=== PATIENT | male | born 1955 | race Two or more races ===

== ENCOUNTER 2020-02-29 12:58 | Inpatient (IN) | payer OTHER, SELFPAY ==
[2020-02-29] VITALS (9 sets, daily range): BP systolic 118–166; BP diastolic 68–89; PULSE 85–106; RESP 18–30; TEMP 36.8–37.9; O2SAT 88–100; BMI 20.8
--- NOTE | 2020-02-29 | CT_ITS ---
EXAMINATION: CT CHEST WITHOUT CONTRAST CLINICAL INFORMATION: Chest radiograph earlier today demonstrated bilateral perihilar airspace disease suggesting either infectious or neoplastic process. COMPARISON: Chest radiograph earlier today and chest CT 10/11/2019, CT abdomen pelvis 11/06/2019. TECHNIQUE: Multidetector volumetric CT imaging of the chest was done. Axial MIP volume rendering provided. Sagittal and coronal reformatted images were obtained. This CT examination was performed using dose optimization techniques as appropriate, variously including the following: *Automated exposure control *Adjustment of mA and/or kV according to patient size (this includes techniques or standardized protocols for targeted exams where dose is matched to indication/reason for exam; i.e. extremities or head). *Use of iterative reconstruction technique. DLP: 233 mGy-cm FINDINGS: LUNGS AND PLEURAL: Again seen are background emphysematous changes with bullous formation. There is left perihilar significant disease present with associated consolidation surrounding the airways. This process appears slightly improved when compared to the prior study as previously this nearly reached the lateral chest wall but now is significantly better. Exactly what part of the medial component represents adenopathy is difficult to say because of lack of contrast, large heart size and enlarged pulmonary arteries. A pleural effusion that had been present on the left previously has for the most part resolved. Previously there had been some left lower lobe collapse and now there is left lower lobe consolidation (series 5 image 305). Previously seen right upper lobe and right lower lobe infiltrates have predominantly cleared. Right middle lobe consolidation appears slightly worse series 5 image 318). No suspicious pulmonary nodules are seen. MEDIASTINUM: There is marked cardiac enlargement. It is difficult to assess for mediastinal adenopathy with lack of IV contrast. Coronary calcifications are present. A right chest wall port has its tip in the SVC. No pericardial effusion. AXILLA: No lymphadenopathy. UPPER ABDOMEN: The right-sided liver mass has increased in size since the prior study of 10/11/2019 from 1.9 cm to 2.6 cm (series 3 image 57). At the time of a CT abdomen on 11/06/2019 this measured 2.0 cm. No new liver masses are seen. No adrenal metastatic disease is seen. OSSEOUS STRUCTURES: Some mild degenerative changes in the spine. No evidence of bony metastatic disease. IMPRESSION: This patient has biopsy-proven lung carcinoma (11/16/2019). There are background changes of emphysema. In addition: 1. Left perihilar mass difficult to evaluate because of lack of IV contrast but the associated infiltrate with this appears somewhat improved. 2. Previously seen right upper lobe and right lower lobe infiltrates have cleared. 3 .Right middle lobe infiltrate slightly worse. 4 .Increase in size of liver mass, presumably metastatic disease.
--- NOTE | 2020-02-29 13:30 | PC.NURSE ---
message left for pt's dtr to acquire information, pt is poor historian req this rn call pt's dtr
--- NOTE | 2020-02-29 13:44 | ECG_ITS ---
Test Reason : SOB Blood Pressure : / mmHG Vent. Rate : 108 BPM Atrial Rate : 108 BPM P-R Int : 152 ms QRS Dur : 102 ms QT Int : 356 ms P-R-T Axes : 034 -09 076 degrees QTc Int : 477 ms Sinus tachycardia Left axis deviation Possible Left atrial enlargement Left ventricular hypertrophy Intra-ventricular conduction delay Nonspecific ST abnormality Abnormal ECG When compared with ECG of 10-NOV-2019 19:09, No significant change was found Referred By: Ksenia Reyes Electronically Signed By:PING LAGOS MD
--- NOTE | 2020-02-29 13:44 | XR_ITS ---
EXAMINATION: XR CHEST CLINICAL INFORMATION: Cough, chest pain and shortness of breath COMPARISON: Previous chest x-rays most recent October [address] most recent September 2019 TECHNIQUE: Frontal view of the chest was obtained. FINDINGS: The cardiac silhouette is enlarged but stable. There are surgical clips in the right suprahilar region. There is bilateral perihilar airspace disease, left greater than right. This appears increased from October 2019 chest x-ray. The lungs are otherwise clear. There is no pleural effusion or pneumothorax. There is a right jugular port with tip projecting over the cavoatrial junction. There is deformity of the right anterior sixth rib suggestive of old trauma. This is similar to previous exam. There is a sclerotic lesion in the right anterior lateral ninth rib. This measures 6 x 18 mm and does not appear appreciably changed. IMPRESSION: Stable enlargement of the cardiac silhouette. Bilateral perihilar airspace disease, left greater than right. This appears increased from most recent chest x-ray October 2019. Infectious and neoplastic processes as well as post radiation change should be considered.
[2020-02-29 14:28] LABS: Eosinophils Percent Auto 0.2 % (0-4); Hematocrit 36.7 % (42-52); Hemoglobin 11.7 g/dl (14.0-18.0); Imm Gran Abs Auto 0.01 X10*3/uL (0.00-0.03); Imm Gran Pct Auto 0.2 % (0.0-0.4); Lymphocytes Absolute Auto 0.6 X10*3/uL (1.2-4.9); Lymphocytes Percent Auto 12.6 % (20-40); MANUAL DIFF FLAG SCAN; Mean Corpuscular HGB Conc 31.9 g/dl (31.0-36.0); Mean Corpuscular Hemoglobin 31.1 pg (27.0-33.0); Mean Corpuscular Volume 97.6 fL (80-98); Monocytes Absolute Auto 0.4 X10*3/uL (0.1-1.2); Monocytes Percent Auto 9.2 % (2-11); Neutrophils Absolute Auto 3.4 X10*3/uL (2.0-8.3); Neutrophils Percent Auto 77.8 % (45-73); Red Blood Count 3.76 X10*6/uL (4.60-5.80); Red Cell Distribution Width 16.1 % (11.0-16.0); SCAN SMEAR FLAG 1; White Blood Count 4.4 X10*3/uL (4.8-10.8)
[2020-02-29 14:32] LABS: Platelet Count 78 X10*3/uL (160-400)
--- NOTE | 2020-02-29 14:39 | ED_ITS ---
HPI - SOB/Dyspnea General Chief Complaint: Dyspnea Stated Complaint: FEVER Time Seen by Provider: 02/29/20 13:32 Source: patient Mode of arrival: ambulatory History of Present Illness HPI Narrative: 64 year old male with a past medical history of ESRD on HD (M/W/F), HTN, lung CA, liver neoplasm BIBA c/o worsening SOB times 2-3 days with productive cough, subjective fevers, nausea, and diarrhea. Reports associated SOB and CP. Denies chills, vomiting, LE edema, sick contacts patient is vague /poor historian had HD yesterday MD elicited complaint: shortness of breath, cough and chest pain Related Data Allergies Allergy/AdvReac Type Severity Reaction Status Date / Time aspirin Allergy Unknown dizziness Verified 05/10/18 00:00 azithromycin [AZITHROMYCIN] AdvReac Intermediate DIZZINESS Unverified 02/08/20 19:14 Review of Systems Review of Systems: Constitutional: No Weight loss, + subj Fever, No Chills, No Night Sweats, No Fatigue, +Malaise ENT/Mouth: No Hearing loss, No Ear Pain, No Nasal Congestion, No Sinus Pain, No Hoarseness, No sore throat, No Rhinorrhea Cardiovascular: + Chest Pain, + SOB, + Dyspnea on Exertion, No Orthopnea, No Edema, No Palpitations Respiratory: + Cough, No Sputum, No Wheezing, No Smoke Exposure Gastrointestinal: + Nausea, No Vomiting, + Diarrhea, No Constipation, No abdominal Pain Genitourinary: No Dysuria Skin: No Skin Lesions, No rash Patient is poor historian Yes all other systems are reviewed and are negative [facility] Past Medical History Medical History (Updated 02/29/20 @ 15:10 by KAITLIN Carreno) ESRD (end stage renal disease) HTN (hypertension) Liver cancer Lung cancer Social History Social History Advance Directives: No Advance Directives Information Provided: Yes Physical Exam Vital Signs and I&O and Narrative: Vital Signs and I&O: Vital Signs Temp 98.8 F 02/29/20 15:30 Pulse 106 H 02/29/20 15:30 Resp 20 02/29/20 15:30 BP 153/80 H 02/29/20 15:30 Pulse Ox 97 02/29/20 15:30 Intake & Output 02/28/20 02/29/20 02/29/20 18:59 06:59 18:59 Weight 60.328 kg Body Mass Index 20.8 Const: Other: chronically ill appearing HENMT: Head: Yes normal to inspection Ears: hearing grossly normal bilaterally General nose exam: Normal external nose present Face and sinus: Yes normal facial exam Eyes: General: appearance normal, both eyes and all related structures EOM: EOMs intact bilaterally Neck: Neck: Yes normal visual inspection Resp: Effort & Inspection: no stridor Auscultation: rhonchi, wheezes, diminished lung sounds and bronchial breath sounds Cardio: Rate: tachycardic Heart sounds: S1 normal heart sound present and S2 normal heart sound present GI: Inspection: Yes normal to inspection Palpation (GI): Soft to palpation, nontender, no guarding and not rigid Skin: Wounds: no wounds Extrem: General: Yes normal to inspection and No edema Course Course Course Narrative: -1441-- CXR IMPRESSION: Bilateral perihilar airspace disease, left greater than right increased from most recent chest x-ray October 2019. Infectious and neoplastic processes as well as post radiation change should be considered >> IV Zosyn ordered H&H at baseline, no leukocytosis -1538-- creatinine at baseline 7.6, troponin elevated 260 (high at baseline), BNP elevated 8230 MDM - SOB/Dyspnea MDM Narrative Medical decision making narrative: 64 year old male with a past medical history of ESRD on HD (M/W/F), HTN, lung CA, liver neoplasm BIBA c/o worsening SOB times 2-3 days with productive cough, subjective fevers, nausea, and diarrhea. On exam tachycardic, tachypneic, sating 90-94% on RA with coarse lung sounds throughout. Concern for pneumonia vs viral syndrome/COVID-19. Rule out ACS /CHF plan: EKG, labs, CXR, lactate, blood cultures, anticipated admission Differential Diagnosis Differential diagnosis: Likely congestive heart failure, pneumonia and pleural effusion Medical Records Attestation: I reviewed the patient's medical records. Lab Data Attestation: I reviewed the patient's lab results. Result diagrams: 02/29/20 14:20 02/29/20 14:20 Labs: Lab Results 02/29/20 02/29/20 02/29/20 Range/Units 14:20 14:20 14:20 WBC 4.4 L (4.8-10.8) X10*3/uL RBC 3.76 L (4.60-5.80) X10*6/uL Hgb 11.7 L (14.0-18.0) g/dl Hct 36.7 L (42-52) % MCV 97.6 (80-98) fL MCH 31.1 (27.0-33.0) pg MCHC 31.9 (31.0-36.0) g/dl RDW 16.1 H (11.0-16.0) % Plt Count 78 L (160-400) X10*3/uL MPV 10.0 (9.4-12.4) fL Immature Gran % (Auto) 0.2 (0.0-0.4) % Neut % (Auto) 77.8 H (45-73) % Lymph % (Auto) 12.6 L (20-40) % Barren % (Auto) 9.2 (2-11) % Eos % (Auto) 0.2 (0-4) % Baso % (Auto) 0.0 (0-2) % Lymph # (Auto) 0.6 L (1.2-4.9) X10*3/uL Barren # (Auto) 0.4 (0.1-1.2) X10*3/uL Eos # (Auto) 0.0 (0.0-0.4) X10*3/uL Baso # (Auto) 0.0 (0.0-0.2) X10*3/uL Abs Immat Gran (auto) 0.01 (0.00-0.03) X10*3/uL Absolute Neuts (auto) 3.4 (2.0-8.3) X10*3/uL Absolute Nucleated RBC 0.000 (0.0-0.012) X10*3/uL Nucleated RBC % (auto) 0.0 (0.0-0.2) /100WBC Smear Tech's Comments VERIFIED Hold Blue Top SEE NOTE Sodium 140 (135-145) mmol/L Potassium 4.9 (3.3-5.1) mmol/l Chloride 97 (96-108) mmol/L Carbon Dioxide 31 H (22-29) mmol/L Anion Gap 17 (12-20) BUN 35 H (9-16) mg/dL Creatinine 7.63 H* (0.5-1.4) mg/dL Estim Creat Clear Calc 8.4 Estimated GFR 7 Random Glucose 97 (60-115) mg/dL Lactic Acid (0.5-2.0) mmol/L Calcium 8.4 (8.4-10.2) mg/dL Magnesium 1.8 (1.6-2.6) mg/dL Total Bilirubin 0.9 (0.0-1.0) mg/dL Direct Bilirubin 0.3 (0.0-0.5) mg/dL AST 33 (5-37) U/L ALT 27 (0-40) U/L Alkaline Phosphatase 152 H (39-117) U/L Lactate Dehydrogenase 279 H (118-273) U/L Troponin I High Sens (<3.5-35.0) ng/L B-Natriuretic Peptide (<100) pg/mL Total Protein 7.7 (6.5-8.0) g/dL Albumin 4.1 (3.5-5.0) g/dL 02/29/20 02/29/20 Range/Units 14:20 14:20 WBC (4.8-10.8) X10*3/uL RBC (4.60-5.80) X10*6/uL Hgb (14.0-18.0) g/dl Hct (42-52) % MCV (80-98) fL MCH (27.0-33.0) pg MCHC (31.0-36.0) g/dl RDW (11.0-16.0) % Plt Count (160-400) X10*3/uL MPV (9.4-12.4) fL Immature Gran % (Auto) (0.0-0.4) % Neut % (Auto) (45-73) % Lymph % (Auto) (20-40) % Barren % (Auto) (2-11) % Eos % (Auto) (0-4) % Baso % (Auto) (0-2) % Lymph # (Auto) (1.2-4.9) X10*3/uL Barren # (Auto) (0.1-1.2) X10*3/uL Eos # (Auto) (0.0-0.4) X10*3/uL Baso # (Auto) (0.0-0.2) X10*3/uL Abs Immat Gran (auto) (0.00-0.03) X10*3/uL Absolute Neuts (auto) (2.0-8.3) X10*3/uL Absolute Nucleated RBC (0.0-0.012) X10*3/uL Nucleated RBC % (auto) (0.0-0.2) /100WBC Smear Tech's Comments Hold Blue Top Sodium (135-145) mmol/L Potassium (3.3-5.1) mmol/l Chloride (96-108) mmol/L Carbon Dioxide (22-29) mmol/L Anion Gap (12-20) BUN (9-16) mg/dL Creatinine (0.5-1.4) mg/dL Estim Creat Clear Calc Estimated GFR Random Glucose (60-115) mg/dL Lactic Acid 1.1 (0.5-2.0) mmol/L Calcium (8.4-10.2) mg/dL Magnesium (1.6-2.6) mg/dL Total Bilirubin (0.0-1.0) mg/dL Direct Bilirubin (0.0-0.5) mg/dL AST (5-37) U/L ALT (0-40) U/L Alkaline Phosphatase (39-117) U/L Lactate Dehydrogenase (118-273) U/L Troponin I High Sens 260.7 H (<3.5-35.0) ng/L B-Natriuretic Peptide 8230 H (<100) pg/mL Total Protein (6.5-8.0) g/dL Albumin (3.5-5.0) g/dL
[2020-02-29 14:50] LABS: SLIDE REVIEW VERIFIED
[2020-02-29 14:52] LABS: Lactic Acid 1.1 mmol/L (0.5-2.0)
[2020-02-29 15:25] LABS: Magnesium 1.8 mg/dL (1.6-2.6)
[2020-02-29] MEDS: Piperacillin Sodium/Tazobactam 3.375 GM in 0.9 % Sodium Chloride 50 ML IV (15:28)
[2020-02-29] MEDS: 0.9 % Sodium Chloride 500 ML 999 ML IVCONT (15:28)
[2020-02-29 15:34] LABS: B Type Natriuretic Peptide 8230 pg/mL (<100); Troponin-I High Sensitivity 260.7 ng/L (<3.5-35.0)
[2020-02-29 15:35] LABS: Alanine Aminotransferase 27 U/L (0-40); Albumin Level 4.1 g/dL (3.5-5.0); Alkaline Phosphatase 152 U/L (39-117); Anion Gap 17 (12-20); Aspartate Amino Transferase 33 U/L (5-37); Bilirubin Direct 0.3 mg/dL (0.0-0.5); Bilirubin Total 0.9 mg/dL (0.0-1.0); Blood Urea Nitrogen 35 mg/dL (9-16); Calcium 8.4 mg/dL (8.4-10.2); Carbon Dioxide 31 mmol/L (22-29); Chloride 97 mmol/L (96-108); Creatinine Clr Calc Pharmacy 8.4; Estimated Glomerular Filt Rate 7; Glucose Random 97 mg/dL (60-115); Lactate Dehydrogenase 279 U/L (118-273); Potassium 4.9 mmol/l (3.3-5.1); Sodium 140 mmol/L (135-145); Total Protein 7.7 g/dL (6.5-8.0)
[2020-02-29 16:16] LABS: Ferritin 1348 ng/mL (20-250)
[2020-02-29 16:44] LABS: Procalcitonin 0.85 ng/mL
--- NOTE | 2020-02-29 17:14 | PM.IMHP ---
History of Present Illness Date of Service: 02/29/20 Chief Complaint: Shortness of breath this is a 64-year-old Divehi-speaking male with a history of metastatic lung cancer who presents to the emergency department today with complaints of shortness of breath. He reports 3 days of shortness of breath with associated intermittent cough productive of scant phlegm. He reports fever at home. he denies any recent sick contacts. In the emergency department he had low-grade fever of 99.7. Lab work revealed pancytopenia. Troponin was elevated at 260.7 with no associated EKG changes. Chest x-ray showed possibility of airspace disease versus neoplasm versus radiation damage and CT chest has been ordered. he was started on IV antibiotics. COVID19 was checked and was positive. The decision was made to admit him for further management. Review of Systems Review of Systems: Yes all other systems are reviewed and are negative Constitutional: Constitutional: Reports fever(s) Cardiovascular: Cardiovascular: Denies chest pain and Reports dyspnea Respiratory: Respiratory: Reports cough and Reports dyspnea Gastrointestinal: Gastrointestinal: Denies abdominal pain [facility] Medical History (Updated 02/29/20 @ 17:28 by KAITLIN Duran) ESRD (end stage renal disease) HTN (hypertension) Lung cancer Functional capacity: independent ambulation Family History (Updated 02/29/20 @ 17:29 by KAITLIN Duran) Mother Heart disease Diabetes Surgical History (Updated 02/29/20 @ 17:30 by KAITLIN Duran) History of esophagogastroduodenoscopy (EGD) History of lobectomy of lung Social History (Updated 02/29/20 @ 17:31 by KAITLIN Duran) Household Members: Family Alcohol intake: never Smoking Status: Former smoker Use of substances other than those prescribed or required for medical reasons: No Advance Directives: No Advance Directives Information Provided: Yes Meds Allergies Allergy/AdvReac Type Severity Reaction Status Date / Time aspirin Allergy Unknown dizziness Verified 05/10/18 00:00 azithromycin [AZITHROMYCIN] AdvReac Intermediate DIZZINESS Unverified 02/08/20 19:14 Physical Exam Vital Signs and Narrative: Vital Signs: Last Vital Signs Temp 99.7 F 02/29/20 15:47 Pulse 105 H 02/29/20 15:47 Resp 22 H 02/29/20 15:47 BP 153/80 H 02/29/20 15:47 Pulse Ox 95 02/29/20 15:47 Body Mass Index 20.8 Const: Nutritional Appearance: well nourished Orientation/consciousness: patient oriented x3 HENMT: Head: Yes normocephalic and Yes atraumatic Eyes: Sclerae: sclerae normal Chest: Chest palpation & inspection: normal inspection of the chest Resp: Effort & Inspection: normal respiratory effort and no respiratory distress Auscultation: crackles on the left Cardio: Rate: regular rate Rhythm: regular rhythm GI: Palpation (GI): Soft to palpation and nontender Skin: General skin exam: no rashes or lesions noted Neuro: General: patient oriented x3 Cranial nerves: Yes CN's II-XII intact bilaterally and Yes Bilaterally intact EOM present Extrem: General: Yes normal to inspection Results Labs Labs: Laboratory Tests 02/29/20 02/29/20 02/29/20 14:20 14:20 14:20 WBC 4.4 L RBC 3.76 L Hgb 11.7 L Hct 36.7 L MCV 97.6 MCH 31.1 MCHC 31.9 RDW 16.1 H Plt Count 78 L MPV 10.0 Immature Gran % (Auto) 0.2 Neut % (Auto) 77.8 H Lymph % (Auto) 12.[address] [place] % (Auto) 9.2 Eos % (Auto) 0.2 Baso % (Auto) 0.0 Lymph # (Auto) 0.[address] [place] # (Auto) 0.4 Eos # (Auto) 0.0 Baso # (Auto) 0.0 Abs Immat Gran (auto) 0.01 Absolute Neuts (auto) 3.4 Absolute Nucleated RBC 0.000 Nucleated RBC % (auto) 0.0 Smear Tech's Comments VERIFIED Hold Blue Top SEE NOTE Sodium 140 Potassium 4.9 Chloride 97 Carbon Dioxide 31 H Anion Gap 17 BUN 35 H Creatinine 7.63 H* Estim Creat Clear Calc 8.4 Estimated GFR 7 Random Glucose 97 Lactic Acid Calcium 8.4 Magnesium 1.8 Ferritin 1348 H Total Bilirubin 0.9 Direct Bilirubin 0.3 AST 33 ALT 27 Alkaline Phosphatase 152 H Lactate Dehydrogenase 279 H Troponin I High Sens B-Natriuretic Peptide Total Protein 7.7 Albumin 4.1 Procalcitonin 02/29/20 02/29/20 02/29/20 14:20 14:20 14:20 WBC RBC Hgb Hct MCV MCH MCHC RDW Plt Count MPV Immature Gran % (Auto) Neut % (Auto) Lymph % (Auto) [place] % (Auto) Eos % (Auto) Baso % (Auto) Lymph # (Auto) [place] # (Auto) Eos # (Auto) Baso # (Auto) Abs Immat Gran (auto) Absolute Neuts (auto) Absolute Nucleated RBC Nucleated RBC % (auto) Smear Tech's Comments Hold Blue Top Sodium Potassium Chloride Carbon Dioxide Anion Gap BUN Creatinine Estim Creat Clear Calc Estimated GFR Random Glucose Lactic Acid 1.1 Calcium Magnesium Ferritin Total Bilirubin Direct Bilirubin AST ALT Alkaline Phosphatase Lactate Dehydrogenase Troponin I High Sens 260.7 H B-Natriuretic Peptide 8230 H Total Protein Albumin Procalcitonin 0.85 Assessment and Plan (1) Pneumonia: Status: Acute (2) ESRD (end stage renal disease): Status: Acute this is a 64-year-old male with a history of metastatic lung cancer, ESRD on hemodialysis who presents to the emergency department with shortness of breath found to have COVID 19 pneumonia. Sepsis meets criteria tachypnea, tachycardia lactic acid normal, blood pressure stable related to pneumonia sepsis focused exam completed follow-up blood cultures creatinine is elevated due to ESRD not severe sepsis thrombocytopenia related to chemotherapy not severe sepsis Pneumonia COVID 19 positive IV antibiotics -IV decadron -ID consult -follow-up blood cultures -continue supplemental o2 prn elevated troponin likely related to underlying ESRD no chest pain, no ischemic EKG changes trend troponin ESRD on HD last hemodialysis yesterday 02/27 Nephrology consult pancytopenia related to current chemotherapy we will continue home medications when med reconciliation has been completed DVT prophylaxis- mechanical devices code status- full code this case was discussed with Dr. Aburto
--- NOTE | 2020-02-29 17:34 | P.EN_ITS ---
Event Note Event Note: the patient was seen and evaluated with KAITLIN Duran. I agree with her note, assessment and plan with the following. in summary, a 64 years old Lebanese-speaking male with PMH ESRD on HD, liver cancer, lung cancer post chemo on radiation who is actively on chemotherapy presenting to the hospital with shortness of breath, cough with reported Fever andchills. CXR in the emergency showing possible infiltrate in the Lungs. He is mildly tachycardic and tachypneic. with coarse crackles in the left lower lobe. He has chronic leukopenia. Saturation of 91 on room air Community-acquired pneumonia with MDR risk factors Patient on chemotherapy with history of lung cancer Sent blood cultures To check CT scan of the chest Start broad-spectrum antibiotic of Zosyn and doxycycline, renally adjusted doses O2 supplement as needed Cough medication ESRD on HD To do dialysis MWF Rest of evaluations by PA note.
[2020-02-29 18:37] LABS: SARS COV2 PCR INHOUSE POSITIVE (Negative)
[2020-02-29 19:50] LABS: Troponin-I High Sensitivity 348.3 ng/L (<3.5-35.0)
[2020-02-29] MEDS: Doxycycline Hyclate 100 MG in 0.9 % Sodium Chloride 250 ML 250 MG IV (22:22)
[2020-03-01] VITALS (9 sets, daily range): BP systolic 106–138; BP diastolic 60–75; PULSE 78–96; RESP 18–19; TEMP 36.7–37.4; O2SAT 94–100; BMI 20.8
[2020-03-01] MEDS: 0.9 % Sodium Chloride Flush 3 ML SYRINGE IVFLUSH ×4 (00:03→20:23)
[2020-03-01 06:41] LABS: MANUAL DIFF FLAG NO
[2020-03-01 06:56] LABS: Hematocrit 33.4 % (42-52); Hemoglobin 10.4 g/dl (14.0-18.0); Imm Gran Abs Auto 0.02 X10*3/uL (0.00-0.03); Imm Gran Pct Auto 0.3 % (0.0-0.4); Lymphocytes Absolute Auto 1.2 X10*3/uL (1.2-4.9); Lymphocytes Percent Auto 21.2 % (20-40); Mean Corpuscular HGB Conc 31.1 g/dl (31.0-36.0); Mean Corpuscular Hemoglobin 30.3 pg (27.0-33.0); Mean Corpuscular Volume 97.4 fL (80-98); Mean Platelet Volume 10.3 fL (9.4-12.4); Monocytes Absolute Auto 0.5 X10*3/uL (0.1-1.2); Monocytes Percent Auto 8.3 % (2-11); Neutrophils Percent Auto 70.2 % (45-73); Red Blood Count 3.43 X10*6/uL (4.60-5.80); Red Cell Distribution Width 16.1 % (11.0-16.0); White Blood Count 5.8 X10*3/uL (4.8-10.8)
[2020-03-01 07:21] LABS: Platelet Count 56 X10*3/uL (160-400)
[2020-03-01 07:51] LABS: Anion Gap 16 (12-20); Blood Urea Nitrogen 44 mg/dL (9-16); Calcium 7.9 mg/dL (8.4-10.2); Carbon Dioxide 26 mmol/L (22-29); Chloride 98 mmol/L (96-108); Creatinine Clr Calc Pharmacy 7.4; Estimated Glomerular Filt Rate 6; Glucose Random 83 mg/dL (60-115); Potassium 5.3 mmol/l (3.3-5.1); Sodium 135 mmol/L (135-145)
[2020-03-01] MEDS: Doxycycline Hyclate 100 MG in 0.9 % Sodium Chloride 250 ML 250 MG IV ×2 (09:41→23:30)
[2020-03-01] MEDS: dexAMETHasone 6 MG TABLET PO (09:41)
--- NOTE | 2020-03-01 11:31 | PC.NURSE ---
Karen's temp noted to be 99.1, patient was wearing mask at time,rechecked and noted to be normal 98.3.
--- NOTE | 2020-03-01 13:28 | P.CNID_ITS ---
History of Present Illness Data of Consult Service Date: 03/01/20 Requesting physician: Inna Aburto Primary Care Provider: Cherrie Cooper MD HPI Reason for consult: lung infiltrates He presents with shortness of breath and cough for 7 days worsening He has had fever,but none right now He is on 1 liter and 90-91 percent oxygen on room air CXR basilar infiltrate right and left and mass left He is COVID positive and COVID negative here lastly in Review of Systems Review of Systems: Yes all other systems are reviewed and are negative Respiratory: Respiratory: Reports chest congestion and Reports cough PMFSH Past Medical History Medical History ESRD (end stage renal disease) HTN (hypertension) Lung cancer Functional capacity: independent ambulation Family History Family History Mother Heart disease Diabetes Surgical History Surgical History History of esophagogastroduodenoscopy (EGD) History of lobectomy of lung Social History Social History Household Members: Family Housing: Apartment Do you presently have visiting nurse or other home services: No Alcohol intake: never Smoking Status: Former smoker Smoked in Last 30 Days: No Use of substances other than those prescribed or required for medical reasons: No Currently Displaying Signs/Symptoms of Drug Intoxication Withdrawal: No Have you been hit, kicked, punched, or otherwise hurt by someone within the past year? If so, by whom?: No Do you feel safe in your current relationship?: No Is there a partner from a previous relationship who is making you feel unsafe now?: No Are you made to feel afraid or neglected: No Advance Directives: No Advance Directives Information Provided: Yes Do you have thoughts of harming others: None Do you have a plan to hurt others: No Plan Recently lost weight without trying: Yes service: No Current occupational status: disabled Meds Allergies Allergy/AdvReac Type Severity Reaction Status Date / Time Unable to Assess Allergy Verified 03/01/20 01:02 Home Medications Medication Instructions Recorded Confirmed Type alprazolam 0.25 mg PO BEDTIME 03/01/20 03/01/20 History aspirin 81 mg PO DAILY 03/01/20 03/01/20 History atorvastatin 40 mg PO BEDTIME 03/01/20 03/01/20 History buspirone 15 mg PO BID 03/01/20 03/01/20 History carvedilol 6.25 mg PO BID 03/01/20 03/01/20 History docusate sodium [Colace] 100 mg PO BID 03/01/20 03/01/20 History ergocalciferol (vitamin D2) 1,250 mcg PO Q60D 03/01/20 03/01/20 History [Vitamin D2] folic acid 1 mg PO DAILY 03/01/20 03/01/20 History metoclopramide HCl [Reglan] 5 mg PO DAILY 03/01/20 03/01/20 History mirtazapine 30 mg PO BEDTIME 03/01/20 03/01/20 History multivitamin with minerals 1 tab PO DAILY 03/01/20 03/01/20 History omeprazole 40 mg PO BID 03/01/20 03/01/20 History polyethylene glycol 3350 [Miralax] 17 g PO DAILY 03/01/20 03/01/20 History sevelamer carbonate [Renvela] 800 mg PO TID 03/01/20 03/01/20 History Physical Exam Vital Signs and I&O and Narrative: Vital Signs and I&O: Vital Signs Temp 98.3 F 03/01/20 11:30 Pulse 78 03/01/20 10:58 Resp 18 03/01/20 10:58 BP 127/68 03/01/20 10:58 Pulse Ox 98 03/01/20 10:58 Intake & Output 02/29/20 03/01/20 03/01/20 18:59 06:59 18:59 Intake Total 550 / 860 310 / 860 730.000 / 730.000 Output Total 200 / 200 2 / 2 Balance 550 / 660 110 / 660 728.000 / 728.000 Urine Output (Aver age ml/kg/hr) 0.28 0.00 Weight 133 lb Intake: Intake, Oral Niall unt 60 / 60 480 / 480 Intake, IV Amoun t 550 / 800 250 / 800 250.000 / 250.000 Doxycycline Hy clate 100 mg In 0 250 / 250 250.000 / 250.000 .9 % Sodium Ch loride 250 ml @ 250 mls/hr IV BID [facility] Rx#: [id number] Piperacillin S odium/Tazobactam 50 / 50 3.375 gm In 0. 9 % Sodium Chloride 50 ml @ 100 mls/hr IV ONCE ONE Rx#:[id number] 0.9 % Sodium C hloride 500 ml @ 500 / 500 999 mls/hr IVC ONT .Q31M [facility] Rx# :[id number] Output: Output, Urine Am ount 200 / 200 2 / 2 Other: Meal Refused No NPO No Breakfast % Eate n 75% Urine Bathroom Bathroom Urine Color Yellow Body Mass Index 20.8 Const: Other: ill appearing, on 1 liter oxygen Orientation/consciousness: oriented to person, oriented to place and oriented to time HENMT: Head: Yes normal to inspection Ears: hearing grossly normal bilaterally Face and sinus: Yes normal facial exam and Yes sinuses nontender Mouth: Normal oral and palatal mucosa present Resp: Other: rhonchi both lungs Effort & Inspection: abnormal respiratory pattern Auscultation: rales and bronchial breath sounds Cardio: Rate: regular rate Rhythm: regular rhythm GI: Inspection: Yes normal to inspection Palpation (GI): Soft to palpation and nontender : General: Yes no CVA tenderness Back/Spine/Pelvis: Back: no CVA tenderness Skin: General skin exam: no rashes or lesions noted Neuro: General: oriented to person, oriented to place and oriented to time Extrem: General: Yes normal to inspection Assessment and Plan (1) COVID-19: Status: Acute Would give IV Dexamethasone 6 mg daily while in hospital and change to 8 mg po when improved to complete 10 days total He is not a candidate for Remdesivir due to renal failure Antibodies not likely be that helpful (2) Pneumonia: Status: Acute Continue Doxycycline (3) ESRD (end stage renal disease): Status: Acute
--- NOTE | 2020-03-01 14:03 | MHC.CLN ---
PT IS MILDLY MALNOURISHED SEE ALSO NUTRITION ASSESSMENT WILL ADD ENSURE BID TO INCREASE KCALS
--- NOTE | 2020-03-01 15:14 | MHC.CM.PN ---
Male 62 DX FEVER lives with family. PT is independent all functional mobility. DP home, resume HD M/W/F Family transport. cm will follow
--- NOTE | 2020-03-01 15:32 | HO.PM.IMPN ---
Subjective Subjective Date of Service: 03/01/20 Interval History: the patient was seen and evaluated in the morning Sitting comfortable in his bed, denies fever or chills Reports general weakness, coughing No reported other overnight Review of Systems Review of Systems: Yes all other systems are reviewed and are negative Respiratory Respiratory: Reports no additional respiratory complaints Physical Exam Vital Signs and I&O and Narrative: Vital Signs and I&O: Vital Signs Temp 98.3 F 03/01/20 11:30 Pulse 78 03/01/20 10:58 Resp 18 03/01/20 10:58 BP 127/68 03/01/20 10:58 Pulse Ox 98 03/01/20 10:58 Intake & Output 02/29/20 03/01/20 03/01/20 18:59 06:59 18:59 Intake Total 550 / 860 310 / 860 730.000 / 730.000 Output Total 200 / 200 2 / 2 Balance 550 / 660 110 / 660 728.000 / 728.000 Urine Output (Aver age ml/kg/hr) 0.28 0.00 Weight 60.328 kg 60.328 kg Intake: Intake, Oral Niall unt 60 / 60 480 / 480 Intake, IV Amoun t 550 / 800 250 / 800 250.000 / 250.000 Doxycycline Hy clate 100 mg In 0 250 / 250 250.000 / 250.000 .9 % Sodium Ch loride 250 ml @ 250 mls/hr IV BID [facility] Rx#: [id number] Piperacillin S odium/Tazobactam 50 / 50 3.375 gm In 0. 9 % Sodium Chloride 50 ml @ 100 mls/hr IV ONCE ONE Rx#:[id number] 0.9 % Sodium C hloride 500 ml @ 500 / 500 999 mls/hr IVC ONT .Q31M [facility] Rx# :[id number] Output: Output, Urine Am ount 200 / 200 2 / 2 Other: Meal Refused No NPO No Breakfast % Eate n 75% Urine Bathroom Bathroom Urine Color Yellow Body Mass Index 20.8 Constitutional : Alert, does not look in distress Neck : Normal inspection, Supple Cardiovascular : RRR, S1 S2, no lower extremity edema Respiratory : for bilateral air entry, fine crackles, wheezes or rhonchi Gastrointestinal: soft, lax, Normal bowel sounds, Non tender Skin : Warm/Dry, No rash Neurological : Alert, interactive, No focal deficit Objective Data Current Medications Generic Name Dose Route Start Last Admin Trade Name Petra PRN Reason Stop Dose Admin Acetaminophen 650 mg 03/01/20 11:21 Acetaminophen 325 Mg Tablet PO Q6H PRN Pain and Fever Dexamethasone Sodium Phosphate 6 mg 03/01/20 13:30 Dexamethasone Sod Phosphate 4 Mg/Ml Vial IVPUSH DAILY [facility] Docusate Sodium 100 mg 02/29/20 21:14 Docusate Sodium 100 Mg Capsule PO DAILY PRN Constipation Heparin Sodium (Porcine) 5,000 unit 03/01/20 16:45 03/01/20 14:31 Heparin Sodium,Porcine 5,000 Unit/Ml Vial INTRACATH Not Given [id number] [facility] Doxycycline Hyclate 100 mg/ 250 mls @ 250 mls/hr 02/29/20 22:00 03/01/20 11:33 Sodium Chloride IV Infused BID [facility] Infusion Ondansetron HCl 4 mg 02/29/20 21:14 Ondansetron Hcl 4 Mg/2 Ml Vial IVPUSH Q8H PRN Nausea and Vomiting Sodium Chloride 3 ml 03/01/20 00:00 03/01/20 09:41 0.9 % Sodium Chloride Flush 3 Ml Syringe IVFLUSH 3 ml QSHIFT [facility] Administration Labs CBC & Chem 7: 03/01/20 06:11 03/01/20 06:11 Labs: Laboratory Results - last 24 hr 02/29/20 02/29/20 02/29/20 14:20 14:20 14:20 MCV MCH MCHC RDW Plt Count MPV Immature Gran % (Auto) Neut % (Auto) Lymph % (Auto) [place] % (Auto) Eos % (Auto) Baso % (Auto) Lymph # (Auto) [place] # (Auto) Eos # (Auto) Baso # (Auto) Abs Immat Gran (auto) Absolute Neuts (auto) Absolute Nucleated RBC Nucleated RBC % (auto) Anion Gap 17 Estim Creat Clear Calc 8.4 Estimated GFR 7 Random Glucose 97 Calcium 8.4 Ferritin 1348 H Total Bilirubin 0.9 Direct Bilirubin 0.3 AST 33 ALT 27 Alkaline Phosphatase 152 H Lactate Dehydrogenase 279 H Troponin I High Sens 260.7 H B-Natriuretic Peptide 8230 H Total Protein 7.7 Albumin 4.1 Procalcitonin 0.85 Coronavirus (PCR) 02/29/20 02/29/20 03/01/20 17:34 18:56 06:11 MCV 97.4 MCH 30.3 MCHC 31.1 RDW 16.1 H Plt Count 56 L D MPV 10.3 Immature Gran % (Auto) 0.3 Neut % (Auto) 70.2 Lymph % (Auto) 21.2 [place] % (Auto) 8.3 Eos % (Auto) 0.0 Baso % (Auto) 0.0 Lymph # (Auto) 1.2 [place] # (Auto) 0.5 Eos # (Auto) 0.0 Baso # (Auto) 0.0 Abs Immat Gran (auto) 0.02 Absolute Neuts (auto) 4.0 Absolute Nucleated RBC 0.000 Nucleated RBC % (auto) 0.0 Anion Gap Estim Creat Clear Calc Estimated GFR Random Glucose Calcium Ferritin Total Bilirubin Direct Bilirubin AST ALT Alkaline Phosphatase Lactate Dehydrogenase Troponin I High Sens 348.3 H B-Natriuretic Peptide Total Protein Albumin Procalcitonin Coronavirus (PCR) POSITIVE A 03/01/20 06:11 MCV MCH MCHC RDW Plt Count MPV Immature Gran % (Auto) Neut % (Auto) Lymph % (Auto) [place] % (Auto) Eos % (Auto) Baso % (Auto) Lymph # (Auto) [place] # (Auto) Eos # (Auto) Baso # (Auto) Abs Immat Gran (auto) Absolute Neuts (auto) Absolute Nucleated RBC Nucleated RBC % (auto) Anion Gap 16 Estim Creat Clear Calc 7.4 Estimated GFR 6 Random Glucose 83 Calcium 7.9 L Ferritin Total Bilirubin Direct Bilirubin AST ALT Alkaline Phosphatase Lactate Dehydrogenase Troponin I High Sens B-Natriuretic Peptide Total Protein Albumin Procalcitonin Coronavirus (PCR) Assessment and Plan (1) COVID-19: Status: Acute (2) Pneumonia: Status: Acute (3) ESRD (end stage renal disease): Status: Acute Assessment and Plan: A 64-year-old male with a history of metastatic lung cancer, ESRD on hemodialysis who presents to the emergency department with shortness of breath found to have COVID 19 pneumonia. Sepsis, resolved 2/2 Pneumonia COVID 19 positive continue doxycycline continue Decadron pending blood cultures oxygen supplement as needed Infectious Disease input appreciated elevated troponin likely related to underlying ESRD no chest pain, no ischemic EKG changes trend troponin ESRD on HD plan dialysis today Nephrology input appreciated pancytopenia related to current chemotherapy HX CAD continue ASA, atorvastatin and carvedilol Mood Continue Mirtazapine and Buspirone DVT prophylaxis heparin
[2020-03-01] MEDS: dexAMETHasone sod phosphate 4 MG/ML VIAL 6 MG IVPUSH (17:13)
--- NOTE | 2020-03-01 19:31 | PM.CNNEP ---
History of Present Illness Reason for Consult Consult date: 03/01/20 Reason for consult: ESRD Chief Complaint Chief complaint: FEVER History of Present Illness Narrative: 64 y/o esrd with respsymptoms x past several days now COVID positive. [facility]wf ( [facility] unit [id number]).Being eval by ID for Tx options. C/O cough and SOB. and fever. No Cp. PMFSH Past Medical History Medical History ESRD (end stage renal disease) HTN (hypertension) Lung cancer Functional capacity: independent ambulation Family History Family History Mother Heart disease Diabetes Surgical History Surgical History History of esophagogastroduodenoscopy (EGD) History of lobectomy of lung Social History Social History Household Members: Family Housing: Apartment Do you presently have visiting nurse or other home services: No Alcohol intake: never Smoking Status: Former smoker Smoked in Last 30 Days: No Use of substances other than those prescribed or required for medical reasons: No Currently Displaying Signs/Symptoms of Drug Intoxication Withdrawal: No Have you been hit, kicked, punched, or otherwise hurt by someone within the past year? If so, by whom?: No Do you feel safe in your current relationship?: No Is there a partner from a previous relationship who is making you feel unsafe now?: No Are you made to feel afraid or neglected: No Advance Directives: No Advance Directives Information Provided: Yes Do you have thoughts of harming others: None Do you have a plan to hurt others: No Plan Recently lost weight without trying: Yes service: No Current occupational status: disabled Meds Allergies Allergy/AdvReac Type Severity Reaction Status Date / Time Unable to Assess Allergy Verified 03/01/20 01:02 Home Medications Medication Instructions Recorded Confirmed Type alprazolam 0.25 mg PO BEDTIME 03/01/20 03/01/20 History aspirin 81 mg PO DAILY 03/01/20 03/01/20 History atorvastatin 40 mg PO BEDTIME 03/01/20 03/01/20 History buspirone 15 mg PO BID 03/01/20 03/01/20 History carvedilol 6.25 mg PO BID 03/01/20 03/01/20 History docusate sodium [Colace] 100 mg PO BID 03/01/20 03/01/20 History ergocalciferol (vitamin D2) 1,250 mcg PO Q60D 03/01/20 03/01/20 History [Vitamin D2] folic acid 1 mg PO DAILY 03/01/20 03/01/20 History metoclopramide HCl [Reglan] 5 mg PO DAILY 03/01/20 03/01/20 History mirtazapine 30 mg PO BEDTIME 03/01/20 03/01/20 History multivitamin with minerals 1 tab PO DAILY 03/01/20 03/01/20 History omeprazole 40 mg PO BID 03/01/20 03/01/20 History polyethylene glycol 3350 [Miralax] 17 g PO DAILY 03/01/20 03/01/20 History sevelamer carbonate [Renvela] 800 mg PO TID 03/01/20 03/01/20 History Physical Exam Vital Signs and I&O: Vital Signs Temp 98.0 F 03/01/20 19:08 Pulse 90 03/01/20 19:08 Resp 18 03/01/20 19:08 BP 123/72 03/01/20 19:08 Pulse Ox 100 03/01/20 19:08 Intake & Output 03/01/20 03/01/20 03/02/20 06:59 18:59 06:59 Intake Total 310 / 860 730.000 / 730.000 Output Total 200 / 200 2 / 2 Balance 110 / 660 728.000 / 728.000 Urine Output (Average ml/kg/hr) 0.28 0.00 Weight 60.328 kg Intake: Intake, Oral Amount 60 / 60 480 / 480 Intake, IV Amount 250 / 800 250.000 / 250.000 Doxycycline Hyclate 100 mg In 0 250 / 250 250.000 / 250.000 .9 % Sodium Chloride 250 ml @ 250 mls/hr IV BID [facility] Rx#: [id number] Output: Output, Urine Amount 200 / 200 2 / 2 Other: Meal Refused No NPO No Breakfast % Eaten 75% Urine Bathroom Bathroom Urine Color Yellow Body Mass Index 20.8 Const Other: ill appearing, on 1 liter oxygen Nutritional Appearance: well nourished Orientation/consciousness: oriented to person, oriented to place, oriented to time and patient oriented x3 HENMT Head: Yes normal to inspection, Yes normocephalic and Yes atraumatic Ears: hearing grossly normal bilaterally General nose exam: Normal external nose present Face and sinus: Yes normal facial exam and Yes sinuses nontender Mouth: Normal oral and palatal mucosa present Eyes General: appearance normal, both eyes and all related structures Sclerae: sclerae normal EOM: EOMs intact bilaterally Neck Neck: Yes normal visual inspection Chest Chest palpation & inspection: normal inspection of the chest Resp Other: rhonchi both lungs Effort & Inspection: normal respiratory effort, abnormal respiratory pattern, no respiratory distress and no stridor Auscultation: crackles on the left, rales, rhonchi, wheezes, diminished lung sounds and bronchial breath sounds Cardio Rate: regular rate and tachycardic Rhythm: regular rhythm Heart sounds: S1 normal heart sound present and S2 normal heart sound present GI Inspection: Yes normal to inspection Palpation (GI): Soft to palpation, nontender, no guarding and not rigid General: Yes no CVA tenderness Back/Spine/Pelvis Back: no CVA tenderness Skin General skin exam: no rashes or lesions noted Wounds: no wounds Neuro General: oriented to person, oriented to place, oriented to time and patient oriented x3 Cranial nerves: Yes CN's II-XII intact bilaterally and Yes Bilaterally intact EOM present Extrem General: Yes normal to inspection and No edema Results Lab Results Result Diagrams: 03/01/20 06:11 03/01/20 06:11 Lab results: Chemistry 02/29/20 03/01/20 14:20 06:11 Sodium 140 135 Potassium 4.9 5.3 H Carbon Dioxide 31 H 26 BUN 35 H 44 H Creatinine 7.63 H* 8.68 H* Calcium 8.4 7.9 L Hematology 02/29/20 03/01/20 14:20 06:11 WBC 4.4 L 5.8 Hgb 11.7 L 10.4 L Plt Count 78 L 56 L D Assessment and Plan (1) COVID-19: Status: Acute (2) Pneumonia: Status: Acute (3) ESRD (end stage renal disease): Status: Acute 1. ESRD: HD today and cont mwf 2. COVID positive: being eval by ID re Tx options incuding deamenthasone 3. Hypoxia: c/w COVID 4. Lung CA: getting chemo ( [facility]) 5. HyperK REC: HD today and cont mwf; cont routine meds, anti-COBVID Tx per ID Will follow with team
[2020-03-01] MEDS: Mirtazapine 30 MG TABLET 50 MG PO (20:21)
[2020-03-01] MEDS: ALPRAZolam 0.25 MG TABLET PO (20:21)
[2020-03-01] MEDS: Docusate Sodium 100 MG CAPSULE PO (20:21)
[2020-03-01] MEDS: Atorvastatin Calcium 40 MG TABLET PO (20:22)
[2020-03-01] MEDS: busPIRone HCl 10 MG TABLET 15 MG PO (20:22)
[2020-03-01] MEDS: carvediloL 6.25 MG TABLET PO (20:22)
[2020-03-02] VITALS (9 sets, daily range): BP systolic 95–116; BP diastolic 51–68; PULSE 65–83; RESP 18–19; TEMP 35.8–36.9; O2SAT 94–100
[2020-03-02] MEDS: Omeprazole 40 MG CAPSULE.DR PO (05:44)
[2020-03-02 07:29] LABS: Hematocrit 38.6 % (42-52); Lymphocytes Absolute Auto 0.4 X10*3/uL (1.2-4.9); Lymphocytes Percent Auto 13.4 % (20-40); MANUAL DIFF FLAG SCAN; Mean Corpuscular HGB Conc 31.1 g/dl (31.0-36.0); Mean Corpuscular Hemoglobin 30.2 pg (27.0-33.0); Mean Platelet Volume 10.1 fL (9.4-12.4); Monocytes Absolute Auto 0.3 X10*3/uL (0.1-1.2); Monocytes Percent Auto 9.6 % (2-11); Neutrophils Absolute Auto 2.3 X10*3/uL (2.0-8.3); Red Blood Count 3.98 X10*6/uL (4.60-5.80); Red Cell Distribution Width 15.7 % (11.0-16.0); SCAN SMEAR FLAG 1; White Blood Count 2.9 X10*3/uL (4.8-10.8)
[2020-03-02 07:38] LABS: Platelet Count 68 X10*3/uL (160-400)
[2020-03-02 07:58] LABS: SLIDE REVIEW VERIFIED
[2020-03-02 07:59] LABS: D Dimer 1907 NG/ML
[2020-03-02 08:03] LABS: Alanine Aminotransferase 17 U/L (0-40); Albumin Level 3.4 g/dL (3.5-5.0); Alkaline Phosphatase 114 U/L (39-117); Anion Gap 18 (12-20); Aspartate Amino Transferase 23 U/L (5-37); Bilirubin Direct 0.4 mg/dL (0.0-0.5); Bilirubin Total 0.8 mg/dL (0.0-1.0); Blood Urea Nitrogen 36 mg/dL (9-16); C Reactive Protein 7.22 mg/dL (< or = 0.50); Carbon Dioxide 27 mmol/L (22-29); Chloride 99 mmol/L (96-108); Glucose Random 110 mg/dL (60-115); Lactate Dehydrogenase 224 U/L (118-273); Potassium 4.9 mmol/l (3.3-5.1); Sodium 139 mmol/L (135-145); Total Protein 6.6 g/dL (6.5-8.0)
[2020-03-02 08:17] LABS: Calcium 8.4 mg/dL (8.4-10.2)
[2020-03-02 08:45] LABS: Creatinine Clr Calc Pharmacy 9.8; Estimated Glomerular Filt Rate 9
[2020-03-02] MEDS: Doxycycline Hyclate 100 MG in 0.9 % Sodium Chloride 250 ML 250 MG IV ×2 (08:54→20:42)
[2020-03-02] MEDS: busPIRone HCl 10 MG TABLET 15 MG PO ×2 (08:55→20:40)
[2020-03-02] MEDS: dexAMETHasone sod phosphate 4 MG/ML VIAL 6 MG IVPUSH (08:55)
[2020-03-02] MEDS: Aspirin 81 MG TAB.CHEW PO (08:55)
[2020-03-02] MEDS: Folic Acid 1 MG TABLET PO (08:56)
[2020-03-02] MEDS: Docusate Sodium 100 MG CAPSULE PO ×2 (08:56→20:38)
[2020-03-02] MEDS: carvediloL 6.25 MG TABLET PO ×2 (08:56→20:40)
[2020-03-02] MEDS: 0.9 % Sodium Chloride Flush 3 ML SYRINGE IVFLUSH ×2 (08:57→15:54)
--- NOTE | 2020-03-02 10:58 | PM.PNNEP ---
Subjective Subjective Interval history: the patient was seen and evaluated in the morning Sitting comfortable in his bed, denies fever or chills Reports general weakness, coughing No reported other overnight Physical Exam Vital Signs: Vital Signs: Vital Signs Temp Pulse Resp BP Pulse Ox 03/02/20 08:56 68 115/63 03/02/20 08:00 96.8 F 68 115/63 99 03/02/20 03:17 96.4 F L 80 19 113/68 100 03/01/20 23:23 98.0 F 80 19 106/67 94 03/01/20 20:22 90 123/72 03/01/20 19:08 98.0 F 90 18 123/72 100 03/01/20 17:21 96 138/75 03/01/20 11:30 98.3 F Body Mass Index 20.8 Assessment & Plan Assessment and plan (1) ESRD (end stage renal disease): Status: Acute Assessment and Plan: A 64-year-old male with a history of metastatic lung cancer, ESRD on hemodialysis who presents to the emergency department with shortness of breath found to have COVID 19 pneumonia. Sepsis, resolved 2/2 Pneumonia COVID 19 positive continue doxycycline continue Decadron ESRD on HD
--- NOTE | 2020-03-02 12:56 | PC.NURSE ---
pt has low BP as reported by [employer] LAT[employer] MACHINIST. Notified MD. Pt denies any symptoms of dizziness or light headedness. Will monitor closely.
--- NOTE | 2020-03-02 16:01 | HO.PM.IMPN ---
Subjective Subjective Date of Service: 03/02/20 Interval History: the patient was seen and evaluated this morning Laying in bed, feels comfortable spoke to him over the phone with the help of manager ob. He reports feeling weak and short of breath but denies any fever, chills he is coughing No reported other overnight events. Review of Systems Review of Systems: Yes all other systems are reviewed and are negative Physical Exam Vital Signs: Vital Signs: Vital Signs Temp Pulse Resp BP Pulse Ox 03/02/20 12:00 97 F 65 18 95/51 L 98 03/02/20 08:56 68 115/63 03/02/20 08:00 96.8 F 68 115/63 99 03/02/20 03:17 96.4 F L 80 19 113/68 100 03/01/20 23:23 98.0 F 80 19 106/67 94 03/01/20 20:22 90 123/72 03/01/20 19:08 98.0 F 90 18 123/72 100 03/01/20 17:21 96 138/75 Body Mass Index 20.8 Const: Other: Constitutional : Alert, oriented, not in distress Neck : Normal inspection, Supple Cardiovascular : RRR, S1 S2, no lower extremity edema Respiratory : fair bilateral air entry, bilateral fine basal crackles, no wheezes or rhonchi Gastrointestinal: soft, lax, Normal bowel sounds, Non tender Skin : Warm/Dry, No rash Neurological : Alert & oriented x3, No focal deficit Objective Data Current Medications Generic Name Dose Route Start Last Admin Trade Name Freq PRN Reason Stop Dose Admin Acetaminophen 650 mg 03/01/20 11:21 Acetaminophen 325 Mg Tablet PO Q6H PRN Pain and Fever Alprazolam 0.25 mg 03/01/20 15:43 03/01/20 20:21 Alprazolam 0.25 Mg Tablet PO 0.25 mg BEDTIME PRN Administration anxiety/restlessness Aspirin 81 mg 03/02/20 09:00 03/02/20 08:55 Aspirin 81 Mg Tab.Chew PO 81 mg DAILY AR[facility]UR Administration Atorvastatin Calcium 40 mg 03/01/20 21:00 03/01/20 20:22 Atorvastatin Calcium 40 Mg Tablet PO 40 mg BEDTIME ARTHUR Administration Buspirone HCl 15 mg 03/01/20 21:00 03/02/20 08:55 Buspirone Hcl 10 Mg Tablet PO 15 mg BID [facility] Administration Carvedilol 6.25 mg 03/01/20 21:00 03/02/20 08:56 Carvedilol 6.25 Mg Tablet PO 6.25 mg BID [facility] Administration Protocol Dexamethasone Sodium Phosphate 6 mg 03/01/20 13:30 03/02/20 08:55 Dexamethasone Sod Phosphate 4 Mg/Ml Vial IVPUSH 6 mg DAILY [facility] Administration Docusate Sodium 100 mg 02/29/20 21:14 Docusate Sodium 100 Mg Capsule PO DAILY PRN Constipation Docusate Sodium 100 mg 03/01/20 21:00 03/02/20 08:56 Docusate Sodium 100 Mg Capsule PO 100 mg BID [facility] Administration Folic Acid 1 mg 03/02/20 09:00 03/02/20 08:56 Folic Acid 1 Mg Tablet PO 1 mg DAILY [facility] Administration Heparin Sodium (Porcine) 5,000 unit 03/01/20 16:45 03/01/20 14:31 Heparin Sodium,Porcine 5,000 Unit/Ml Vial INTRACATH Not Given [id number] [facility] Doxycycline Hyclate 100 mg/ 250 mls @ 250 mls/hr 02/29/20 22:00 03/02/20 10:35 Sodium Chloride IV Infused BID [facility] Infusion Mirtazapine 50 mg 03/01/20 21:00 03/01/20 20:21 Mirtazapine 30 Mg Tablet PO 50 mg BEDTIME [facility] Administration Omeprazole 40 mg 03/02/20 06:30 03/02/20 05:44 Omeprazole 40 Mg Capsule.Dr PO 40 mg DAILY@0630 [facility] Administration Ondansetron HCl 4 mg 02/29/20 21:14 Ondansetron Hcl 4 Mg/2 Ml Vial IVPUSH Q8H PRN Nausea and Vomiting Sodium Chloride 3 ml 03/01/20 00:00 03/02/20 15:54 0.9 % Sodium Chloride Flush 3 Ml Syringe IVFLUSH 3 ml QSHIFT [facility] Administration Labs CBC & Chem 7: 03/02/20 06:42 03/02/20 06:42 Microbiology Microbiology Results: Microbiology 02/29/20 14:35 Blood - Venous Blood Culture - Preliminary No growth after 24 hours. 02/29/20 14:20 Blood - Venous Blood Culture - Preliminary No growth after 24 hours. Assessment and Plan (1) COVID-19: Status: Acute (2) Pneumonia: Status: Acute (3) ESRD (end stage renal disease): Status: Acute Assessment and Plan: A 64-year-old male with a history of metastatic lung cancer, ESRD on hemodialysis who presents to the emergency department with shortness of breath found to have COVID 19 pneumonia. Sepsis, resolved 2/2 Pneumonia COVID 19 positive continue doxycycline continue Decadron pending blood cultures oxygen supplement as needed Infectious Disease input appreciated elevated troponin likely related to underlying ESRD no chest pain, no ischemic EKG changes ESRD on HD plan dialysis today Nephrology input appreciated pancytopenia WBCs lower 2.9 related to current chemotherapy HX CAD continue ASA, atorvastatin and carvedilol Mood Continue Mirtazapine and Buspirone DVT prophylaxis heparin (4) Sepsis: Status: Acute (5) Pancytopenia: Status: Acute
[2020-03-02] MEDS: Mirtazapine 30 MG TABLET 50 MG PO (20:38)
[2020-03-02] MEDS: Atorvastatin Calcium 40 MG TABLET PO (20:40)
[2020-03-02] MEDS: Benzonatate 100 MG CAPSULE PO (20:41)
[2020-03-02] MEDS: ALPRAZolam 0.25 MG TABLET PO (22:55)
[2020-03-03] VITALS (7 sets, daily range): BP systolic 122–136; BP diastolic 59–73; PULSE 71–80; RESP 18–19; TEMP 36.3–37.5; O2SAT 93–98
[2020-03-03] MEDS: 0.9 % Sodium Chloride Flush 3 ML SYRINGE IVFLUSH ×4 (03:00→20:41)
[2020-03-03] MEDS: Omeprazole 40 MG CAPSULE.DR PO (06:03)
[2020-03-03] MEDS: guaiFENesin LA 600 MG TAB.ER.12H PO (06:03)
[2020-03-03 06:12] LABS: Hematocrit 31.4 % (42-52); Imm Gran Abs Auto 0.02 X10*3/uL (0.00-0.03); Imm Gran Pct Auto 0.4 % (0.0-0.4); Lymphocytes Absolute Auto 0.5 X10*3/uL (1.2-4.9); Lymphocytes Percent Auto 8.9 % (20-40); MANUAL DIFF FLAG SCAN; Mean Corpuscular HGB Conc 31.8 g/dl (31.0-36.0); Mean Corpuscular Hemoglobin 30.2 pg (27.0-33.0); Mean Corpuscular Volume 94.9 fL (80-98); Mean Platelet Volume 11.1 fL (9.4-12.4); Monocytes Absolute Auto 0.3 X10*3/uL (0.1-1.2); Monocytes Percent Auto 6.2 % (2-11); Neutrophils Absolute Auto 4.7 X10*3/uL (2.0-8.3); Neutrophils Percent Auto 84.5 % (45-73); Red Blood Count 3.31 X10*6/uL (4.60-5.80); Red Cell Distribution Width 15.6 % (11.0-16.0); SCAN SMEAR FLAG 1; White Blood Count 5.5 X10*3/uL (4.8-10.8)
[2020-03-03 06:20] LABS: Platelet Count 72 X10*3/uL (160-400)
[2020-03-03 06:53] LABS: Anion Gap 17 (12-20); Blood Urea Nitrogen 63 mg/dL (9-16); Calcium 7.4 mg/dL (8.4-10.2); Carbon Dioxide 27 mmol/L (22-29); Chloride 99 mmol/L (96-108); Creatinine Clr Calc Pharmacy 7.9; Estimated Glomerular Filt Rate 7; Glucose Random 84 mg/dL (60-115); Potassium 4.2 mmol/l (3.3-5.1); Sodium 139 mmol/L (135-145)
[2020-03-03] MEDS: dexAMETHasone sod phosphate 4 MG/ML VIAL 6 MG IVPUSH (07:43)
[2020-03-03 07:46] LABS: SLIDE REVIEW VERIFIED
[2020-03-03] MEDS: Doxycycline Hyclate 100 MG in 0.9 % Sodium Chloride 250 ML 250 MG IV ×2 (07:46→20:39)
[2020-03-03] MEDS: Aspirin 81 MG TAB.CHEW PO (07:47)
[2020-03-03] MEDS: busPIRone HCl 10 MG TABLET 15 MG PO ×2 (07:47→20:40)
[2020-03-03] MEDS: Benzonatate 100 MG CAPSULE PO ×3 (07:48→20:40)
[2020-03-03] MEDS: Docusate Sodium 100 MG CAPSULE PO ×2 (07:48→20:40)
[2020-03-03] MEDS: Folic Acid 1 MG TABLET PO (07:48)
[2020-03-03] MEDS: carvediloL 6.25 MG TABLET PO ×2 (07:49→20:41)
[2020-03-03] MEDS: ondansetron HCL 4 MG/2 ML VIAL IVPUSH (11:12)
--- NOTE | 2020-03-03 14:49 | PM.PNNEP ---
Subjective Subjective Interval history: Events noted Feels better Physical Exam Vital Signs: Vital Signs: Vital Signs Temp Pulse Resp BP Pulse Ox 03/03/20 11:19 97.3 F 80 18 128/72 97 03/03/20 07:49 80 122/59 L 03/03/20 07:41 98.1 F 75 18 122/59 L 97 03/03/20 03:15 97.3 F 80 19 136/73 98 03/02/20 23:22 97.0 F 80 18 96/60 100 03/02/20 20:40 83 116/58 L 03/02/20 20:12 98.2 F 83 18 116/58 L 94 03/02/20 20:00 98.4 F 68 18 101/54 L 99 03/02/20 16:00 98.2 F 70 18 103/58 L 100 Body Mass Index 20.8 Const: Other: Constitutional : Alert, oriented, not in distress Neck : Normal inspection, Supple Cardiovascular : RRR, S1 S2, no lower extremity edema Respiratory : fair bilateral air entry, bilateral fine basal crackles, no wheezes or rhonchi Gastrointestinal: soft, lax, Normal bowel sounds, Non tender Skin : Warm/Dry, No rash Neurological : Alert & oriented x3, No focal deficit Nutritional Appearance: well nourished Orientation/consciousness: oriented to person, oriented to place, oriented to time and patient oriented x3 HENMT: Head: Yes normal to inspection, Yes normocephalic and Yes atraumatic Ears: hearing grossly normal bilaterally General nose exam: Normal external nose present Face and sinus: Yes normal facial exam and Yes sinuses nontender Mouth: Normal oral and palatal mucosa present Eyes: General: appearance normal, both eyes and all related structures Sclerae: sclerae normal EOM: EOMs intact bilaterally Neck: Neck: Yes normal visual inspection Chest: Chest palpation & inspection: normal inspection of the chest Resp: Other: rhonchi both lungs Effort & Inspection: normal respiratory effort, abnormal respiratory pattern, no respiratory distress and no stridor Auscultation: crackles on the left, rales, rhonchi, wheezes, diminished lung sounds and bronchial breath sounds Cardio: Rate: regular rate and tachycardic Rhythm: regular rhythm Heart sounds: S1 normal heart sound present and S2 normal heart sound present GI: Inspection: Yes normal to inspection Palpation (GI): Soft to palpation, nontender, no guarding and not rigid : General: Yes no CVA tenderness Back/Spine/Pelvis: Back: no CVA tenderness Skin: General skin exam: no rashes or lesions noted Wounds: no wounds Neuro: General: oriented to person, oriented to place, oriented to time and patient oriented x3 Cranial nerves: Yes CN's II-XII intact bilaterally and Yes Bilaterally intact EOM present Extrem: General: Yes normal to inspection and No edema Assessment & Plan Assessment and plan (1) ESRD (end stage renal disease): Status: Acute Assessment and Plan: A 64-year-old male with a history of metastatic lung cancer, ESRD on hemodialysis who presents to the emergency department with shortness of breath found to have COVID 19 pneumonia. Sepsis, resolved 2/2 Pneumonia COVID 19 positive continue doxycycline ESRD on HD NO s/s of uremia Next HD tomorrow
--- NOTE | 2020-03-03 16:11 | HO.PM.IMPN ---
Subjective Subjective Interval History: the patient was seen and evaluated this morning Laying in bed, feels comfortable He reports feeling Better and short of breath improving but denies any fever, chills he is coughing No reported other overnight events. Physical Exam Vital Signs: Vital Signs: Vital Signs Temp Pulse Resp BP Pulse Ox 03/03/20 16:00 98 F 77 18 128/60 94 03/03/20 11:19 97.3 F 80 18 128/72 97 03/03/20 07:49 80 122/59 L 03/03/20 07:41 98.1 F 75 18 122/59 L 97 03/03/20 03:15 97.3 F 80 19 136/73 98 03/02/20 23:22 97.0 F 80 18 96/60 100 03/02/20 20:40 83 116/58 L 03/02/20 20:12 98.2 F 83 18 116/58 L 94 03/02/20 20:00 98.4 F 68 18 101/54 L 99 Body Mass Index 20.8 Const: Other: Constitutional : Alert, oriented, not in distress Neck : Normal inspection, Supple Cardiovascular : RRR, S1 S2, no lower extremity edema Respiratory : fair bilateral air entry, bilateral fine basal crackles, no wheezes or rhonchi Gastrointestinal: soft, lax, Normal bowel sounds, Non tender Skin : Warm/Dry, No rash Neurological : Alert & oriented x3, No focal deficit Objective Data Current Medications Generic Name Dose Route Start Last Admin Trade Name Freq PRN Reason Stop Dose Admin Acetaminophen 650 mg 03/01/20 11:21 Acetaminophen 325 Mg Tablet PO Q6H PRN Pain and Fever Alprazolam 0.25 mg 03/01/20 15:43 03/02/20 22:55 Alprazolam 0.25 Mg Tablet PO 0.25 mg BEDTIME PRN Administration anxiety/restlessness Aspirin 81 mg 03/02/20 09:00 03/03/20 07:47 Aspirin 81 Mg Tab.Chew PO 81 mg DAILY [facility] Administration Atorvastatin Calcium 40 mg 03/01/20 21:00 03/02/20 20:40 Atorvastatin Calcium 40 Mg Tablet PO 40 mg BEDTIME [facility] Administration Benzonatate 100 mg 03/02/20 21:00 03/03/20 15:26 Benzonatate 100 Mg Capsule PO 100 mg TID AR[facility]UR Administration Buspirone HCl 15 mg 03/01/20 21:00 03/03/20 07:47 Buspirone Hcl 10 Mg Tablet PO 15 mg BID [facility]UR Administration Carvedilol 6.25 mg 03/01/20 21:00 03/03/20 07:49 Carvedilol 6.25 Mg Tablet PO 6.25 mg BID [facility]UR Administration Protocol Dexamethasone Sodium Phosphate 6 mg 03/01/20 13:30 03/03/20 07:43 Dexamethasone Sod Phosphate 4 Mg/Ml Vial IVPUSH 6 mg DAILY [facility] Administration Docusate Sodium 100 mg 02/29/20 21:14 Docusate Sodium 100 Mg Capsule PO DAILY PRN Constipation Docusate Sodium 100 mg 03/01/20 21:00 03/03/20 07:48 Docusate Sodium 100 Mg Capsule PO 100 mg BID [facility] Administration Folic Acid 1 mg 03/02/20 09:00 03/03/20 07:48 Folic Acid 1 Mg Tablet PO 1 mg DAILY [facility] Administration Guaifenesin 600 mg 03/03/20 04:09 03/03/20 06:03 Guaifenesin La 600 Mg Tab.Er.12h PO 600 mg BID PRN Administration cugh Heparin Sodium (Porcine) 5,000 unit 03/01/20 16:45 03/01/20 14:31 Heparin Sodium,Porcine 5,000 Unit/Ml Vial INTRACATH Not Given MOWEFR@1645 [facility] Doxycycline Hyclate 100 mg/ 250 mls @ 250 mls/hr 02/29/20 22:00 03/03/20 10:22 Sodium Chloride IV Infused BID [facility] Infusion Mirtazapine 50 mg 03/01/20 21:00 03/02/20 20:38 Mirtazapine 30 Mg Tablet PO 50 mg BEDTIME [facility] Administration Omeprazole 40 mg 03/02/20 06:30 03/03/20 06:03 Omeprazole 40 Mg Capsule.Dr PO 40 mg DAILY@0630 [facility] Administration Ondansetron HCl 4 mg 02/29/20 21:14 03/03/20 11:12 Ondansetron Hcl 4 Mg/2 Ml Vial IVPUSH 4 mg Q8H PRN Administration Nausea and Vomiting Sodium Chloride 3 ml 03/01/20 00:00 03/03/20 15:26 0.9 % Sodium Chloride Flush 3 Ml Syringe IVFLUSH 3 ml QSHIFT [facility] Administration Labs CBC & Chem 7: 03/03/20 05:24 10/11/20 05:24 Microbiology Microbiology Results: Microbiology 02/29/20 14:35 Blood - Venous Blood Culture - Preliminary No growth after 48 hours. 02/29/20 14:20 Blood - Venous Blood Culture - Preliminary No growth after 48 hours. Assessment and Plan (1) COVID-19: Status: Acute (2) Pneumonia: Status: Acute (3) ESRD (end stage renal disease): Status: Acute Assessment and Plan: A 64-year-old male with a history of metastatic lung cancer, ESRD on hemodialysis who presents to the emergency department with shortness of breath found to have COVID 19 pneumonia. Sepsis, resolved 2/2 Pneumonia COVID 19 positive continue doxycycline continue Decadron Negative blood cultures oxygen supplement as needed Infectious Disease input appreciated elevated troponin likely related to underlying ESRD no chest pain, no ischemic EKG changes ESRD on HD plan dialysis tomorrow Nephrology input appreciated pancytopenia WBCs lower 2.9 related to current chemotherapy HX CAD continue ASA, atorvastatin and carvedilol Mood Continue Mirtazapine and Buspirone DVT prophylaxis heparin (4) Sepsis: Status: Acute (5) Pancytopenia: Status: Acute
[2020-03-03] MEDS: Mirtazapine 30 MG TABLET 50 MG PO (20:40)
[2020-03-03] MEDS: Atorvastatin Calcium 40 MG TABLET PO (20:40)
[2020-03-03] MEDS: ALPRAZolam 0.25 MG TABLET PO (22:07)
[2020-03-04] VITALS: BP 119/57; PULSE 75; RESP 16; TEMP 36.8; O2SAT 96
[2020-03-04 03:53] VITALS: BP 115/56; PULSE 75; RESP 16; TEMP 36.8; O2SAT 90
[2020-03-04] MEDS: Omeprazole 40 MG CAPSULE.DR PO (06:08)
[2020-03-04 06:40] LABS: MANUAL DIFF FLAG NO
[2020-03-04 07:04] LABS: Hematocrit 32.9 % (42-52); Hemoglobin 10.5 g/dl (14.0-18.0); Imm Gran Abs Auto 0.03 X10*3/uL (0.00-0.03); Imm Gran Pct Auto 0.7 % (0.0-0.4); Lymphocytes Absolute Auto 0.9 X10*3/uL (1.2-4.9); Lymphocytes Percent Auto 19.7 % (20-40); Mean Corpuscular HGB Conc 31.9 g/dl (31.0-36.0); Mean Corpuscular Hemoglobin 30.3 pg (27.0-33.0); Mean Corpuscular Volume 94.8 fL (80-98); Mean Platelet Volume 10.7 fL (9.4-12.4); Monocytes Absolute Auto 0.5 X10*3/uL (0.1-1.2); Monocytes Percent Auto 9.8 % (2-11); Neutrophils Absolute Auto 3.2 X10*3/uL (2.0-8.3); Neutrophils Percent Auto 69.8 % (45-73); Red Blood Count 3.47 X10*6/uL (4.60-5.80); Red Cell Distribution Width 15.6 % (11.0-16.0); White Blood Count 4.6 X10*3/uL (4.8-10.8)
[2020-03-04 07:31] LABS: Platelet Count 71 X10*3/uL (160-400)
[2020-03-04 07:42] LABS: Anion Gap 20 (12-20); Blood Urea Nitrogen 86 mg/dL (9-16); Calcium 7.8 mg/dL (8.4-10.2); Carbon Dioxide 23 mmol/L (22-29); Chloride 99 mmol/L (96-108); Creatinine Clr Calc Pharmacy 6.7; Estimated Glomerular Filt Rate 6; Glucose Random 80 mg/dL (60-115); Potassium 4.9 mmol/l (3.3-5.1); Sodium 137 mmol/L (135-145)
[2020-03-04 08:00] VITALS: BP 149/79; PULSE 84; RESP 20; TEMP 37.7; O2SAT 96
[2020-03-04] MEDS: Aspirin 81 MG TAB.CHEW PO (09:07)
[2020-03-04] MEDS: 0.9 % Sodium Chloride Flush 3 ML SYRINGE IVFLUSH ×3 (09:07→20:33)
[2020-03-04] MEDS: dexAMETHasone sod phosphate 4 MG/ML VIAL 6 MG IVPUSH (09:07)
[2020-03-04 09:08] VITALS: BP 149/79; PULSE 84
[2020-03-04] MEDS: Benzonatate 100 MG CAPSULE PO ×3 (09:08→20:32)
[2020-03-04] MEDS: carvediloL 6.25 MG TABLET PO ×2 (09:08→20:32)
[2020-03-04] MEDS: busPIRone HCl 10 MG TABLET 15 MG PO ×2 (09:08→20:32)
[2020-03-04] MEDS: Folic Acid 1 MG TABLET PO (09:09)
[2020-03-04] MEDS: Docusate Sodium 100 MG CAPSULE PO ×2 (09:09→20:31)
[2020-03-04] MEDS: Doxycycline Hyclate 100 MG in 0.9 % Sodium Chloride 250 ML 250 MG IV ×2 (10:37→20:31)
--- NOTE | 2020-03-04 14:13 | MHC.CLN ---
PO INTAKE FAIR TO GOOD DIET RX: 2GM NA LOW PHOS, LOW K+-APPROPRIATE PER RENAL ENSURE BID IN PLACE TO INCREASE KCALS FOLLOWING
--- NOTE | 2020-03-04 16:23 | P.PNNP_ITS ---
Subjective Subjective Interval history: Eventsnoted Physical Exam Vital Signs: Vital Signs: Vital Signs Temp Pulse Resp BP Pulse Ox 03/04/20 09:08 84 149/79 H 03/04/20 08:00 99.8 F 84 20 149/79 H 96 03/04/20 03:53 98.2 F 75 16 115/56 L 90 L 03/04/20 00:00 98.3 F 75 16 119/57 L 96 03/03/20 20:41 71 132/65 03/03/20 20:00 99.5 F 80 18 132/65 93 Body Mass Index 20.8 Const: Other: Constitutional : Alert, oriented, not in distress Neck : Normal inspection, Supple Cardiovascular : RRR, S1 S2, no lower extremity edema Respiratory : fair bilateral air entry, bilateral fine basal crackles, no wheezes or rhonchi Gastrointestinal: soft, lax, Normal bowel sounds, Non tender Skin : Warm/Dry, No rash Neurological : Alert & oriented x3, No focal deficit Nutritional Appearance: we ll nourished Orientation/consciousness: oriented to person, oriented to place, oriented to time and patient oriented x3 HENMT: Head: Yes normal to inspection, Yes normocephalic and Yes atraumatic Ears: hearing grossly normal bilaterally General nose exam: Normal external nose present Face and sinus: Yes normal facial exam and Yes sinuses nontender Mouth: Normal oral and palatal mucosa present Eyes: General: appearance normal, both eyes and all related structures Sclerae: sclerae normal EOM: EOMs intact bilaterally Neck: Neck: Yes normal visual inspection Chest: Chest palpation & inspection: normal inspection of the chest Resp: Other: rhonchi both lungs Effort & Inspection: normal respiratory effort, abnormal respiratory pattern, no respiratory distress and no stridor Auscultation: crackles on the left, rales, rhonchi, wheezes, diminished lung sounds and bronchial breath sounds Cardio: Rate: regular rate and tachycardic Rhythm: regular rhythm Heart sounds: S1 normal heart sound present and S2 normal heart sound present GI: Inspection: Yes normal to inspection Palpation (GI): Soft to palpation, nontender, no guarding and not rigid : General: Yes no CVA tenderness Back/Spine/Pelvis: Back: no CVA tenderness Skin: General skin exam: no rashes or lesions noted Wounds: no wounds Neuro: General: oriented to person, oriented to place, oriented to time and patient oriented x3 Cranial nerves: Yes CN's II-XII intact bilaterally and Yes Bilaterally intact EOM present Extrem: General: Yes normal to inspection and No edema Assessment & Plan Assessment and plan (1) ESRD (end stage renal disease): Status: Acute Assessment and Plan: A 64-year-old male with a history of metastatic lung cancer, ESRD on hemodialysis who presents to the emergency department with shortness of breath found to have COVID 19 pneumonia. Sepsis, resolved 2/2 Pneumonia COVID 19 positive continue doxycycline ESRD on HD NO s/s of uremia HD MWF Time Spent With Patient Time: :
--- NOTE | 2020-03-04 16:26 | P.PNIM_ITS ---
Subjective Subjective Interval History: the patient was seen and evaluated this morning Laying in bed, feels short of breath, reporting coughing but denies any fever, chills or chest pain No reported other overnight events. Physical Exam Vital Signs: Vital Signs: Vital Signs Temp Pulse Resp BP Pulse Ox 03/04/20 09:08 84 149/79 H 03/04/20 08:00 99.8 F 84 20 149/79 H 96 03/04/20 03:53 98.2 F 75 16 115/56 L 90 L 03/04/20 00:00 98.3 F 75 16 119/57 L 96 03/03/20 20:41 71 132/65 03/03/20 20:00 99.5 F 80 18 132/65 93 Body Mass Index 20.8 Const: Other: Constitutional : Alert, oriented, not in distress Neck : Normal inspection, Supple Cardiovascular : RRR, S1 S2, no lower extremity edema Respiratory : fair bilateral air entry, bilateral fine basal crackles, no wheezes or rhonchi Gastrointestinal: soft, lax, Normal bowel sounds, Non tender Skin : Warm/Dry, No rash Neurological : Alert & oriented x3, No focal deficit Objective Data Current Medications Generic Name Dose Route Start Last Admin Trade Name Freq PRN Reason Stop Dose Admin Acetaminophen 650 mg 03/01/20 11:21 Acetaminophen 325 Mg Tablet PO Q6H PRN Pain and Fever Alprazolam 0.25 mg 03/01/20 15:43 03/03/20 22:07 Alprazolam 0.25 Mg Tablet PO 0.25 mg BEDTIME PRN Administration anxiety/restlessness Aspirin 81 mg 03/02/20 09:00 03/04/20 09:07 Aspirin 81 Mg Tab.Chew PO 81 mg DAILY AR[facility]UR Administration Atorvastatin Calcium 40 mg 03/01/20 21:00 03/03/20 20:40 Atorvastatin Calcium 40 Mg Tablet PO 40 mg BEDTIME AR[facility]UR Administration Benzonatate 100 mg 03/02/20 21:00 03/04/20 09:08 Benzonatate 100 Mg Capsule PO 100 mg TID AR[facility]UR Administration Buspirone HCl 15 mg 03/01/20 21:00 03/04/20 09:08 Buspirone Hcl 10 Mg Tablet PO 15 mg BID AR[facility]UR Administration Carvedilol 6.25 mg 03/01/20 21:00 03/04/20 09:08 Carvedilol 6.25 Mg Tablet PO 6.25 mg BID ARTHUR Administration Protocol Dexamethasone Sodium Phosphate 6 mg 03/01/20 13:30 03/04/20 09:07 Dexamethasone Sod Phosphate 4 Mg/Ml Vial IVPUSH 6 mg DAILY [facility]UR Administration Docusate Sodium 100 mg 02/29/20 21:14 Docusate Sodium 100 Mg Capsule PO DAILY PRN Constipation Docusate Sodium 100 mg 03/01/20 21:00 03/04/20 09:09 Docusate Sodium 100 Mg Capsule PO 100 mg BID AR[facility]UR Administration Folic Acid 1 mg 03/02/20 09:00 03/04/20 09:09 Folic Acid 1 Mg Tablet PO 1 mg DAILY [facility] Administration Guaifenesin 600 mg 03/03/20 04:09 03/03/20 06:03 Guaifenesin La 600 Mg Tab.Er.12h PO 600 mg BID PRN Administration cugh Heparin Sodium (Porcine) 5,000 unit 03/01/20 16:45 03/01/20 14:31 Heparin Sodium,Porcine 5,000 Unit/Ml Vial INTRACATH Not Given MOWEFR@1645 [facility] Doxycycline Hyclate 100 mg/ 250 mls @ 250 mls/hr 02/29/20 22:00 03/04/20 12:06 Sodium Chloride IV Infused BID [facility] Infusion Mirtazapine 50 mg 03/01/20 21:00 03/03/20 20:40 Mirtazapine 30 Mg Tablet PO 50 mg BEDTIME [facility] Administration Omeprazole 40 mg 03/02/20 06:30 03/04/20 06:08 Omeprazole 40 Mg Capsule.Dr PO 40 mg DAILY@0630 [facility] Administration Ondansetron HCl 4 mg 02/29/20 21:14 03/03/20 11:12 Ondansetron Hcl 4 Mg/2 Ml Vial IVPUSH 4 mg Q8H PRN Administration Nausea and Vomiting Sodium Chloride 3 ml 03/01/20 00:00 03/04/20 09:07 0.9 % Sodium Chloride Flush 3 Ml Syringe IVFLUSH 3 ml QSHIFT [facility] Administration Labs CBC & Chem 7: 03/04/20 06:18 03/04/20 06:18 Microbiology Microbiology Results: Microbiology 02/29/20 14:35 Blood - Venous Blood Culture - Preliminary No growth after 48 hours. 02/29/20 14:20 Blood - Venous Blood Culture - Preliminary No growth after 48 hours. Assessment and Plan (1) COVID-19: Status: Acute (2) Pneumonia: Status: Acute (3) ESRD (end stage renal disease): Status: Acute Assessment and Plan: A 64-year-old male with a history of metastatic lung cancer, ESRD on hemodialysis who presents to the emergency department with shortness of breath found to have COVID 19 pneumonia. Sepsis, resolved 2/2 Pneumonia COVID 19 positive continue doxycycline continue Decadron Negative blood cultures oxygen supplement as needed Infectious Disease input appreciated elevated troponin likely related to underlying ESRD no chest pain, no ischemic EKG changes ESRD on HD plan dialysis tomorrow Nephrology input appreciated pancytopenia WBCs lower 2.9 related to current chemotherapy HX CAD continue ASA, atorvastatin and carvedilol Mood Continue Mirtazapine and Buspirone DVT prophylaxis heparin (4) Sepsis: Status: Acute (5) Pancytopenia: Status: Acute
[2020-03-04] MEDS: Heparin Sodium,Porcine 5,000 UNIT/ML VIAL 5000 UNIT INTRACATH (17:08)
[2020-03-04 18:28] LABS: C Reactive Protein 3.26 mg/dL (< or = 0.50); Lactate Dehydrogenase 240 U/L (118-273)
[2020-03-04 19:30] VITALS: BP 136/65; PULSE 80; RESP 18; TEMP 37; O2SAT 97
[2020-03-04] MEDS: Atorvastatin Calcium 40 MG TABLET PO (20:31)
[2020-03-04 20:32] VITALS: BP 136/65; PULSE 80
[2020-03-04] MEDS: Mirtazapine 30 MG TABLET 50 MG PO (20:32)
[2020-03-04] MEDS: ALPRAZolam 0.25 MG TABLET PO (20:33)
[2020-03-05] VITALS (8 sets, daily range): BP systolic 120–154; BP diastolic 64–77; PULSE 74–83; RESP 14–19; TEMP 35.8–37.1; O2SAT 92–98
[2020-03-05] MEDS: Omeprazole 40 MG CAPSULE.DR PO (06:04)
[2020-03-05 06:25] LABS: MANUAL DIFF FLAG NO
[2020-03-05 07:23] LABS: Basophils Percent Auto 0.2 % (0-2); Hemoglobin 11.6 g/dl (14.0-18.0); Imm Gran Abs Auto 0.05 X10*3/uL (0.00-0.03); Imm Gran Pct Auto 1.1 % (0.0-0.4); Lymphocytes Absolute Auto 1.1 X10*3/uL (1.2-4.9); Lymphocytes Percent Auto 22.6 % (20-40); Mean Corpuscular HGB Conc 33.1 g/dl (31.0-36.0); Mean Corpuscular Hemoglobin 30.9 pg (27.0-33.0); Mean Corpuscular Volume 93.1 fL (80-98); Mean Platelet Volume 10.4 fL (9.4-12.4); Monocytes Absolute Auto 0.6 X10*3/uL (0.1-1.2); Monocytes Percent Auto 12.3 % (2-11); Neutrophils Percent Auto 63.8 % (45-73); Red Blood Count 3.76 X10*6/uL (4.60-5.80); Red Cell Distribution Width 15.7 % (11.0-16.0); White Blood Count 4.7 X10*3/uL (4.8-10.8)
[2020-03-05 07:53] LABS: Platelet Count 77 X10*3/uL (160-400)
[2020-03-05] MEDS: Folic Acid 1 MG TABLET PO (09:51)
[2020-03-05] MEDS: busPIRone HCl 10 MG TABLET 15 MG PO ×2 (09:51→21:12)
[2020-03-05] MEDS: dexAMETHasone sod phosphate 4 MG/ML VIAL 6 MG IVPUSH (09:51)
[2020-03-05] MEDS: Benzonatate 100 MG CAPSULE PO ×3 (09:51→21:12)
[2020-03-05] MEDS: Aspirin 81 MG TAB.CHEW PO (09:52)
[2020-03-05] MEDS: carvediloL 6.25 MG TABLET PO ×2 (09:52→21:22)
[2020-03-05] MEDS: 0.9 % Sodium Chloride Flush 3 ML SYRINGE IVFLUSH ×2 (09:54→17:53)
[2020-03-05] MEDS: Docusate Sodium 100 MG CAPSULE PO ×2 (09:54→21:11)
[2020-03-05] MEDS: Doxycycline Hyclate 100 MG in 0.9 % Sodium Chloride 250 ML 250 MG IV ×2 (09:54→21:08)
--- NOTE | 2020-03-05 10:42 | PM.PNNEP ---
Subjective Subjective Interval history: Events noted Had HD yesterday- uneventful Physical Exam Vital Signs: Vital Signs: Vital Signs Temp Pulse Resp BP Pulse Ox 03/05/20 08:00 98.1 F 80 16 146/66 H 93 03/05/20 03:33 98.8 F 83 16 154/77 H 92 03/05/20 00:00 98.8 F 77 18 135/64 93 03/04/20 20:32 80 136/65 03/04/20 19:30 98.6 F 80 18 136/65 97 Body Mass Index 20.8 Const: Other: Constitutional : Alert, oriented, not in distress Neck : Normal inspection, Supple Cardiovascular : RRR, S1 S2, no lower extremity edema Respiratory : fair bilateral air entry, bilateral fine basal crackles, no wheezes or rhonchi Gastrointestinal: soft, lax, Normal bowel sounds, Non tender Skin : Warm/Dry, No rash Neurological : Alert & oriented x3, No focal deficit Nutritional Appearance: well nourished Orientation/consciousness: oriented to person, oriented to place, oriented to time and patient oriented x3 HENMT: Head: Yes normal to inspection, Yes normocephalic and Yes atraumatic Ears: hearing grossly normal bilaterally General nose exam: Normal external nose present Face and sinus: Yes normal facial exam and Yes sinuses nontender Mouth: Normal oral and palatal mucosa present Eyes: General: appearance normal, both eyes and all related structures Sclerae: sclerae normal EOM: EOMs intact bilaterally Neck: Neck: Yes normal visual inspection Chest: Chest palpation & inspection: normal inspection of the chest Resp: Other: rhonchi both lungs Effort & Inspection: normal respiratory effort, abnormal respiratory pattern, no respiratory distress and no stridor Auscultation: crackles on the left, rales, rhonchi, wheezes, diminished lung sounds and bronchial breath sounds Cardio: Rate: regular rate and tachycardic Rhythm: regular rhythm Heart sounds: S1 normal heart sound present and S2 normal heart sound present GI: Inspection: Yes normal to inspection Palpation (GI): Soft to palpation, nontender, no guarding and not rigid : General: Yes no CVA tenderness Back/Spine/Pelvis: Back: no CVA tenderness Skin: General skin exam: no rashes or lesions noted Wounds: no wounds Neuro: General: oriented to person, oriented to place, oriented to time and patient oriented x3 Cranial nerves: Yes CN's II-XII intact bilaterally and Yes Bilaterally intact EOM present Extrem: General: Yes normal to inspection and No edema Assessment & Plan Assessment and plan (1) ESRD (end stage renal disease): Status: Acute Assessment and Plan: A 64-year-old male with a history of metastatic lung cancer, ESRD on hemodialysis who presents to the emergency department with shortness of breath found to have COVID 19 pneumonia. Sepsis, resolved 2/2 Pneumonia COVID 19 positive continue doxycycline ESRD on HD Usually goes to [facility] s/s of uremia HD MWF DC planning
--- NOTE | 2020-03-05 16:54 | P.PNIM_ITS ---
Subjective Subjective Date of Service: 03/05/20 Interval History: the patient was seen and evaluated this morning Laying in bed, feels short of breath and lethargic Complaining of chills but no fever Reports coughing with tinged blood sputum No reported other overnight events. Review of Systems Review of Systems: Yes all other systems are reviewed and are negative Physical Exam Vital Signs: Vital Signs: Vital Signs Temp Pulse Resp BP Pulse Ox 03/05/20 16:00 96.5 F L 75 14 120/66 94 03/05/20 11:14 98.0 F 80 16 143/68 H 94 03/05/20 08:00 98.1 F 80 16 146/66 H 93 03/05/20 03:33 98.8 F 83 16 154/77 H 92 03/05/20 00:00 98.8 F 77 18 135/64 93 03/04/20 20:32 80 136/65 03/04/20 19:30 98.6 F 80 18 136/65 97 Body Mass Index 20.8 Const: Other: Constitutional : Alert, oriented, not in distress Neck : Normal inspection, Supple Cardiovascular : RRR, S1 S2, no lower extremity edema Respiratory : Decrease bilateral air entry, bilateral fine basal crackles, bilateral CHI, no wheezes Gastrointestinal: soft, lax, Normal bowel sounds, Non tender Skin : Warm/Dry, No rash Neurological : Alert & oriented x3, No focal deficit Objective Data Current Medications Generic Name Dose Route Start Last Admin Trade Name Freq PRN Reason Stop Dose Admin Acetaminophen 650 mg 03/01/20 11:21 Acetaminophen 325 Mg Tablet PO Q6H PRN Pain and Fever Alprazolam 0.25 mg 03/01/20 15:43 03/04/20 20:33 Alprazolam 0.25 Mg Tablet PO 0.25 mg BEDTIME PRN Administration anxiety/restlessness Alprazolam 0.25 mg 03/05/20 15:36 Alprazolam 0.25 Mg Tablet PO TID PRN Anxiety Aspirin 81 mg 03/02/20 09:00 03/05/20 09:52 Aspirin 81 Mg Tab.Chew PO 81 mg DAILY [facility] Administration Atorvastatin Calcium 40 mg 03/01/20 21:00 03/04/20 20:31 Atorvastatin Calcium 40 Mg Tablet PO 40 mg BEDTIME [facility] Administration Benzonatate 100 mg 03/02/20 21:00 03/05/20 09:51 Benzonatate 100 Mg Capsule PO 100 mg TID AR[facility]UR Administration Buspirone HCl 15 mg 03/01/20 21:00 03/05/20 09:51 Buspirone Hcl 10 Mg Tablet PO 15 mg BID [facility] Administration Carvedilol 6.25 mg 03/01/20 21:00 03/05/20 09:52 Carvedilol 6.25 Mg Tablet PO 6.25 mg BID AR[facility]UR Administration Protocol Dexamethasone Sodium Phosphate 6 mg 03/01/20 13:30 03/05/20 09:51 Dexamethasone Sod Phosphate 4 Mg/Ml Vial IVPUSH 6 mg DAILY [facility] Administration Docusate Sodium 100 mg 02/29/20 21:14 Docusate Sodium 100 Mg Capsule PO DAILY PRN Constipation Docusate Sodium 100 mg 03/01/20 21:00 03/05/20 09:54 Docusate Sodium 100 Mg Capsule PO 100 mg BID [facility] Administration Folic Acid 1 mg 03/02/20 09:00 03/05/20 09:51 Folic Acid 1 Mg Tablet PO 1 mg DAILY [facility] Administration Guaifenesin 600 mg 03/03/20 04:09 03/03/20 06:03 Guaifenesin La 600 Mg Tab.Er.12h PO 600 mg BID PRN Administration cugh Guaifenesin/Dextromethorphan 1 tab 03/05/20 15:40 Guaifenesin Dm 600/30 1 Tab Tab.Er.12h PO BID ARTHUR Heparin Sodium (Porcine) 5,000 unit 03/01/20 16:45 03/04/20 17:08 Heparin Sodium,Porcine 5,000 Unit/Ml Vial INTRACATH 5,000 unit MOWEFR@1645 [facility] Administration Doxycycline Hyclate 100 mg/ 250 mls @ 250 mls/hr 02/29/20 22:00 03/05/20 11:34 Sodium Chloride IV Infused BID [facility] Infusion Mirtazapine 50 mg 03/01/20 21:00 03/04/20 20:32 Mirtazapine 30 Mg Tablet PO 50 mg BEDTIME [facility] Administration Omeprazole 40 mg 03/02/20 06:30 03/05/20 06:04 Omeprazole 40 Mg Capsule.Dr PO 40 mg DAILY@0630 [facility] Administration Ondansetron HCl 4 mg 02/29/20 21:14 03/03/20 11:12 Ondansetron Hcl 4 Mg/2 Ml Vial IVPUSH 4 mg Q8H PRN Administration Nausea and Vomiting Sodium Chloride 3 ml 03/01/20 00:00 03/05/20 09:54 0.9 % Sodium Chloride Flush 3 Ml Syringe IVFLUSH 3 ml QSHIFT [facility] Administration Trazodone HCl 25 mg 03/05/20 15:36 Trazodone Hcl 25 Mg Halftab PO BEDTIME PRN Insomnia Labs CBC & Chem 7: 03/05/20 06:02 03/04/20 06:18 Microbiology Microbiology Results: Microbiology 02/29/20 14:35 Blood - Venous Blood Culture - Final No growth after 5 days. 02/29/20 14:20 Blood - Venous Blood Culture - Final No growth after 5 days. Assessment and Plan (1) COVID-19: Status: Acute (2) Pneumonia: Status: Acute (3) ESRD (end stage renal disease): Status: Acute Assessment and Plan: A 64-year-old male with a history of metastatic lung cancer, ESRD on hemodia lysis who presents to the emergency department with shortness of breath found to have COVID 19 pneumonia. Sepsis, resolved 2/2 Pneumonia COVID 19 positive continue doxycycline day 5 continue Decadron On GI prophylaxis Negative blood cultures oxygen supplement as needed Infectious Disease input appreciated elevated troponin likely related to underlying ESRD no chest pain, no ischemic EKG changes ESRD on HD plan dialysis tomorrow Nephrology input appreciated pancytopenia WBCs around 5 related to current chemotherapy for metastatic lung cancer HX CAD continue ASA, atorvastatin and carvedilol Mood Continue Mirtazapine and Buspirone DVT prophylaxis heparin (4) Sepsis: Status: Acute (5) Pancytopenia: Status: Acute
[2020-03-05] MEDS: guaiFENesin DM 600/30 1 TAB TAB.ER.12H PO ×2 (17:53→21:09)
[2020-03-05] MEDS: Atorvastatin Calcium 40 MG TABLET PO (21:09)
[2020-03-05] MEDS: Mirtazapine 30 MG TABLET 50 MG PO (21:09)
[2020-03-06] MEDS: 0.9 % Sodium Chloride Flush 3 ML SYRINGE IVFLUSH ×4 (01:20→23:49)
[2020-03-06 03:22] VITALS: BP 143/76; PULSE 69; RESP 19; TEMP 36.2; O2SAT 92
[2020-03-06] MEDS: Omeprazole 40 MG CAPSULE.DR PO (06:21)
[2020-03-06 06:23] LABS: MANUAL DIFF FLAG NO
[2020-03-06 06:46] LABS: Hematocrit 35.1 % (42-52); Hemoglobin 11.3 g/dl (14.0-18.0); Imm Gran Abs Auto 0.02 X10*3/uL (0.00-0.03); Imm Gran Pct Auto 0.5 % (0.0-0.4); Lymphocytes Absolute Auto 0.8 X10*3/uL (1.2-4.9); Lymphocytes Percent Auto 21.3 % (20-40); Mean Corpuscular HGB Conc 32.2 g/dl (31.0-36.0); Mean Corpuscular Hemoglobin 29.8 pg (27.0-33.0); Mean Corpuscular Volume 92.6 fL (80-98); Mean Platelet Volume 10.2 fL (9.4-12.4); Monocytes Absolute Auto 0.5 X10*3/uL (0.1-1.2); Monocytes Percent Auto 12.5 % (2-11); Neutrophils Absolute Auto 2.4 X10*3/uL (2.0-8.3); Neutrophils Percent Auto 65.7 % (45-73); Red Blood Count 3.79 X10*6/uL (4.60-5.80); Red Cell Distribution Width 15.4 % (11.0-16.0); White Blood Count 3.7 X10*3/uL (4.8-10.8)
[2020-03-06 06:48] LABS: Platelet Count 88 X10*3/uL (160-400)
[2020-03-06 07:11] LABS: Alanine Aminotransferase 34 U/L (0-40); Albumin Level 2.8 g/dL (3.5-5.0); Alkaline Phosphatase 113 U/L (39-117); Aspartate Amino Transferase 44 U/L (5-37); Bilirubin Direct 0.2 mg/dL (0.0-0.5); Bilirubin Total 0.7 mg/dL (0.0-1.0); Total Protein 5.9 g/dL (6.5-8.0)
[2020-03-06 07:19] VITALS: BP 152/63; PULSE 77; RESP 16; TEMP 36.2; O2SAT 93
[2020-03-06 07:38] LABS: Anion Gap 21 (12-20); Blood Urea Nitrogen 92 mg/dL (9-16); Calcium 8.1 mg/dL (8.4-10.2); Carbon Dioxide 23 mmol/L (22-29); Chloride 98 mmol/L (96-108); Creatinine Clr Calc Pharmacy 6.9; Estimated Glomerular Filt Rate 6; Glucose Random 83 mg/dL (60-115); Potassium 5.4 mmol/l (3.3-5.1); Sodium 137 mmol/L (135-145)
[2020-03-06] MEDS: dexAMETHasone sod phosphate 4 MG/ML VIAL 6 MG IVPUSH (07:52)
[2020-03-06] MEDS: Folic Acid 1 MG TABLET PO (07:53)
[2020-03-06] MEDS: guaiFENesin DM 600/30 1 TAB TAB.ER.12H PO ×2 (07:53→20:46)
[2020-03-06] MEDS: Docusate Sodium 100 MG CAPSULE PO ×2 (07:53→21:24)
[2020-03-06] MEDS: Aspirin 81 MG TAB.CHEW PO (07:54)
[2020-03-06] MEDS: busPIRone HCl 10 MG TABLET 15 MG PO ×2 (07:54→20:48)
[2020-03-06] MEDS: Benzonatate 100 MG CAPSULE PO ×2 (07:54→20:46)
[2020-03-06] MEDS: Doxycycline Hyclate 100 MG in 0.9 % Sodium Chloride 250 ML 250 MG IV ×2 (07:55→20:49)
--- NOTE | 2020-03-06 10:36 | PM.PNNEP ---
Subjective Subjective Interval history: Events noted Seen during HD Physical Exam Vital Signs: Vital Signs: Vital Signs Temp Pulse Resp BP Pulse Ox 03/06/20 07:19 97.1 F 77 16 152/63 H 93 03/06/20 03:22 97.1 F 69 19 143/76 H 92 03/05/20 23:32 98.6 F 74 19 129/73 98 03/05/20 21:22 74 128/68 03/05/20 20:00 97.6 F 79 18 126/71 95 03/05/20 16:00 96.5 F L 75 14 120/66 94 03/05/20 11:14 98.0 F 80 16 143/68 H 94 Body Mass Index 20.8 Const: Other: Re HENMT: Head: Yes normal to inspection General nose exam: Normal external nose present Mouth: Normal oral and palatal mucosa present Eyes: General: appearance normal, both eyes and all related structures Sclerae: sclerae normal EOM: EOMs intact bilaterally Resp: Other: rhonchi both lungs Effort & Inspection: normal respiratory effort, abnormal respiratory pattern, no respiratory distress and no stridor Auscultation: crackles on the left, rales, rhonchi, wheezes, diminished lung sounds and bronchial breath sounds Cardio: Rate: regular rate and tachycardic Rhythm: regular rhythm Heart sounds: S1 normal heart sound present and S2 normal heart sound present GI: Palpation (GI): no guarding and not rigid : General: Yes no CVA tenderness Back/Spine/Pelvis: Back: no CVA tenderness Skin: General skin exam: no rashes or lesions noted Wounds: no wounds Extrem: General: Yes normal to inspection and No edema Assessment & Plan Assessment and plan (1) ESRD (end stage renal disease): Status: Acute Assessment and Plan: A 64-year-old male with a history of metastatic lung cancer, ESRD on hemodialysis who presents to the emergency department with shortness of breath found to have COVID 19 pneumonia. Sepsis, resolved 2/2 Pneumonia COVID-19 ESRD on HD Usually goes to [facility] s/s of uremia HD MWF DE planning
[2020-03-06 11:04] VITALS: BP 126/66; PULSE 73; RESP 16; TEMP 36.4; O2SAT 96
--- NOTE | 2020-03-06 13:49 | MHC.CLN ---
F/U PO INTAKE DOWNTRENDING DIET RX: 2GM NA LOW PHOS, LOW K+-APPROPRIATE ENSURE BID IN PLACE TO INCREASE KCALS FOLLOWING
--- NOTE | 2020-03-06 13:50 | MHC.CM.PN ---
DP DC to home via BLS today. Pt will go to [facility] M-W-F at 5pm. He can not go to [facility] due to + COVID. Spoke with Managers at both facilities. They will arrange for transportation. Spoke with Rubina AT [facility] [phone] and Darya Middleton @ [facility] [phone].
--- NOTE | 2020-03-06 14:52 | P.PNIM_ITS ---
Subjective Subjective Date of Service: 03/06/20 Interval History: anxious Respiratory Respiratory: Reports no additional respiratory complaints Gastrointestinal Gastrointestinal: Reports no additional gastrointestinal complaints Physical Exam Vital Signs: Vital Signs: Vital Signs Temp Pulse Resp BP Pulse Ox 03/06/20 11:04 97.5 F 73 16 126/66 96 03/06/20 07:19 97.1 F 77 16 152/63 H 93 03/06/20 03:22 97.1 F 69 19 143/76 H 92 03/05/20 23:32 98.6 F 74 19 129/73 98 03/05/20 21:22 74 128/68 03/05/20 20:00 97.6 F 79 18 126/71 95 03/05/20 16:00 96.5 F L 75 14 120/66 94 Body Mass Index 20.8 General: AO X 3, no acute distress Resp: CTA bilateral CVS: S1,S2,RRR GI: soft, non tender, non distended Neuro: motor grossly intact Psych: appropriate affect Objective Data Current Medications Generic Name Dose Route Start Last Admin Trade Name Freq PRN Reason Stop Dose Admin Acetaminophen 650 mg 03/01/20 11:21 Acetaminophen 325 Mg Tablet PO Q6H PRN Pain and Fever Alprazolam 0.25 mg 03/01/20 15:43 03/04/20 20:33 Alprazolam 0.25 Mg Tablet PO 0.25 mg BEDTIME PRN Administration anxiety/restlessness Alprazolam 0.25 mg 03/05/20 15:36 Alprazolam 0.25 Mg Tablet PO TID PRN Anxiety Aspirin 81 mg 03/02/20 09:00 03/06/20 07:54 Aspirin 81 Mg Tab.Chew PO 81 mg DAILY ARTHUR Administration Atorvastatin Calcium 40 mg 03/01/20 21:00 03/05/20 21:09 Atorvastatin Calcium 40 Mg Tablet PO 40 mg BEDTIME ARTHUR Administration Benzonatate 100 mg 03/02/20 21:00 03/06/20 07:54 Benzonatate 100 Mg Capsule PO 100 mg TID ARTHUR Administration Buspirone HCl 15 mg 03/01/20 21:00 03/06/20 07:54 Buspirone Hcl 10 Mg Tablet PO 15 mg BID ARTHUR Administration Carvedilol 6.25 mg 03/01/20 21:00 03/06/20 07:56 Carvedilol 6.25 Mg Tablet PO Not Given BID [facility] Protocol Dexamethasone Sodium Phosphate 6 mg 03/01/20 13:30 03/06/20 07:52 Dexamethasone Sod Phosphate 4 Mg/Ml Vial IVPUSH 6 mg DAILY ARTHUR Administration Docusate Sodium 100 mg 02/29/20 21:14 Docusate Sodium 100 Mg Capsule PO DAILY PRN Constipation Docusate Sodium 100 mg 03/01/20 21:00 03/06/20 07:53 Docusate Sodium 100 Mg Capsule PO 100 mg BID ARTHUR Administration Folic Acid 1 mg 03/02/20 09:00 03/06/20 07:53 Folic Acid 1 Mg Tablet PO 1 mg DAILY ARTHUR Administration Guaifenesin 600 mg 03/03/20 04:09 03/03/20 06:03 Guaifenesin La 600 Mg Tab.Er.12h PO 600 mg BID PRN Administration cugh Guaifenesin/Dextromethorphan 1 tab 03/05/20 15:40 03/06/20 07:53 Guaifenesin Dm 600/30 1 Tab Tab.Er.12h PO 1 tab BID ARTHUR Administration Heparin Sodium (Porcine) 5,000 unit 03/01/20 16:45 03/04/20 17:08 Heparin Sodium,Porcine 5,000 Unit/Ml Vial INTRACATH 5,000 unit MOWEFR@1645 ARTHUR Administration Doxycycline Hyclate 100 mg/ 250 mls @ 250 mls/hr 02/29/20 22:00 03/06/20 10:16 Sodium Chloride IV Infused BID ARTHUR Infusion Mirtazapine 50 mg 03/01/20 21:00 03/05/20 21:09 Mirtazapine 30 Mg Tablet PO 50 mg BEDTIME ARTHUR Administration Omeprazole 40 mg 03/02/20 06:30 03/06/20 06:21 Omeprazole 40 Mg Capsule.Dr PO 40 mg DAILY@0630 ARTHUR Administration Ondansetron HCl 4 mg 02/29/20 21:14 03/03/20 11:12 Ondansetron Hcl 4 Mg/2 Ml Vial IVPUSH 4 mg Q8H PRN Administration Nausea and Vomiting Sodium Chloride 3 ml 03/01/20 00:00 03/06/20 07:52 0.9 % Sodium Chloride Flush 3 Ml Syringe IVFLUSH 3 ml QSHIFT ARTHUR Administration Trazodone HCl 25 mg 03/05/20 15:36 Trazodone Hcl 25 Mg Halftab PO BEDTIME PRN Insomnia Labs CBC & Chem 7: 03/06/20 06:08 03/06/20 06:08 Microbiology Microbiology Results: Microbiology 02/29/20 14:35 Blood - Venous Blood Culture - Final No growth after 5 days. 02/29/20 14:20 Blood - Venous Blood Culture - Final No growth after 5 days. Assessment and Plan (1) Pancytopenia: Status: Acute (2) Sepsis: Status: Acute (3) COVID-19: Status: Acute (4) Pneumonia: Status: Acute (5) ESRD (end stage renal disease): Status: Acute Assessment and Plan: 64-year-old male with a history of metastatic lung cancer, ESRD on hemodialysis who presented to the emergency department with shortness of breath found to have COVID 19 pneumonia. Sepsis poa, resolved 2/2 Pneumonia and COVID 19 pneumonia continue doxycycline day 6 continue Decadron day 6 On GI prophylaxis Negative blood cultures off o2 Infectious Disease input appreciated elevated troponin likely related to underlying ESRD no chest pain, no ischemic EKG changes ESRD on HD plan dialysis tomorrow Nephrology input appreciated HX CAD continue ASA, atorvastatin and carvedilol Mood Continue Mirtazapine and Buspirone DVT prophylaxis heparin
[2020-03-06 15:28] VITALS: BP 162/78; PULSE 85; RESP 18; TEMP 36.9; O2SAT 94
[2020-03-06] MEDS: ondansetron HCL 4 MG/2 ML VIAL IVPUSH (16:55)
[2020-03-06 19:43] VITALS: BP 161/80; PULSE 124; PULSE 86; RESP 16; TEMP 36.9; O2SAT 94
[2020-03-06] MEDS: traZODone HCL 25 MG HALFTAB PO (20:45)
[2020-03-06] MEDS: ALPRAZolam 0.25 MG TABLET PO (20:45)
[2020-03-06] MEDS: Mirtazapine 30 MG TABLET 50 MG PO (20:47)
[2020-03-06] MEDS: Atorvastatin Calcium 40 MG TABLET PO (20:48)
[2020-03-06 20:53] VITALS: BP 160/80; PULSE 85
[2020-03-06] MEDS: carvediloL 6.25 MG TABLET PO (20:53)
[2020-03-07] VITALS (10 sets, daily range): BP systolic 101–167; BP diastolic 54–80; PULSE 64–87; RESP 14–18; TEMP 36.2–37.4; O2SAT 88–99
[2020-03-07 06:33] LABS: MANUAL DIFF FLAG NO
[2020-03-07 06:51] LABS: Eosinophils Percent Auto 0.5 % (0-4); Hemoglobin 11.8 g/dl (14.0-18.0); Imm Gran Abs Auto 0.04 X10*3/uL (0.00-0.03); Lymphocytes Absolute Auto 0.8 X10*3/uL (1.2-4.9); Lymphocytes Percent Auto 19.7 % (20-40); Mean Corpuscular HGB Conc 32.8 g/dl (31.0-36.0); Mean Corpuscular Hemoglobin 30.8 pg (27.0-33.0); Mean Platelet Volume 10.7 fL (9.4-12.4); Monocytes Absolute Auto 0.6 X10*3/uL (0.1-1.2); Monocytes Percent Auto 13.9 % (2-11); Neutrophils Absolute Auto 2.7 X10*3/uL (2.0-8.3); Neutrophils Percent Auto 64.9 % (45-73); Red Blood Count 3.83 X10*6/uL (4.60-5.80); Red Cell Distribution Width 15.7 % (11.0-16.0); White Blood Count 4.1 X10*3/uL (4.8-10.8)
[2020-03-07 07:06] LABS: Platelet Count 97 X10*3/uL (160-400)
[2020-03-07 07:23] LABS: Anion Gap 19 (12-20); Blood Urea Nitrogen 59 mg/dL (9-16); Calcium 8.3 mg/dL (8.4-10.2); Carbon Dioxide 27 mmol/L (22-29); Chloride 97 mmol/L (96-108); Creatinine Clr Calc Pharmacy 9.4; Estimated Glomerular Filt Rate 8; Glucose Fasting 69 mg/dL (60-99); Potassium 4.5 mmol/l (3.3-5.1); Sodium 138 mmol/L (135-145)
[2020-03-07] MEDS: 0.9 % Sodium Chloride Flush 3 ML SYRINGE IVFLUSH ×2 (08:31→14:00)
[2020-03-07] MEDS: busPIRone HCl 10 MG TABLET 15 MG PO ×2 (08:32→23:02)
[2020-03-07] MEDS: Docusate Sodium 100 MG CAPSULE PO ×3 (08:32→23:05)
[2020-03-07] MEDS: Folic Acid 1 MG TABLET PO (08:32)
[2020-03-07] MEDS: guaiFENesin DM 600/30 1 TAB TAB.ER.12H PO ×2 (08:32→23:03)
[2020-03-07] MEDS: Benzonatate 100 MG CAPSULE PO ×3 (08:32→23:02)
[2020-03-07] MEDS: Aspirin 81 MG TAB.CHEW PO (08:32)
[2020-03-07] MEDS: Doxycycline Hyclate 100 MG in 0.9 % Sodium Chloride 250 ML 250 MG IV ×2 (08:33→23:41)
[2020-03-07] MEDS: dexAMETHasone sod phosphate 4 MG/ML VIAL 6 MG IVPUSH (08:33)
[2020-03-07] MEDS: carvediloL 6.25 MG TABLET PO ×2 (08:34→22:42)
--- NOTE | 2020-03-07 10:50 | PM.PNNEP ---
Subjective Subjective Interval history: anxious Physical Exam Vital Signs: Vital Signs: Vital Signs Temp Pulse Resp BP Pulse Ox 03/07/20 08:47 96 03/07/20 08:34 70 167/80 H 03/07/20 08:00 97.7 F 64 16 167/80 H 94 03/07/20 07:48 97.4 F 87 16 167/80 H 96 03/07/20 03:50 99.0 F 81 18 151/75 H 94 03/07/20 00:00 99.4 F 82 18 142/73 H 98 03/06/20 20:53 85 160/80 H 03/06/20 19:43 98.5 F 86 16 161/80 H 94 03/06/20 15:28 98.5 F 85 18 162/78 H 94 03/06/20 11:04 97.5 F 73 16 126/66 96 Body Mass Index 20.8 Const: General: awake Neck: Neck: Yes supple Resp: Auscultation: rhonchi Cardio: Jugular venous distension: no JVD Heart sounds: no rubs GI: Inspection: Yes normal to inspection Palpation (GI): Soft to palpation Auscultation: normal bowel sounds Neuro: Motor exam (neuro): No Asterixis during motor activity present Assessment & Plan Assessment and plan (1) ESRD (end stage renal disease): Problem details: No s/s of uremia Status: Acute Assessment and Plan: HD MWF No change in HD prescription Will remove fluid as tolerated
--- NOTE | 2020-03-07 11:44 | HO.PM.IMPN ---
Subjective Subjective Date of Service: 03/07/20 Interval History: sob Cardiovascular Cardiovascular: Reports no additional cardiovascular complaints Respiratory Respiratory: Reports no additional respiratory complaints Physical Exam Vital Signs: Vital Signs: Vital Signs Temp Pulse Resp BP Pulse Ox 03/07/20 11:04 97.5 F 71 18 101/54 L 99 03/07/20 08:47 96 03/07/20 08:34 70 167/80 H 03/07/20 08:00 97.7 F 64 16 167/80 H 94 03/07/20 07:48 97.4 F 87 16 167/80 H 96 03/07/20 03:50 99.0 F 81 18 151/75 H 94 03/07/20 00:00 99.4 F 82 18 142/73 H 98 03/06/20 20:53 85 160/80 H 03/06/20 19:43 98.5 F 86 16 161/80 H 94 03/06/20 15:28 98.5 F 85 18 162/78 H 94 Body Mass Index 20.8 General: AO X 3, weak appearing Resp: diminished CVS: S1,S2,RRR GI: soft, non tender, non distended Neuro: motor grossly intact Psych: appropriate affect Objective Data Current Medications Generic Name Dose Route Start Last Admin Trade Name Freq PRN Reason Stop Dose Admin Acetaminophen 650 mg 03/01/20 11:21 Acetaminophen 325 Mg Tablet PO Q6H PRN Pain and Fever Alprazolam 0.25 mg 03/05/20 15:36 Alprazolam 0.25 Mg Tablet PO TID PRN Anxiety Alprazolam 0.25 mg 03/06/20 16:30 03/06/20 20:45 Alprazolam 0.25 Mg Tablet PO 0.25 mg BEDTIME PRN Administration anxiety/restlessness Aspirin 81 mg 03/02/20 09:00 03/07/20 08:32 Aspirin 81 Mg Tab.Chew PO 81 mg DAILY ARTHUR Administration Atorvastatin Calcium 40 mg 03/01/20 21:00 03/06/20 20:48 Atorvastatin Calcium 40 Mg Tablet PO 40 mg BEDTIME ARTHUR Administration Benzonatate 100 mg 03/02/20 21:00 03/07/20 08:32 Benzonatate 100 Mg Capsule PO 100 mg TID ARTHUR Administration Buspirone HCl 15 mg 03/01/20 21:00 03/07/20 08:32 Buspirone Hcl 10 Mg Tablet PO 15 mg BID ARTHUR Administration Carvedilol 6.25 mg 03/01/20 21:00 03/07/20 08:34 Carvedilol 6.25 Mg Tablet PO 6.25 mg BID ARTHUR Administration Protocol Dexamethasone Sodium Phosphate 6 mg 03/01/20 13:30 03/07/20 08:33 Dexamethasone Sod Phosphate 4 Mg/Ml Vial IVPUSH 6 mg DAILY ARTHUR Administration Docusate Sodium 100 mg 02/29/20 21:14 Docusate Sodium 100 Mg Capsule PO DAILY PRN Constipation Docusate Sodium 100 mg 03/01/20 21:00 03/07/20 08:32 Docusate Sodium 100 Mg Capsule PO 100 mg BID ARTHUR Administration Folic Acid 1 mg 03/02/20 09:00 03/07/20 08:32 Folic Acid 1 Mg Tablet PO 1 mg DAILY ARTHUR Administration Guaifenesin 600 mg 03/03/20 04:09 03/03/20 06:03 Guaifenesin La 600 Mg Tab.Er.12h PO 600 mg BID PRN Administration cugh Guaifenesin/Dextromethorphan 1 tab 03/05/20 15:40 03/07/20 08:32 Guaifenesin Dm 600/30 1 Tab Tab.Er.12h PO 1 tab BID ARTHUR Administration Heparin Sodium (Porcine) 5,000 unit 03/01/20 16:45 03/06/20 17:22 Heparin Sodium,Porcine 5,000 Unit/Ml Vial INTRACATH Not Given MOWEFR@1645 [facility] Doxycycline Hyclate 100 mg/ 250 mls @ 250 mls/hr 02/29/20 22:00 03/07/20 09:33 Sodium Chloride IV Infused BID ARTHUR Infusion Mirtazapine 50 mg 03/01/20 21:00 03/06/20 20:47 Mirtazapine 30 Mg Tablet PO 50 mg BEDTIME ARTHUR Administration Omeprazole 40 mg 03/02/20 06:30 03/07/20 06:09 Omeprazole 40 Mg Capsule.Dr PO Not Given DAILY@0630 [facility] Ondansetron HCl 4 mg 02/29/20 21:14 03/06/20 16:55 Ondansetron Hcl 4 Mg/2 Ml Vial IVPUSH 4 mg Q8H PRN Administration Nausea and Vomiting Sodium Chloride 3 ml 03/01/20 00:00 03/07/20 08:31 0.9 % Sodium Chloride Flush 3 Ml Syringe IVFLUSH 3 ml QSHIFT ARTHUR Administration Trazodone HCl 25 mg 03/05/20 15:36 03/06/20 20:45 Trazodone Hcl 25 Mg Halftab PO 25 mg BEDTIME PRN Administration Insomnia Labs CBC & Chem 7: 03/07/20 05:49 03/07/20 05:49 Microbiology Microbiology Results: Microbiology 02/29/20 14:35 Blood - Venous Blood Culture - Final No growth after 5 days. 02/29/20 14:20 Blood - Venous Blood Culture - Final No growth after 5 days. Assessment and Plan (1) ESRD (end stage renal disease): Problem details: No s/s of uremia Status: Acute (2) Pancytopenia: Status: Acute (3) Sepsis: Status: Acute (4) COVID-19: Status: Acute (5) Pneumonia: Status: Acute Assessment and Plan: HD MWF No change in HD prescription Will remove fluid as tolerated 64-year-old male with a history of metastatic lung cancer, ESRD on hemodialysis who presented to the emergency department with shortness of breath found to have COVID 19 pneumonia. Sepsis poa, resolved and acute hypoxic respiratory failure 2/2 Pneumonia and COVID 19 pneumonia continue doxycycline day 7 continue Decadron day 7 On GI prophylaxis Negative blood cultures Infectious Disease input appreciated elevated troponin likely related to underlying ESRD no chest pain, no ischemic EKG changes ESRD on HD plan dialysis tomorrow Nephrology input appreciated HX CAD continue ASA, atorvastatin and carvedilol Mood Continue Mirtazapine and Buspirone DVT prophylaxis heparin
[2020-03-07] MEDS: traZODone HCL 25 MG HALFTAB PO (22:41)
[2020-03-07] MEDS: Mirtazapine 30 MG TABLET 50 MG PO (22:41)
[2020-03-07] MEDS: Atorvastatin Calcium 40 MG TABLET PO (22:41)
[2020-03-07] MEDS: ALPRAZolam 0.25 MG TABLET PO (23:01)
[2020-03-07 23:52] LABS: Glucose, Whole Blood 107 mg/dL (60-115)
[2020-03-08] VITALS (7 sets, daily range): BP systolic 111–165; BP diastolic 52–82; PULSE 72–82; RESP 16–19; TEMP 36–37; O2SAT 94–97
[2020-03-08] MEDS: 0.9 % Sodium Chloride Flush 3 ML SYRINGE IVFLUSH ×4 (01:50→20:41)
[2020-03-08] MEDS: Omeprazole 40 MG CAPSULE.DR PO (06:14)
[2020-03-08 06:56] LABS: Eosinophils Percent Auto 0.4 % (0-4); Hematocrit 32.4 % (42-52); Hemoglobin 10.8 g/dl (14.0-18.0); Imm Gran Abs Auto 0.02 X10*3/uL (0.00-0.03); Imm Gran Pct Auto 0.7 % (0.0-0.4); Lymphocytes Absolute Auto 0.7 X10*3/uL (1.2-4.9); Lymphocytes Percent Auto 25.1 % (20-40); MANUAL DIFF FLAG SCAN; Mean Corpuscular HGB Conc 33.3 g/dl (31.0-36.0); Mean Corpuscular Hemoglobin 30.6 pg (27.0-33.0); Mean Corpuscular Volume 91.8 fL (80-98); Mean Platelet Volume 10.4 fL (9.4-12.4); Monocytes Absolute Auto 0.3 X10*3/uL (0.1-1.2); Monocytes Percent Auto 11.3 % (2-11); Neutrophils Absolute Auto 1.7 X10*3/uL (2.0-8.3); Neutrophils Percent Auto 62.5 % (45-73); Red Blood Count 3.53 X10*6/uL (4.60-5.80); Red Cell Distribution Width 15.3 % (11.0-16.0); SCAN SMEAR FLAG 1; White Blood Count 2.8 X10*3/uL (4.8-10.8)
[2020-03-08 07:19] LABS: Platelet Count 99 X10*3/uL (160-400)
[2020-03-08 07:32] LABS: Lactate Dehydrogenase 241 U/L (118-273)
[2020-03-08 07:41] LABS: SLIDE REVIEW VERIFIED
[2020-03-08 07:47] LABS: Anion Gap 21 (12-20); Blood Urea Nitrogen 88 mg/dL (9-16); Carbon Dioxide 22 mmol/L (22-29); Chloride 98 mmol/L (96-108); Creatinine Clr Calc Pharmacy 7.3; Estimated Glomerular Filt Rate 6; Glucose Fasting 85 mg/dL (60-99); Potassium 5.1 mmol/l (3.3-5.1); Sodium 136 mmol/L (135-145)
--- NOTE | 2020-03-08 10:09 | PM.PNNEP ---
Subjective Subjective Interval history: sob Still requiring O2 Seen during HD Physical Exam Vital Signs: Vital Signs: Vital Signs Temp Pulse Resp BP Pulse Ox 03/08/20 08:00 97.5 F 80 18 165/82 H 97 03/08/20 04:00 98.6 F 74 18 141/79 H 97 03/08/20 00:00 97.6 F 72 19 139/66 96 03/07/20 22:42 80 151/68 H 03/07/20 20:00 97.2 F 72 14 151/68 H 96 03/07/20 15:59 97.4 F 72 16 115/60 98 03/07/20 11:04 97.5 F 71 18 101/54 L 99 Body Mass Index 20.8 Const: Other: Re General: awake Eyes: General: appearance normal, both eyes and all related structures Neck: Neck: Yes supple Resp: Other: rhonchi both lungs Auscultation: crackles Cardio: Jugular venous distension: no JVD Rate: regular rate and tachycardic Rhythm: regular rhythm Heart sounds: S1 normal heart sound present, S2 normal heart sound present and no rubs GI: Palpation (GI): Soft to palpation, no guarding and not rigid Auscultation: normal bowel sounds Skin: General skin exam: no rashes or lesions noted Neuro: Motor exam (neuro): No Asterixis during motor activity present Assessment & Plan Assessment and plan (1) ESRD (end stage renal disease): Problem details: No s/s of uremia Status: Acute Assessment and Plan: HD MWF No change in HD prescription Will remove fluid as tolerated
[2020-03-08] MEDS: ALPRAZolam 0.25 MG TABLET PO ×2 (11:15→20:41)
--- NOTE | 2020-03-08 11:30 | P.PNIM_ITS ---
Subjective Subjective Date of Service: 03/08/20 Interval History: sob Still requiring O2 weak Cardiovascular Cardiovascular: Reports no additional cardiovascular complaints Respiratory Respiratory: Reports no additional respiratory complaints Physical Exam Vital Signs: Vital Signs: Vital Signs Temp Pulse Resp BP Pulse Ox 03/08/20 08:00 97.5 F 80 18 165/82 H 97 03/08/20 04:00 98.6 F 74 18 141/79 H 97 03/08/20 00:00 97.6 F 72 19 139/66 96 03/07/20 22:42 80 151/68 H 03/07/20 20:00 97.2 F 72 14 151/68 H 96 03/07/20 15:59 97.4 F 72 16 115/60 98 Body Mass Index 20.8 General: AO X 3, weak appearing Resp: diminished CVS: S1,S2,RRR GI: soft, non tender, non distended Neuro: motor grossly intact Psych: appropriate affect Objective Data Current Medications Generic Name Dose Route Start Last Admin Trade Name Freq PRN Reason Stop Dose Admin Acetaminophen 650 mg 03/01/20 11:21 Acetaminophen 325 Mg Tablet PO Q6H PRN Pain and Fever Alprazolam 0.25 mg 03/05/20 15:36 03/08/20 11:15 Alprazolam 0.25 Mg Tablet PO 0.25 mg TID PRN Administration Anxiety Alprazolam 0.25 mg 03/06/20 16:30 03/06/20 20:45 Alprazolam 0.25 Mg Tablet PO 0.25 mg BEDTIME PRN Administration anxiety/restlessness Aspirin 81 mg 03/02/20 09:00 03/07/20 08:32 Aspirin 81 Mg Tab.Chew PO 81 mg DAILY ARTHUR Administration Atorvastatin Calcium 40 mg 03/01/20 21:00 03/07/20 22:41 Atorvastatin Calcium 40 Mg Tablet PO 40 mg BEDTIME ARTHUR Administration Benzonatate 100 mg 03/02/20 21:00 03/08/20 10:06 Benzonatate 100 Mg Capsule PO Not Given TID ARTHUR Buspirone HCl 15 mg 03/01/20 21:00 03/08/20 10:15 Buspirone Hcl 10 Mg Tablet PO Not Given BID ARTHUR Carvedilol 6.25 mg 03/01/20 21:00 03/08/20 10:10 Carvedilol 6.25 Mg Tablet PO Not Given BID ARTHUR Protocol Dexamethasone Sodium Phosphate 6 mg 03/01/20 13:30 03/07/20 08:33 Dexamethasone Sod Phosphate 4 Mg/Ml Vial IVPUSH 6 mg DAILY ARTHUR Administration Docusate Sodium 100 mg 02/29/20 21:14 Docusate Sodium 100 Mg Capsule PO DAILY PRN Constipation Docusate Sodium 100 mg 03/01/20 21:00 03/07/20 23:05 Docusate Sodium 100 Mg Capsule PO 100 mg BID ARTHUR Administration Folic Acid 1 mg 03/02/20 09:00 03/07/20 08:32 Folic Acid 1 Mg Tablet PO 1 mg DAILY ARTHUR Administration Guaifenesin 600 mg 03/03/20 04:09 03/03/20 06:03 Guaifenesin La 600 Mg Tab.Er.12h PO 600 mg BID PRN Administration cugh Guaifenesin/Dextromethorphan 1 tab 03/05/20 15:40 03/08/20 10:09 Guaifenesin Dm 600/30 1 Tab Tab.Er.12h PO Not Given BID [facility] Heparin Sodium (Porcine) 5,000 unit 03/01/20 16:45 03/06/20 17:22 Heparin Sodium,Porcine 5,000 Unit/Ml Vial INTRACATH Not Given MOWEFR@1645 [facility] Doxycycline Hyclate 100 mg/ 250 mls @ 250 mls/hr 03/07/20 23:30 03/08/20 01:48 Sodium Chloride IV Not Given Q12H [facility] Mirtazapine 50 mg 03/01/20 21:00 03/07/20 22:41 Mirtazapine 30 Mg Tablet PO 50 mg BEDTIME [facility] Administration Omeprazole 40 mg 03/02/20 06:30 03/08/20 06:14 Omeprazole 40 Mg Capsule.Dr PO 40 mg DAILY@0630 [facility] Administration Ondansetron HCl 4 mg 02/29/20 21:14 03/06/20 16:55 Ondansetron Hcl 4 Mg/2 Ml Vial IVPUSH 4 mg Q8H PRN Administration Nausea and Vomiting Sodium Chloride 3 ml 03/01/20 00:00 03/08/20 08:19 0.9 % Sodium Chloride Flush 3 Ml Syringe IVFLUSH 3 ml QSHIFT ARTHUR Administration Trazodone HCl 25 mg 03/05/20 15:36 03/07/20 22:41 Trazodone Hcl 25 Mg Halftab PO 25 mg BEDTIME PRN Administration Insomnia Labs CBC & Chem 7: 03/08/20 05:57 03/08/20 05:57 Microbiology Microbiology Results: Microbiology 02/29/20 14:35 Blood - Venous Blood Culture - Final No growth after 5 days. 02/29/20 14:20 Blood - Venous Blood Culture - Final No growth after 5 days. Assessment and Plan (1) ESRD (end stage renal disease): Problem details: No s/s of uremia Status: Acute (2) Pancytopenia: Status: Acute (3) Sepsis: Status: Acute (4) COVID-19: Status: Acute (5) Pneumonia: Status: Acute Assessment and Plan: 64-year-old male with a history of metastatic lung cancer, ESRD on hemodialysis who presented to the emergency department with shortness of breath found to have COVID 19 pneumonia. Sepsis poa, resolved and acute hypoxic respiratory failure 2/2 Pneumonia and COVID 19 pneumonia continue doxycycline day 8 continue Decadron day 8 On GI prophylaxis Negative blood cultures Infectious Disease input appreciated elevated troponin likely related to underlying ESRD no chest pain, no ischemic EKG changes ESRD on HD plan dialysis tomorrow Nephrology input appreciated HX CAD continue ASA, atorvastatin and carvedilol Mood Continue Mirtazapine and Buspirone DVT prophylaxis heparin
[2020-03-08] MEDS: dexAMETHasone sod phosphate 4 MG/ML VIAL 6 MG IVPUSH (12:38)
[2020-03-08] MEDS: Aspirin 81 MG TAB.CHEW PO (12:38)
[2020-03-08] MEDS: Folic Acid 1 MG TABLET PO (12:39)
--- NOTE | 2020-03-08 13:32 | MHC.CLN ---
F/U 50-75% PO INTAKE DIET RX: 2GM NA LOW PHOS LOW K+-APPROPRIATE PT RECEIVING ENSURE BID TO INCREASE KCALS FOLLOWING
--- NOTE | 2020-03-08 13:59 | MHC.CM.PN ---
DP Home with [facility] Palliative program. via ambulance.
[2020-03-08] MEDS: Benzonatate 100 MG CAPSULE PO ×2 (15:18→20:36)
[2020-03-08] MEDS: guaiFENesin DM 600/30 1 TAB TAB.ER.12H PO (20:36)
[2020-03-08] MEDS: busPIRone HCl 10 MG TABLET 15 MG PO (20:36)
[2020-03-08] MEDS: Atorvastatin Calcium 40 MG TABLET PO (20:36)
[2020-03-08] MEDS: Docusate Sodium 100 MG CAPSULE PO (20:37)
[2020-03-08] MEDS: Mirtazapine 30 MG TABLET PO (21:22)
[2020-03-09 04:00] VITALS: BP 127/60; PULSE 70; RESP 17; TEMP 36.3; O2SAT 95
[2020-03-09] MEDS: Omeprazole 40 MG CAPSULE.DR PO (05:45)
[2020-03-09 06:48] LABS: Eosinophils Percent Auto 0.5 % (0-4); Hemoglobin 10.2 g/dl (14.0-18.0); Imm Gran Abs Auto 0.01 X10*3/uL (0.00-0.03); Imm Gran Pct Auto 0.5 % (0.0-0.4); Lymphocytes Absolute Auto 0.6 X10*3/uL (1.2-4.9); MANUAL DIFF FLAG SCAN; Mean Corpuscular HGB Conc 32.9 g/dl (31.0-36.0); Mean Corpuscular Hemoglobin 30.4 pg (27.0-33.0); Mean Corpuscular Volume 92.5 fL (80-98); Mean Platelet Volume 9.6 fL (9.4-12.4); Monocytes Absolute Auto 0.2 X10*3/uL (0.1-1.2); Monocytes Percent Auto 10.3 % (2-11); Neutrophils Absolute Auto 1.3 X10*3/uL (2.0-8.3); Neutrophils Percent Auto 60.7 % (45-73); Red Blood Count 3.35 X10*6/uL (4.60-5.80); Red Cell Distribution Width 15.4 % (11.0-16.0); SCAN SMEAR FLAG 1
[2020-03-09 07:16] LABS: Platelet Count 90 X10*3/uL (160-400); White Blood Count 2.1 X10*3/uL (4.8-10.8)
[2020-03-09 07:34] LABS: Anion Gap 16 (12-20); Blood Urea Nitrogen 63 mg/dL (9-16); Calcium 8.2 mg/dL (8.4-10.2); Carbon Dioxide 30 mmol/L (22-29); Chloride 98 mmol/L (96-108); Creatinine Clr Calc Pharmacy 9.3; Estimated Glomerular Filt Rate 8; Glucose Fasting 87 mg/dL (60-99); Potassium 4.6 mmol/l (3.3-5.1); Sodium 139 mmol/L (135-145)
[2020-03-09 08:00] VITALS: BP 141/72; PULSE 79; RESP 18; TEMP 36.6; O2SAT 91
[2020-03-09 08:08] LABS: SLIDE REVIEW VERIFIED
[2020-03-09] MEDS: 0.9 % Sodium Chloride Flush 3 ML SYRINGE IVFLUSH (09:06)
[2020-03-09 09:07] VITALS: BP 141/72; PULSE 79
[2020-03-09] MEDS: carvediloL 6.25 MG TABLET PO (09:07)
[2020-03-09] MEDS: Aspirin 81 MG TAB.CHEW PO (09:07)
[2020-03-09] MEDS: Folic Acid 1 MG TABLET PO (09:07)
[2020-03-09] MEDS: Benzonatate 100 MG CAPSULE PO (09:07)
[2020-03-09] MEDS: guaiFENesin DM 600/30 1 TAB TAB.ER.12H PO (09:07)
[2020-03-09] MEDS: dexAMETHasone sod phosphate 4 MG/ML VIAL 6 MG IVPUSH (09:07)
[2020-03-09] MEDS: Docusate Sodium 100 MG CAPSULE PO (09:08)
[2020-03-09] MEDS: busPIRone HCl 10 MG TABLET 15 MG PO (09:08)
--- NOTE | 2020-03-09 09:32 | P.DS_ITS ---
DS: Providers Provider Date of admission: 02/29/20 19:07 Primary care physician: Cherrie Cooper MD Consults: 02/29/20 21:14 Consult to Infectious Diseases Routine Consulting Provider: Stephanie Tobar Reason for consultation: covid19 pna Consult to Nephrology Routine Consulting Provider: Santosh Ballesteros Reason for consultation: esrd on hd DS: Diagnosis Discharge Diagnosis (1) ESRD (end stage renal disease): Status: Acute Problem details: No s/s of uremia (2) Pancytopenia: Status: Acute (3) Sepsis: Status: Acute (4) COVID-19: Status: Acute (5) Pneumonia: Status: Acute DS: Summary Hospital Course Hospital Course: from initial H&P: 64-year-old [place]uneian-speaking male with a history of metastatic lung cancer who presents to the emergency department today with complaints of shortn ess of breath. He reports 3 days of shortness of breath with associated intermittent cough productive of scant phlegm. He reports fever at home. he denies any recent sick contacts. In the emergency department he had low-grade fever of 99.7. Lab work revealed pancytopenia. Troponin was elevated at 260.7 with no associated EKG changes. Chest x-ray showed possibility of airspace disease versus neoplasm versus radiation damage and CT chest has been ordered. he was started on IV antibiotics. COVID19 was checked and was positive. The decision was made to admit him for further management. Hospital course: Patient was admitted for acute hypoxic respiratory failure secondary to COVID- 19 pneumonia, with possible bacterial coinfection. Patient was treated with doxycycline and Decadron. His symptoms slowly improved. He was able to be weaned off oxygen. He still feeling very weak and lethargic but respiratory symptoms are much better. He will be discharged home, he should continue isolation until symptom-free and at least 10 days from illness beginning. Time Spent with Patient Time attestation: Total time spent providing and/or coordinating discharge services: Physical Exam Vital Signs: Vital Signs: Vital Signs Temp Pulse Resp BP Pulse Ox 03/09/20 09:07 79 141/72 H 03/09/20 08:00 97.9 F 79 18 141/72 H 91 L 03/09/20 04:00 97.4 F 70 17 127/60 95 03/08/20 23:55 97.5 F 77 16 144/75 H 94 03/08/20 19:26 96.9 F 76 17 111/52 L 97 03/08/20 15:29 96.8 F 82 18 137/72 97 03/08/20 12:00 97.3 F 81 16 156/71 H 94 Body Mass Index 20.8 General: AO X 3, more alert today, still overall weak looking Resp: diminished CVS: S1,S2,RRR GI: soft, non tender, non distended Neuro: motor grossly intact Psych: appropriate affect DS: Data Data Completed and Pending Labs on day of discharge: Labs from last 24 hours 03/09/20 03/09/20 06:27 06:27 WBC 2.1 L RBC 3.35 L Hgb 10.2 L Hct 31.0 L MCV 92.5 MCH 30.4 MCHC 32.9 RDW 15.4 Plt Count 90 L MPV 9.6 Immature Gran % (Auto) 0.5 H Neut % (Auto) 60.7 Lymph % (Auto) 28.0 [place] % (Auto) 10.3 Eos % (Auto) 0.5 Baso % (Auto) 0.0 Lymph # (Auto) 0.6 L [place] # (Auto) 0.2 Eos # (Auto) 0.0 Baso # (Auto) 0.0 Abs Immat Gran (auto) 0.01 Absolute Neuts (auto) 1.3 L Absolute Nucleated RBC 0.000 Nucleated RBC % (auto) 0.0 Smear Tech's Comments VERIFIED Smear Path Review Pending Sodium 139 Potassium 4.6 Chloride 98 Carbon Dioxide 30 H Anion Gap 16 BUN 63 H Creatinine 6.88 H* Estim Creat Clear Calc 9.3 Estimated GFR 8 Fasting Glucose 87 Calcium 8.2 L Discharge Plan Discharge Patient Disposition: Home Health Service Referrals: [facility] [Other] (You can not return to [facility] because of COVID + at this time. You will receive Dialysis at this ISOLATION unit for now. - 5pm Transportation is being arranged for you) Cherrie Bunn MD [Primary Care Provider] - Discharge Medications: Continued alprazolam 0.25 mg Tablet 0.25 mg PO BEDTIME RF: 0 atorvastatin 40 mg Tablet 40 mg PO BEDTIME RF: 0 carvedilol 6.25 mg Tablet 6.25 mg PO BID RF: 0 mirtazapine 30 mg Tablet 30 mg PO BEDTIME RF: 0 docusate sodium [Colace] 100 mg Capsule 100 mg PO BID RF: 0 folic acid 1 mg Tablet 1 mg PO DAILY RF: 0 aspirin 81 mg Tablet 81 mg PO DAILY RF: 0 multivitamin with minerals Tablet 1 tab PO DAILY RF: 0 polyethylene glycol 3350 [Miralax] 17 gram/dose Powder 17 g PO DAILY RF: 0 buspirone 15 mg Tablet 15 mg PO BID RF: 0 omeprazole 40 mg Capsule,Delayed Release(Dr/Ec) 40 mg PO BID RF: 0 metoclopramide HCl [Reglan] 5 mg Tablet 5 mg PO DAILY RF: 0 ergocalciferol (vitamin D2) [Vitamin D2] 1,250 mcg (50,000 unit) Capsule 1,250 mcg PO Q60D RF: 0 sevelamer carbonate [Renvela] 800 mg Tablet 800 mg PO TID RF: 0 Discharge Orders: Discharge Order (Routine); Ordered 03/09/20 Ordered By: Marco Antonio Del Cid Diet: advance to your usual diet Activity on Discharge: As tolerated Visit Report Forms: Patient Portal Discharge page Care Plan Goals: recovery Health Concerns: covid, cancer Plan of Treatment: continue isolation until symptom free and atleast 10 days from start of symptoms
[2020-03-09 12:00] VITALS: BP 116/55; PULSE 74; RESP 18; TEMP 36.3; O2SAT 95
--- NOTE | 2020-03-09 12:08 | MHC.CM.PN ---
PT CELARED FOR C TODAY. CM ATTEMPTING TO CONTACT [facility] TO CONFIRM THEY WILL PROVIDE PALLIATIVE CARE SERVICES. CM CALLED OFF HOURS CONTACT LINE ([phone]) AND WAS CONNECTED TO THE PROVIDER LINE. CM WAS ON HOLD FOR 27 MINUTES WAITING FOR [employer]PER[employer] ALEJANDRA NURSE TO ANSWER. CM WILL TRY AGAIN PRIOR TO PT DISCHARGE. PT WILL BE TRANSPORTED HOME VIA [facility].
== END 2020-03-09 14:41 | disposition home health service (06) | DRG 871 ==
LOC: HO.ED 17:14 → HO.IMC 20:36
PROVIDERS: Physician Assistant; Student in an Organized Health Care Education/Training Program; Admitting Provider Physician Assistant Medical; Emergency Provider Internal Medicine; PCP Internal Medicine; Visit Provider Internal Medicine
DX: A41.89 Other specified sepsis (principal); U07.1 COVID-19; N18.6 End stage renal disease; J12.89 Other viral pneumonia; D61.810 Antineoplastic chemotherapy induced pancytopenia; J96.01 Acute respiratory failure with hypoxia; I12.0 Hypertensive chronic kidney disease with stage 5 chronic kidney disease or end stage renal disease; C34.90 Malignant neoplasm of unspecified part of unspecified bronchus or lung; I25.10 Atherosclerotic heart disease of native coronary artery without angina pectoris; Z87.891 Personal history of nicotine dependence; Z99.2 Dependence on renal dialysis; Z79.82 Long term (current) use of aspirin; Z79.899 Other long term (current) drug therapy
CPT/HCPCS: 36415; 71045; 71250; 80048; 80076; 82550; 82728; 82947; 83605; 83615; 83735; 83880; 84145; 84484; 85025; 85060; 85379; 86140; 87040; 87635; 90999; 93005; 96365; 99225; 99232; 99285; J1100; J2405; J8540

== ENCOUNTER 2020-03-14 13:53 | Outpatient (REF) | payer OTHER, SELFPAY | END 2020-03-14 13:54 | disposition home or self-care (01) | LOC: HO.LAB 13:53 | PROVIDERS: PCP Internal Medicine; Visit Provider Internal Medicine | DX: Z20.828 Contact with and (suspected) exposure to other viral communicable diseases (principal) | CPT/HCPCS: 87635 ==

== ENCOUNTER 2020-04-02 10:58 | Emergency (ER) | payer OTHER, SELFPAY ==
[2020-04-02 11:04] VITALS: BP 131/72; BP 140/80; PULSE 82; PULSE 85; RESP 18; TEMP 37.1; O2SAT 96; O2SAT 97
--- NOTE | 2020-04-02 11:15 | XR_ITS ---
EXAMINATION: XR CHEST CLINICAL INFORMATION: Shortness of breath. History metastatic lung cancer. COMPARISON: Chest radiographs 02/29/2020, 11/18/2019, 11/10/2019, CT chest noncontrast 02/29/2020, image guided liver FNA 11/16/2019. TECHNIQUE: Portable upright AP view of the chest was obtained. FINDINGS: Patient is slightly rotated to the left. There is right tunneled port with tip at SVC/right atrial confluence. There is mild cardiomegaly. There is even distribution pulmonary vascularity similar to prior studies. There is no interval overt vascular congestion. Patchy left perihilar and right infrahilar airspace opacities are similar to prior exam 02/29/2020. There is some increased patchy opacity left base. There may be a trace effusion on the left. No visible right effusion. The hilar contours are normal. There are surgical clips right mediastinum. No acute bony abnormality. XR/XR chest 1V IMPRESSION: 1. Chronic patchy airspace opacity left perihilar and right infrahilar, similar to 02/29/2020. 2. New airspace opacity left base, possibly with trace effusion.
--- NOTE | 2020-04-02 11:15 | ECG_ITS ---
Test Reason : SOB Blood Pressure : / mmHG Vent. Rate : 087 BPM Atrial Rate : 087 BPM P-R Int : 156 ms QRS Dur : 104 ms QT Int : 422 ms P-R-T Axes : 041 005 086 degrees QTc Int : 507 ms Normal sinus rhythm Possible Left atrial enlargement Nonspecific ST abnormality Inferior leads Abnormal ECG When compared with ECG of 29-FEB-2020 14:17, No significant change was found Heart rate has decreased Referred By: Rayna Carney Electronically Signed By:PING LAGOS MD
--- NOTE | 2020-04-02 11:24 | ED_ITS ---
HPI - Chest Pain General Chief Complaint: Chest Pain <KAITLIN Powers - Last Filed: 04/02/20 17:33> Stated Complaint: SOB,HX COVID IN FEBRUARY & LUNG CA <KAITLIN Powers - Last Filed: 04/02/20 17:33> Time Seen by Provider: 04/02/20 11:14 <KAITLIN Powers - Last Filed: 04/02/20 17:33> Source: patient and EMS <KAITLIN Powers Last Filed: 04/02/20 17:33> Mode of arrival: EMS <KAITLIN Powers Last Filed: 04/02/20 17:33> Limitations: language barrier <KAITLIN Powers Last Filed: 04/02/20 17:33> History of Present Illness HPI narrative: 64 y/o male with history of metastatic adenocarcinoma of the lung s/p resection 3 years ago and mets to the liver, former heavy smoker, asthma, anxiety, ESRD on HD, admitted 02/28-03/09 with COVID-19 who presents to the ED from home with BARRERA and SOB x3 days. He also reports intermittent chest tightness and ongoing anxiety for months. He denies fever, chills, cough, abd pain, diarrhea, vomiting. He called EMS today when his breathing was worse with less exertion today. He reports chest tightness to EMS and was given SL nitro. He was not hypoxic on their arrival. On arrival to the ED he was saturing 96% on room air but continuing to report SOB. He was placed on 1L NC for comfort. <KAITLIN Powers - Last Filed: 04/02/20 17:33> Related Data Home Medications: Home Medications Medication Instructions Recorded Confirmed aspirin 81 mg PO DAILY 03/01/20 03/14/20 atorvastatin 40 mg PO BEDTIME 03/01/20 03/14/20 buspirone 15 mg PO BID 03/01/20 03/14/20 carvedilol 6.25 mg PO BID 03/01/20 03/14/20 docusate sodium [Colace] 100 mg PO BID 03/01/20 03/14/20 ergocalciferol (vitamin D2) 1,250 mcg PO Q60D 03/01/20 03/14/20 [Vitamin D2] folic acid 1 mg PO DAILY 03/01/20 03/14/20 metoclopramide HCl [Reglan] 5 mg PO DAILY 03/01/20 03/14/20 mirtazapine 30 mg PO BEDTIME 03/01/20 03/14/20 multivitamin with minerals 1 tab PO DAILY 03/01/20 03/14/20 omeprazole 40 mg PO BID 03/01/20 03/14/20 polyethylene glycol 3350 [Miralax] 17 g PO DAILY 03/01/20 03/14/20 sevelamer carbonate [Renvela] 800 mg PO TID 03/01/20 03/14/20 Previous Rx's Medication Instructions Recorded alprazolam 0.25 mg tablet 0.25 mg PO BEDTIME 30 Days #30 tab 03/20/20 fluticasone 250 mcg-salmeterol 50 1 ea PO BID #180 cap 03/26/20 mcg/dose blistr powdr for inhalation amoxicillin-pot clavulanate 0.5 tab PO DAILY #4 tab 04/02/20 [Augmentin] doxycycline hyclate 100 mg PO BID #14 tab 04/02/20 pantoprazole [Protonix] 20 mg PO DAILY #10 tab 04/02/20 <KAITLIN Powers - Last Filed: 04/02/20 17:33> Allergies/Adverse Reactions: Allergies Allergy/AdvReac Type Severity Reaction Status Date / Time No Known Allergies Allergy Verified 03/14/20 15:18 <KAITLIN Powers - Last Filed: 04/02/20 17:33> Review of Systems Review of Systems: Constitutional: No Fever, + Chills ENT/Mouth: No sore throat, No Rhinorrhea, No Swallowing Difficulty Eyes: No Eye Pain, No Swelling, No Redness Cardiovascular: + Chest Pain, + SOB, No Orthopnea, No Edema Respiratory: No Cough, No Sputum, No Wheezing, + dyspnea Gastrointestinal: + Nausea, No Vomiting, No Diarrhea, No abdominal Pain Genitourinary: No Dysuria, No Urinary Frequency, No Hematuria Musculoskeletal: No joint pain, No Myalgias Skin: No Skin Lesions, No rash Neuro: No Weakness, No Numbness, No Dizziness, No Headache Psych: No Anxiety/Panic, No Depression Heme/Lymph: No Bruising, No Lymphadenopathy Endocrine: No Polyuria, No Polydipsia <KAITLIN Powers - Last Filed: 04/02/20 17:33> [facility] Past Medical History Attestation statement: The following information was validated with the patient. <KAITLIN Powers - Last Filed: 04/02/20 17:33> Medical History: Medical History CHF (congestive heart failure) ESRD (end stage renal disease) HTN (hypertension) Lung cancer <KAITLIN Powers - Last Filed: 04/02/20 17:33> Surgical History: Surgical History History of biopsy History of bronchoscopy History of esophagogastroduodenoscopy (EGD) History of lobectomy of lung <KAITLIN Powers - Last Filed: 04/02/20 17:33> Family History Family History: Family History (Updated 03/14/20 @ 07:29 by Ariana Brothers [facility]) Mother Heart disease Diabetes Alzheimers disease Father Alcoholism Son Asthma <KAITLIN Powers - Last Filed: 04/02/20 17:33> Social History Social History: Social History Household Members: Family Housing: Apartment Alcohol intake: never Smoking Status: Former smoker Advance Directives: No Advance Directives Information Provided: Yes service: No Current occupational status: disabled <KAITLIN Powers - Last Filed: 04/02/20 17:33> Physical Exam Vital Signs: Vital Signs: Last Vital Signs Temp 97.7 F 04/02/20 15:10 Pulse 84 04/02/20 15:10 Resp 16 04/02/20 15:10 BP 146/81 H 04/02/20 15:10 Pulse Ox 100 04/02/20 15:10 Body Mass Index 20.0 Appearance: Alert. Oriented X3. No acute distress. Eyes: Pupils equal, round and reactive to light. ENT: Pharynx normal. Neck: Normal inspection. Neck supple. CVS: Normal heart rate and rhythm. Pulses normal. Respiratory: No respiratory distress. Breath sounds diminished at right base. Abdomen: Soft and with mild RUQ tenderness. +BS x4 Skin: Skin warm and dry. Normal skin color. Normal skin turgor. No rashes. Extremities: No lower extremity edema. Thin, warm, well perfused. Neuro: Oriented X 3. No motor deficit. No sensory deficit. <KAITLIN Powers - Last Filed: 04/02/20 17:33> Vital Signs: Last Vital Signs Temp 97.7 F 04/02/20 15:10 Pulse 84 04/02/20 15:10 Resp 16 04/02/20 15:10 BP 146/81 H 04/02/20 15:10 Pulse Ox 100 04/02/20 15:10 Body Mass Index 20.0 <Antonio Obrien MD - Last Filed: 04/05/20 02:54> Course Course Course Narrative: 64 y/o male presenting with BARRERA, SOB and chest tightness. Need to r/o ACS and PE. He had recent COVID which increases his risk for PE. He is no sitress and VSS. EKG did not show STEMI. Labs and CXR pending. Dispo pending results and improvement. <KAITLIN Powers - Last Filed: 04/02/20 17:33> I have discussed the case and management with the WALTER <Antonio Obrien MD - Last Filed: 04/05/20 02:54> Reevaluation(s) Reevaluation #1: DDIMER elevated 1966 - on review it has been chronically elevated since June. However still concerned for acute PE with history of recent COVID infection. His CXR also showin gnew left lung base infiltrate with chronic perihilar opacities, concern for HCAP. Will get CTA to r/o PE and to further assess pulmonary infiltrate. [facility] Heme/onc notes reviewed - his BARRERA has been chronic and his functional status declined after COVID. Further immunotherapy for his cancer has been deferred for now. <KAITLIN Powers - Last Filed: 04/02/20 17:33> Time: 12:57 <KAITLIN Powers - Last Filed: 04/02/20 17:33> Reevaluation #2: Troponin 141 which is down from his previous ER visits in October and February. He denies chest pain at this time and reports SOB. Breathing comfortably with SpO2 100% on 2L NC. EKG without changes from prior. CTA chest negative for PE - showing improving infiltrates with persistent luiz-hilar infiltrates possibly related to pna, aspiration vs tumor. Repeat troponin unchanged. Continues to report some SOB and anxiety. No chest pain at this time. He reports abdominal discomfort and anxiety and would like medication for his stomach. We had a long discussion about the results of his CT scan and his progressing cancer. He is aware and understands. I suspect his SOB is due to his tumor burden. Infiltrates are improving but perihilar persists, ?pna. Will empirically treat. We discussed need to f/u Oncology and PCP for options moving forward. He is agreeable. He continues to have normal O2 levels, not on O2. <KAITLIN Powers - Last Filed: 04/02/20 17:33> MDM - Chest Pain Lab Data Result diagrams: : 04/02/20 11:59 04/02/20 11:59 <KAITLIN Powers - Last Filed: 04/02/20 17:33> Labs: Lab Results 04/02/20 04/02/20 04/02/20 Range/Units 11:59 11:59 11:59 WBC 4.0 L (4.8-10.8) X10*3/uL RBC 3.00 L (4.60-5.80) X10*6/uL Hgb 9.1 L (14.0-18.0) g/dl Hct 29.2 L (42-52) % MCV 97.3 (80-98) fL MCH 30.3 (27.0-33.0) pg MCHC 31.2 (31.0-36.0) g/dl RDW 15.3 (11.0-16.0) % Plt Count 96 L (160-400) X10*3/uL MPV 10.7 (9.4-12.4) fL Immature Gran % (Auto) 0.8 H (0.0-0.4) % Neut % (Auto) 63.8 (45-73) % Lymph % (Auto) 19.7 L (20-40) % [place] % (Auto) 12.9 H (2-11) % Eos % (Auto) 2.3 (0-4) % Baso % (Auto) 0.5 (0-2) % Lymph # (Auto) 0.8 L (1.2-4.9) X10*3/uL [place] # (Auto) 0.5 (0.1-1.2) X10*3/uL Eos # (Auto) 0.1 (0.0-0.4) X10*3/uL Baso # (Auto) 0.0 (0.0-0.2) X10*3/uL Abs Immat Gran (auto) 0.03 (0.00-0.03) X10*3/uL Absolute Neuts (auto) 2.5 (2.0-8.3) X10*3/uL Absolute Nucleated RBC 0.000 (0.0-0.012) X10*3/uL Nucleated RBC % (auto) 0.0 (0.0-0.2) /100WBC D-Dimer 1966 NG/ML Sodium 139 (135-145) mmol/L Potassium 5.3 H (3.3-5.1) mmol/l Chloride 101 (96-108) mmol/L Carbon Dioxide 30 H (22-29) mmol/L Anion Gap 13 (12-20) BUN 35 H (9-16) mg/dL Creatinine 6.83 H* (0.5-1.4) mg/dL Estim Creat Clear Calc 9.0 Estimated GFR 8 Random Glucose 106 (60-115) mg/dL Calcium 8.3 L (8.4-10.2) mg/dL Troponin I High Sens (<3.5-35.0) ng/L 04/02/20 04/02/20 Range/Units 11:59 15:38 WBC (4.8-10.8) X10*3/uL RBC (4.60-5.80) X10*6/uL Hgb (14.0-18.0) g/dl Hct (42-52) % MCV (80-98) fL MCH (27.0-33.0) pg MCHC (31.0-36.0) g/dl RDW (11.0-16.0) % Plt Count (160-400) X10*3/uL MPV (9.4-12.4) fL Immature Gran % (Auto) (0.0-0.4) % Neut % (Auto) (45-73) % Lymph % (Auto) (20-40) % [place] % (Auto) (2-11) % Eos % (Auto) (0-4) % Baso % (Auto) (0-2) % Lymph # (Auto) (1.2-4.9) X10*3/uL [place] # (Auto) (0.1-1.2) X10*3/uL Eos # (Auto) (0.0-0.4) X10*3/uL Baso # (Auto) (0.0-0.2) X10*3/uL Abs Immat Gran (auto) (0.00-0.03) X10*3/uL Absolute Neuts (auto) (2.0-8.3) X10*3/uL Absolute Nucleated RBC (0.0-0.012) X10*3/uL Nucleated RBC % (auto) (0.0-0.2) /100WBC D-Dimer NG/ML Sodium (135-145) mmol/L Potassium (3.3-5.1) mmol/l Chloride (96-108) mmol/L Carbon Dioxide (22-29) mmol/L Anion Gap (12-20) BUN (9-16) mg/dL Creatinine (0.5-1.4) mg/dL Estim Creat Clear Calc Estimated GFR Random Glucose (60-115) mg/dL Calcium (8.4-10.2) mg/dL Troponin I High Sens 141.6 H D 142.3 H (<3.5-35.0) ng/L <KAITLIN Powers - Last Filed: 04/02/20 17:33> Lab Results 04/02/20 04/02/20 04/02/20 Range/Units 11:59 11:59 11:59 WBC 4.0 L (4.8-10.8) X10*3/uL RBC 3.00 L (4.60-5.80) X10*6/uL Hgb 9.1 L (14.0-18.0) g/dl Hct 29.2 L (42-52) % MCV 97.3 (80-98) fL MCH 30.3 (27.0-33.0) pg MCHC 31.2 (31.0-36.0) g/dl RDW 15.3 (11.0-16.0) % Plt Count 96 L (160-400) X10*3/uL MPV 10.7 (9.4-12.4) fL Immature Gran % (Auto) 0.8 H (0.0-0.4) % Neut % (Auto) 63.8 (45-73) % Lymph % (Auto) 19.7 L (20-40) % [place] % (Auto) 12.9 H (2-11) % Eos % (Auto) 2.3 (0-4) % Baso % (Auto) 0.5 (0-2) % Lymph # (Auto) 0.8 L (1.2-4.9) X10*3/uL [place] # (Auto) 0.5 (0.1-1.2) X10*3/uL Eos # (Auto) 0.1 (0.0-0.4) X10*3/uL Baso # (Auto) 0.0 (0.0-0.2) X10*3/uL Abs Immat Gran (auto) 0.03 (0.00-0.03) X10*3/uL Absolute Neuts (auto) 2.5 (2.0-8.3) X10*3/uL Absolute Nucleated RBC 0.000 (0.0-0.012) X10*3/uL Nucleated RBC % (auto) 0.0 (0.0-0.2) /100WBC D-Dimer 1966 NG/ML Sodium 139 (135-145) mmol/L Potassium 5.3 H (3.3-5.1) mmol/l Chloride 101 (96-108) mmol/L Carbon Dioxide 30 H (22-29) mmol/L Anion Gap 13 (12-20) BUN 35 H (9-16) mg/dL Creatinine 6.83 H* (0.5-1.4) mg/dL Estim Creat Clear Calc 9.0 Estimated GFR 8 Random Glucose 106 (60-115) mg/dL Calcium 8.3 L (8.4-10.2) mg/dL Troponin I High Sens (<3.5-35.0) ng/L 04/02/20 04/02/20 Range/Units 11:59 15:38 WBC (4.8-10.8) X10*3/uL RBC (4.60-5.80) X10*6/uL Hgb (14.0-18.0) g/dl Hct (42-52) % MCV (80-98) fL MCH (27.0-33.0) pg MCHC (31.0-36.0) g/dl RDW (11.0-16.0) % Plt Count (160-400) X10*3/uL MPV (9.4-12.4) fL Immature Gran % (Auto) (0.0-0.4) % Neut % (Auto) (45-73) % Lymph % (Auto) (20-40) % [place] % (Auto) (2-11) % Eos % (Auto) (0-4) % Baso % (Auto) (0-2) % Lymph # (Auto) (1.2-4.9) X10*3/uL [place] # (Auto) (0.1-1.2) X10*3/uL Eos # (Auto) (0.0-0.4) X10*3/uL Baso # (Auto) (0.0-0.2) X10*3/uL Abs Immat Gran (auto) (0.00-0.03) X10*3/uL Absolute Neuts (auto) (2.0-8.3) X10*3/uL Absolute Nucleated RBC (0.0-0.012) X10*3/uL Nucleated RBC % (auto) (0.0-0.2) /100WBC D-Dimer NG/ML Sodium (135-145) mmol/L Potassium (3.3-5.1) mmol/l Chloride (96-108) mmol/L Carbon Dioxide (22-29) mmol/L Anion Gap (12-20) BUN (9-16) mg/dL Creatinine (0.5-1.4) mg/dL Estim Creat Clear Calc Estimated GFR Random Glucose (60-115) mg/dL Calcium (8.4-10.2) mg/dL Troponin I High Sens 141.6 H D 142.3 H (<3.5-35.0) ng/L <Antonio Obrien MD - Last Filed: 04/05/20 02:54> ECG Data ECG #1: ECG interpretation date: 04/02/20 <KAITLIN Powers - Last Filed: 04/02/20 17:33> Interpretation: normal sinus rhythm, HR 87, prolonged QTc of 507 ms. no significant changes from Feb 29, 2020 <KAITLIN Powers - Last Filed: 04/02/20 17:33> Discharge Plan Discharge Clinical Impression: Lung cancer Pneumonia Qualifiers: Pneumonia type: due to unspecified organism Laterality: left Lung location: upper lobe of lung Qualified Code(s): J18.9 - Pneumonia, unspecified organism <KAITLIN Powers - Last Filed: 04/02/20 17:33> Patient Disposition: Home, Self-Care <KAITLIN Powers - Last Filed: 04/02/20 17:33> Instructions: Lung Cancer (DC), Bacterial Pneumonia (ED) <KAITLIN Powers - Last Filed: 04/02/20 17:33> Additional Instructions: Your CT scan today showed possible pneumonia. We are starting 2 different antibiotics to help treat this. Take the Augmentin antibiotic ONLY on dialysis days and after dialysis. Take Doxycycline antibiotic two times per day until it is gone. You need to follow up with your cancer doctor and your primary care doctor CÉSAR. I suspect your shortness of breath is due to your underlying cancer. If you develop worsening breathing issues or chest pain call 911 or come back to the ER for further evaluation. <KAITLIN Powers - Last Filed: 04/02/20 17:33> Prescriptions: New doxycycline hyclate 100 mg tablet 100 mg PO BID Qty: 14 RF: 0 amoxicillin-pot clavulanate [Augmentin] 500-125 mg tablet 0.5 tab PO DAILY Qty: 4 RF: 0 pantoprazole [Protonix] 20 mg tablet,delayed release (DR/EC) 20 mg PO DAILY Qty: 10 RF: 0 Continued alprazolam 0.25 mg tablet 0.25 mg PO BEDTIME 30 Days Qty: 30 RF: 0 fluticasone propion-salmeterol [Wixela Inhub] 250-50 mcg/dose blister with device 1 ea PO BID Qty: 180 RF: 1 atorvastatin 40 mg Tablet 40 mg PO BEDTIME RF: 0 carvedilol 6.25 mg Tablet 6.25 mg PO BID RF: 0 mirtazapine 30 mg Tablet 30 mg PO BEDTIME RF: 0 docusate sodium [Colace] 100 mg Capsule 100 mg PO BID RF: 0 folic acid 1 mg Tablet 1 mg PO DAILY RF: 0 aspirin 81 mg Tablet 81 mg PO DAILY RF: 0 multivitamin with minerals Tablet 1 tab PO DAILY RF: 0 polyethylene glycol 3350 [Miralax] 17 gram/dose Powder 17 g PO DAILY RF: 0 buspirone 15 mg Tablet 15 mg PO BID RF: 0 omeprazole 40 mg Capsule,Delayed Release(Dr/Ec) 40 mg PO BID RF: 0 metoclopramide HCl [Reglan] 5 mg Tablet 5 mg PO DAILY RF: 0 ergocalciferol (vitamin D2) [Vitamin D2] 1,250 mcg (50,000 unit) Capsule 1,250 mcg PO Q60D RF: 0 sevelamer carbonate [Renvela] 800 mg Tablet 800 mg PO TID RF: 0 <KAITLIN Powers - Last Filed: 04/02/20 17:33> Interventions: ED Discharge Assessment Last Done: 04/02/20 18:41 <KAITLIN Powers - Last Filed: 04/02/20 17:33> Discharge Date/Time: 04/02/20 18:42 <KAITLIN Powers - Last Filed: 04/02/20 17:33> Print Language: Namibian <KAITLIN Powers - Last Filed: 04/02/20 17:33>
[2020-04-02 12:05] LABS: Basophils Percent Auto 0.5 % (0-2); Eosinophils Absolute Auto 0.1 X10*3/uL (0.0-0.4); Eosinophils Percent Auto 2.3 % (0-4); Hematocrit 29.2 % (42-52); Hemoglobin 9.1 g/dl (14.0-18.0); Imm Gran Abs Auto 0.03 X10*3/uL (0.00-0.03); Imm Gran Pct Auto 0.8 % (0.0-0.4); Lymphocytes Absolute Auto 0.8 X10*3/uL (1.2-4.9); Lymphocytes Percent Auto 19.7 % (20-40); MANUAL DIFF FLAG NO; Mean Corpuscular HGB Conc 31.2 g/dl (31.0-36.0); Mean Corpuscular Hemoglobin 30.3 pg (27.0-33.0); Mean Corpuscular Volume 97.3 fL (80-98); Mean Platelet Volume 10.7 fL (9.4-12.4); Monocytes Absolute Auto 0.5 X10*3/uL (0.1-1.2); Monocytes Percent Auto 12.9 % (2-11); Neutrophils Absolute Auto 2.5 X10*3/uL (2.0-8.3); Neutrophils Percent Auto 63.8 % (45-73); Platelet Count 96 X10*3/uL (160-400); Red Cell Distribution Width 15.3 % (11.0-16.0)
[2020-04-02 12:21] LABS: D Dimer 1967 NG/ML
--- NOTE | 2020-04-02 12:29 | CT_ITS ---
EXAMINATION: CT ANGIOGRAM OF THE CHEST WITH AND WITHOUT CONTRAST (CT PULMONARY ANGIOGRAM FOR PE) CLINICAL INFORMATION: SOB, BARRERA, +DDIMER, hx COVID COMPARISON: 02/29/2020 TECHNIQUE: Prior to contrast administration, noncontrast localization images were obtained. Subsequently, multidetector volumetric imaging was performed from the thoracic inlet to below the diaphragms following the administration of 65 mLOmnipaque 350 intravenous contrast. No contrast reaction reported Sagittal, coronal, and MIP oblique sagittal reformatted images were obtained on the CT workstation, uploaded to PACS, and reviewed. This CT examination was performed using dose optimization techniques as appropriate, variously including the following: *Automated exposure control *Adjustment of mA and/or kV according to patient size (this includes techniques or standardized protocols for targeted exams where dose is matched to indication/reason for exam; i.e. extremities or head) *Use of iterative reconstruction technique Total exam dose-length product 276 mGy-cm FINDINGS: QUALITY OF STUDY/CONTRAST BOLUS: Satisfactory. PULMONARY ARTERIES: No central pulmonary vessels are seen. Evaluation of segmental and subsegmental pulmonary emboli is limited by motion artifact and consolidation left lung base but no filling defects are seen. THORACIC AORTA: No aneurysm or dissection. LUNG: Again seen is a background of mild to moderate centrilobular emphysema. Status post right upper lobectomy with surgical clips in the right superior hilum again noted. There is corresponding distortion of the fissures. On the prior study, there was right middle lobe consolidation with air bronchograms which is almost entirely improved. A few scattered patchy areas of groundglass opacity and nodular consolidation are seen in the right lower lobe at the right lung base but this is also improved from the prior study. Again seen are multifocal left lung abnormalities. There continues to be left upper lobe perihilar consolidation with air bronchograms and adjacent groundglass opacity. This appears slightly improved from the prior study 02/29/2020. Nonetheless, this abnormality has persisted over multiple prior studies. No definite central obstructing mass seen. There is posterior left lower lobe consolidation. In some areas this appears improved, other areas worsened compared to the prior study 02/29/2020. Varying degrees of atelectasis, aspiration, or pneumonia may be present. PLEURA: Small likely loculated left pleural effusion again seen, slightly increased.. There is a greater degree of pleural fluid tracking anterior laterally than was present previously. MEDIASTINUM: Right-sided chest port in place. There is ill-defined subcarinal lymphadenopathy measuring 2.8 x 1.6 cm. This was prominent on the prior study but less well seen without IV contrast. There is cardiomegaly. Trace circumferential pericardial fluid is present. An area artery calcifications. No definite discrete left hilar lymphadenopathy or mass.. There is a similar appearance of soft tissue in the right hilum measuring 1.6 x 1.2 cm with adjacent surgical clips status post right upper lobectomy. Is is prominent but similar to prior exams. No evidence of septal bowing or right heart strain. CHEST WALL/AXILLA: Markedly dilated left axillary venous varicosities are seen. No lymphadenopathy. Contrast opacifies collateral vessels in the right axilla as well, suggesting venous obstruction. OSSEOUS STRUCTURES: No acute or suspicious osseous abnormality. UPPER ABDOMEN: Previously seen low-density mass in the right lobe of liver may be subtly present on the most inferior axial image, not fully included. Reflux of contrast into the hepatic veins consistent with elevated right heart pressures. CT/CT angio chest PE protocol IMPRESSION: Abnormal study but no pulmonary embolus is seen. Status post right upper lobectomy. Previously seen right middle lobe consolidation is almost entirely improved. There is mild residual groundglass opacity and nodular consolidation in the right lower lobe, improved from prior study as well. There continues to be left upper lobe perihilar consolidation with air bronchograms, slightly improved from the prior study 02/29/2020. The patient had a history of prior left upper lobe lung cancer. No discrete left hilar lymphadenopathy or central obstructing mass seen. Its unclear what component of the perihilar consolidation represents pneumonia, aspiration, posttreatment changes, or some component of tumor. There is reflux of contrast into the hepatic veins consistent with elevated right heart pressures. Known right lobe liver mass not not included in the imaging [id number]. VTE: Negative
[2020-04-02 12:35] LABS: Anion Gap 13 (12-20); Blood Urea Nitrogen 35 mg/dL (9-16); Calcium 8.3 mg/dL (8.4-10.2); Carbon Dioxide 30 mmol/L (22-29); Chloride 101 mmol/L (96-108); Estimated Glomerular Filt Rate 8; Glucose Random 106 mg/dL (60-115); Potassium 5.3 mmol/l (3.3-5.1); Sodium 139 mmol/L (135-145)
[2020-04-02 12:50] LABS: Troponin-I High Sensitivity 141.6 ng/L (<3.5-35.0)
--- NOTE | 2020-04-02 13:09 | PC.NURSE ---
iv replaced d/t need for pe study ct.
[2020-04-02] MEDS: Aspirin 81 MG TAB.CHEW 324 MG PO (13:14)
[2020-04-02] MEDS: cefEPime HCl 1 GM in 0.9 % Sodium Chloride 50 ML IV (13:15)
[2020-04-02] MEDS: vancomycin HCL 750 MG in 0.9 % Sodium Chloride 250 ML 265 MG IV (13:52)
[2020-04-02] MEDS: iohexoL 350 MG/ML 100 ML INFUS..BTL IV (14:10)
[2020-04-02 15:10] VITALS: BP 146/81; PULSE 84; RESP 16; TEMP 36.5; O2SAT 100
--- NOTE | 2020-04-02 15:58 | PC.NURSE ---
repeat troponin drawn. pt requesting food, given per provider.
[2020-04-02 16:34] LABS: Troponin-I High Sensitivity 142.3 ng/L (<3.5-35.0)
[2020-04-02] MEDS: Lidocaine HCl Viscous 2 % 15 ML SOLUTION MUCOUS MEM (17:34)
[2020-04-02] MEDS: LORazepam 1 MG TABLET PO (17:34)
[2020-04-02] MEDS: Magnesium Hydrox/Alum Hydrox 30 ML ORAL.SUSP PO (17:34)
--- NOTE | 2020-04-02 17:40 | PC.NURSE ---
pt given ordered meds, tolerating po w.o issue. pt satting 98% on ra. continuing to state feeling short of breath, telling provider at bedside he needs to stay until morning. pt educated about test results and indications for inpt admission.
== END 2020-04-02 18:42 | disposition home or self-care (01) ==
PROVIDERS: Physician Assistant; Emergency Provider Emergency Medicine; PCP Internal Medicine
DX: J18.9 Pneumonia, unspecified organism (principal); C34.90 Malignant neoplasm of unspecified part of unspecified bronchus or lung; R07.9 Chest pain, unspecified; Z86.19 Personal history of other infectious and parasitic diseases; Z79.899 Other long term (current) drug therapy; Z87.891 Personal history of nicotine dependence
CPT/HCPCS: 36415; 71045; 71275; 80048; 84484; 85025; 85379; 93005; 96365; 96367; 99283; 99284; J0692; J3370; Q9967

== ENCOUNTER 2020-05-07 01:24 | Inpatient (IN) | payer OTHER, SELFPAY ==
[2020-05-07] VITALS (10 sets, daily range): BP systolic 98–165; BP diastolic 62–88; PULSE 60–98; RESP 16–34; TEMP 36.4–37; O2SAT 94–99; BMI 19.2
--- NOTE | 2020-05-07 01:29 | ED.SOB ---
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 Denies any associated fever, chills, nausea, vomiting, but does have some complaints regarding feeling ?very warm at the epigastric area? for the past 2 months. In attempts to clarify what measures have been taken to resolve this as it has been going on for 2 months the patient states that he was placed on medication for constipation but otherwise has not been told of additional interventions although he does state his memory is not very great. This gentleman is known to have metastatic adenocarcinoma of the lung status post resection 3 years ago and recently found have Mets to the liver. On review of documentation (04/15/2020) from [facility] oncology the decision has been to defer any further immunotherapy due to his fatigue and diminished performance status after developing COVID-19 pneumonia, and they will re-evaluate the patient in 6 weeks to determine whether immunotherapy can be resumed. Related Data Home Medications Medication Instructions Recorded Confirmed aspirin 81 mg PO DAILY 03/01/20 05/07/20 atorvastatin 40 mg PO BEDTIME 03/01/20 05/07/20 buspirone 15 mg PO BID 03/01/20 05/07/20 carvedilol 6.25 mg PO BID 03/01/20 05/07/20 docusate sodium [Colace] 100 mg PO BID 03/01/20 05/07/20 ergocalciferol (vitamin D2) 1,250 mcg PO Q60D 03/01/20 05/07/20 [Vitamin D2] folic acid 1 mg PO DAILY 03/01/20 05/07/20 metoclopramide HCl [Reglan] 5 mg PO DAILY 03/01/20 05/07/20 mirtazapine 30 mg PO BEDTIME 03/01/20 05/07/20 multivitamin with minerals 1 tab PO DAILY 03/01/20 05/07/20 omeprazole 40 mg PO BID 03/01/20 05/07/20 polyethylene glycol 3350 [Miralax] 17 g PO DAILY 03/01/20 05/07/20 sevelamer carbonate [Renvela] 800 mg PO TID 03/01/20 05/07/20 Previous Rx's Medication Instructions Recorded fluticasone 250 mcg-salmeterol 50 1 ea PO BID #180 cap 03/26/20 mcg/dose blistr powdr for inhalation amoxicillin-pot clavulanate 0.5 tab PO DAILY #4 tab 04/02/20 [Augmentin] doxycycline hyclate 100 mg PO BID #14 tab 04/02/20 pantoprazole [Protonix] 20 mg PO DAILY #10 tab 04/02/20 Allergies Allergy/AdvReac Type Severity Reaction Status Date / Time No Known Allergies Allergy Verified 05/07/20 01:50 Review of Systems Review of Systems: Pertinent positives and negatives as stated in HPI and 10 point review of systems is otherwise negative. [facility] Past Medical History Source: nursing notes reviewed Medical History CHF (congestive heart failure) ESRD (end stage renal disease) HTN (hypertension) Lung cancer Surgical History History of biopsy History of bronchoscopy History of esophagogastroduodenoscopy (EGD) History of lobectomy of lung Family History Family History Mother Heart disease Diabetes Alzheimers disease Father Alcoholism Son Asthma Social History Social History Household Members: Family Housing: Apartment Alcohol intake: never Smoking Status: Former smoker Advance Directives: No Advance Directives Information Provided: No service: No Current occupational status: disabled Physical Exam Vital Signs: Vital Signs: Last Vital Signs Temp 98 F 05/07/20 07:17 Pulse 92 05/07/20 07:17 Resp 26 H 05/07/20 07:17 BP 144/80 H 05/07/20 07:17 Pulse Ox 94 05/07/20 07:17 Body Mass Index 20.0 VITAL SIGNS: Reviewed. GENERAL: Chronically ill, cachectic in no acute distress. HEAD: Normocephalic/atraumatic, EYES: PERRLA, EOMI intact without pain, no nystagmus/pallor/icterus noted EARS: Ext canals without abnormality, TMs non-bulging and non-erythematous NOSE: Nares patent bilateral OROPHARYNX: no oral lesions noted, posterior pharynx clear and non-erythematous without noted tonsillar enlargement/erythema/exudates NECK: Supple, no adenopathy LUNGS: Normal breath sounds. No adventitious sounds or accessory muscle use. SpO2<95> room air CARDIOVASCULAR: Regular rate and rhythm without noted murmurs, no JVD or lower extremity edema. ABDOMEN: Soft, non-tender, non-distended with bowel sounds. No rigidity. No guarding. No palpable masses or hernias noted MUSCULOSKELETAL: No tenderness, deformities, or effusions noted on gross inspection. EXTREMITIES: No cyanosis, clubbing or edema. SKIN: Inspection of the skin reveals no rashes, ulcerations, jaundice, pallor, or petechiae. NEUROLOGIC: Alert and oriented x 4. Strength and sensation to light touch were grossly intact x 4. Course Course Course Narrative: This is a 64-year-old male with history and clinical presentation chronic dyspnea on exertion as well as at rest and given the history of the chest tightness that he is experiencing this is not consistent with a PE/cardiac ischemia etiology, however these will be evaluated as was mentioned previously he is at increased risk of developing a PE. EKG is without acute findings On review of all investigations results are chronically stable to include high sensitivity troponin (no evidence of acute ischemic changes on EKG) and D-dimer has actually improved from prior and therefore will not proceed with CTA of the chest. Of note, chest x-ray identifies bilateral pleural effusions left greater than right, but there was noted left pleural effusion on prior imaging 1 month ago however the right pleural effusion is new. In addition, there is continued CXR reporting of infiltration which was further confirmed on CT of the chest which demonstrates left perihilar and lingular infiltrate with a left lower lobe consolidation as well as moderate left pleural effusion and trace right pleural effusion. The case was discussed with the inpatient hospitalist team who is agreeable for admission. MDM - SOB/Dyspnea Lab Data Result diagrams: 05/07/20 02:39 05/07/20 02:39 Labs: Lab Results 05/07/20 05/07/20 05/07/20 Range/Units 02:39 02:39 02:39 WBC 4.2 L (4.8-10.8) X10*3/uL RBC 3.49 L (4.60-5.80) X10*6/uL Hgb 10.9 L (14.0-18.0) g/dl Hct 34.7 L (42-52) % MCV 99.4 H (80-98) fL MCH 31.2 (27.0-33.0) pg MCHC 31.4 (31.0-36.0) g/dl RDW 16.6 H (11.0-16.0) % Plt Count 95 L (160-400) X10*3/uL MPV 10.6 (9.4-12.4) fL Immature Gran % (Auto) 0.2 (0.0-0.4) % Neut % (Auto) 70.1 (45-73) % Lymph % (Auto) 14.3 L (20-40) % Runnels % (Auto) 13.3 H (2-11) % Eos % (Auto) 1.9 (0-4) % Baso % (Auto) 0.2 (0-2) % Lymph # (Auto) 0.6 L (1.2-4.9) X10*3/uL Runnels # (Auto) 0.6 (0.1-1.2) X10*3/uL Eos # (Auto) 0.1 (0.0-0.4) X10*3/uL Baso # (Auto) 0.0 (0.0-0.2) X10*3/uL Abs Immat Gran (auto) 0.01 (0.00-0.03) X10*3/uL Absolute Neuts (auto) 3.0 (2.0-8.3) X10*3/uL Absolute Nucleated RBC 0.000 (0.0-0.012) X10*3/uL Nucleated RBC % (auto) 0.0 (0.0-0.2) /100WBC D-Dimer NG/ML Sodium 141 (135-145) mmol/L Potassium 4.7 (3.3-5.1) mmol/l Chloride 99 (96-108) mmol/L Carbon Dioxide 31 H (22-29) mmol/L Anion Gap 16 (12-20) BUN 43 H (9-16) mg/dL Creatinine 6.63 H* (0.5-1.4) mg/dL Estim Creat Clear Calc 9.3 Estimated GFR 9 Random Glucose 96 (60-115) mg/dL Calcium 7.9 L (8.4-10.2) mg/dL Total Bilirubin 0.5 (0.0-1.0) mg/dL AST 32 (5-37) U/L ALT 27 (0-40) U/L Alkaline Phosphatase 140 H D (39-117) U/L Troponin I High Sens 135.7 H (<3.5-35.0) ng/L Total Protein 6.4 L (6.5-8.0) g/dL Albumin 3.4 L D (3.5-5.0) g/dL Lipase 73 (8-78) U/L Coronavirus (PCR) (Negative) Influenza Type A (PCR) (Negative) Influenza Type B (PCR) (Negative) RSV RNA Qual (PCR) (Negative) 05/07/20 05/07/20 Range/Units 02:39 05:46 WBC (4.8-10.8) X10*3/uL RBC (4.60-5.80) X10*6/uL Hgb (14.0-18.0) g/dl Hct (42-52) % MCV (80-98) fL MCH (27.0-33.0) pg MCHC (31.0-36.0) g/dl RDW (11.0-16.0) % Plt Count (160-400) X10*3/uL MPV (9.4-12.4) fL Immature Gran % (Auto) (0.0-0.4) % Neut % (Auto) (45-73) % Lymph % (Auto) (20-40) % Runnels % (Auto) (2-11) % Eos % (Auto) (0-4) % Baso % (Auto) (0-2) % Lymph # (Auto) (1.2-4.9) X10*3/uL Runnels # (Auto) (0.1-1.2) X10*3/uL Eos # (Auto) (0.0-0.4) X10*3/uL Baso # (Auto) (0.0-0.2) X10*3/uL Abs Immat Gran (auto) (0.00-0.03) X10*3/uL Absolute Neuts (auto) (2.0-8.3) X10*3/uL Absolute Nucleated RBC (0.0-0.012) X10*3/uL Nucleated RBC % (auto) (0.0-0.2) /100WBC D-Dimer 750 NG/ML Sodium (135-145) mmol/L Potassium (3.3-5.1) mmol/l Chloride (96-108) mmol/L Carbon Dioxide (22-29) mmol/L Anion Gap (12-20) BUN (9-16) mg/dL Creatinine (0.5-1.4) mg/dL Estim Creat Clear Calc Estimated GFR Random Glucose (60-115) mg/dL Calcium (8.4-10.2) mg/dL Total Bilirubin (0.0-1.0) mg/dL AST (5-37) U/L ALT (0-40) U/L Alkaline Phosphatase (39-117) U/L Troponin I High Sens (<3.5-35.0) ng/L Total Protein (6.5-8.0) g/dL Albumin (3.5-5.0) g/dL Lipase (8-78) U/L Coronavirus (PCR) POSITIVE A (Negative) Influenza Type A (PCR) NEGATIVE (Negative) Influenza Type B (PCR) NEGATIVE (Negative) RSV RNA Qual (PCR) NEGATIVE (Negative) ECG Data Attestation: I personally reviewed and interpreted this ECG as follows: Prior ECG tracings: available for review (04/02/2020 no acute changes on comparison) Interpretation: Normal sinus rhythm, HR-98, no evidence of acute ischemia, P are within normal limits, prolonged QTC which is unchanged when compared to prior. Discharge Plan Discharge Clinical Impression: Pneumonia, Pleural effusion on left, Pleural effusion on right, COVID-19 Patient Disposition: Admitted As Inpatient
--- NOTE | 2020-05-07 01:54 | XR_ITS ---
EXAMINATION: CHEST 2 VIEWS CLINICAL INFORMATION: Cough. COMPARISON: 04/02/2020. TECHNIQUE: PA and lateral views of the chest were obtained. FINDINGS: The cardiac silhouette is mildly prominent, though stable. A right-sided port is in unchanged position. There are small bilateral pleural effusions, left greater than right. There is airspace disease within the left mid and lower lung zones as well as right perihilar infiltration. There are no pneumothoraces. The osseous structures are stable. XR/XR chest 2V IMPRESSION: Small left greater than right bilateral pleural effusions. Bilateral perihilar infiltration and nonspecific left lower lobe hazy opacification. Recommendation is for a followup chest series to be obtained following treatment and/or resolution of symptoms to assure resolution of this appearance.
--- NOTE | 2020-05-07 02:11 | ECG_ITS ---
Test Reason : SOB Blood Pressure : / mmHG Vent. Rate : 098 BPM Atrial Rate : 098 BPM P-R Int : 166 ms QRS Dur : 104 ms QT Int : 398 ms P-R-T Axes : 040 002 093 degrees QTc Int : 508 ms Normal sinus rhythm Left atrial enlargement Nonspecific ST and T wave abnormality Prolonged QT Abnormal ECG When compared with ECG of 02-APR-2020 11:04, No significant change was found Referred By: Gloria Haywood Electronically Signed By:Chace Mock
--- NOTE | 2020-05-07 02:20 | PC.NURSE ---
Ambulatory to XRay. Plan for EKG and labs upon return.
--- NOTE | 2020-05-07 02:40 | PC.NURSE ---
EKG and labs obtained by this RN. Pt resting in bed, speaking full sentences in NAD. VSS. Continue to monitor.
[2020-05-07 03:10] LABS: Basophils Percent Auto 0.2 % (0-2); Eosinophils Absolute Auto 0.1 X10*3/uL (0.0-0.4); Eosinophils Percent Auto 1.9 % (0-4); Hematocrit 34.7 % (42-52); Hemoglobin 10.9 g/dl (14.0-18.0); Imm Gran Abs Auto 0.01 X10*3/uL (0.00-0.03); Imm Gran Pct Auto 0.2 % (0.0-0.4); Lymphocytes Absolute Auto 0.6 X10*3/uL (1.2-4.9); Lymphocytes Percent Auto 14.3 % (20-40); Mean Corpuscular HGB Conc 31.4 g/dl (31.0-36.0); Mean Corpuscular Hemoglobin 31.2 pg (27.0-33.0); Mean Corpuscular Volume 99.4 fL (80-98); Mean Platelet Volume 10.6 fL (9.4-12.4); Monocytes Absolute Auto 0.6 X10*3/uL (0.1-1.2); Monocytes Percent Auto 13.3 % (2-11); Neutrophils Percent Auto 70.1 % (45-73); Red Blood Count 3.49 X10*6/uL (4.60-5.80); Red Cell Distribution Width 16.6 % (11.0-16.0); SCAN SMEAR FLAG 1; White Blood Count 4.2 X10*3/uL (4.8-10.8)
[2020-05-07 03:12] LABS: MANUAL DIFF FLAG NO
[2020-05-07 03:18] LABS: Platelet Count 95 X10*3/uL (160-400)
[2020-05-07 03:23] LABS: D Dimer 750 NG/ML
--- NOTE | 2020-05-07 03:31 | PC.NURSE ---
Pt ringing his call kong, this RN and hospice community liaison at bedside, pt reporting a burning sensation in his stomach, states he can't take it anymore! aware.
[2020-05-07 03:42] LABS: Alanine Aminotransferase 27 U/L (0-40); Albumin Level 3.4 g/dL (3.5-5.0); Alkaline Phosphatase 140 U/L (39-117); Anion Gap 16 (12-20); Aspartate Amino Transferase 32 U/L (5-37); Bilirubin Total 0.5 mg/dL (0.0-1.0); Blood Urea Nitrogen 43 mg/dL (9-16); Calcium 7.9 mg/dL (8.4-10.2); Carbon Dioxide 31 mmol/L (22-29); Chloride 99 mmol/L (96-108); Creatinine Clr Calc Pharmacy 9.3; Estimated Glomerular Filt Rate 9; Glucose Random 96 mg/dL (60-115); Lipase 73 U/L (8-78); Potassium 4.7 mmol/l (3.3-5.1); Sodium 141 mmol/L (135-145); Total Protein 6.4 g/dL (6.5-8.0)
[2020-05-07 03:43] LABS: Troponin-I High Sensitivity 135.7 ng/L (<3.5-35.0)
[2020-05-07] MEDS: Lidocaine HCl Viscous 2 % 15 ML SOLUTION 10 ML MUCOUS MEM (03:45)
[2020-05-07] MEDS: Magnesium Hydrox/Alum Hydrox 30 ML ORAL.SUSP PO (03:46)
--- NOTE | 2020-05-07 03:46 | PC.NURSE ---
Pt medicate with GI cocktail per MAR.
--- NOTE | 2020-05-07 04:34 | PC.NURSE ---
Pt reports relief of GI discomfort after GI cocktail. Pt resting in bed in NAD at this time, continue to monitor.
--- NOTE | 2020-05-07 04:37 | CT_ITS ---
EXAMINATION: CT CHEST WITHOUT CONTRAST CLINICAL INFORMATION: Cough. Follow-up pleural effusions. COMPARISON: Same day chest radiographs. TECHNIQUE: Contiguous axial thin section helical images of the chest were performed without contrast. The data set was reformatted in the coronal and sagittal planes and reviewed on an independent workstation. Please note that evaluation for infectious etiologies is quite limited due to the lack of IV contrast. DLP: 204 mGy-cm. FINDINGS: The heart is enlarged, though stable. A right-sided port is in unchanged position. There is no pericardial effusion. There is neither mediastinal, hilar nor axillary lymphadenopathy. There are no chest wall masses. Review of lung windows demonstrates mild right perihilar atelectasis. There is a left perihilar infiltrate and lingular ground glass opacification. There is a left lower lobe consolidation. There is a moderate left pleural effusion and a trace right pleural effusion. Images of the upper abdomen demonstrate that the liver is of normal size and attenuation without focal lesions. Normal adrenal glands are identified. Bone windows: Neither sclerotic nor lytic bone lesions are identified. CT/CT chest wo con IMPRESSION: Left perihilar and lingular infiltrate. Left lower lobe consolidation. Moderate left and trace right bilateral pleural effusions. Stable cardiomegaly. Automated exposure control (Care Dose) Adjustment of the mA and/or kv according to patient size (this includes techniques or standardized protocols for targeted exams where dose is matched to indication / reason for exam; i.e. extremities or head).
--- NOTE | 2020-05-07 05:48 | PC.NURSE ---
med rec completed. pt reports no medication changes since last visit. confirmation is needed from pt's pharmacy.
--- NOTE | 2020-05-07 05:48 | PC.NURSE ---
Covid swab obtained. Med rec completed. Pt aware of plan to admit.
[2020-05-07 06:33] LABS: Influenza B PCR NEGATIVE (Negative); Resp Syncy Virus RNA Qual PCR NEGATIVE (Negative); SARS COV2 PCR INHOUSE POSITIVE (Negative)
[2020-05-07 06:54] LABS: Influenza A PCR NEGATIVE (Negative)
--- NOTE | 2020-05-07 07:18 | PC.NURSE ---
hospitalist at bedside, awaiting jai alai player
[2020-05-07] MEDS: cefTRIAXone sodium 1 GM in 0.9 % Sodium Chloride 50 ML IV (09:10)
[2020-05-07] MEDS: Doxycycline Hyclate 100 MG in 0.9 % Sodium Chloride 250 ML 166.67 MG IV (09:10)
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
--- NOTE | 2020-05-07 10:40 | PC.NURSE ---
PT TRANSFERED TO ICU/ISO. REPORT GIVEN TO LENORA CARMONA.
--- NOTE | 2020-05-07 10:48 | PC.NURSE ---
PHARMACY CALLED TO DO MED REC,
[2020-05-07 12:25] LABS: Procalcitonin 0.47 ng/mL
[2020-05-07 12:27] LABS: SARS COV2 IgG Positive (Negative)
[2020-05-07 12:31] LABS: B Type Natriuretic Peptide 13444 pg/mL (<100)
[2020-05-07] MEDS: Azithromycin 500 MG in 0.9 % Sodium Chloride 250 ML 125 MG IV (12:46)
[2020-05-07] MEDS: Heparin Sodium,Porcine 5,000 UNIT/ML VIAL 5000 UNIT SUBCUT ×2 (12:49→23:29)
[2020-05-07] MEDS: busPIRone HCl 5 MG TABLET 15 MG PO ×2 (12:49→20:33)
[2020-05-07] MEDS: Folic Acid 1 MG TABLET PO (12:49)
[2020-05-07] MEDS: Metoclopramide HCl 5 MG TABLET PO (12:49)
[2020-05-07] MEDS: carvediloL 6.25 MG TABLET PO ×2 (12:50→20:34)
[2020-05-07] MEDS: 0.9 % Sodium Chloride Flush 3 ML SYRINGE IVFLUSH ×2 (12:50→20:34)
[2020-05-07] MEDS: Omeprazole 40 MG CAPSULE.DR PO ×2 (12:50→20:33)
--- NOTE | 2020-05-07 15:26 | MHC.CM.PN ---
Pt admitted to ISO unit with COVID PNA. CM assessment completed with assistance from ISO care team and phone conversation with pt's dtr, Socorro. Per Socorro, pt resides with her as she is his compensated [employer]. She assists with all care needs pt has. Pt goes to [facility] [place], with transportation provided by center. He has some adaptive equipment at home including a walker and what sounded like testing supplies. (Socorro was in a loud environment during CM assessment). He does not have outside services but has used [facility] in the past. Socorro states the goals of d/c planning are for pt to return to home under her [employer] care and continuned HD with [facility]. She is unsure if she can transport pt home - a chair van may be needed. HCP on file and verified CM to follow for assessment of d/c needs: at this time, no services seem warranted albeit possible transportation home.
--- NOTE | 2020-05-07 20:19 | PC.NURSE ---
PATIENT ADMITTED AT 1030. IMMIGRATION CASE MANAGER USED FOR ADMISSION ASSESSMENT. VSS AND ON ROOM AIR. RESTING COMFORTABLY. WILL CONTINUE TO MONITOR.
[2020-05-07] MEDS: Atorvastatin Calcium 40 MG TABLET PO (20:33)
[2020-05-07] MEDS: Mirtazapine 30 MG TABLET PO (20:33)
[2020-05-07] MEDS: diphenhydrAMINE HCL 50 MG/ML VIAL 25 MG IVPUSH (22:18)
[2020-05-07] MEDS: ondansetron HCL 4 MG/2 ML VIAL IVPUSH (22:18)
[2020-05-08] VITALS (8 sets, daily range): BP systolic 113–144; BP diastolic 63–78; PULSE 81–94; RESP 10–29; TEMP 36–36.7; O2SAT 94–99
[2020-05-08 09:00] LABS: MANUAL DIFF FLAG NO
--- NOTE | 2020-05-08 09:28 | HO.PM.IMPN ---
Subjective Subjective Date of Service: 05/08/20 Interval History: Patient seen and examined at bedside. He is getting dialysis, reports shortness of breath is improving. He has no chest pain, no abdominal pain, nausea or vomiting. Physical Exam Vital Signs: Vital Signs: Last Vital Signs Temp 97.9 F 05/08/20 07:49 Pulse 81 05/08/20 07:49 Resp 24 H 05/08/20 07:49 BP 136/74 05/08/20 07:49 Pulse Ox 98 05/08/20 07:49 Body Mass Index 19.2 Const: General: cooperative and no acute distress Resp: Effort & Inspection: normal respiratory effort and able to speak in complete sentences Auscultation: clear to auscultation bilaterally Cardio: Rate: regular rate Rhythm: regular rhythm GI: Palpation (GI): Soft to palpation Auscultation: normal bowel sounds : Other: undergoing dialysis at this time Skin: General skin exam: no rashes or lesions noted Neuro: Cognition (Neuro): normal cognition Extrem: General: Yes normal to inspection and Yes no pedal edema Objective Data Current Medications Generic Name Dose Route Start Last Admin Trade Name Gabrielq PRN Reason Stop Dose Admin Acetaminophen 650 mg 05/07/20 11:10 Acetaminophen 325 Mg Tablet PO Q6H PRN Pain, Mild (Pain Scale 1-3) Aspirin 81 mg 05/08/20 09:00 Aspirin Enteric Coated 81 Mg Tablet.Dr PO DAILY ARTHUR Atorvastatin Calcium 40 mg 05/07/20 21:00 05/07/20 20:33 Atorvastatin Calcium 40 Mg Tablet PO 40 mg BEDTIME ARTHUR Administration Buspirone HCl 15 mg 05/07/20 11:10 05/07/20 20:33 Buspirone Hcl 5 Mg Tablet PO 15 mg BID ARTHUR Administration Carvedilol 6.25 mg 05/07/20 11:10 05/07/20 20:34 Carvedilol 6.25 Mg Tablet PO 6.25 mg BID ARTHUR Administration Protocol Docusate Sodium 100 mg 05/07/20 11:10 Docusate Sodium 100 Mg Capsule PO DAILY PRN Constipation Ergocalciferol 1,250 mcg 05/07/20 11:10 Ergocalciferol (Vitamin D2) 1,250 Mcg Capsule PO Q60D ARTHUR Folic Acid 1 mg 05/07/20 11:10 05/07/20 12:49 Folic Acid 1 Mg Tablet PO 1 mg DAILY ARTHUR Administration Furosemide 40 mg 05/08/20 07:30 Furosemide 40 Mg/4 Ml Vial IVPUSH Q12H [facility] Protocol Heparin Sodium (Porcine) 5,000 unit 05/07/20 12:00 05/07/20 23:29 Heparin Sodium,Porcine 5,000 Unit/Ml Vial SUBCUT 5,000 unit Q12H ARTHUR Administration Heparin Sodium (Porcine) 1,000 unit 05/08/20 16:45 Heparin Sodium,Porcine 1,000 Unit/Ml Vial IV DIALYSIS X3 MOWEFR ARTHUR Metoclopramide HCl 5 mg 05/07/20 11:10 05/07/20 12:49 Metoclopramide Hcl 5 Mg Tablet PO 5 mg DAILY ARTHUR Administration Mirtazapine 30 mg 05/07/20 21:00 05/07/20 20:33 Mirtazapine 30 Mg Tablet PO 30 mg BEDTIME ARTHUR Administration Omeprazole 40 mg 05/07/20 11:10 05/07/20 20:33 Omeprazole 40 Mg Capsule.Dr PO 40 mg BID ARTHUR Administration Ondansetron HCl 4 mg 05/07/20 11:10 05/07/20 22:18 Ondansetron Hcl 4 Mg/2 Ml Vial IVPUSH 4 mg Q8H PRN Administration Nausea and Vomiting Pharmacy Consult 1 each 05/07/20 05:47 Consult Rx Perform Med Rec MISCELLANE ONCE PRN Consult order Sevelamer HCl 800 mg 05/08/20 08:00 Sevelamer Hcl 800 Mg Tablet PO TIDWM [facility] Sodium Chloride 3 ml 05/07/20 11:10 05/07/20 20:34 0.9 % Sodium Chloride Flush 3 Ml Syringe IVFLUSH 3 ml QSHIFT ARTHUR Administration Labs CBC & Chem 7: 05/08/20 08:27 05/08/20 08:27 Assessment and Plan (1) Pneumonia: Status: Acute (2) COVID-19: Status: Acute (3) ESRD (end stage renal disease): Problem details: No s/s of uremia Status: Acute (4) CHF (congestive heart failure): Status: Acute Assessment and Plan: Hospital day#2 This is a 64-year-old male with past medical history as above who presents to the hospital with complaints of shortness of breath, Cough and sputum production. # dyspnea - Most likely secondary to pneumonia vs CHF exacerbation vs a combination of both - chest CT shows left perihilar and lingular infiltrate, left lower lobe consolidation as well as moderate left and trace right bilateral pleural effusion. - clinically patient appears euvolemic - has chronic leukopenia, was tachypnea when he came in but not hypoxic and not requiring any oxygen. - COVID-19 positive, but mst likely chronic as his COVID IgG is positive Plan: - Will continue broad spectrum abx - BNP is significantly elevated 07607 therefore most likely in fluid overload, undergoing dialysis today - as patient is not hypoxic will hold off on Decadron - Pt is oligouric, therefore will hold off on starting him on lasix and manage fluids using dialysis # pneumonia - most likely community-acquired pneumonia viral versus bacterial - COVID-19 positive but he was positive in February - Negative procalcitonin, COVID igg +ve Plan: - it appears the patient was on p.o. medications outpatient but failed treatment therefore require admission for IV antibiotics - continue IV ceftriaxone and azithromycin - follow blood cultures # CHF - Although clinically appears euvolemic, his BNP is significantly elevated from his baseline - patient undergoing dialysis, will manage fluids in that manner - will continue to monitor # ESRD on dialysis - no hyperkalemia - continue dialysis # hypertension - stable - continue carvedilol DVT prophylaxis: Heparin subcu Disposition: Pending cultures, may be able to discharge home in next 1-2 days
[2020-05-08 09:43] LABS: Anion Gap 18 (12-20); Blood Urea Nitrogen 58 mg/dL (9-16); Calcium 7.6 mg/dL (8.4-10.2); Carbon Dioxide 28 mmol/L (22-29); Chloride 98 mmol/L (96-108); Estimated Glomerular Filt Rate 6; Glucose Random 70 mg/dL (60-115); Potassium 5.4 mmol/l (3.3-5.1); Sodium 139 mmol/L (135-145)
[2020-05-08 10:17] LABS: Troponin-I High Sensitivity 126.9 ng/L (<3.5-35.0)
[2020-05-08] MEDS: 0.9 % Sodium Chloride Flush 3 ML SYRINGE IVFLUSH ×2 (10:36→16:55)
[2020-05-08] MEDS: Omeprazole 40 MG CAPSULE.DR PO ×2 (10:37→20:37)
[2020-05-08] MEDS: Aspirin Enteric Coated 81 MG TABLET.DR PO (10:37)
[2020-05-08] MEDS: Folic Acid 1 MG TABLET PO (10:37)
[2020-05-08] MEDS: Metoclopramide HCl 5 MG TABLET PO (10:37)
[2020-05-08] MEDS: busPIRone HCl 5 MG TABLET 15 MG PO ×2 (10:37→20:36)
[2020-05-08 10:40] LABS: Basophils Percent Auto 0.7 % (0-2); Eosinophils Absolute Auto 0.1 X10*3/uL (0.0-0.4); Eosinophils Percent Auto 1.4 % (0-4); Hemoglobin 11.5 g/dl (14.0-18.0); Imm Gran Abs Auto 0.01 X10*3/uL (0.00-0.03); Imm Gran Pct Auto 0.2 % (0.0-0.4); Lymphocytes Absolute Auto 0.8 X10*3/uL (1.2-4.9); Lymphocytes Percent Auto 18.3 % (20-40); Mean Corpuscular HGB Conc 31.9 g/dl (31.0-36.0); Mean Corpuscular Hemoglobin 31.4 pg (27.0-33.0); Mean Corpuscular Volume 98.4 fL (80-98); Mean Platelet Volume 10.9 fL (9.4-12.4); Monocytes Absolute Auto 0.7 X10*3/uL (0.1-1.2); Monocytes Percent Auto 15.5 % (2-11); Neutrophils Absolute Auto 2.8 X10*3/uL (2.0-8.3); Neutrophils Percent Auto 63.9 % (45-73); Red Blood Count 3.66 X10*6/uL (4.60-5.80); Red Cell Distribution Width 16.8 % (11.0-16.0); White Blood Count 4.4 X10*3/uL (4.8-10.8)
[2020-05-08 10:55] LABS: Platelet Count 82 X10*3/uL (160-400)
[2020-05-08] MEDS: Heparin Sodium,Porcine 5,000 UNIT/ML VIAL 5000 UNIT SUBCUT (12:04)
[2020-05-08] MEDS: cefTRIAXone sodium 1 GM in 0.9 % Sodium Chloride 50 ML IV (13:37)
[2020-05-08] MEDS: Azithromycin 500 MG TABLET PO (13:37)
--- NOTE | 2020-05-08 14:32 | MHC.CLN ---
WILL CHANGE DIET PER RENAL R/T HD WILL START ENSURE BID D/T INCREASED NUTRITION RISK WITH POOR PO R/T COVID FOLLOWING
--- NOTE | 2020-05-08 15:22 | CONS_ITS ---
DATE OF SERVICE: 05/08/2020 REASON FOR CONSULTATION: I was called to see this patient to assist in the management of patient dialysis requirements. HISTORY OF PRESENT ILLNESS: To summarize, Joni is a 64-year-old man with history of ESRD, on maintenance hemodialysis. He undergoes dialysis on Wednesday, Wednesday, and Wednesday. He has history of metastatic lung cancer, hypertension, ESRD . He has also tested for COVID-19 pneumonia in February. Against this background, he comes with shortness of breath and he has been admitted to the COVID floor and the CT scan did show left lower lobe consolidation. He is due for dialysis today and hence this consultation. PAST MEDICAL HISTORY: Ongoing medical problems include history of ESRD, lung cancer, hypertension, congestive heart failure. FAMILY HISTORY: Significant for heart disease, diabetes mellitus, and alcoholism. PAST SURGICAL HISTORY: Includes bronchoscopy, EGD, and lobectomy of lung. SOCIAL HISTORY: History of smoking in the past. He does not smoke at this time. REVIEW OF SYSTEMS: He had shortness of breath. No chest pain. No nausea or vomiting. No abdominal pain. No urinary symptoms. All other systems were reviewed and obtained from the chart. PHYSICAL EXAMINATION: GENERAL: Joni is a middle-aged man. He appears cachectic and ill, not in any distress. NECK: Supple. No JVD. LUNGS: Bilateral rhonchi with scattered crackles. HEART: S1 and S2 heard. No gallop. ABDOMEN: Soft, nontender. EXTREMITIES: No edema. VITAL SIGNS: Blood pressure 130/70, pulse 81, temperature 97.9. LABORATORY DATA: WBC 4.4, hemoglobin 11.5, platelets 82,000, which is chronically low. Sodium 139, potassium 5.4, BUN 58, creatinine 8.39, CO2 of 28, calcium 7.6, phosphorus 5.0. Troponin I 126. BNP of 13,444. IMPRESSION: 64-year-old man with ESRD and COVID-19, comes with shortness of breath, who is due for dialysis today. He is clinically fluid overloaded. I will arrange for dialysis today. We will remove fluid as tolerated. In the meantime, we will also use a low-potassium bath to correct the hyperkalemia. He should be on a low-potassium, low-sodium diet. We will follow him as needed. Matt Colin MD BPA/MODL / [phone]
[2020-05-08] MEDS: carvediloL 6.25 MG TABLET PO (20:36)
[2020-05-08] MEDS: Atorvastatin Calcium 40 MG TABLET PO (20:36)
[2020-05-08] MEDS: Mirtazapine 30 MG TABLET PO (20:37)
[2020-05-09] MEDS: Heparin Sodium,Porcine 5,000 UNIT/ML VIAL 5000 UNIT SUBCUT ×3 (00:02→22:52)
[2020-05-09] MEDS: 0.9 % Sodium Chloride Flush 3 ML SYRINGE IVFLUSH ×4 (00:03→22:52)
[2020-05-09 03:45] VITALS: BP 122/67; PULSE 88; RESP 18; TEMP 36.4; O2SAT 93
[2020-05-09] MEDS: Heparin Sodium,Porcine 1,000 UNIT/ML VIAL 1000 UNIT IV (07:30)
[2020-05-09 08:00] VITALS: BP 138/77; PULSE 84; RESP 18; TEMP 36.3; O2SAT 97
[2020-05-09] MEDS: busPIRone HCl 5 MG TABLET 15 MG PO ×2 (08:53→20:24)
[2020-05-09] MEDS: Omeprazole 40 MG CAPSULE.DR PO ×2 (08:53→20:25)
[2020-05-09] MEDS: Aspirin Enteric Coated 81 MG TABLET.DR PO (08:53)
[2020-05-09] MEDS: carvediloL 6.25 MG TABLET PO ×2 (08:53→20:24)
[2020-05-09] MEDS: Folic Acid 1 MG TABLET PO (08:53)
[2020-05-09] MEDS: Metoclopramide HCl 5 MG TABLET PO (08:53)
[2020-05-09 11:25] VITALS: BP 141/73; PULSE 86; RESP 18; TEMP 36.3; O2SAT 96
[2020-05-09] MEDS: Azithromycin 500 MG TABLET PO (11:41)
--- NOTE | 2020-05-09 12:39 | MHC.CM.PN ---
Per POLO/Brittney's request, REESE spoke with MD regarding a question of Patient being appropriate for Hospice (Patient was already on Palliative services with [facility]). MD has indicated that she will discuss with Patient. REESE will continue to follow for dc planning.
--- NOTE | 2020-05-09 14:26 | HO.PM.IMPN ---
Subjective Subjective Date of Service: 05/09/20 Interval History: Patient seen and examined at bedside. reported shortness of breath and congestion Physical Exam Vital Signs: Vital Signs: Last Vital Signs Temp 97.4 F 05/09/20 11:25 Pulse 86 05/09/20 11:25 Resp 18 05/09/20 11:25 BP 141/73 H 05/09/20 11:25 Pulse Ox 96 05/09/20 11:25 Body Mass Index 20.0 Const: General: cooperative and no acute distress Orientation/consciousness: patient oriented x3 Eyes: General: appearance normal, both eyes and all related structures Pupils: Equal, round and reactive pupils present Resp: Effort & Inspection: normal respiratory effort and able to speak in complete sentences Auscultation: clear to auscultation bilaterally Cardio: Rate: regular rate Rhythm: regular rhythm GI: Palpation (GI): Soft to palpation Auscultation: normal bowel sounds : Other: undergoing dialysis at this time Skin: General skin exam: no rashes or lesions noted Neuro: General: patient oriented x3 Cranial nerves: Yes Equal, round and reactive pupils present Cognition (Neuro): normal cognition Extrem: General: Yes normal to inspection and Yes no pedal edema Objective Data Current Medications Generic Name Dose Route Start Last Admin Trade Name Freq PRN Reason Stop Dose Admin Acetaminophen 650 mg 05/07/20 11:10 Acetaminophen 325 Mg Tablet PO Q6H PRN Pain, Mild (Pain Scale 1-3) Aspirin 81 mg 05/08/20 09:00 05/09/20 08:53 Aspirin Enteric Coated 81 Mg Tablet. PO 81 mg DAILY ARTHUR Administration Atorvastatin Calcium 40 mg 05/07/20 21:00 05/08/20 20:36 Atorvastatin Calcium 40 Mg Tablet PO 40 mg BEDTIME ARTHUR Administration Azithromycin 500 mg 05/08/20 12:00 05/09/20 11:41 Azithromycin 500 Mg Tablet PO 05/10/20 11:59 500 mg Q24H ARTHUR Administration Buspirone HCl 15 mg 05/07/20 11:10 05/09/20 08:53 Buspirone Hcl 5 Mg Tablet PO 15 mg BID ARTHUR Administration Carvedilol 6.25 mg 05/07/20 11:10 05/09/20 08:53 Carvedilol 6.25 Mg Tablet PO 6.25 mg BID ARTHUR Administration Protocol Docusate Sodium 100 mg 05/07/20 11:10 Docusate Sodium 100 Mg Capsule PO DAILY PRN Constipation Ergocalciferol 1,250 mcg 07/08/19 11:00 Ergocalciferol (Vitamin D2) 1,250 Mcg Capsule PO Q60D ARTHUR Folic Acid 1 mg 05/07/20 11:10 05/09/20 08:53 Folic Acid 1 Mg Tablet PO 1 mg DAILY ARTHUR Administration Heparin Sodium (Porcine) 5,000 unit 05/07/20 12:00 05/09/20 11:40 Heparin Sodium,Porcine 5,000 Unit/Ml Vial SUBCUT 5,000 unit Q12H ARTHUR Administration Heparin Sodium (Porcine) 1,000 unit 05/08/20 16:45 05/09/20 07:30 Heparin Sodium,Porcine 1,000 Unit/Ml Vial IV 1,000 unit DIALYSIS X3 MOWEFR ARTHUR Administration Ceftriaxone Sodium 1 gm/ 50 mls @ 100 mls/hr 05/08/20 14:00 05/08/20 14:10 Sodium Chloride IV Infused Q24H ARTHUR Infusion Metoclopramide HCl 5 mg 05/07/20 11:10 05/09/20 08:53 Metoclopramide Hcl 5 Mg Tablet PO 5 mg DAILY ARTHUR Administration Mirtazapine 30 mg 05/07/20 21:00 05/08/20 20:37 Mirtazapine 30 Mg Tablet PO 30 mg BEDTIME ARTHUR Administration Omeprazole 40 mg 05/07/20 11:10 05/09/20 08:53 Omeprazole 40 Mg Capsule.Dr PO 40 mg BID ARTHUR Administration Ondansetron HCl 4 mg 05/07/20 11:10 05/07/20 22:18 Ondansetron Hcl 4 Mg/2 Ml Vial IVPUSH 4 mg Q8H PRN Administration Nausea and Vomiting Pharmacy Consult 1 each 05/07/20 05:47 Consult Rx Perform Med Rec MISCELLANE ONCE PRN Consult order Sevelamer HCl 800 mg 05/08/20 08:00 05/09/20 11:41 Sevelamer Hcl 800 Mg Tablet PO 800 mg TIDWM ARTHUR Administration Sodium Chloride 3 ml 05/07/20 11:10 05/09/20 08:56 0.9 % Sodium Chloride Flush 3 Ml Syringe IVFLUSH 3 ml QSHIFT ARTHUR Administration Labs CBC & Chem 7: 05/08/20 08:27 05/08/20 08:27 Assessment and Plan (1) Pneumonia: Status: Acute (2) COVID-19: Status: Acute (3) ESRD (end stage renal disease): Problem details: No s/s of uremia Status: Acute (4) CHF (congestive heart failure): Status: Acute Assessment and Plan: Hospital day#2 This is a 64-year-old male with past medical history as above who presents to the hospital with complaints of shortness of breath, Cough and sputum production. Pneumonia - most likely community-acquired pneumonia viral versus bacterial - COVID-19 positive but he was positive in February - Negative procalcitonin, COVID igg +ve - continue IV ceftriaxone and azithromycin - follow blood cultures CHF - Although clinically appears euvolemic, his BNP is significantly elevated from his baseline - patient undergoing dialysis, will manage fluids in that manner - will continue to monitor ESRD on dialysis - no hyperkalemia - continue dialysis hypertension - stable - continue carvedilol DVT prophylaxis: Heparin subcu
[2020-05-09] MEDS: cefTRIAXone sodium 1 GM in 0.9 % Sodium Chloride 50 ML IV (15:28)
[2020-05-09 16:00] VITALS: BP 125/68; PULSE 85; RESP 18; TEMP 36.3; O2SAT 97
--- NOTE | 2020-05-09 16:12 | PM.PNNEP ---
Subjective Subjective Date of Service: 05/09/20 Interval history: Events noted Physical Exam Vital Signs: Vital Signs: Last Vital Signs Temp 97.4 F 05/09/20 11:25 Pulse 86 05/09/20 11:25 Resp 18 05/09/20 11:25 BP 141/73 H 05/09/20 11:25 Pulse Ox 96 05/09/20 11:25 Body Mass Index 20.0 Const: Other: Ill appearing Objective Data Labs CBC & Chem 7: 05/08/20 08:27 05/08/20 08:27 Assessment & Plan Assessment and plan (1) ESRD (end stage renal disease): Problem details: No s/s of uremia Had HD yesterday Due to HD again tomorrow COIVD-19 Status: Acute Time Spent With Patient Time: Total time spent is greater than 50% in coordination of care (as documented) at patient's floor/unit and/or counseling patient:
[2020-05-09 20:00] VITALS: BP 137/78; PULSE 84; RESP 18; TEMP 36.3; O2SAT 97
[2020-05-09] MEDS: Atorvastatin Calcium 40 MG TABLET PO (20:25)
[2020-05-09] MEDS: Mirtazapine 30 MG TABLET PO (20:25)
[2020-05-09] MEDS: Magnesium Hydrox/Alum Hydrox 30 ML ORAL.SUSP 15 ML PO (22:51)
[2020-05-09] MEDS: diphenhydrAMINE HCL 50 MG/ML VIAL 25 MG IVPUSH (22:52)
[2020-05-09 23:01] VITALS: BP 131/73; PULSE 84; RESP 18; TEMP 36.4; O2SAT 95
[2020-05-10 03:01] VITALS: BP 129/73; PULSE 80; RESP 18; TEMP 36.1; O2SAT 93
[2020-05-10 05:55] VITALS: BMI 22.8
[2020-05-10 10:21] LABS: Anion Gap 14 (12-20); Blood Urea Nitrogen 36 mg/dL (9-16); Calcium 7.8 mg/dL (8.4-10.2); Carbon Dioxide 28 mmol/L (22-29); Chloride 99 mmol/L (96-108); Creatinine Clr Calc Pharmacy 13.8; Estimated Glomerular Filt Rate 12; Glucose Random 127 mg/dL (60-115); Potassium 3.4 mmol/l (3.3-5.1); Sodium 138 mmol/L (135-145)
--- NOTE | 2020-05-10 10:33 | W.PM.DNNEP ---
Subjective Subjective This patient was seen during dialysis. Interval history: Events noted Physical Exam Vital Signs: Vital Signs: Last Vital Signs Temp 97 F 05/10/20 03:01 Pulse 80 05/10/20 03:01 Resp 18 05/10/20 03:01 BP 129/73 05/10/20 03:01 Pulse Ox 93 05/10/20 03:01 Body Mass Index 22.8 Const: Other: ill appearing Assessment & Plan Assessment and plan (1) ESRD (end stage renal disease): Problem details: No s/s of uremia HD -TTS COIVD-19 Status: Acute Time Spent With Patient Time: Total time spent is greater than 50% in coordination of care (as documented) at patient's floor/unit and/or counseling patient:
--- NOTE | 2020-05-10 11:12 | P.DS_ITS ---
DS: Providers Provider Date of admission: 05/07/20 08:04 Primary care physician: Unknown Physician Consults: 05/07/20 11:10 Consult to Nephrology Routine Consulting Provider: [facility] krystin Turner Reason for consultation: dialysis pt Has provider been notified: No DS: Diagnosis Discharge Diagnosis (1) ESRD (end stage renal disease): Status: Acute Problem details: No s/s of uremia HD -TTS COIVD-19 DS: Medications Discharge Medications Home Medications: Home Medications Medication Instructions Recorded Confirmed aspirin 81 mg PO DAILY 03/01/20 05/07/20 atorvastatin 40 mg PO BEDTIME 03/01/20 05/07/20 buspirone 15 mg PO BID 03/01/20 05/07/20 carvedilol 6.25 mg PO BID 03/01/20 05/07/20 docusate sodium [Colace] 100 mg PO BID 03/01/20 05/07/20 ergocalciferol (vitamin D2) 1,250 mcg PO Q60D 03/01/20 05/07/20 [Vitamin D2] folic acid 1 mg PO DAILY 03/01/20 05/07/20 metoclopramide HCl [Reglan] 5 mg PO DAILY 03/01/20 05/07/20 mirtazapine 30 mg PO BEDTIME 03/01/20 05/07/20 multivitamin with minerals 1 tab PO DAILY 03/01/20 05/07/20 omeprazole 40 mg PO BID 03/01/20 05/07/20 polyethylene glycol 3350 [Miralax] 17 g PO DAILY 03/01/20 05/07/20 sevelamer carbonate [Renvela] 800 mg PO TID 03/01/20 05/07/20 Previous Rx's Medication Instructions Recorded fluticasone 250 mcg-salmeterol 50 1 ea PO BID #180 cap 03/26/20 mcg/dose blistr powdr for inhalation amoxicillin-pot clavulanate 0.5 tab PO DAILY #4 tab 04/02/20 [Augmentin] doxycycline hyclate 100 mg PO BID #14 tab 04/02/20 pantoprazole [Protonix] 20 mg PO DAILY #10 tab 04/02/20 DS: Summary Hospital Course Hospital Course: HPI 64-year-old Slovenian-speaking male with a history of metastatic lung cancer who presents to the emergency department today with complaints of shortness of breath. He reports 3 days of shortness of breath with associated intermittent cough productive of scant phlegm. He reports fever at home. he denies any recent sick contacts. In the emergency department he had low-grade fever of 99.7. Lab work revealed pancytopenia. Troponin was elevated at 260.7 with no associated EKG changes. Chest x-ray showed possibility of airspace disease versus neoplasm versus radiation damage and CT chest has been ordered. he was started on IV antibiotics. COVID19 was checked and was positive. The decision was made to admit him for further management. hospital course 64-year-old male admitted with pneumonia patient was started on antibiotic supportive management, patient was diagnosed with COVID pneumonia recently, covid Igg levels were checked and were positive, patient's shortness of breath improved, patient received hemodialysis, patient was stable saturating well on room air discharged home on p.o. antibiotic, and will resume his outpatient hemodialysis Time Spent with Patient Time attestation: Total time spent providing and/or coordinating discharge services: Physical Exam Vital Signs: Vital Signs: Last Vital Signs Temp 97 F 05/10/20 03:01 Pulse 80 05/10/20 03:01 Resp 18 05/10/20 03:01 BP 129/73 05/10/20 03:01 Pulse Ox 93 05/10/20 03:01 Body Mass Index 22.8 DS: Data Data Completed and Pending Completed studies during hospitalization [Text1]: Procedures Performance of Urinary Filtration, Intermittent, Less than 6 Hours Per Day (02/29/20) Labs on day of discharge: 05/07/20 01:54 XR chest 2V Stat 05/07/20 02:11 ECG 12 lead EKG Stat EKG Documentation DIRECTED 05/07/20 02:39 Complete Blood Count Auto Diff Stat Comprehensive Met. Panel Stat D Dimer Stat Lipase Stat Troponin-I High Sensitivity Stat 05/07/20 03:39 Lidocaine HCl Viscous 2 % [Xylocaine Viscous 2 % Oral Heather] 10 ml MUCOUS MEM ONCE ONE Magnesium Hydrox/Alum Hydrox [Maalox] 30 ml PO ONCE ONE 05/07/20 04:37 CT chest wo con Stat 05/07/20 05:46 SARS-CoV2/FLU/RSV Stat 05/07/20 06:33 Doxycycline Hyclate [Vibramycin] 100 mg 0.9 % Sodium Chloride [Ns] 250 ml IV ONCE cefTRIAXone sodium [Rocephin] 1 gm 0.9 % Sodium Chloride [Ns] 50 ml IV ONCE 05/07/20 07:48 Transfer Order Routine 05/07/20 09:01 Doxycycline Hyclate [Vibramycin] 100 mg IV .STK-MED ONE cefTRIAXone sodium [Rocephin] 1 gm .ROUTE .STK-MED ONE 05/07/20 Breakfast Regular Diet 05/07/20 11:16 B Type Natriuretic Peptide Stat Procalcitonin Stat SARS COV2 IgG Stat 05/07/20 11:17 Magnesium Routine 05/07/20 11:45 Fluticasone/Vilanterol 100/25 [Breo Ellipta 100/25] 1 puff INHALE DAILY ONE 05/07/20 12:00 Azithromycin [Zithromax] 500 mg 0.9 % Sodium Chloride [Ns] 250 ml IV Q24H 05/07/20 12:38 Azithromycin [Zithromax] 500 mg IV .STK-MED ONE 05/07/20 17:27 Flu Vacc PO7741-09(6mos up)/PF [Fluarix Quad 0221-1314] 0.5 ml IM .ONCE ONE 05/07/20 22:00 diphenhydrAMINE HCL [Benadryl] 25 mg IVPUSH ONCE ONE 05/08/20 07:00 cefTRIAXone sodium [Rocephin] 1 gm 0.9 % Sodium Chloride [Ns] 50 ml IV Q24H 05/08/20 07:27 Intake and Output Q8HR 05/08/20 07:30 Furosemide [Lasix] 40 mg IVPUSH Q12H 05/08/20 08:27 Basic Metabolic Panel DAILY Complete Blood Count Auto Diff DAILY Phosphorus Routine Troponin-I High Sensitivity Stat 05/08/20 Breakfast Low Sodium Diet 05/08/20 11:00 cefTRIAXone sodium [Rocephin] 1 gm 0.9 % Sodium Chloride [Ns] 50 ml IV Q24H 05/08/20 13:36 cefTRIAXone sodium [Rocephin] 1 gm .ROUTE .STK-MED ONE 05/09/20 15:15 cefTRIAXone sodium [Rocephin] 1 gm .ROUTE .STK-MED ONE 05/09/20 22:23 Magnesium Hydrox/Alum Hydrox [Maalox] 15 ml PO ONCE ONE 05/09/20 22:24 diphenhydrAMINE HCL [Benadryl] 25 mg IVPUSH ONCE ONE 05/10/20 08:59 Basic Metabolic Panel Routine Laboratory Last Values WBC 4.4 X10*3/uL (4.8-10.8) L 05/08/20 08:27 RBC 3.66 X10*6/uL (4.60-5.80) L 05/08/20 08:27 Hgb 11.5 g/dl (14.0-18.0) L 05/08/20 08:27 Hct 36.0 % (42-52) L 05/08/20 08:27 MCV 98.4 fL (80-98) H 05/08/20 08:27 MCH 31.4 pg (27.0-33.0) 05/08/20 08:27 MCHC 31.9 g/dl (31.0-36.0) 05/08/20 08:27 RDW 16.8 % (11.0-16.0) H 05/08/20 08:27 Plt Count 82 X10*3/uL (160-400) L 05/08/20 08:27 MPV 10.9 fL (9.4-12.4) 05/08/20 08:27 Immature Gran % (Auto) 0.2 % (0.0-0.4) 05/08/20 08:27 Neut % (Auto) 63.9 % (45-73) 05/08/20 08:27 Lymph % (Auto) 18.3 % (20-40) L 05/08/20 08:27 [place] % (Auto) 15.5 % (2-11) H 05/08/20 08:27 Eos % (Auto) 1.4 % (0-4) 05/08/20 08:27 Baso % (Auto) 0.7 % (0-2) 05/08/20 08:27 Lymph # (Auto) 0.8 X10*3/uL (1.2-4.9) L 05/08/20 08:27 [place] # (Auto) 0.7 X10*3/uL (0.1-1.2) 05/08/20 08:27 Eos # (Auto) 0.1 X10*3/uL (0.0-0.4) 05/08/20 08:27 Baso # (Auto) 0.0 X10*3/uL (0.0-0.2) 05/08/20 08:27 Abs Immat Gran (auto) 0.01 X10*3/uL (0.00-0.03) 05/08/20 08:27 Absolute Neuts (auto) 2.8 X10*3/uL (2.0-8.3) 05/08/20 08:27 Absolute Nucleated RBC 0.000 X10*3/uL (0.0-0.012) 05/08/20 08:27 Nucleated RBC % (auto) 0.0 /100WBC (0.0-0.2) 05/08/20 08:27 D-Dimer 750 NG/ML 05/07/20 02:39 Sodium 138 mmol/L (135-145) 05/10/20 08:59 Potassium 3.4 mmol/l (3.3-5.1) D 05/10/20 08:59 Chloride 99 mmol/L (96-108) 05/10/20 08:59 Carbon Dioxide 28 mmol/L (22-29) 05/10/20 08:59 Anion Gap 14 (-20) 05/10/20 08:59 BUN 36 mg/dL (9-16) H 05/10/20 08:59 Creatinine 5.09 mg/dL (0.5-1.4) H* 05/10/20 08:59 Estim Creat Clear Calc 13.8 05/10/20 08:59 Estimated GFR 12 05/10/20 08:59 Random Glucose 127 mg/dL (60-115) H D 05/10/20 08:59 Calcium 7.8 mg/dL (8.4-10.2) L 05/10/20 08:59 Phosphorus 5.0 mg/dL (2.7-4.5) H 05/08/20 08:27 Magnesium 2.0 mg/dL (1.6-2.6) 05/07/20 11:17 Total Bilirubin 0.5 mg/dL (0.0-1.0) 05/07/20 02:39 AST 32 U/L (5-37) 05/07/20 02:39 ALT 27 U/L (0-40) 05/07/20 02:39 Alkaline Phosphatase 140 U/L (39-117) H D 05/07/20 02:39 Troponin I High Sens 126.9 ng/L (<3.5-35.0) H 05/08/20 08:27 B-Natriuretic Peptide 07355 pg/mL (<100) H 05/07/20 11:16 Total Protein 6.4 g/dL (6.5-8.0) L 05/07/20 02:39 Albumin 3.4 g/dL (3.5-5.0) L D 05/07/20 02:39 Lipase 73 U/L (8-78) 05/07/20 02:39 Procalcitonin 0.47 ng/mL 05/07/20 11:16 Coronavirus (PCR) POSITIVE (Negative) A 05/07/20 05:46 Influenza Type A (PCR) NEGATIVE (Negative) 05/07/20 05:46 Influenza Type B (PCR) NEGATIVE (Negative) 05/07/20 05:46 RSV RNA Qual (PCR) NEGATIVE (Negative) 05/07/20 05:46 SARS-CoV-2 IgG Ab Positive (Negative) 05/07/20 11:16 Discharge Plan Discharge Anticipated Discharge Date/Time: 05/10/20 10:42 Patient Disposition: Home Health Service Referrals: [facility] [place] [Other] (Palliative services will resume) [facility] [Other] (RESUME HD WEDNESDAY/WEDNESDAY/WEDNESDAY) Physician,Unknown [Primary Care Provider] - Discharge Medications: New cefuroxime axetil 250 mg tablet 250 mg PO BID 7 Days Qty: 14 RF: 0 Continued fluticasone propion-salmeterol [Wixela Inhub] 250-50 mcg/dose blister with device 1 ea PO BID Qty: 180 RF: 1 doxycycline hyclate 100 mg tablet 100 mg PO BID Qty: 14 RF: 0 pantoprazole [Protonix] 20 mg tablet,delayed release (DR/EC) 20 mg PO DAILY Qty: 10 RF: 0 carvedilol 6.25 mg Tablet 6.25 mg PO BID RF: 0 mirtazapine 30 mg Tablet 30 mg PO BEDTIME RF: 0 docusate sodium [Colace] 100 mg Capsule 100 mg PO BID RF: 0 folic acid 1 mg Tablet 1 mg PO DAILY RF: 0 aspirin 81 mg Tablet 81 mg PO DAILY RF: 0 multivitamin with minerals Tablet 1 tab PO DAILY RF: 0 polyethylene glycol 3350 [Miralax] 17 gram/dose Powder 17 g PO DAILY RF: 0 buspirone 15 mg Tablet 15 mg PO BID RF: 0 omeprazole 40 mg Capsule,Delayed Release(Dr/Ec) 40 mg PO BID RF: 0 metoclopramide HCl [Reglan] 5 mg Tablet 5 mg PO DAILY RF: 0 ergocalciferol (vitamin D2) [Vitamin D2] 1,250 mcg (50,000 unit) Capsule 1,250 mcg PO Q60D RF: 0 sevelamer carbonate [Renvela] 800 mg Tablet 800 mg PO TID RF: 0 Discontinued amoxicillin-pot clavulanate [Augmentin] 500-125 mg tablet 0.5 tab PO DAILY Qty: 4 RF: 0 No Action atorvastatin 40 mg tablet 40 mg PO DAILY Qty: 90 RF: 3 Discharge Orders: Discharge Order (Routine); Ordered 05/10/20 Ordered By: Ashok Bolanos Diet: advance to usual diet Activity on Discharge: As tolerated Discharge Date/Time: 05/10/20 16:28 Visit Report Forms: Patient Portal Discharge page Care Plan Goals: prevent rehospitalization Health Concerns: ESRD Plan of Treatment: p.o. antibiotic and outpatient dialysis
[2020-05-10 12:00] VITALS: BP 192/94; PULSE 90; RESP 18; TEMP 36.4; O2SAT 99
[2020-05-10] MEDS: Heparin Sodium,Porcine 5,000 UNIT/ML VIAL 5000 UNIT SUBCUT (13:31)
[2020-05-10] MEDS: cefTRIAXone sodium 1 GM in 0.9 % Sodium Chloride 50 ML IV (13:31)
== END 2020-05-10 16:28 | disposition home health service (06) | DRG 177 ==
LOC: HO.ED 05:42 → HO.ISO 08:45 → HO.IMC 05-08 14:57
PROVIDERS: Admitting Provider Internal Medicine; Emergency Provider Student in an Organized Health Care Education/Training Program; Visit Provider Internal Medicine
DX: U07.1 COVID-19 (principal); N18.6 End stage renal disease; J12.89 Other viral pneumonia; I13.2 Hypertensive heart and chronic kidney disease with heart failure and with stage 5 chronic kidney disease, or end stage renal disease; I50.22 Chronic systolic (congestive) heart failure; D61.818 Other pancytopenia; C78.7 Secondary malignant neoplasm of liver and intrahepatic bile duct; R64 Cachexia; Z68.1 Body mass index [BMI] 19.9 or less, adult; Z85.118 Personal history of other malignant neoplasm of bronchus and lung; E87.5 Hyperkalemia; Z99.2 Dependence on renal dialysis; Z87.891 Personal history of nicotine dependence; Z79.82 Long term (current) use of aspirin; Z79.899 Other long term (current) drug therapy
CPT/HCPCS: 0241U; 36415; 71046; 71250; 80048; 80053; 83690; 83735; 83880; 84100; 84145; 84484; 85025; 85379; 86769; 90686; 90999; 93005; 96365; 96367; 96375; 99284; 99285; J0456; J0696; J1200; J2405

== ENCOUNTER 2020-06-14 19:17 | Inpatient (IN) | payer OTHER, SELFPAY ==
[2020-06-14 19:33] VITALS: BP 165/86; PULSE 107; RESP 20; TEMP 37.7; O2SAT 89
--- NOTE | 2020-06-14 19:37 | ED_ITS ---
HPI - SOB/Dyspnea General Chief Complaint: Dyspnea Stated Complaint: sob fever Time Seen by Provider: 06/14/20 20:24 Source: patient Mode of arrival: ambulatory Limitations: language barrier History of Present Illness HPI Narrative: 64-year-old male with past medical history of asthma, lung cancer with lobectomy metastatic to the liver, CHF with preserved ejection fraction, cognitive impairment, end-stage renal disease on dialysis Wednesday and Wednesday, GERD, hypertension presents with 2 days of fevers, chills, cough and shortness of breath. Patient is a poor historian, speaks Panamanian. MD elicited complaint: shortness of breath, cough and anxiety Pertinent past history: COPD, asthma, congestive heart failure and sepsis Onset (ago): day(s) (2) Timing: constant Severity: moderate Exacerbating factors: exertion, movement, coughing, talking, cold air and deep breaths Relieving factors: nothing Known history of: COPD, asthma and congestive heart failure Associated symptoms: fever, cough and wheezing Related Data Home oxygen amount: none Home Medications Medication Instructions Recorded Confirmed buspirone 15 mg PO TID 03/01/20 06/14/20 carvedilol 6.25 mg PO BID 03/01/20 06/14/20 docusate sodium [Colace] 100 mg PO BID PRN 03/01/20 06/14/20 ergocalciferol (vitamin D2) 1,250 mcg PO Q15D 03/01/20 06/14/20 [Vitamin D2] folic acid 1 mg PO DAILY 03/01/20 06/14/20 metoclopramide HCl [Reglan] 5 mg PO TID 03/01/20 06/14/20 clonazepam 1 mg PO BID 06/14/20 06/14/20 multivitamin 1 tab PO DAILY 06/14/20 06/14/20 Previous Rx's Medication Instructions Recorded fluticasone 250 mcg-salmeterol 50 1 ea PO BID #180 cap 03/26/20 mcg/dose blistr powdr for inhalation pantoprazole [Protonix] 20 mg PO DAILY #10 tab 04/02/20 atorvastatin 40 mg tablet 40 mg PO DAILY #90 tab 05/10/20 aspirin 81 mg tablet,delayed 81 mg PO DAILY #90 tab 05/15/20 release Allergies Allergy/AdvReac Type Severity Reaction Status Date / Time No Known Allergies Allergy Verified 06/14/20 19:43 Review of Systems Review of Systems: Constitutional: positive Fever, positive Chills, positive fatigue, positive Malaise ENT/Mouth: No sore throat, no runny nose Eyes: No Discharge Cardiovascular: No Chest Pain, positive SOB Respiratory: Positive Cough, No Sputum, positive Wheezing, No Smoke Exposure, No Dyspnea Gastrointestinal: No Nausea, No Vomiting, No Diarrhea Genitourinary: no irregular bleeding, No Dysuria, No Urinary Frequency, No Hematuria, No Urinary Incontinence, No Urgency, No Flank Pain, Musculoskeletal: positive Myalgia Skin: No rash Neuro: No Headache Yes all other systems are reviewed and are negative [facility] Past Medical History Attestation statement: The following information was validated with the patient. Source: old records reviewed Medical History Anxiety and depression Asthma Bicytopenia Cataract CHF (congestive heart failure) Cognitive impairment ESRD (end stage renal disease) GERD (gastroesophageal reflux disease) HTN (hypertension) Lung cancer Surgical History History of biopsy History of bronchoscopy History of esophagogastroduodenoscopy (EGD) History of lobectomy of lung Family History Family History Mother Heart disease Diabetes Alzheimers disease Father Alcoholism Son Asthma Social History Social History Household Members: Family Housing: House Alcohol intake: never Smoking Status: Unknown if ever smoked Second Hand Smoke Exposure: No Use of substances other than those prescribed or required for medical reasons: Unknown Advance Directives: No service: No Current occupational status: disabled Physical Exam Vital Signs: Vital Signs: Last Vital Signs Temp 100.2 F 06/14/20 23:40 Pulse 97 06/14/20 23:40 Resp 19 06/14/20 23:40 BP 120/72 06/14/20 23:40 Pulse Ox 99 06/14/20 23:40 Body Mass Index 20.0 Appearance: Alert. Oriented X3. Moderate distress. Tachycardic, tachypneic, hypoxic 88% on room air Eyes: Pupils equal, round and reactive to light. ENT: Pharynx normal. Neck: Normal inspection. Neck supple. CVS: Tachycardic heart rate and rhythm. Pulses normal. Respiratory: Mild respiratory distress. Breath sounds bilateral crackles and expiratory wheezes Abdomen: Soft and nontender. Skin: Skin warm and dry. Normal skin color. Normal skin turgor. Extremities: No lower extremity edema. Neuro: No motor deficit. No sensory deficit. Course Course Course Narrative: 64-year-old Panamanian-speaking male with past medical history of asthma, lung cancer with lobectomy metastatic to the liver, CHF with preserved ejection fraction, cognitive impairment, end-stage renal disease on dialysis Wednesday and Wednesday, GERD, hypertension presents with 2 days of fevers, chills, cough and shortness of breath. Patient's symptoms consistent with COVID-19, we will order CT scan of the abdomen, CBC, Chem 7, and COVID testing. Fluid resuscitation will be done very gently as he is a dialysis patient. BUN 28, creatinine 5.18 which are consistent with his prior lab values, lactic acid is 2.3, troponin 269.5, BNP 20630 which is higher than prior values of 14,000. CT scan shows multiple infiltrates, COVID-19 test is negative. Discussion with hospitalist regarding plan of care, plan is to admit for pneumonia, hypoxia, CHF exacerbation and GEETHA. Consultations Consultation #1: Cristian Time: 21:19 MDM - SOB/Dyspnea Differential Diagnosis Differential diagnosis: Likely acute exacerbation of chronic obstructive airways disease, congestive heart failure and pneumonia Medical Records Attestation: I reviewed the patient's medical records. Lab Data Attestation: I reviewed the patient's lab results. Result diagrams: 06/14/20 19:59 06/14/20 20:40 Labs: Lab Results 06/14/20 06/14/20 06/14/20 Range/Units 19:59 19:59 19:59 WBC 6.6 (4.8-10.8) X10*3/uL RBC 4.16 L (4.60-5.80) X10*6/uL Hgb 12.9 L (14.0-18.0) g/dl Hct 40.7 L (42-52) % MCV 97.8 (80-98) fL MCH 31.0 (27.0-33.0) pg MCHC 31.7 (31.0-36.0) g/dl RDW 15.1 (11.0-16.0) % Plt Count 70 L (160-400) X10*3/uL MPV 10.2 (9.4-12.4) fL Immature Gran % (Auto) 0.3 (0.0-0.4) % Neut % (Auto) 83.0 H (45-73) % Lymph % (Auto) 6.1 L (20-40) % [place] % (Auto) 9.7 (2-11) % Eos % (Auto) 0.6 (0-4) % Baso % (Auto) 0.3 (0-2) % Lymph # (Auto) 0.4 L (1.2-4.9) X10*3/uL [place] # (Auto) 0.6 (0.1-1.2) X10*3/uL Eos # (Auto) 0.0 (0.0-0.4) X10*3/uL Baso # (Auto) 0.0 (0.0-0.2) X10*3/uL Abs Immat Gran (auto) 0.02 (0.00-0.03) X10*3/uL Absolute Neuts (auto) 5.5 (2.0-8.3) X10*3/uL Absolute Nucleated RBC 0.000 (0.0-0.012) X10*3/uL Nucleated RBC % (auto) 0.0 (0.0-0.2) /100WBC Smear Tech's Comments VERIFIED Sodium (135-145) mmol/L Potassium (3.3-5.1) mmol/l Chloride (96-108) mmol/L Carbon Dioxide (22-29) mmol/L Anion Gap (12-20) BUN (9-16) mg/dL Creatinine (0.5-1.4) mg/dL Estim Creat Clear Calc Estimated GFR Random Glucose (60-115) mg/dL Lactic Acid 2.3 H* (0.5-2.0) mmol/L Lactic Acid Fup @ 2Hr (0.5-2.0) mmol/L Calcium (8.4-10.2) mg/dL Magnesium (1.6-2.6) mg/dL Troponin I High Sens 209.1 H D (<3.5-35.0) ng/L B-Natriuretic Peptide 37386 H (<100) pg/mL Coronavirus (PCR) (Negative) Influenza Type A (PCR) (Negative) Influenza Type B (PCR) (Negative) RSV RNA Qual (PCR) (Negative) 06/14/20 06/14/20 06/14/20 Range/Units 19:59 20:40 22:57 WBC (4.8-10.8) X10*3/uL RBC (4.60-5.80) X10*6/uL Hgb (14.0-18.0) g/dl Hct (42-52) % MCV (80-98) fL MCH (27.0-33.0) pg MCHC (31.0-36.0) g/dl RDW (11.0-16.0) % Plt Count (160-400) X10*3/uL MPV (9.4-12.4) fL Immature Gran % (Auto) (0.0-0.4) % Neut % (Auto) (45-73) % Lymph % (Auto) (20-40) % [place] % (Auto) (2-11) % Eos % (Auto) (0-4) % Baso % (Auto) (0-2) % Lymph # (Auto) (1.2-4.9) X10*3/uL [place] # (Auto) (0.1-1.2) X10*3/uL Eos # (Auto) (0.0-0.4) X10*3/uL Baso # (Auto) (0.0-0.2) X10*3/uL Abs Immat Gran (auto) (0.00-0.03) X10*3/uL Absolute Neuts (auto) (2.0-8.3) X10*3/uL Absolute Nucleated RBC (0.0-0.012) X10*3/uL Nucleated RBC % (auto) (0.0-0.2) /100WBC Smear Tech's Comments Sodium 141 (135-145) mmol/L Potassium 4.2 D (3.3-5.1) mmol/l Chloride 98 (96-108) mmol/L Carbon Dioxide 30 H (22-29) mmol/L Anion Gap 17 (12-20) BUN 28 H (9-16) mg/dL Creatinine 5.18 H* (0.5-1.4) mg/dL Estim Creat Clear Calc 11.9 Estimated GFR 11 Random Glucose 153 H (60-115) mg/dL Lactic Acid (0.5-2.0) mmol/L Lactic Acid Fup @ 2Hr (0.5-2.0) mmol/L Calcium 7.3 L D (8.4-10.2) mg/dL Magnesium 1.7 (1.6-2.6) mg/dL Troponin I High Sens 269.5 H (<3.5-35.0) ng/L B-Natriuretic Peptide (<100) pg/mL Coronavirus (PCR) NEGATIVE (Negative) Influenza Type A (PCR) NEGATIVE (Negative) Influenza Type B (PCR) NEGATIVE (Negative) RSV RNA Qual (PCR) NEGATIVE (Negative) 06/14/20 Range/Units 22:57 WBC (4.8-10.8) X10*3/uL RBC (4.60-5.80) X10*6/uL Hgb (14.0-18.0) g/dl Hct (42-52) % MCV (80-98) fL MCH (27.0-33.0) pg MCHC (31.0-36.0) g/dl RDW (11.0-16.0) % Plt Count (160-400) X10*3/uL MPV (9.4-12.4) fL Immature Gran % (Auto) (0.0-0.4) % Neut % (Auto) (45-73) % Lymph % (Auto) (20-40) % [place] % (Auto) (2-11) % Eos % (Auto) (0-4) % Baso % (Auto) (0-2) % Lymph # (Auto) (1.2-4.9) X10*3/uL [place] # (Auto) (0.1-1.2) X10*3/uL Eos # (Auto) (0.0-0.4) X10*3/uL Baso # (Auto) (0.0-0.2) X10*3/uL Abs Immat Gran (auto) (0.00-0.03) X10*3/uL Absolute Neuts (auto) (2.0-8.3) X10*3/uL Absolute Nucleated RBC (0.0-0.012) X10*3/uL Nucleated RBC % (auto) (0.0-0.2) /100WBC Smear Tech's Comments Sodium (135-145) mmol/L Potassium (3.3-5.1) mmol/l Chloride (96-108) mmol/L Carbon Dioxide (22-29) mmol/L Anion Gap (12-20) BUN (9-16) mg/dL Creatinine (0.5-1.4) mg/dL Estim Creat Clear Calc Estimated GFR Random Glucose (60-115) mg/dL Lactic Acid (0.5-2.0) mmol/L Lactic Acid Fup @ 2Hr 1.6 (0.5-2.0) mmol/L Calcium (8.4-10.2) mg/dL Magnesium (1.6-2.6) mg/dL Troponin I High Sens (<3.5-35.0) ng/L B-Natriuretic Peptide (<100) pg/mL Coronavirus (PCR) (Negative) Influenza Type A (PCR) (Negative) Influenza Type B (PCR) (Negative) RSV RNA Qual (PCR) (Negative) Imaging Data CT scan - chest: Attestation: I personally reviewed and interpreted this imaging study as follows: Radiologist's impression: EXAMINATION: CT CHEST WITHOUT CONTRAST CLINICAL INFORMATION: Shortness of breath and fever COMPARISON: 05/07/2020 TECHNIQUE: Multidetector volumetric CT imaging of the chest was done. Axial MIP volume rendering provided. Sagittal and coronal reformatted images were obtained. This CT examination was performed using dose optimization techniques as appropriate, variously including the following: *Automated exposure control *Adjustment of mA and/or kV according to patient size (this includes techniques or standardized protocols for targeted exams where dose is matched to indication/reason for exam; i.e. 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 Exam is limited from motion. There is evidence for COPD. Left lung; Once again significant parahilar opacity with air bronchograms present. This is not significantly changed from previous. Left lower lobe infiltrate. This appears new from previous. Resolved small effusion from previous. MEDIASTINUM: Cardiomegaly once again present. Coronary calcifications. Mild adenopathy not changed from previous. May be reactive. PLEURA: There is no pleural effusion. No pleural mass or thickening. AXILLA: Once again prominent vessels in left axilla UPPER ABDOMEN: There is small volume ascites around the liver. OSSEOUS STRUCTURES: No acute finding CT/CT chest wo con IMPRESSION: Compared to previous there is new infiltrate in the right middle lobe and left base. The change associated with the left hilum extending into the left upper lung with air bronchograms is stable. Resolved small left-sided effusion Once again cardiomegaly is present. Small volume ascites around the liver is now seen. Pericardial thickening/mild pericardial fluid similar to previous. ECG Data Attestation: I personally reviewed and interpreted this ECG as follows: ECG interpretation date: 06/14/20 ECG interpretation time: 20:29 Prior ECG tracings: available for review Interpretation: Vent. Rate : 103 BPM Atrial Rate : 103 BPM P-R Int : 150 ms QRS Dur : 098 ms QT Int : 376 ms P-R-T Axes : 040 -17 111 degrees QTc Int : 492 ms Sinus tachycardia Left atrial enlargement ST & T wave abnormality, consider lateral ischemia Abnormal ECG When compared with ECG of 07-MAY-2020 02:27, T wave inversion more evident in Lateral leads Critical Care Time Critical Care Time Critical Care Time: Yes Total Critical Care Time: 60 Attestation: I have personally provided critical care time exclusive of time spent on separately billable procedures. Time includes review of laboratory data, radiology results, discussion with consultants, and monitoring for potential decompensation. Interventions were performed as documented. Discharge Plan Discharge Clinical Impression: ESRD (end stage renal disease) CHF (congestive heart failure) Qualifiers: Heart failure type: systolic Heart failure chronicity: chronic Qualified Code(s): I50.22 - Chronic systolic (congestive) heart failure Pneumonia Qualifiers: Pneumonia type: due to unspecified organism Laterality: bilateral Lung location: unspecified part of lung Qualified Code(s): J18.9 - Pneumonia, unspecified organism Patient Disposition: Admitted As Inpatient
[2020-06-14 19:44] VITALS: PULSE 109; O2SAT 96
--- NOTE | 2020-06-14 19:44 | ECG_ITS ---
Test Reason : [id number] Blood Pressure : / mmHG Vent. Rate : 103 BPM Atrial Rate : 103 BPM P-R Int : 150 ms QRS Dur : 098 ms QT Int : 376 ms P-R-T Axes : 040 -17 111 degrees QTc Int : 492 ms Sinus tachycardia Left atrial enlargement ST & T wave abnormality, consider lateral ischemia Abnormal ECG When compared with ECG of 07-MAY-2020 02:27, T wave inversion more evident in Lateral leads Referred By: Heather Lopez Electronically Signed By:JANELLE HOFFMAN
--- NOTE | 2020-06-14 19:44 | CT_ITS ---
EXAMINATION: CT CHEST WITHOUT CONTRAST CLINICAL INFORMATION: Shortness of breath and fever COMPARISON: 05/07/2020 TECHNIQUE: Multidetector volumetric CT imaging of the chest was done. Axial MIP volume rendering provided. Sagittal and coronal reformatted images were obtained. This CT examination was performed using dose optimization techniques as appropriate, variously including the following: *Automated exposure control *Adjustment of mA and/or kV according to patient size (this includes techniques or standardized protocols for targeted exams where dose is matched to indication/reason for exam; i.e. 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 Exam is limited from motion. There is evidence for COPD. Left lung; Once again significant parahilar opacity with air bronchograms present. This is not significantly changed from previous. Left lower lobe infiltrate. This appears new from previous. Resolved small effusion from previous. MEDIASTINUM: Cardiomegaly once again present. Coronary calcifications. Mild adenopathy not changed from previous. May be reactive. PLEURA: There is no pleural effusion. No pleural mass or thickening. AXILLA: Once again prominent vessels in left axilla UPPER ABDOMEN: There is small volume ascites around the liver. OSSEOUS STRUCTURES: No acute finding CT/CT chest wo con IMPRESSION: Compared to previous there is new infiltrate in the right middle lobe and left base. The change associated with the left hilum extending into the left upper lung with air bronchograms is stable. Resolved small left-sided effusion Once again cardiomegaly is present. Small volume ascites around the liver is now seen. Pericardial thickening/mild pericardial fluid similar to previous.
[2020-06-14 20:00] VITALS: BP 165/86; PULSE 109; RESP 18; TEMP 37.7; O2SAT 96
[2020-06-14 20:13] LABS: Basophils Percent Auto 0.3 % (0-2); Eosinophils Percent Auto 0.6 % (0-4); Hematocrit 40.7 % (42-52); Imm Gran Abs Auto 0.02 X10*3/uL (0.00-0.03); Imm Gran Pct Auto 0.3 % (0.0-0.4); MANUAL DIFF FLAG SCAN; Mean Corpuscular Volume 97.8 fL (80-98); PLT CLUMP 1; Red Blood Count 4.16 X10*6/uL (4.60-5.80); SCAN SMEAR FLAG 1
[2020-06-14 20:15] LABS: Hemoglobin 12.9 g/dl (14.0-18.0); Lymphocytes Absolute Auto 0.4 X10*3/uL (1.2-4.9); Lymphocytes Percent Auto 6.1 % (20-40); Mean Corpuscular HGB Conc 31.7 g/dl (31.0-36.0); Mean Platelet Volume 10.2 fL (9.4-12.4); Monocytes Absolute Auto 0.6 X10*3/uL (0.1-1.2); Monocytes Percent Auto 9.7 % (2-11); Neutrophils Absolute Auto 5.5 X10*3/uL (2.0-8.3); Platelet Count 70 X10*3/uL (160-400); Red Cell Distribution Width 15.1 % (11.0-16.0); White Blood Count 6.6 X10*3/uL (4.8-10.8)
[2020-06-14 20:34] LABS: Lactic Acid 2.3 mmol/L (0.5-2.0); SLIDE REVIEW VERIFIED
[2020-06-14 20:44] LABS: Troponin-I High Sensitivity 209.1 ng/L (<3.5-35.0)
[2020-06-14 20:51] LABS: Influenza A PCR NEGATIVE (Negative); Influenza B PCR NEGATIVE (Negative); Resp Syncy Virus RNA Qual PCR NEGATIVE (Negative); SARS COV2 PCR INHOUSE NEGATIVE (Negative)
[2020-06-14] MEDS: 0.9 % Sodium Chloride 1,000 ML 500 ML IVCONT (20:56)
[2020-06-14] MEDS: dexAMETHasone sod phosphate 4 MG/ML VIAL 6 MG IVPUSH (20:56)
[2020-06-14 21:02] LABS: B Type Natriuretic Peptide 15911 pg/mL (<100)
[2020-06-14] MEDS: Azithromycin 500 MG TABLET PO (21:06)
[2020-06-14] MEDS: cefTRIAXone sodium 1 GM in 0.9 % Sodium Chloride 50 ML IV (21:06)
[2020-06-14] MEDS: Acetaminophen 325 MG TABLET 650 MG PO (21:08)
--- NOTE | 2020-06-14 21:15 | PC.NURSE ---
Patient medicated per emar as noted.
[2020-06-14 21:36] LABS: Creatinine Clr Calc Pharmacy 11.9; Estimated Glomerular Filt Rate 11
[2020-06-14 21:46] LABS: Anion Gap 17 (12-20); Blood Urea Nitrogen 28 mg/dL (9-16); Calcium 7.3 mg/dL (8.4-10.2); Carbon Dioxide 30 mmol/L (22-29); Chloride 98 mmol/L (96-108); Glucose Random 153 mg/dL (60-115); Magnesium 1.7 mg/dL (1.6-2.6); Potassium 4.2 mmol/l (3.3-5.1); Sodium 141 mmol/L (135-145)
[2020-06-14 22:00] VITALS: BP 127/75; PULSE 98; RESP 19; TEMP 37.4
[2020-06-14 22:04] LABS: Reflex Lactate? Lactic Acid Added
[2020-06-14 23:05] VITALS: RESP 18
--- NOTE | 2020-06-14 23:15 | P.HPHOSP_ITS ---
History of Present Illness Date of Service: 06/14/20 Chief Complaint: Shortness of breath 64-year-old male with past medical history of ESRD on dialysis Wednesday, CHF, anxiety depression, GERD who presents to the hospital with complaints of difficulty breathing. Patient reports that for the past 2 days he has been having trouble breathing, coughing, sputum production, he has no fever or chills, he has also some diarrhea, denies any lower extremity swelling. He is completely on a uric, denies any sick contacts or recent travel. He did not miss any dialysis and his last dialysis session was today Wednesday. He otherwise denies any chest pain, no headache, no change in vision, no weakness numbness or tingling, no abdominal pain nausea or vomiting, To the ED patient has a temp of 99.9?, heart rate of 107, respiratory rate of 20, blood pressure 165/86, satting 89% on room air No significant for a WBC count of 6.6, hemoglobin of 12.9, hematocrit 40.7, platelet count of 70 (chronically low) 141, potassium 4.2, BUN of 28, creatinine of 5.18, lactic acid level of 2.3 improved to 1.6 after fluids, of 209 increased to 269, chronically elevated, BNP of 59 11, chronically elevated, Chest CT shows new infiltrate in the right middle lobe and left base, ascites around the liver, Review of Systems Review of Systems: Yes all other systems are reviewed and are negative [facility] Medical History Anxiety and depression Asthma Bicytopenia Cataract CHF (congestive heart failure) Cognitive impairment ESRD (end stage renal disease) GERD (gastroesophageal reflux disease) HTN (hypertension) Lung cancer Family History Mother Heart disease Diabetes Alzheimers disease Father Alcoholism Son Asthma Surgical History History of biopsy History of bronchoscopy History of esophagogastroduodenoscopy (EGD) History of lobectomy of lung Social History Household Members: Family Housing: House Alcohol intake: never Smoking Status: Unknown if ever smoked Second Hand Smoke Exposure: No Use of substances other than those prescribed or required for medical reasons: Unknown Advance Directives: No service: No Current occupational status: disabled Meds Allergies Allergy/AdvReac Type Severity Reaction Status Date / Time No Known Allergies Allergy Verified 06/14/20 19:43 Home Medications Medication Instructions Recorded Confirmed Type buspirone 15 mg PO TID 03/01/20 06/14/20 History carvedilol 6.25 mg PO BID 03/01/20 06/14/20 History docusate sodium [Colace] 100 mg PO BID PRN 03/01/20 06/14/20 History ergocalciferol (vitamin D2) 1,250 mcg PO Q15D 03/01/20 06/14/20 History [Vitamin D2] folic acid 1 mg PO DAILY 03/01/20 06/14/20 History metoclopramide HCl [Reglan] 5 mg PO TID 03/01/20 06/14/20 History clonazepam 1 mg PO BID 06/14/20 06/14/20 History multivitamin 1 tab PO DAILY 06/14/20 06/14/20 History Physical Exam Vital Signs and Narrative: Vital Signs: Last Vital Signs Temp 99.9 F 06/14/20 20:00 Pulse 109 H 06/14/20 20:00 Resp 18 06/14/20 23:05 BP 165/86 H 06/14/20 20:00 Pulse Ox 96 06/14/20 20:00 Body Mass Index 20.0 Const: General: cooperative and no acute distress Orientation/consciousness: patient oriented x3 Eyes: General: appearance normal, both eyes and all related structures Resp: Effort & Inspection: normal respiratory effort and able to speak in complete sentences Cardio: Rate: regular rate Rhythm: regular rhythm GI: Palpation (GI): Soft to palpation Auscultation: normal bowel sounds Skin: General skin exam: no rashes or lesions noted Neuro: General: patient oriented x3 Cognition (Neuro): normal cognition Extrem: General: Yes normal to inspection and Yes no pedal edema Results Labs CBC and Chem 7: 06/14/20 19:59 06/14/20 20:40 Labs: Laboratory Results - last 24 hr 06/14/20 06/14/20 06/14/20 19:59 19:59 19:59 MCV 97.8 MCH 31.0 MCHC 31.7 RDW 15.1 Plt Count 70 L MPV 10.2 Immature Gran % (Auto) 0.3 Neut % (Auto) 83.0 H Lymph % (Auto) 6.1 L [place] % (Auto) 9.7 Eos % (Auto) 0.6 Baso % (Auto) 0.3 Lymph # (Auto) 0.4 L [place] # (Auto) 0.6 Eos # (Auto) 0.0 Baso # (Auto) 0.0 Abs Immat Gran (auto) 0.02 Absolute Neuts (auto) 5.5 Absolute Nucleated RBC 0.000 Nucleated RBC % (auto) 0.0 Smear Tech's Comments VERIFIED Anion Gap Estim Creat Clear Calc Estimated GFR Random Glucose Lactic Acid 2.3 H* Calcium Magnesium Troponin I High Sens 209.1 H D B-Natriuretic Peptide 45962 H Coronavirus (PCR) Influenza Type A (PCR) Influenza Type B (PCR) RSV RNA Qual (PCR) 06/14/20 06/14/20 19:59 20:40 MCV MCH MCHC RDW Plt Count MPV Immature Gran % (Auto) Neut % (Auto) Lymph % (Auto) [place] % (Auto) Eos % (Auto) Baso % (Auto) Lymph # (Auto) [place] # (Auto) Eos # (Auto) Baso # (Auto) Abs Immat Gran (auto) Absolute Neuts (auto) Absolute Nucleated RBC Nucleated RBC % (auto) Smear Tech's Comments Anion Gap 17 Estim Creat Clear Calc 11.9 Estimated GFR 11 Random Glucose 153 H Lactic Acid Calcium 7.3 L D Magnesium 1.7 Troponin I High Sens B-Natriuretic Peptide Coronavirus (PCR) NEGATIVE Influenza Type A (PCR) NEGATIVE Influenza Type B (PCR) NEGATIVE RSV RNA Qual (PCR) NEGATIVE ECG Interpretation: Sinus tachycardia with a rate of 103, sinus, [place] interval 150, no evidence of ST T wave abnormalities Imaging Radiologist's Impressions: Impressions Chest CT 06/14/20 19:44 IMPRESSION: Compared to previous there is new infiltrate in the right middle lobe and left base. The change associated with the left hilum extending into the left upper lung with air bronchograms is stable. Resolved small left-sided effusion Once again cardiomegaly is present. Small volume ascites around the liver is now seen. Pericardial thickening/mild pericardial fluid similar to previous. Assessment and Plan (1) Sepsis with acute hypoxic respiratory failure: Status: Acute (2) Pneumonia: Qualifiers: Laterality: bilateral Lung location: unspecified part of lung Pneumonia type: due to unspecified organism Qualified Code(s): J18.9 - Pneumonia, unspecified organism Status: Acute (3) Anxiety and depression: Status: Acute (4) ESRD on dialysis: Status: Acute (5) Lactic acidosis: Status: Acute (6) Elevated troponin: Status: Acute (7) Elevated brain natriuretic peptide (BNP) level: Status: Acute This is a 64-year-old male with past medical history of ESRD on dialysis who presents to hospital with shortness of breath found to have pneumonia # acute hypoxic respiratory failure - has hypoxia with O2 level of 89% on room air - chest CT showing right middle lobe as well as left lower lobe infiltrate suggestive of pneumonia - has leukocytosis, tachycardia, and elevated lactic acid meeting sepsis - COVID-19 negative Plan: - O2 as required - IV antibiotics - follow cultures - monitor respiratory status # sepsis - secondary to pneumonia - has tachycardia, leukocytosis, lactic acidosis Plan: - broad-spectrum IV antibiotics - received about 1500 cc of fluids, will hold off any further fluids as patient has elevated BNP - improvement of his lactic acid with IV fluids - follow cultures # community-acquired pneumonia - rapid COVID-19 PCR negative - has infiltrates on the right and left lower lobe - , strep antigens - will start on IV antibiotics - follow cultures # lactic acidosis - most likely secondary to hypoxia and acute infection - improved with IV fluids # elevated BNP - chronically elevated in the [id number] comes in today with a level of 15,000 - no clinical evidence of volume overload - chest CT does not demonstrate any pleural effusion - does not missed dialysis and reports dialysis done at the day of presentation Plan: - will continue dialysis for fluid management - nephrology consulted # ESRD on dialysis - will consult Nephrology for dialysis # elevated troponin - has no chest pain - no acute EKG changes suggestive of ACS Plan: - monitor for any chest pain DVT prophylaxis: Heparin subQ
[2020-06-14 23:21] LABS: ~Lactic Acid-LAB USE ONLY 1.6 mmol/L (0.5-2.0)
[2020-06-14 23:37] LABS: Troponin-I High Sensitivity 269.5 ng/L (<3.5-35.0)
[2020-06-14 23:40] VITALS: BP 120/72; PULSE 97; RESP 19; TEMP 37.9; O2SAT 99
--- NOTE | 2020-06-15 00:09 | PC.NURSE ---
pATIENT WAS MEDICATED WITH CEFTRIAXONE AND AZITHROMYCIN EARLIER THIS EVENING.
[2020-06-15] MEDS: Heparin Sodium,Porcine 5,000 UNIT/ML VIAL 5000 UNIT SUBCUT (00:48)
[2020-06-15 02:00] VITALS: BP 127/80; PULSE 94; RESP 10; O2SAT 96
[2020-06-15 05:50] LABS: Basophils Percent Auto 0.1 % (0-2); MANUAL DIFF FLAG SCAN; Mean Platelet Volume 11.2 fL (9.4-12.4); PLT CLUMP 1; SCAN SMEAR FLAG 1
[2020-06-15 05:52] LABS: Hematocrit 41.5 % (42-52); Hemoglobin 12.9 g/dl (14.0-18.0); Imm Gran Abs Auto 0.01 X10*3/uL (0.00-0.03); Imm Gran Pct Auto 0.1 % (0.0-0.4); Lymphocytes Absolute Auto 0.6 X10*3/uL (1.2-4.9); Lymphocytes Percent Auto 7.7 % (20-40); Mean Corpuscular HGB Conc 31.1 g/dl (31.0-36.0); Mean Corpuscular Hemoglobin 30.9 pg (27.0-33.0); Mean Corpuscular Volume 99.3 fL (80-98); Monocytes Absolute Auto 0.5 X10*3/uL (0.1-1.2); Monocytes Percent Auto 6.9 % (2-11); Neutrophils Absolute Auto 6.6 X10*3/uL (2.0-8.3); Neutrophils Percent Auto 85.2 % (45-73); Platelet Count 62 X10*3/uL (160-400); Red Blood Count 4.18 X10*6/uL (4.60-5.80); Red Cell Distribution Width 15.2 % (11.0-16.0); White Blood Count 7.8 X10*3/uL (4.8-10.8)
[2020-06-15 06:00] VITALS: BP 135/83; PULSE 86; RESP 22; O2SAT 94
[2020-06-15 06:12] LABS: SLIDE REVIEW VERIFIED
[2020-06-15 06:26] LABS: Anion Gap 22 (12-20); Blood Urea Nitrogen 30 mg/dL (9-16); Calcium 7.2 mg/dL (8.4-10.2); Carbon Dioxide 24 mmol/L (22-29); Chloride 100 mmol/L (96-108); Creatinine Clr Calc Pharmacy 11.6; Estimated Glomerular Filt Rate 11; Glucose Random 112 mg/dL (60-115); Potassium 5.1 mmol/l (3.3-5.1); Sodium 141 mmol/L (135-145)
[2020-06-15] MEDS: Omeprazole 20 MG CAPSULE.DR PO (06:40)
[2020-06-15] MEDS: 0.9 % Sodium Chloride Flush 3 ML SYRINGE IVFLUSH (08:45)
--- NOTE | 2020-06-15 08:57 | PC.NURSE ---
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 sitting up. no distress noted. denies pain. aware of plan of care and denied having any questions.
[2020-06-15 09:03] VITALS: BP 145/81; PULSE 91
[2020-06-15] MEDS: clonazePAM 1 MG TABLET PO (09:03)
[2020-06-15] MEDS: Folic Acid 1 MG TABLET PO (09:03)
[2020-06-15] MEDS: Aspirin Enteric Coated 81 MG TABLET.DR PO (09:03)
[2020-06-15] MEDS: Metoclopramide HCl 5 MG TABLET PO (09:03)
[2020-06-15] MEDS: busPIRone HCl 5 MG TABLET 15 MG PO (09:03)
[2020-06-15] MEDS: Multivitamin TABLET 1 TAB PO (09:03)
[2020-06-15] MEDS: carvediloL 6.25 MG TABLET PO (09:03)
[2020-06-15] MEDS: Atorvastatin Calcium 40 MG TABLET PO (09:03)
[2020-06-15 09:06] VITALS: BP 145/81; PULSE 91; RESP 18; O2SAT 96
[2020-06-15 11:31] VITALS: BP 102/58; PULSE 75; RESP 15; TEMP 36.5; O2SAT 100
--- NOTE | 2020-06-15 13:04 | HO.PM.IMPN ---
Subjective Subjective Date of Service: 06/15/20 Interval History: hemoptysis Cardiovascular Cardiovascular: Reports no additional cardiovascular complaints Respiratory Respiratory: Reports no additional respiratory complaints Physical Exam Vital Signs: Vital Signs: Last Vital Signs Temp 97.7 F 06/15/20 11:31 Pulse 75 06/15/20 11:31 Resp 15 06/15/20 11:31 BP 102/58 L 06/15/20 11:31 Pulse Ox 100 06/15/20 11:31 Body Mass Index 20.0 General: AO X 3, no acute distress Resp: rales CVS: S1,S2,RRR GI: soft, non tender, non distended Neuro: motor grossly intact Psych: appropriate affect Objective Data Current Medications Generic Name Dose Route Start Last Admin Trade Name Freq PRN Reason Stop Dose Admin Acetaminophen 650 mg 06/14/20 23:14 Acetaminophen 325 Mg Tablet PO Q6H PRN Pain, Mild (Pain Scale 1-3) Aspirin 81 mg 06/15/20 09:00 06/15/20 09:03 Aspirin Enteric Coated 81 Mg Tablet.Dr PO 81 mg DAILY ARTHUR Administration Atorvastatin Calcium 40 mg 06/15/20 09:00 06/15/20 09:03 Atorvastatin Calcium 40 Mg Tablet PO 40 mg DAILY AR[facility]UR Administration Buspirone HCl 15 mg 06/15/20 09:00 06/15/20 09:03 Buspirone Hcl 5 Mg Tablet PO 15 mg TID ARTHUR Administration Carvedilol 6.25 mg 06/15/20 09:00 06/15/20 09:03 Carvedilol 6.25 Mg Tablet PO 6.25 mg BID ARTHUR Administration Protocol Clonazepam 1 mg 06/15/20 09:00 06/15/20 09:03 Clonazepam 1 Mg Tablet PO 1 mg BID [facility]UR Administration Docusate Sodium 100 mg 06/14/20 23:14 Docusate Sodium 100 Mg Capsule PO DAILY PRN Constipation Ergocalciferol 1,250 mcg 06/14/20 23:15 06/15/20 00:48 Ergocalciferol (Vitamin D2) 1,250 Mcg Capsule PO Not Given Q15D [facility] Fluticasone/Vilanterol 1 puff 06/15/20 08:00 06/15/20 08:49 Fluticasone/Vilanterol 100/25 Blst.W.Dev INHALE Not Given RDAILY [facility] Folic Acid 1 mg 06/15/20 09:00 06/15/20 09:03 Folic Acid 1 Mg Tablet PO 1 mg DAILY [facility]UR Administration Heparin Sodium (Porcine) 5,000 unit 06/14/20 23:15 06/15/20 00:48 Heparin Sodium,Porcine 5,000 Unit/Ml Vial SUBCUT 5,000 unit Q12H [facility]UR Administration Azithromycin 500 mg/ Sodium 250 mls @ 125 mls/hr 06/14/20 23:15 06/14/20 23:29 Chloride IV Not Given Q24H [facility] Ceftriaxone Sodium 1 gm/ 50 mls @ 100 mls/hr 06/14/20 23:15 06/14/20 23:29 Sodium Chloride IV Not Given Q24H [facility] Metoclopramide HCl 5 mg 06/15/20 09:00 06/15/20 09:03 Metoclopramide Hcl 5 Mg Tablet PO 5 mg TID AR[facility]UR Administration Multivitamins/Vitamin C 1 tab 06/15/20 09:00 06/15/20 09:03 Multivitamin Tablet PO 1 tab DAILY [facility] Administration Omeprazole 20 mg 06/15/20 06:30 06/15/20 06:40 Omeprazole 20 Mg Capsule.Dr PO 20 mg DAILY@0630 [facility] Administration Ondansetron HCl 4 mg 06/14/20 23:14 Ondansetron Hcl 4 Mg/2 Ml Vial IVPUSH Q8H PRN Nausea and Vomiting Pharmacy Consult 1 each 06/14/20 21:22 Consult Rx Perform Med Rec MISCELLANE ONCE PRN Consult order Sodium Chloride 3 ml 06/15/20 00:00 06/15/20 08:45 0.9 % Sodium Chloride Flush 3 Ml Syringe IVFLUSH 3 ml QSHIFT [facility]TH[facility] Administration Labs CBC & Chem 7: 06/15/20 05:00 06/15/20 05:00 Assessment and Plan (1) Sepsis with acute hypoxic respiratory failure: Status: Acute (2) Pneumonia: Status: Acute (3) Anxiety and depression: Status: Acute (4) ESRD on dialysis: Status: Acute (5) Lactic acidosis: Status: Acute (6) Elevated troponin: Status: Acute (7) Elevated brain natriuretic peptide (BNP) level: Status: Acute Assessment and Plan: 64-year-old male presented with shortness of breath and cough Severe Sepsis present on admission and acute hypoxic respiratory failure secondary to pneumonia IV antibiotics Wean O2 as tolerated Follow-up cultures ESRD HD
--- NOTE | 2020-06-15 13:52 | PC.NURSE ---
pt to dialysis at this time
--- NOTE | 2020-06-15 14:18 | PC.NURSE ---
pt on tele [place] bala [place] [facility].
[2020-06-15 17:50] VITALS: BP 132/70; PULSE 82; RESP 20; TEMP 36.5; O2SAT 97
--- NOTE | 2020-06-15 18:05 | PC.NURSE ---
around 0530 pt returned from dialysis. vss.
--- NOTE | 2020-06-15 18:42 | PM.CNNEP ---
History of Present Illness Reason for Consult Consult date: 06/15/20 Chief Complaint Chief complaint: Community acquired pneumonia History of Present Illness Narrative: 64 y/o esrd TTS [place] [facility] adm with incr SOB and w/u c/w Pneumonia COVID neg and ques CHF. C/O cough/fever chills. Noted to be on/off lethargic during ER stay and poor historian. Overall feeling better when I examined him. says he had his usu HD Tx on Review of Systems Review of Systems Yes all other systems are reviewed and are negative Cardiovascular: Reports no additional cardiovascular complaints Respiratory: Reports no additional respiratory complaints [facility] Past Medical History Medical History Anxiety and depression Asthma Bicytopenia Cataract CHF (congestive heart failure) Cognitive impairment ESRD (end stage renal disease) GERD (gastroesophageal reflux disease) HTN (hypertension) Lung cancer Family History Family History Mother Heart disease Diabetes Alzheimers disease Father Alcoholism Son Asthma Surgical History Surgical History History of biopsy History of bronchoscopy History of esophagogastroduodenoscopy (EGD) History of lobectomy of lung Social History Social History Household Members: Family Housing: House Alcohol intake: never Smoking Status: Unknown if ever smoked Second Hand Smoke Exposure: No Use of substances other than those prescribed or required for medical reasons: Unknown Advance Directives: No service: No Current occupational status: disabled Meds Allergies Allergy/AdvReac Type Severity Reaction Status Date / Time No Known Allergies Allergy Verified 06/14/20 19:43 Home Medications Medication Instructions Recorded Confirmed Type buspirone 15 mg PO TID 03/01/20 06/14/20 History carvedilol 6.25 mg PO BID 03/01/20 06/14/20 History docusate sodium [Colace] 100 mg PO BID PRN 03/01/20 06/14/20 History ergocalciferol (vitamin D2) 1,250 mcg PO Q15D 03/01/20 06/14/20 History [Vitamin D2] folic acid 1 mg PO DAILY 03/01/20 06/14/20 History metoclopramide HCl [Reglan] 5 mg PO TID 03/01/20 06/14/20 History clonazepam 1 mg PO BID 06/14/20 06/14/20 History multivitamin 1 tab PO DAILY 06/14/20 06/14/20 History Physical Exam Vital Signs: Last Vital Signs Temp 97.7 F 06/15/20 17:50 Pulse 82 06/15/20 17:50 Resp 20 06/15/20 17:50 BP 132/70 06/15/20 17:50 Pulse Ox 97 06/15/20 17:50 Body Mass Index 20.0 Const General: cooperative and no acute distress Orientation/consciousness: patient oriented x3 Eyes General: appearance normal, both eyes and all related structures Resp Effort & Inspection: normal respiratory effort and able to speak in complete sentences Cardio Rate: regular rate Rhythm: regular rhythm GI Palpation (GI): Soft to palpation Auscultation: normal bowel sounds Skin General skin exam: no rashes or lesions noted Neuro General: patient oriented x3 Cognition (Neuro): normal cognition Extrem General: Yes normal to inspection and Yes no pedal edema Results Lab Results Result Diagrams: 06/15/20 05:00 06/15/20 05:00 Lab results: Chemistry 06/14/20 06/15/20 20:40 05:00 Sodium 141 141 Potassium 4.2 D 5.1 D Carbon Dioxide 30 H 24 BUN 28 H 30 H Creatinine 5.18 H* 5.32 H* Calcium 7.3 L D 7.2 L Hematology 06/14/20 06/15/20 19:59 05:00 WBC 6.6 7.8 Hgb 12.9 L 12.9 L Plt Count 70 L 62 L Assessment and Plan (1) Sepsis with acute hypoxic respiratory failure: Status: Acute (2) Pneumonia: Qualifiers: Laterality: bilateral Lung location: unspecified part of lung Pneumonia type: due to unspecified organism Qualified Code(s): J18.9 - Pneumonia, unspecified organism Status: Acute (3) Anxiety and depression: Status: Acute (4) ESRD on dialysis: Status: Acute (5) Lactic acidosis: Status: Acute (6) Elevated troponin: Status: Acute (7) Elevated brain natriuretic peptide (BNP) level: Status: Acute 64-year-old esrd male presented with shortness of breath and cough 1. ESRD; nl tts and will do HD today 2. SOB c/w Pneunomia and ques CHF: getting Tx for both rec; HD today, Abx as noted, cont routine meds
[2020-06-16] VITALS (13 sets, daily range): BP systolic 71–131; BP diastolic 43–71; PULSE 73–90; RESP 16–20; TEMP 36.4–36.9; O2SAT 96–100
[2020-06-16] MEDS: cefTRIAXone sodium 1 GM in 0.9 % Sodium Chloride 50 ML IV ×2 (03:38→22:01)
[2020-06-16] MEDS: Azithromycin 500 MG in 0.9 % Sodium Chloride 250 ML 125 MG IV ×2 (03:57→23:17)
--- NOTE | 2020-06-16 04:12 | PC.NURSE ---
Gave 23:15 medications with PT's primary nurse.
[2020-06-16 05:33] LABS: MANUAL DIFF FLAG NO
[2020-06-16 05:42] LABS: Basophils Percent Auto 0.5 % (0-2); Eosinophils Absolute Auto 0.2 X10*3/uL (0.0-0.4); Hematocrit 43.2 % (42-52); Hemoglobin 13.6 g/dl (14.0-18.0); Imm Gran Abs Auto 0.01 X10*3/uL (0.00-0.03); Imm Gran Pct Auto 0.2 % (0.0-0.4); Lymphocytes Absolute Auto 0.8 X10*3/uL (1.2-4.9); Lymphocytes Percent Auto 18.4 % (20-40); Mean Corpuscular HGB Conc 31.5 g/dl (31.0-36.0); Mean Corpuscular Hemoglobin 31.1 pg (27.0-33.0); Mean Corpuscular Volume 98.9 fL (80-98); Mean Platelet Volume 9.7 fL (9.4-12.4); Monocytes Absolute Auto 0.5 X10*3/uL (0.1-1.2); Monocytes Percent Auto 12.1 % (2-11); Neutrophils Absolute Auto 2.8 X10*3/uL (2.0-8.3); Neutrophils Percent Auto 64.8 % (45-73); Red Blood Count 4.37 X10*6/uL (4.60-5.80); Red Cell Distribution Width 14.8 % (11.0-16.0); White Blood Count 4.3 X10*3/uL (4.8-10.8)
[2020-06-16 05:43] LABS: Platelet Count 94 X10*3/uL (160-400)
[2020-06-16] MEDS: Omeprazole 20 MG CAPSULE.DR PO (05:45)
[2020-06-16 06:14] LABS: Anion Gap 19 (12-20); Blood Urea Nitrogen 27 mg/dL (9-16); Calcium 7.5 mg/dL (8.4-10.2); Carbon Dioxide 28 mmol/L (22-29); Chloride 100 mmol/L (96-108); Creatinine Clr Calc Pharmacy 12.5; Estimated Glomerular Filt Rate 12; Glucose Fasting 83 mg/dL (60-99); Potassium 5.4 mmol/l (3.3-5.1); Sodium 142 mmol/L (135-145)
--- NOTE | 2020-06-16 06:16 | PC.NURSE ---
call placed to hospitalist for drop in bp. 70/43 no answer at this time.
--- NOTE | 2020-06-16 06:18 | PC.NURSE ---
pt had a bm and back to bed, pt bp dropped after this activity. pt states he is feeling dizzy and hob lowered, still contacting hospitalist. pt is a diaylsis pt.
[2020-06-16] MEDS: Lactated Ringers 500 ML 999 ML IVCONT (06:30)
[2020-06-16] MEDS: clonazePAM 1 MG TABLET PO ×2 (08:08→21:13)
[2020-06-16] MEDS: Atorvastatin Calcium 40 MG TABLET PO (08:08)
[2020-06-16] MEDS: busPIRone HCl 5 MG TABLET 15 MG PO ×3 (08:08→22:01)
[2020-06-16] MEDS: Multivitamin TABLET 1 TAB PO (08:09)
[2020-06-16] MEDS: carvediloL 6.25 MG TABLET PO ×2 (08:09→21:12)
[2020-06-16] MEDS: Aspirin Enteric Coated 81 MG TABLET.DR PO (08:09)
[2020-06-16] MEDS: Folic Acid 1 MG TABLET PO (08:09)
--- NOTE | 2020-06-16 08:30 | PC.NURSE ---
report taken from venancio de luna admitted pt down in the er awaiting room assignment. pt here for covid related dyspnea, had dialysis yesterday. pt sitting up, ate all of breakfast this morning. medicated with morning meds per emar. tolerating po w/o issue. vss. wctm.
[2020-06-16] MEDS: Heparin Sodium,Porcine 5,000 UNIT/ML VIAL 5000 UNIT SUBCUT ×2 (10:52→22:02)
--- NOTE | 2020-06-16 12:13 | P.PNIM_ITS ---
Subjective Subjective Date of Service: 06/16/20 Interval History: cough Cardiovascular Cardiovascular: Reports no additional cardiovascular complaints Gastrointestinal Gastrointestinal: Reports no additional gastrointestinal complaints Physical Exam Vital Signs: Vital Signs: Last Vital Signs Temp 97.6 F 06/16/20 03:06 Pulse 78 06/16/20 10:53 Resp 20 06/16/20 10:53 BP 118/68 06/16/20 10:53 Pulse Ox 100 06/16/20 06:04 Body Mass Index 20.0 General: AO X 3, no acute distress Resp: CTA bilateral CVS: S1,S2,RRR GI: soft, non tender, non distended Neuro: motor grossly intact Psych: appropriate affect Objective Data Current Medications Generic Name Dose Route Start Last Admin Trade Name Freq PRN Reason Stop Dose Admin Acetaminophen 650 mg 06/14/20 23:14 Acetaminophen 325 Mg Tablet PO Q6H PRN Pain, Mild (Pain Scale 1-3) Aspirin 81 mg 06/15/20 09:00 06/16/20 08:09 Aspirin Enteric Coated 81 Mg Tablet.Dr PO 81 mg DAILY ARTHUR Administration Atorvastatin Calcium 40 mg 06/15/20 09:00 06/16/20 08:08 Atorvastatin Calcium 40 Mg Tablet PO 40 mg DAILY ARTHUR Administration Buspirone HCl 15 mg 06/15/20 09:00 06/16/20 08:08 Buspirone Hcl 5 Mg Tablet PO 15 mg TID ARTHUR Administration Carvedilol 6.25 mg 06/15/20 09:00 06/16/20 08:09 Carvedilol 6.25 Mg Tablet PO 6.25 mg BID ARTHUR Administration Protocol Clonazepam 1 mg 06/15/20 09:00 06/16/20 08:08 Clonazepam 1 Mg Tablet PO 1 mg BID [facility] Administration Docusate Sodium 100 mg 06/14/20 23:14 Docusate Sodium 100 Mg Capsule PO DAILY PRN Constipation Ergocalciferol 1,250 mcg 06/14/20 23:15 06/15/20 00:48 Ergocalciferol (Vitamin D2) 1,250 Mcg Capsule PO Not Given Q15D [facility] Fluticasone/Vilanterol 1 puff 06/15/20 08:00 06/16/20 07:57 Fluticasone/Vilanterol 100/25 Blst.W.Dev INHALE Not Given RDAILY [facility] Folic Acid 1 mg 06/15/20 09:00 06/16/20 08:09 Folic Acid 1 Mg Tablet PO 1 mg DAILY ARTHUR Administration Heparin Sodium (Porcine) 5,000 unit 06/14/20 23:15 06/16/20 10:52 Heparin Sodium,Porcine 5,000 Unit/Ml Vial SUBCUT 5,000 unit Q12H [facility]THUR Administration Azithromycin 500 mg/ Sodium 250 mls @ 125 mls/hr 06/14/20 23:15 06/16/20 07:12 Chloride IV Infused Q24H [facility]UR Infusion Ceftriaxone Sodium 1 gm/ 50 mls @ 100 mls/hr 06/14/20 23:15 06/16/20 07:12 Sodium Chloride IV Infused Q24H ARTHUR Infusion Metoclopramide HCl 5 mg 06/15/20 09:00 06/16/20 08:09 Metoclopramide Hcl 5 Mg Tablet PO Not Given TID [facility] Multivitamins/Vitamin C 1 tab 06/15/20 09:00 06/16/20 08:09 Multivitamin Tablet PO 1 tab DAILY [facility] Administration Omeprazole 20 mg 06/15/20 06:30 06/16/20 05:45 Omeprazole 20 Mg Capsule. PO 20 mg DAILY@0630 [facility] Administration Ondansetron HCl 4 mg 06/14/20 23:14 Ondansetron Hcl 4 Mg/2 Ml Vial IVPUSH Q8H PRN Nausea and Vomiting Pharmacy Consult 1 each 06/14/20 21:22 Consult Rx Perform Med Rec MISCELLANE ONCE PRN Consult order Sodium Chloride 3 ml 06/15/20 00:00 06/16/20 07:56 0.9 % Sodium Chloride Flush 3 Ml Syringe IVFLUSH Not Given QSHIFT [facility] Labs CBC & Chem 7: 06/16/20 04:56 06/16/20 04:56 Microbiology Microbiology Results: Microbiology 06/14/20 20:40 Blood - Venous Blood Culture - Preliminary No growth after 24 hours. 06/14/20 19:59 Blood - Venous Blood Culture - Preliminary No growth after 24 hours. Assessment and Plan (1) Sepsis with acute hypoxic respiratory failure: Status: Acute (2) Pneumonia: Status: Acute (3) Anxiety and depression: Status: Acute (4) ESRD on dialysis: Status: Acute (5) Lactic acidosis: Status: Acute (6) Elevated troponin: Status: Acute (7) Elevated brain natriuretic peptide (BNP) level: Status: Acute Assessment and Plan: 64-year-old male presented with shortness of breath and cough Severe Sepsis present on admission and acute hypoxic respiratory failure secondary to pneumonia IV antibiotics Wean O2 as tolerated Follow-up cultures hypotension s/p bolus, resolved, not due to sepsis ESRD HD
--- NOTE | 2020-06-16 14:50 | MHC.CM.PN ---
Attempted to meet with patient in regards to discharge planning. Patient currently sleeping. Attempted to reach daughter/HCP Socorro via telephone at [phone]. Telephone number is out of service. Unable to leave voicemail. No additional contact telephone number can be found at this time. IMM sent to Socorro's address via certified. mail. From last admission, patient had [facility] hours through [facility] and was going to be evaluated for palliative care. Discharge plan is unable to be determined at this time. Continue to monitor for d/c needs.
--- NOTE | 2020-06-16 17:08 | PC.NURSE ---
pt ambulated w stand by assist over to commode for bm w steady gait. backto bed w/o incident. vss. wctm.
--- NOTE | 2020-06-16 19:37 | P.PNNP_ITS ---
Subjective Subjective Date of Service: 06/16/20 Interval history: Seen and examined. Events noted Physical Exam Vital Signs: Vital Signs: Last Vital Signs Temp 97.6 F 06/16/20 03:06 Pulse 78 06/16/20 15:49 Resp 20 06/16/20 15:49 BP 107/61 06/16/20 15:49 Pulse Ox 96 06/16/20 15:49 Body Mass Index 20.0 Const: General: cooperative and no acute distress Orien tation/consciousness: patient oriented x3 Eyes: General: appearance normal, both eyes and all related structures Resp: Effort & Inspection: normal respiratory effort and able to speak in complete sentences Cardio: Rate: regular rate Rhythm: regular rhythm GI: Palpation (GI): Soft to palpation Auscultation: normal bowel sounds Skin: General skin exam: no rashes or lesions noted Neuro: General: patient oriented x3 Cognition (Neuro): normal cognition Extrem: General: Yes normal to inspection and Yes no pedal edema Objective Data Labs CBC & Chem 7: 06/16/20 04:56 06/16/20 04:56 Labs: Laboratory Results - last 24 hr 06/16/20 06/16/20 04:56 04:56 WBC 4.3 L RBC 4.37 L Hgb 13.6 L Hct 43.2 MCV 98.9 H MCH 31.1 MCHC 31.5 RDW 14.8 Plt Count 94 L D MPV 9.7 Immature Gran % (Auto) 0.2 Neut % (Auto) 64.8 Lymph % (Auto) 18.4 L [place] % (Auto) 12.1 H Eos % (Auto) 4.0 Baso % (Auto) 0.5 Lymph # (Auto) 0.8 L [place] # (Auto) 0.5 Eos # (Auto) 0.2 Baso # (Auto) 0.0 Abs Immat Gran (auto) 0.01 Absolute Neuts (auto) 2.8 Absolute Nucleated RBC 0.000 Nucleated RBC % (auto) 0.0 Sodium 142 Potassium 5.4 H Chloride 100 Carbon Dioxide 28 Anion Gap 19 BUN 27 H Creatinine 4.95 H* Estim Creat Clear Calc 12.5 Estimated GFR 12 Fasting Glucose 83 Calcium 7.5 L Microbiology Microbiology Results: Microbiology 06/14/20 20:40 Blood - Venous Blood Culture - Preliminary No growth after 24 hours. 06/14/20 19:59 Blood - Venous Blood Culture - Preliminary No growth after 24 hours. Assessment & Plan Assessment and plan (1) Sepsis with acute hypoxic respiratory failure: Status: Acute (2) Pneumonia: Status: Acute (3) Anxiety and depression: Status: Acute (4) ESRD on dialysis: Status: Acute (5) Lactic acidosis: Status: Acute (6) Elevated troponin: Status: Acute (7) Elevated brain natriuretic peptide (BNP) level: Status: Acute Assessment and Plan: 64-year-old esrd male presented with shortness of breath and cough 1. ESRD; nl tts and will do HD today 2. SOB c/w Pneunomia and ques CHF: getting Tx for both 3. hyperk;surprising given HD yesterday rec; kayex x 1 today and low k diet; HD tomoorow, Abx as noted, cont routine meds Time Spent With Patient Time: Total time spent is greater than 50% in coordination of care (as do cumented) at patient's floor/unit and/or counseling patient:
--- NOTE | 2020-06-16 21:15 | PC.NURSE ---
MEDICATED CHARTED. SINUS RHYTHM ON QUOTE CLERK. DENIES PAIN. GIVEN BIBIANA BENITEZ PER PATIENT REQUEST.
--- NOTE | 2020-06-16 21:43 | PC.NURSE ---
CALLED AND SPOKE WITH WILLIE FROM PHARMACY. PATIENT'S 2315 ABX FOR LAST NIGHT WERE NOT GIVEN UNTIL 0712 THIS AM. OK TO GIVE TONIGHT. DO NOT NEED TO RESCHEDULE TIMES THEY ARE NOT RENALLY CLEARED.
[2020-06-16] MEDS: 0.9 % Sodium Chloride Flush 3 ML SYRINGE IVFLUSH (23:17)
[2020-06-17] VITALS (7 sets, daily range): BP systolic 96–120; BP diastolic 56–70; PULSE 70–81; RESP 18–20; TEMP 35.7–36.5; O2SAT 94–95
--- NOTE | 2020-06-17 00:17 | PC.NURSE ---
PATIENT COMPLAINING OF PAIN AT IV SITE. NO INFILTRATION OR PHLEBITIS NOTED. IV INFUSING WELL.
[2020-06-17] MEDS: Acetaminophen 325 MG TABLET 650 MG PO ×2 (00:24→11:43)
[2020-06-17] MEDS: Omeprazole 20 MG CAPSULE.DR PO (06:05)
[2020-06-17 06:55] LABS: Anion Gap 22 (12-20); Blood Urea Nitrogen 48 mg/dL (9-16); Calcium 7.2 mg/dL (8.4-10.2); Carbon Dioxide 22 mmol/L (22-29); Chloride 101 mmol/L (96-108); Glucose Fasting 93 mg/dL (60-99); Potassium 5.2 mmol/l (3.3-5.1); Sodium 140 mmol/L (135-145)
[2020-06-17 06:57] LABS: Creatinine Clr Calc Pharmacy 9.7; Estimated Glomerular Filt Rate 9
--- NOTE | 2020-06-17 09:51 | P.PNIM_ITS ---
Subjective Subjective Date of Service: 06/17/20 Interval History: weak Cardiovascular Cardiovascular: Reports no additional cardiovascular complaints Gastrointestinal Gastrointestinal: Reports no additional gastrointestinal complaints Physical Exam Vital Signs: Vital Signs: Last Vital Signs Temp 97.7 F 06/17/20 06:03 Pulse 77 06/17/20 06:03 Resp 18 06/17/20 06:03 BP 120/70 06/17/20 06:03 Pulse Ox 94 06/17/20 06:03 Body Mass Index 20.0 General: AO X 3, no acute distress Resp: CTA bilateral CVS: S1,S2,RRR GI: soft, non tender, non distended Neuro: motor grossly intact Psych: appropriate affect Objective Data Current Medications Generic Name Dose Route Start Last Admin Trade Name Freq PRN Reason Stop Dose Admin Acetaminophen 650 mg 06/14/20 23:14 06/17/20 00:24 Acetaminophen 325 Mg Tablet PO 650 mg Q6H PRN Administration Pain, Mild (Pain Scale 1-3) Aspirin 81 mg 06/15/20 09:00 06/16/20 08:09 Aspirin Enteric Coated 81 Mg Tablet.Dr PO 81 mg DAILY [facility]UR Administration Atorvastatin Calcium 40 mg 06/15/20 09:00 06/16/20 08:08 Atorvastatin Calcium 40 Mg Tablet PO 40 mg DAILY [facility] Administration Buspirone HCl 15 mg 06/15/20 09:00 06/16/20 22:01 Buspirone Hcl 5 Mg Tablet PO 15 mg TID AR[facility]UR Administration Carvedilol 6.25 mg 06/15/20 09:00 06/16/20 21:12 Carvedilol 6.25 Mg Tablet PO 6.25 mg BID ARTHUR Administration Protocol Clonazepam 1 mg 06/15/20 09:00 06/16/20 21:13 Clonazepam 1 Mg Tablet PO 1 mg BID [facility]UR Administration Docusate Sodium 100 mg 06/14/20 23:14 Docusate Sodium 100 Mg Capsule PO DAILY PRN Constipation Ergocalciferol 1,250 mcg 06/14/20 23:15 06/15/20 00:48 Ergocalciferol (Vitamin D2) 1,250 Mcg Capsule PO Not Given Q15D [facility] Fluticasone/Vilanterol 1 puff 06/15/20 08:00 06/17/20 08:54 Fluticasone/Vilanterol 100/25 Blst.W.Dev INHALE Not Given RDAILY [facility] Folic Acid 1 mg 06/15/20 09:00 06/16/20 08:09 Folic Acid 1 Mg Tablet PO 1 mg DAILY REPLACED BY [facility] Administration Heparin Sodium (Porcine) 5,000 unit 06/14/20 23:15 06/16/20 23:00 Heparin Sodium,Porcine 5,000 Unit/Ml Vial SUBCUT Not Given Q12H REPLACED BY [facility] Azithromycin 500 mg/ Sodium 250 mls @ 125 mls/hr 06/14/20 23:15 06/17/20 01:17 Chloride IV Infused Q24H REPLACED BY [facility] Infusion Ceftriaxone Sodium 1 gm/ 50 mls @ 100 mls/hr 06/14/20 23:15 06/16/20 22:59 Sodium Chloride IV Not Given Q24H REPLACED BY [facility] Metoclopramide HCl 5 mg 06/15/20 09:00 06/16/20 21:13 Metoclopramide Hcl 5 Mg Tablet PO Not Given TID REPLACED BY [facility] Multivitamins/Vitamin C 1 tab 06/15/20 09:00 06/16/20 08:09 Multivitamin Tablet PO 1 tab DAILY REPLACED BY [facility] Administration Omeprazole 20 mg 06/15/20 06:30 06/17/20 06:05 Omeprazole 20 Mg Capsule. PO 20 mg DAILY@0630 REPLACED BY [facility] Administration Ondansetron HCl 4 mg 06/14/20 23:14 Ondansetron Hcl 4 Mg/2 Ml Vial IVPUSH Q8H PRN Nausea and Vomiting Pharmacy Consult 1 each 06/14/20 21:22 Consult Rx Perform Med Rec MISCELLANE ONCE PRN Consult order Sodium Chloride 3 ml 06/15/20 00:00 06/16/20 23:17 0.9 % Sodium Chloride Flush 3 Ml Syringe IVFLUSH 3 ml QSHIFT REPLACED BY [facility] Administration Labs CBC & Chem 7: 06/16/20 04:56 06/17/20 06:07 Microbiology Microbiology Results: Microbiology 06/14/20 20:40 Blood - Venous Blood Culture - Preliminary No growth after 48 hours. 06/14/20 19:59 Blood - Venous Blood Culture - Preliminary No growth after 48 hours. Assessment and Plan (1) Sepsis with acute hypoxic respiratory failure: Status: Acute (2) Pneumonia: Status: Acute (3) Anxiety and depression: Status: Acute (4) ESRD on dialysis: Status: Acute (5) Lactic acidosis: Status: Acute (6) Elevated troponin: Status: Acute (7) Elevated brain natriuretic peptide (BNP) level: Status: Acute Assessment and Plan: 64-year-old male presented with shortness of breath and cough Severe Sepsis present on admission and acute hypoxic respiratory failure secon soto to pneumonia continue IV antibiotics Wean O2 as tolerated Follow-up cultures - no growth to date hypotension transient early AM 06/16/20 s/p bolus, resolved, not due to sepsis ESRD, hyperkalemia HD monitor
--- NOTE | 2020-06-17 10:22 | PM.PNNEP ---
Subjective Subjective Date of Service: 06/17/20 Interval history: seen and examined. events noted currently on HD Physical Exam Vital Signs: Vital Signs: Last Vital Signs Temp 97.7 F 06/17/20 06:03 Pulse 77 06/17/20 06:03 Resp 18 06/17/20 06:03 BP 120/70 06/17/20 06:03 Pulse Ox 94 06/17/20 06:03 Body Mass Index 20.0 Const: General: cooperative and no acute distress Orientation/consciousness: patient oriented x3 Eyes: General: appearance normal, both eyes and all related structures Resp: Effort & Inspection: normal respiratory effort and able to speak in complete sentences Cardio: Rate: regular rate Rhythm: regular rhythm GI: Palpation (GI): Soft to palpation Auscultation: normal bowel sounds Skin: General skin exam: no rashes or lesions noted Neuro: General: patient oriented x3 Cognition (Neuro): normal cognition Extrem: General: Yes normal to inspection and Yes no pedal edema Objective Data Labs CBC & Chem 7: 06/16/20 04:56 06/17/20 06:07 Labs: Laboratory Results - last 24 hr 06/17/20 06/17/20 06:07 06:07 WBC Cancelled RBC Cancelled Hgb Cancelled Hct Cancelled MCV Cancelled MCH Cancelled MCHC Cancelled RDW Cancelled Plt Count Cancelled MPV Cancelled Immature Gran % (Auto) Cancelled Neut % (Auto) Cancelled Lymph % (Auto) Cancelled [place] % (Auto) Cancelled Eos % (Auto) Cancelled Baso % (Auto) Cancelled Lymph # (Auto) Cancelled [place] # (Auto) Cancelled Eos # (Auto) Cancelled Baso # (Auto) Cancelled Abs Immat Gran (auto) Cancelled Absolute Neuts (auto) Cancelled Absolute Nucleated RBC Cancelled Nucleated RBC % (auto) Cancelled Sodium 140 Potassium 5.2 H Chloride 101 Carbon Dioxide 22 Anion Gap 22 H BUN 48 H D Creatinine 6.39 H* Estim Creat Clear Calc 9.7 Estimated GFR 9 Fasting Glucose 93 Calcium 7.2 L Microbiology Microbiology Results: Microbiology 06/14/20 20:40 Blood - Venous Blood Culture - Preliminary No growth after 48 hours. 06/14/20 19:59 Blood - Venous Blood Culture - Preliminary No growth after 48 hours. Assessment & Plan Assessment and plan (1) Sepsis with acute hypoxic respiratory failure: Status: Acute (2) Pneumonia: Status: Acute (3) Anxiety and depression: Status: Acute (4) ESRD on dialysis: Status: Acute (5) Lactic acidosis: Status: Acute (6) Elevated troponin: Status: Acute (7) Elevated brain natriuretic peptide (BNP) level: Status: Acute Assessment and Plan: 64-year-old esrd male presented with shortness of breath and cough 1. ESRD; nl mwf 2. SOB c/w Pneunomia and ques CHF: getting Tx for both 3. hyperk;surprising given HD yesterday rec; hd mwf; low k diet, abx as noted, d/c planning Time Spent With Patient Time: Total time spent is greater than 50% in coordination of care (as documented) at patient's floor/unit and/or counseling patient:
[2020-06-17 10:42] LABS: Basophils Percent Auto 0.6 % (0-2); Eosinophils Absolute Auto 0.2 X10*3/uL (0.0-0.4); Eosinophils Percent Auto 4.4 % (0-4); Hemoglobin 13.1 g/dl (14.0-18.0); Imm Gran Abs Auto 0.01 X10*3/uL (0.00-0.03); Imm Gran Pct Auto 0.3 % (0.0-0.4); Lymphocytes Absolute Auto 0.6 X10*3/uL (1.2-4.9); Lymphocytes Percent Auto 16.1 % (20-40); MANUAL DIFF FLAG SCAN; Mean Corpuscular Hemoglobin 30.9 pg (27.0-33.0); Mean Corpuscular Volume 96.7 fL (80-98); Mean Platelet Volume 9.7 fL (9.4-12.4); Monocytes Absolute Auto 0.3 X10*3/uL (0.1-1.2); Monocytes Percent Auto 8.2 % (2-11); Neutrophils Absolute Auto 2.4 X10*3/uL (2.0-8.3); Neutrophils Percent Auto 70.4 % (45-73); Platelet Count 104 X10*3/uL (160-400); Red Blood Count 4.24 X10*6/uL (4.60-5.80); SCAN SMEAR FLAG 1; White Blood Count 3.4 X10*3/uL (4.8-10.8)
[2020-06-17 11:21] LABS: SLIDE REVIEW VERIFIED
[2020-06-17] MEDS: Aspirin Enteric Coated 81 MG TABLET.DR PO (11:43)
[2020-06-17] MEDS: Atorvastatin Calcium 40 MG TABLET PO (11:43)
[2020-06-17] MEDS: clonazePAM 1 MG TABLET PO ×2 (11:43→21:47)
[2020-06-17] MEDS: Multivitamin TABLET 1 TAB PO (11:43)
[2020-06-17] MEDS: carvediloL 6.25 MG TABLET PO ×2 (11:43→21:39)
[2020-06-17] MEDS: Folic Acid 1 MG TABLET PO (11:43)
[2020-06-17] MEDS: Metoclopramide HCl 5 MG TABLET PO ×2 (16:15→21:54)
[2020-06-17] MEDS: busPIRone HCl 5 MG TABLET 15 MG PO ×2 (16:15→21:47)
[2020-06-17] MEDS: 0.9 % Sodium Chloride Flush 3 ML SYRINGE IVFLUSH ×2 (16:16→23:26)
[2020-06-17] MEDS: Heparin Sodium,Porcine 5,000 UNIT/ML VIAL 5000 UNIT SUBCUT (21:41)
[2020-06-17] MEDS: Azithromycin 500 MG in 0.9 % Sodium Chloride 250 ML 125 MG IV (21:42)
[2020-06-17] MEDS: cefTRIAXone sodium 1 GM in 0.9 % Sodium Chloride 50 ML IV (21:46)
[2020-06-18] VITALS (7 sets, daily range): BP systolic 80–115; BP diastolic 40–67; PULSE 64–77; RESP 16–19; TEMP 36–36.3; O2SAT 93–96
--- NOTE | 2020-06-18 01:17 | PM.EVENT ---
Event Note Date of Service: 06/18/20 Event Note: Called by nursing staff due to low blood pressure. Chart reviewed. Patient with ESRD being treated for CAP with Ceftriaxone and Azithromycin and blood pressure trended down after evening dose of Coreg. He had dialysis on 06/17. He is tired and stated felt a little dizzy but no fever or chills currently. On exam, coarse breath sounds bilaterally, distant heart sounds. Feet cool to the touch but palpable DP pulses in both feet. Will give gentle IV fluid: 250mL NS and dose of PO Midodrine. Blood cultures x2 and lactic acid ordered.
[2020-06-18] MEDS: Midodrine HCl 5 MG TABLET PO (01:27)
[2020-06-18] MEDS: 0.9 % Sodium Chloride 250 ML 100 ML IVCONT (01:27)
[2020-06-18 06:18] LABS: MANUAL DIFF FLAG NO
[2020-06-18] MEDS: Omeprazole 20 MG CAPSULE.DR PO (06:34)
[2020-06-18 06:44] LABS: Lactic Acid 0.7 mmol/L (0.5-2.0)
[2020-06-18 06:53] LABS: Basophils Percent Auto 0.3 % (0-2); Eosinophils Absolute Auto 0.2 X10*3/uL (0.0-0.4); Eosinophils Percent Auto 4.4 % (0-4); Hematocrit 38.5 % (42-52); Hemoglobin 12.3 g/dl (14.0-18.0); Imm Gran Abs Auto 0.01 X10*3/uL (0.00-0.03); Imm Gran Pct Auto 0.3 % (0.0-0.4); Lymphocytes Absolute Auto 0.9 X10*3/uL (1.2-4.9); Lymphocytes Percent Auto 27.3 % (20-40); Mean Corpuscular HGB Conc 31.9 g/dl (31.0-36.0); Mean Corpuscular Hemoglobin 30.4 pg (27.0-33.0); Mean Corpuscular Volume 95.3 fL (80-98); Mean Platelet Volume 10.1 fL (9.4-12.4); Monocytes Absolute Auto 0.4 X10*3/uL (0.1-1.2); Monocytes Percent Auto 10.5 % (2-11); Neutrophils Percent Auto 57.2 % (45-73); Platelet Count 112 X10*3/uL (160-400); Red Blood Count 4.04 X10*6/uL (4.60-5.80); Red Cell Distribution Width 14.8 % (11.0-16.0); White Blood Count 3.4 X10*3/uL (4.8-10.8)
[2020-06-18] MEDS: Fluticasone/Vilanterol 100/25 BLST.W.DEV 1 PUFF INHALE (07:13)
[2020-06-18 08:18] LABS: Anion Gap 20 (12-20); Blood Urea Nitrogen 38 mg/dL (9-16); Calcium 7.6 mg/dL (8.4-10.2); Carbon Dioxide 21 mmol/L (22-29); Chloride 101 mmol/L (96-108); Glucose Fasting 87 mg/dL (60-99); Potassium 4.5 mmol/l (3.3-5.1); Sodium 137 mmol/L (135-145)
[2020-06-18 08:22] LABS: Creatinine Clr Calc Pharmacy 11.6; Estimated Glomerular Filt Rate 11
[2020-06-18] MEDS: 0.9 % Sodium Chloride Flush 3 ML SYRINGE IVFLUSH ×3 (08:27→08:28)
[2020-06-18] MEDS: Aspirin Enteric Coated 81 MG TABLET.DR PO (08:28)
[2020-06-18] MEDS: Multivitamin TABLET 1 TAB PO (08:28)
[2020-06-18] MEDS: carvediloL 6.25 MG TABLET PO (08:28)
[2020-06-18] MEDS: clonazePAM 1 MG TABLET PO (08:28)
[2020-06-18] MEDS: Metoclopramide HCl 5 MG TABLET PO ×2 (08:28→14:34)
[2020-06-18] MEDS: Atorvastatin Calcium 40 MG TABLET PO (08:29)
[2020-06-18] MEDS: Folic Acid 1 MG TABLET PO (08:29)
[2020-06-18] MEDS: busPIRone HCl 5 MG TABLET 15 MG PO ×2 (10:01→14:34)
--- NOTE | 2020-06-18 10:38 | P.PNNP_ITS ---
Subjective Subjective Date of Service: 06/18/20 Interval history: seen and examined. events noted currently on HD Physical Exam Vital Signs: Vital Signs: Last Vital Signs Temp 97.0 F 06/18/20 07:41 Pulse 74 06/18/20 08:28 Resp 19 06/18/20 07:41 BP 115/67 06/18/20 08:28 Pulse Ox 96 06/18/20 07:41 Body Mass Index 20.0 Const: General: cooperative and no acute distress Orientation/consciousness: patient oriented x3 Eyes: General: appearance normal, both eyes and all related structures Resp: Effort & Inspection: normal respiratory effort and able to speak in complete sentences Cardio: Rate: regular rate Rhythm: regular rhythm GI: Palpation (GI): Soft to palpation Auscultation: normal bowel sounds Skin: General skin exam: no rashes or lesions noted Neuro: General: patient oriented x3 Cognition (Neuro): normal cognition Extrem: General: Yes normal to inspection and Yes no pedal edema Objective Data Labs CBC & Chem 7: 06/18/20 06:04 06/18/20 06:04 Labs: Laboratory Results - last 24 hr 06/17/20 06/18/20 06/18/20 10:21 06:04 06:04 WBC 3.4 L 3.4 L RBC 4.24 L 4.04 L Hgb 13.1 L 12.3 L Hct 41.0 L 38.5 L MCV 96.7 95.3 MCH 30.9 30.4 MCHC 32.0 31.9 RDW 15.0 14.8 Plt Count 104 L 112 L MPV 9.7 10.1 Immature Gran % (Auto) 0.3 0.3 Neut % (Auto) 70.4 57.2 Lymph % (Auto) 16.1 L 27.3 [place] % (Auto) 8.2 10.5 Eos % (Auto) 4.4 H 4.4 H Baso % (Auto) 0.6 0.3 Lymph # (Auto) 0.6 L 0.9 L [place] # (Auto) 0.3 0.4 Eos # (Auto) 0.2 0.2 Baso # (Auto) 0.0 0.0 Abs Immat Gran (auto) 0.01 0.01 Absolute Neuts (auto) 2.4 2.0 Absolute Nucleated RBC 0.000 0.000 Nucleated RBC % (auto) 0.0 0.0 Smear Tech's Comments VERIFIED Sodium 137 Potassium 4.5 Chloride 101 Carbon Dioxide 21 L Anion Gap 20 BUN 38 H Creatinine 5.35 H* Estim Creat Clear Calc 11.6 Estimated GFR 11 Fasting Glucose 87 Lactic Acid Calcium 7.6 L 06/18/20 06:04 WBC RBC Hgb Hct MCV MCH MCHC RDW Plt Count MPV Immature Gran % (Auto) Neut % (Auto) Lymph % (Auto) [place] % (Auto) Eos % (Auto) Baso % (Auto) Lymph # (Auto) [place] # (Auto) Eos # (Auto) Baso # (Auto) Abs Immat Gran (auto) Absolute Neuts (auto) Absolute Nucleated RBC Nucleated RBC % (auto) Smear Tech's Comments Sodium Potassium Chloride Carbon Dioxide Anion Gap BUN Creatinine Estim Creat Clear Calc Estimated GFR Fasting Glucose Lactic Acid 0.7 Calcium Microbiology Microbiology Results: Microbiology 06/14/20 20:40 Blood - Venous Blood Culture - Preliminary No growth after 48 hours. 06/14/20 19:59 Blood - Venous Blood Culture - Preliminary No growth after 48 hours. Assessment & Plan Assessment and plan (1) Sepsis with acute hypoxic respiratory failure: Status: Acute (2) Pneumonia: Status: Acute (3) Anxiety and depression: Status: Acute (4) ESRD on dialysis: Status: Acute (5) Lactic acidosis: Status: Acute (6) Elevated troponin: Status: Acute (7) Elevated brain natriuretic peptide (BNP) level: Status: Acute Assessment and Plan: 64-year-old esrd male presented with shortness of breath and cough 1. ESRD; nl mwf 2. SOB c/w Pneunomia and ques CHF: getting Tx for both rec; hd mwf; low k diet, abx as noted, d/c planning Time Spent With Patient Time: Total time spent is greater than 50% in coordination of care (as documented) at patient's floor/unit and/or counseling patient:
--- NOTE | 2020-06-18 14:02 | P.DS_ITS ---
DS: Providers Provider Date of Service: 06/30/20 Date of admission: 06/14/20 23:14 Primary care physician: Unknown Physician Consults: 06/15/20 05:27 Consult to Nephrology Routine Consulting Provider: [facility] Reason for consultation: dialysis Has provider been notified: No DS: Diagnosis Discharge Diagnosis (1) Sepsis with acute hypoxic respiratory failure: Status: Resolved (2) Pneumonia: Status: Resolved (3) Anxiety and depression: Status: Acute (4) ESRD on dialysis: Status: Acute (5) Lactic acidosis: Status: Resolved (6) Elevated troponin: Status: Resolved (7) Elevated brain natriuretic peptide (BNP) level: Status: Resolved DS: Medications Discharge Medications Home Medications: Home Medications Medication Instructions Recorded Confirmed buspirone 15 mg PO TID 03/01/20 06/14/20 carvedilol 6.25 mg PO BID 03/01/20 06/14/20 docusate sodium [Colace] 100 mg PO BID PRN 03/01/20 06/14/20 ergocalciferol (vitamin D2) 1,250 mcg PO Q15D 03/01/20 06/14/20 [Vitamin D2] folic acid 1 mg PO DAILY 03/01/20 06/14/20 metoclopramide HCl [Reglan] 5 mg PO TID 03/01/20 06/14/20 clonazepam 1 mg PO BID 06/14/20 06/14/20 multivitamin 1 tab PO DAILY 06/14/20 06/14/20 Previous Rx's Medication Instructions Recorded fluticasone 250 mcg-salmeterol 50 1 ea PO BID #180 cap 03/26/20 mcg/dose blistr powdr for inhalation pantoprazole [Protonix] 20 mg PO DAILY #10 tab 04/02/20 atorvastatin 40 mg tablet 40 mg PO DAILY #90 tab 05/10/20 aspirin 81 mg tablet,delayed 81 mg PO DAILY #90 tab 05/15/20 release DS: Summary Hospital Course Hospital Course: HPI 64-year-old male with past medical history of ESRD on dialysis Wednesday, CHF, anxiety depression, GERD who presents to the hospital with complaints of difficulty breathing. Patient reports that for the past 2 days he has been having trouble breathing, coughing, sputum production, he has no fever or chills, he has also some diarrhea, denies any lower extremity swelling. He is completely on a uric, denies any sick contacts or recent travel. He did not miss any dialysis and his last dialysis session was today Wednesday. He otherwise denies any chest pain, no headache, no change in vision, no weakness numbness or tingling, no abdominal pain nausea or vomiting, To the ED patient has a temp of 99.9?, heart rate of 107, respiratory rate of 20, blood pressure 165/86, satting 89% on room air No significant for a WBC count of 6.6, hemoglobin of 12.9, hematocrit 40.7, platelet count of 70 (chronically low) 141, potassium 4.2, BUN of 28, creatinine of 5.18, lactic acid level of 2.3 improved to 1.6 after fluids, of 209 increased to 269, chronically elevated, BNP of 59 11, chronically elevated, Chest CT shows new infiltrate in the right middle lobe and left base, ascites around the liver, Hospital course 64-year-old male admitted with sepsis secondary to pneumonia patient was started on IV antibiotic and supportive management, cultures remain negative, sepsis re solved, patient was saturating well on room air, patient also found to have mildly abuts elevated troponin likely demand mediated with flat trend ACS was ruled out, patient has ESRD on hemodialysis, blood pressure remains on softer side patient was started on midodrine, blood pressure improved and remained stable , midodrine was continued on discharge, patient was stable discharged home on p.o. antibiotic and midodrine Time Spent with Patient Time attestation: Total time spent providing and/or coordinating discharge serv ices: Discharge coordination time: Greater than 30 minutes Physical Exam Vital Signs: Vital Signs: Last Vital Signs Temp 97.4 F 06/18/20 11:55 Pulse 64 06/18/20 11:55 Resp 16 06/18/20 11:55 BP 101/57 L 06/18/20 11:55 Pulse Ox 96 06/18/20 11:55 Body Mass Index 20.0 DS: Data Data Completed and Pending Completed studies during hospitalization [Text1]: Procedures Performance of Urinary Filtration, Intermittent, Less than 6 Hours Per Day (05/07/20) Labs on day of discharge: Laboratory Tests 06/14/20 06/14/20 06/14/20 19:59 19:59 19:59 WBC 6.6 RBC 4.16 L Hgb 12.9 L Hct 40.7 L MCV 97.8 MCH 31.0 MCHC 31.7 RDW 15.1 Plt Count 70 L MPV 10.2 Immature Gran % (Auto) 0.3 Neut % (Auto) 83.0 H Lymph % (Auto) 6.1 L [place] % (Auto) 9.7 Eos % (Auto) 0.6 Baso % (Auto) 0.3 Lymph # (Auto) 0.4 L [place] # (Auto) 0.6 Eos # (Auto) 0.0 Baso # (Auto) 0.0 Abs Immat Gran (auto) 0.02 Absolute Neuts (auto) 5.5 Absolute Nucleated RBC 0.000 Nucleated RBC % (auto) 0.0 Smear Tech's Comments VERIFIED Sodium Potassium Chloride Carbon Dioxide Anion Gap BUN Creatinine Estim Creat Clear Calc Estimated GFR Random Glucose Fasting Glucose Lactic Acid 2.3 H* Lactic Acid Fup @ 2Hr Calcium Magnesium Troponin I High Sens 209.1 H D B-Natriuretic Peptide 45686 H Coronavirus (PCR) Influenza Type A (PCR) Influenza Type B (PCR) RSV RNA Qual (PCR) 06/14/20 06/14/20 06/14/20 19:59 20:40 22:57 WBC RBC Hgb Hct MCV MCH MCHC RDW Plt Count MPV Immature Gran % (Auto) Neut % (Auto) Lymph % (Auto) [place] % (Auto) Eos % (Auto) Baso % (Auto) Lymph # (Auto) [place] # (Auto) Eos # (Auto) Baso # (Auto) Abs Immat Gran (auto) Absolute Neuts (auto) Absolute Nucleated RBC Nucleated RBC % (auto) Smear Tech's Comments Sodium 141 Potassium 4.2 D Chloride 98 Carbon Dioxide 30 H Anion Gap 17 BUN 28 H Creatinine 5.18 H* Estim Creat Clear Calc 11.9 Estimated GFR 11 Random Glucose 153 H Fasting Glucose Lactic Acid Lactic Acid Fup @ 2Hr Calcium 7.3 L D Magnesium 1.7 Troponin I High Sens 269.5 H B-Natriuretic Peptide Coronavirus (PCR) NEGATIVE Influenza Type A (PCR) NEGATIVE Influenza Type B (PCR) NEGATIVE RSV RNA Qual (PCR) NEGATIVE 06/14/20 06/15/20 06/15/20 22:57 05:00 05:00 WBC 7.8 RBC 4.18 L Hgb 12.9 L Hct 41.5 L MCV 99.3 H MCH 30.9 MCHC 31.1 RDW 15.2 Plt Count 62 L MPV 11.2 Immature Gran % (Auto) 0.1 Neut % (Auto) 85.2 H Lymph % (Auto) 7.7 L [place] % (Auto) 6.9 Eos % (Auto) 0.0 Baso % (Auto) 0.1 Lymph # (Auto) 0.6 L [place] # (Auto) 0.5 Eos # (Auto) 0.0 Baso # (Auto) 0.0 Abs Immat Gran (auto) 0.01 Absolute Neuts (auto) 6.6 Absolute Nucleated RBC 0.000 Nucleated RBC % (auto) 0.0 Smear Tech's Comments VERIFIED Sodium 141 Potassium 5.1 D Chloride 100 Carbon Dioxide 24 Anion Gap 22 H BUN 30 H Creatinine 5.32 H* Estim Creat Clear Calc 11.6 Estimated GFR 11 Random Glucose 112 Fasting Glucose Lactic Acid Lactic Acid Fup @ 2Hr 1.6 Calcium 7.2 L Magnesium Troponin I High Sens B-Natriuretic Peptide Coronavirus (PCR) Influenza Type A (PCR) Influenza Type B (PCR) RSV RNA Qual (PCR) 06/16/20 06/16/20 06/17/20 04:56 04:56 06:07 WBC 4.3 L Cancelled RBC 4.37 L Cancelled Hgb 13.6 L Cancelled Hct 43.2 Cancelled MCV 98.9 H Cancelled MCH 31.1 Cancelled MCHC 31.5 Cancelled RDW 14.8 Cancelled Plt Count 94 L D Cancelled MPV 9.7 Cancelled Immature Gran % (Auto) 0.2 Cancelled Neut % (Auto) 64.8 Cancelled Lymph % (Auto) 18.4 L Cancelled [place] % (Auto) 12.1 H Cancelled Eos % (Auto) 4.0 Cancelled Baso % (Auto) 0.5 Cancelled Lymph # (Auto) 0.8 L Cancelled [place] # (Auto) 0.5 Cancelled Eos # (Auto) 0.2 Cancelled Baso # (Auto) 0.0 Cancelled Abs Immat Gran (auto) 0.01 Cancelled Absolute Neuts (auto) 2.8 Cancelled Absolute Nucleated RBC 0.000 Cancelled Nucleated RBC % (auto) 0.0 Cancelled Smear Tech's Comments Sodium 142 Potassium 5.4 H Chloride 100 Carbon Dioxide 28 Anion Gap 19 BUN 27 H Creatinine 4.95 H* Estim Creat Clear Calc 12.5 Estimated GFR 12 Random Glucose Fasting Glucose 83 Lactic Acid Lactic Acid Fup @ 2Hr Calcium 7.5 L Magnesium Troponin I High Sens B-Natriuretic Peptide Coronavirus (PCR) Influenza Type A (PCR) Influenza Type B (PCR) RSV RNA Qual (PCR) 06/17/20 06/17/20 06/18/20 06:07 10:21 06:04 WBC 3.4 L 3.4 L RBC 4.24 L 4.04 L Hgb 13.1 L 12.3 L Hct 41.0 L 38.5 L MCV 96.7 95.3 MCH 30.9 30.4 MCHC 32.0 31.9 RDW 15.0 14.8 Plt Count 104 L 112 L MPV 9.7 10.1 Immature Gran % (Auto) 0.3 0.3 Neut % (Auto) 70.4 57.2 Lymph % (Auto) 16.1 L 27.3 [place] % (Auto) 8.2 10.5 Eos % (Auto) 4.4 H 4.4 H Baso % (Auto) 0.6 0.3 Lymph # (Auto) 0.6 L 0.9 L [place] # (Auto) 0.3 0.4 Eos # (Auto) 0.2 0.2 Baso # (Auto) 0.0 0.0 Abs Immat Gran (auto) 0.01 0.01 Absolute Neuts (auto) 2.4 2.0 Absolute Nucleated RBC 0.000 0.000 Nucleated RBC % (auto) 0.0 0.0 Smear Tech's Comments VERIFIED Sodium 140 Potassium 5.2 H Chloride 101 Carbon Dioxide 22 Anion Gap 22 H BUN 48 H D Creatinine 6.39 H* Estim Creat Clear Calc 9.7 Estimated GFR 9 Random Glucose Fasting Glucose 93 Lactic Acid Lactic Acid Fup @ 2Hr Calcium 7.2 L Magnesium Troponin I High Sens B-Natriuretic Peptide Coronavirus (PCR) Influenza Type A (PCR) Influenza Type B (PCR) RSV RNA Qual (PCR) 06/18/20 06/18/20 06:04 06:04 WBC RBC Hgb Hct MCV MCH MCHC RDW Plt Count MPV Immature Gran % (Auto) Neut % (Auto) Lymph % (Auto) [place] % (Auto) Eos % (Auto) Baso % (Auto) Lymph # (Auto) [place] # (Auto) Eos # (Auto) Baso # (Auto) Abs Immat Gran (auto) Absolute Neuts (auto) Absolute Nucleated RBC Nucleated RBC % (auto) Smear Tech's Comments Sodium 137 Potassium 4.5 Chloride 101 Carbon Dioxide 21 L Anion Gap 20 BUN 38 H Creatinine 5.35 H* Estim Creat Clear Calc 11.6 Estimated GFR 11 Random Glucose Fasting Glucose 87 Lactic Acid 0.7 Lactic Acid Fup @ 2Hr Calcium 7.6 L Magnesium Troponin I High Sens B-Natriuretic Peptide Coronavirus (PCR) Influenza Type A (PCR) Influenza Type B (PCR) RSV RNA Qual (PCR) Preliminary micro results at discharge 06/14/20 20:40 Blood Culture - Preliminary Blood - Venous No growth after 48 hours. 06/14/20 19:59 Blood Culture - Preliminary Blood - Venous No growth after 48 hours. Discharge Plan Discharge Anticipated Discharge Date/Time: 06/18/20 12:10 Patient Disposition: Home Health Service Referrals: Physician,Unknown [Primary Care Provider] - Discharge Medications: New midodrine 5 mg tablet 5 mg PO BID Qty: 60 RF: 0 cefuroxime axetil 250 mg tablet 250 mg PO .q24 5 Days RF: 0 doxycycline hyclate 100 mg tablet 100 mg PO BID 5 Days Qty: 10 RF: 0 cefuroxime axetil 500 mg tablet 500 mg PO BID 5 Days Qty: 10 RF: 0 Continued fluticasone propion-salmeterol [Wixela Inhub] 250-50 mcg/dose blister with device 1 ea PO BID Qty: 180 RF: 1 atorvastatin 40 mg tablet 40 mg PO DAILY Qty: 90 RF: 3 aspirin 81 mg tablet,delayed release (DR/EC) 81 mg PO DAILY Qty: 90 RF: 3 pantoprazole [Protonix] 20 mg tablet,delayed release (DR/EC) 20 mg PO DAILY Qty: 10 RF: 0 carvedilol 6.25 mg Tablet 6.25 mg PO BID RF: 0 docusate sodium [Colace] 100 mg Capsule 100 mg PO BID PRN (Reason: Constipation) RF: 0 folic acid 1 mg Tablet 1 mg PO DAILY RF: 0 buspirone 15 mg Tablet 15 mg PO TID RF: 0 metoclopramide HCl [Reglan] 5 mg Tablet 5 mg PO TID RF: 0 ergocalciferol (vitamin D2) [Vitamin D2] 1,250 mcg (50,000 unit) Capsule 1,250 mcg PO Q15D RF: 0 multivitamin Tablet 1 tab PO DAILY RF: 0 clonazepam 1 mg Tablet 1 mg PO BID RF: 0 Discharge Orders: Discharge Order (Routine); Ordered 06/18/20 Ordered By: Ashok Bolanos Diet: advance to usual diet Activity on Discharge: As tolerated Stand Alone Forms: Patient Portal Discharge page Care Plan Goals: treat pneumonia Health Concerns: pneumonia Plan of Treatment: po antibiotics Discharge Date/Time: 06/18/20 16:08
--- NOTE | 2020-06-18 14:33 | MHC.CM.PN ---
CM MET WITH PT AND [facility] AFTER NURSING TOLD CM PT WAS ASKING FOR AN AMBULANCE RIDE HOME, PT REPORTED HIS DAUGHTER CAN PICK HIM UP IF HE CAN CALL HER HOWEVER PT COULD NOT GET THROUGH DUE TO NUMBER NOT WORKING, PT'S NUMBER LISTED AND DAUGHTERS NUMBER WERE NOT IN SERVICE, CM MADE SEVERAL PHONE CALLS TO LOCATE NUMBER AND DID SO THROUGH [facility]. CM FINALLY SPOKE WITH DAUGHTER/HCP AND ARRANGED FOR PT TO BE PICKED UP AT 3:30PM PER HOSPITALIST. PT UNCERTAIN OF PT IS STILL ON PALLIATIVE CARE DUE TO PT'S GENERAL HEALTH IMPROVING AND NO LONGER RECIEVES VISITS. PT WILL DISCHARGE HOME WITH RESUMPTION OF ORTHOPEDIC SHOE [facility]KER HOURS, DAUGHTER TO TRANSPORT PT AT 3:30PM. PER [facility]- PT RECIEVES 19HRS FOR DAY ORTHOPEDIC SHOE MAKER, 14HRS NIGHT ORTHOPEDIC SHOE MAKER DAUGHTER IS HCP- [facility] [phone] PCP- DR TERI CAMPOVERDE
== END 2020-06-18 16:08 | disposition home health service (06) | DRG 871 ==
LOC: HO.ED 22:50 → HO.EDOVER 23:19 → HO.IMC 06-17 06:59 → HO.S3 06-17 15:27
PROVIDERS: Internal Medicine; Nurse Practitioner Family; Admitting Provider Internal Medicine; Emergency Provider Emergency Medicine; PCP Internal Medicine; Visit Provider Internal Medicine
DX: A41.9 Sepsis, unspecified organism (principal); J18.9 Pneumonia, unspecified organism; J96.01 Acute respiratory failure with hypoxia; N18.6 End stage renal disease; R04.2 Hemoptysis; I13.2 Hypertensive heart and chronic kidney disease with heart failure and with stage 5 chronic kidney disease, or end stage renal disease; E87.2 Acidosis; I50.22 Chronic systolic (congestive) heart failure; F41.9 Anxiety disorder, unspecified; R65.20 Severe sepsis without septic shock; E87.5 Hyperkalemia; I95.9 Hypotension, unspecified; K21.9 Gastro-esophageal reflux disease without esophagitis; Z20.822 Contact with and (suspected) exposure to COVID-19; Z79.51 Long term (current) use of inhaled steroids; Z99.2 Dependence on renal dialysis; Z79.82 Long term (current) use of aspirin; Z79.899 Other long term (current) drug therapy
CPT/HCPCS: 0241U; 36415; 71250; 80048; 83605; 83735; 83880; 84484; 85025; 87040; 90999; 93005; 96361; 96365; 96375; 99285; J0456; J0696; J1100

== ENCOUNTER 2020-07-30 20:04 | Inpatient (IN) | payer OTHER, SELFPAY ==
--- NOTE | ~2020-07-30 | CT_ITS ---
EXAMINATION: CT CHEST WITHOUT CONTRAST CLINICAL INFORMATION: Hemoptysis. COMPARISON: Prior examinations most recent chest x-ray 07/30/[address] scan of the chest May 2020. TECHNIQUE: Multidetector volumetric CT imaging of the chest was done. Axial MIP volume rendering provided. Sagittal and coronal reformatted images were obtained. This CT examination was performed using dose optimization techniques as appropriate, variously including the following: *Automated exposure control *Adjustment of mA and/or kV according to patient size (this includes techniques or standardized protocols for targeted exams where dose is matched to indication/reason for exam; i.e. extremities or head) *Use of iterative reconstruction technique DLP: 210 mGy-cm FINDINGS: LUNGS AND PLEURAL SPACES: There is persistent consolidation in the lingula with air bronchograms. There is slight improvement in the patchy airspace disease in the left lower lobe. There is linear opacity in the right middle lobe compatible with scarring. The central airways are clear. CARDIOVASCULAR: The heart appears enlarged but unchanged. Calcific atherosclerotic disease noted throughout unchanged. Central venous catheter at SVC right atrial junction. LYMPH NODES: Normal. THORACIC INLET: Normal. CHEST WALL: Prominent vessels in the left axillary region unchanged. No definite lymphadenopathy. UPPER ABDOMEN: Unremarkable. OSSEOUS STRUCTURES: Unremarkable. CT/CT chest wo con IMPRESSION: Slight improvement in the patchy airspace disease in the left lower lobe. No change in the lingular consolidation with air bronchograms. Both abnormalities likely reflect infectious
--- NOTE | ~2020-07-30 | XR_ITS ---
EXAMINATION: XR CHEST CLINICAL INFORMATION: Chest pain COMPARISON: 05/07/2020 TECHNIQUE: Frontal view of the chest was obtained. FINDINGS: Right chest wall CT compatible port terminates near the cavoatrial junction. Surgical clips overlie the mediastinum. Cardiac leads overlie the chest. Lung volumes are low. There is increased left basilar airspace opacity. No significant pleural effusion. No pneumothorax. The cardiomediastinal silhouette remains prominent, with a calcified aorta. XR/XR chest 1V IMPRESSION: Increased airspace opacity at the left base is concerning for pneumonia. Follow-up to resolution.
[2020-07-30 20:17] VITALS: BP 157/81; PULSE 111; RESP 26; TEMP 37; O2SAT 100
--- NOTE | 2020-07-30 20:30 | ECG_ITS ---
Test Reason : CHESTPAIN Blood Pressure : / mmHG Vent. Rate : 083 BPM Atrial Rate : 084 BPM P-R Int : 152 ms QRS Dur : 104 ms QT Int : 424 ms P-R-T Axes : 038 -20 061 degrees QTc Int : 498 ms Normal sinus rhythm Left atrial enlargement Nonspecific ST and T wave abnormality Prolonged QT Abnormal ECG When compared with ECG of 31-JUL-2020 00:48, No significant change was found Referred By: Generic ED Physician Electronically Signed By: Chace WOMACK
--- NOTE | 2020-07-30 20:58 | ED_ITS ---
HPI - Chest Pain General Chief Complaint: Chest Pain Stated Complaint: CP,SOB Time Seen by Provider: 07/30/20 20:58 Source: patient, EMS and old records reviewed Mode of arrival: EMS Limitations: no limitations History of Present Illness HPI narrative: 64 yo male with asthma PRN O2, pneumonia most recent admission J anuary for IV antibiotics and sepsis, ESRD on HD MWF, CHF comes in with 2 days of cough, sputum production, chills, shortness of breath feels like he has pneumonia again - last course of treatment for pneumonia was in May MD complaint: other (dyspnea, cough) Pertinent past history: asthma Onset (ago): day(s) (2) Timing of current episode: constant Onset: during rest and during exertion Pain radiation: none Severity: moderate Quality: tightness Relieving factors: rest Exacerbating factors: exertion Context: recent illness Associated symptoms: dyspnea, fever and cough Treatment prior to arrival: aspirin Related Data Home Medications Medication Instructions Recorded Confirmed buspirone 15 mg PO TID 03/01/20 07/30/20 docusate sodium [Colace] 100 mg PO BID PRN 03/01/20 07/30/20 ergocalciferol (vitamin D2) 1,250 mcg PO Q15D 03/01/20 07/30/20 [Vitamin D2] folic acid 1 mg PO DAILY 03/01/20 07/30/20 metoclopramide HCl [Reglan] 5 mg PO TID 03/01/20 07/30/20 multivitamin 1 tab PO DAILY 06/14/20 07/30/20 fluticasone propion-salmeterol 1 inh PO BID 07/30/20 07/30/20 [Wixela Inhub] lidocaine-prilocaine 1 appl TOPICAL DAILY PRN 07/30/20 07/30/20 mirtazapine 30 mg PO BEDTIME 07/30/20 07/30/20 sevelamer carbonate 1,600 mg PO TID 07/30/20 07/30/20 Previous Rx's Medication Instructions Recorded atorvastatin 40 mg tablet 40 mg PO DAILY #90 tab 05/10/20 aspirin 81 mg tablet,delayed 81 mg PO DAILY #90 tab 05/15/20 release midodrine 5 mg PO BID #60 tab 06/18/20 carvedilol 6.25 mg tablet 6.25 mg PO BID #180 tab 07/27/20 Allergies Allergy/AdvReac Type Severity Reaction Status Date / Time No Known Allergies Allergy Verified 07/30/20 20:22 Review of Systems Review of Systems: Constitutional : No Fever, pos Chills ENT/Mouth : No sore throat, No Rhinorrhea, No Swallowing Difficulty Eyes: No Eye Pain, No Swelling, No Redness Cardiovascular : No Chest Pain, positive SOB, No Orthopnea, noEdema Respiratory : pos Cough, pos Sputum, No Wheezing, positive dyspnea Gastrointestinal : No Nausea, No Vomiting, No Diarrhea, No abdominal Pain, No Hematochezia, No Melena Genitourinary : No Dysuria, No Urinary Frequency, No Hematuria Musculoskeletal : No joint pain, No Myalgias Skin : No Skin Lesions, No rash Neuro : pos Weakness, No Numbness, No Dizziness, No Headache Psych : No Anxiety/Panic, No Depression Heme/Lymph: No Bruising, No Lymphadenopathy Endocrine : No Polyuria, No Polydipsia All other systems reviewed and are negative PMFSH Past Medical History Attestation statement: The following information was validated with the patient. Source: old records reviewed Medical History Anxiety and depression Asthma Bicytopenia Cancer of kidney Cataract CHF (congestive heart failure) Cognitive impairment ESRD (end stage renal disease) GERD (gastroesophageal reflux disease) HTN (hypertension) Lung cancer Surgical History History of biopsy History of bronchoscopy History of esophagogastroduodenoscopy (EGD) History of lobectomy of lung Family History Family History Mother Heart disease Diabetes Alzheimers disease Father Alcoholism Son Asthma Social History Social History Household Members: Children Housing: Apartment Alcohol intake: never Smoking Status: Never smoker Second Hand Smoke Exposure: No Advance Directives: No Advance Directives Information Provided: Yes service: No Current occupational status: disabled Physical Exam Vital Signs: Vital Signs: Last Vital Signs Temp 98.6 F 07/30/20 20:17 Pulse 111 H 07/30/20 20:17 Resp 26 H 07/30/20 20:17 BP 157/81 H 07/30/20 20:17 Pulse Ox 100 07/30/20 20:17 Body Mass Index 20.0 Appearance: Alert. Oriented X3. Mild acute distress. Eyes: Pupils equal, round and reactive to light. ENT: Pharynx normal. Neck: Normal inspection. Neck supple. CVS: tachycardic heart rate and rhythm. Pulses normal. Respiratory: Mild respiratory distress tachypnea and retractions mild. Breath sounds rales L base Abdomen: Soft and non-tender. Skin: Skin warm and dry. Normal skin color. Normal skin turgor. Extremities: No lower extremity edema. No calf ttp Neuro: Oriented X 3. No motor deficit. No sensory deficit. Course Course Course Narrative: hospitalist aware. MDM - Chest Pain MDM Narrative Medical decision making narrative: 64 yo male with ESRD on HD MWF, sepsis pneumonia, asthma on PRN O2, CHF - hx of pneumonia last admission in May - at this time c/o cough, weakness, chills feels like he has pneumonia again - labs, cultures, COVID swab, CXR, empiric HCAP coverated - start on cefepime and vancomycin planned admit Lab Data Result diagrams: 07/30/20 21:09 07/30/20 21:09 Labs: Lab Results 07/30/20 07/30/20 Range/Units 21:09 21:09 WBC 8.6 (4.8-10.8) X10*3/uL RBC 4.14 L (4.60-5.80) X10*6/uL Hgb 12.6 L (14.0-18.0) g/dl Hct 38.9 L (42-52) % MCV 94.0 (80-98) fL MCH 30.4 (27.0-33.0) pg MCHC 32.4 (31.0-36.0) g/dl RDW 14.8 (11.0-16.0) % Plt Count 112 L (160-400) X10*3/uL MPV 10.9 (9.4-12.4) fL Immature Gran % (Auto) 0.2 (0.0-0.4) % Neut % (Auto) 88.0 H (45-73) % Lymph % (Auto) 4.7 L (20-40) % [place] % (Auto) 6.4 (2-11) % Eos % (Auto) 0.5 (0-4) % Baso % (Auto) 0.2 (0-2) % Lymph # (Auto) 0.4 L (1.2-4.9) X10*3/uL [place] # (Auto) 0.6 (0.1-1.2) X10*3/uL Eos # (Auto) 0.0 (0.0-0.4) X10*3/uL Baso # (Auto) 0.0 (0.0-0.2) X10*3/uL Abs Immat Gran (auto) 0.02 (0.00-0.03) X10*3/uL Absolute Neuts (auto) 7.5 (2.0-8.3) X10*3/uL Absolute Nucleated RBC 0.000 (0.0-0.012) X10*3/uL Nucleated RBC % (auto) 0.0 (0.0-0.2) /100WBC Smear Tech's Comments VERIFIED Hold Blue Top SEE NOTE Discharge Plan Discharge Clinical Impression: Pneumonia, Chronic renal failure Patient Disposition: Admitted As Inpatient
[2020-07-30 21:20] LABS: Eosinophils Percent Auto 0.5 % (0-4); Hemoglobin 12.6 g/dl (14.0-18.0); Imm Gran Abs Auto 0.02 X10*3/uL (0.00-0.03); Imm Gran Pct Auto 0.2 % (0.0-0.4); MANUAL DIFF FLAG SCAN; PLT CLUMP 1; Red Cell Distribution Width 14.8 % (11.0-16.0); SCAN SMEAR FLAG 1
[2020-07-30 21:22] LABS: Basophils Percent Auto 0.2 % (0-2); Hematocrit 38.9 % (42-52); Lymphocytes Absolute Auto 0.4 X10*3/uL (1.2-4.9); Lymphocytes Percent Auto 4.7 % (20-40); Mean Corpuscular HGB Conc 32.4 g/dl (31.0-36.0); Mean Corpuscular Hemoglobin 30.4 pg (27.0-33.0); Mean Platelet Volume 10.9 fL (9.4-12.4); Monocytes Absolute Auto 0.6 X10*3/uL (0.1-1.2); Monocytes Percent Auto 6.4 % (2-11); Neutrophils Absolute Auto 7.5 X10*3/uL (2.0-8.3); Platelet Count 112 X10*3/uL (160-400); Red Blood Count 4.14 X10*6/uL (4.60-5.80); White Blood Count 8.6 X10*3/uL (4.8-10.8)
[2020-07-30 21:24] LABS: SLIDE REVIEW VERIFIED
[2020-07-30] MEDS: Acetaminophen 325 MG TABLET 650 MG PO (21:36)
[2020-07-30] MEDS: Albuterol Sulfate (0.083%) 2.5 MG/3 ML VIAL.NEB INHALE (21:36)
[2020-07-30] MEDS: cefEPime HCl 2 GM in 0.9 % Sodium Chloride 50 ML IV (21:36)
[2020-07-30 21:43] VITALS: PULSE 97; O2SAT 100
[2020-07-30 21:45] LABS: Lactic Acid 1.9 mmol/L (0.5-2.0)
[2020-07-30 22:02] LABS: COVID-19 Test Negative (Negative)
[2020-07-30] MEDS: vancomycin HCL 750 MG in 0.9 % Sodium Chloride 250 ML 265 MG IV (23:01)
[2020-07-30 23:16] LABS: Anion Gap 18 (12-20); Blood Urea Nitrogen 51 mg/dL (9-16); Calcium 7.7 mg/dL (8.4-10.2); Carbon Dioxide 28 mmol/L (22-29); Chloride 100 mmol/L (96-108); Creatinine Clr Calc Pharmacy 8.3; Estimated Glomerular Filt Rate 7; Glucose Random 86 mg/dL (60-115); Potassium 5.7 mmol/L (3.3-5.1); Sodium 140 mmol/L (135-145)
--- NOTE | 2020-07-30 23:39 | PM.IMHP ---
History of Present Illness Date of Service: 07/30/20 Chief Complaint: Shortness of breath, cough This is a 64-year-old male with past medical history of ESRD on dialysis Wednesday once of , CHF, anxiety depression, GERD, who presents to the hospital with complaints of cough, sputum production, shortness of breath. Patient reports that his the same exact findings as his last presentation with pneumonia and feels that he has pneumonia again. He denies any fever or chills, no abdominal pain nausea or vomiting, diarrhea, he has chronic constipation cough, he is anti uric and goes to dialysis last in dialysis on Wednesday. He has no lower extremity edema. On arrival to the ED vitals are significant for a temp of 98.6?, heart rate of 111, respiratory rate of 26, blood pressure of 157/81. Patient satting 96% on room air Labs are significant for WBC count of 8.6, hemoglobin of 12.6, hematocrit 38.9, potassium 5.7, BUN of 51, creatinine of 7.42, trop of 140 which is chronically elevated for him, Chest x-ray shows increased airspace opacity at the left base concerning for pneumonia. Of note patient was discharged in May after he was treated for community-acquired pneumonia. Patient will be admitted for further management of ammonia Past medical history is reviewed and confirmed with patient as below Review of Systems Review of Systems: Yes all other systems are reviewed and are negative [facility] Medical History Anxiety and depression Asthma Bicytopenia Cancer of kidney Cataract CHF (congestive heart failure) Cognitive impairment ESRD (end stage renal disease) GERD (gastroesophageal reflux disease) HTN (hypertension) Lung cancer Family History Mother Heart disease Diabetes Alzheimers disease Father Alcoholism Son Asthma Surgical History History of biopsy History of bronchoscopy History of esophagogastroduodenoscopy (EGD) History of lobectomy of lung Social History Household Members: Children Housing: Apartment Alcohol intake: never Smoking Status: Never smoker Second Hand Smoke Exposure: No Advance Directives: No Advance Directives Information Provided: Yes service: No Current occupational status: disabled Meds Allergies Allergy/AdvReac Type Severity Reaction Status Date / Time No Known Allergies Allergy Verified 07/30/20 20:22 Active Medications: Current Medications Generic Name Dose Route Start Last Admin Trade Name Petra PRN Reason Stop Dose Admin Pharmacy Consult 1 each 07/30/20 21:04 Consult Rx Perform Med Rec MISCELLANE ONCE PRN Consult order Home Medications Medication Instructions Recorded Confirmed Last Taken Type buspirone 15 mg PO TID 03/01/20 07/30/20 Unknown History docusate sodium [Colace] 100 mg PO BID PRN 03/01/20 07/30/20 Unknown History ergocalciferol (vitamin D2) 1,250 mcg PO Q15D 03/01/20 07/30/20 Unknown History [Vitamin D2] folic acid 1 mg PO DAILY 03/01/20 07/30/20 Unknown History metoclopramide HCl [Reglan] 5 mg PO TID 03/01/20 07/30/20 Unknown History multivitamin 1 tab PO DAILY 06/14/20 07/30/20 Unknown History fluticasone propion-salmeterol 1 inh PO BID 07/30/20 07/30/20 Unknown History [Wixela Inhub] lidocaine-prilocaine 1 appl TOPICAL DAILY PRN 07/30/20 07/30/20 Unknown History mirtazapine 30 mg PO BEDTIME 07/30/20 07/30/20 Unknown History sevelamer carbonate 1,600 mg PO TID 07/30/20 07/30/20 Unknown History Physical Exam Vital Signs and Narrative: Vital Signs: Last Vital Signs Temp 98.6 F 07/30/20 20:17 Pulse 97 07/30/20 21:43 Resp 26 H 07/30/20 20:17 BP 157/81 H 07/30/20 20:17 Pulse Ox 100 07/30/20 20:17 Body Mass Index 20.0 Const: General: cooperative and no acute distress Orientation/consciousness: patient oriented x3 Eyes: General: appearance normal, both eyes and all related structures Resp: Effort & Inspection: normal respiratory effort Cardio: Rate: regular rate Rhythm: regular rhythm GI: Palpation (GI): Soft to palpation Auscultation: normal bowel sounds Skin: General skin exam: no rashes or lesions noted Neuro: General: patient oriented x3 Cognition (Neuro): normal cognition Extrem: General: Yes normal to inspection and Yes no pedal edema Results Labs CBC and Chem 7: 07/30/20 21:09 07/30/20 22:35 Labs: Laboratory Results - last 24 hr 07/30/20 07/30/20 07/30/20 21:09 21:09 21:09 MCV 94.0 MCH 30.4 MCHC 32.4 RDW 14.8 Plt Count 112 L MPV 10.9 Immature Gran % (Auto) 0.2 Neut % (Auto) 88.0 H Lymph % (Auto) 4.7 L Mckinley % (Auto) 6.4 Eos % (Auto) 0.5 Baso % (Auto) 0.2 Lymph # (Auto) 0.4 L Mckinley # (Auto) 0.6 Eos # (Auto) 0.0 Baso # (Auto) 0.0 Abs Immat Gran (auto) 0.02 Absolute Neuts (auto) 7.5 Absolute Nucleated RBC 0.000 Nucleated RBC % (auto) 0.0 Smear Tech's Comments VERIFIED Hold Blue Top SEE NOTE Anion Gap Estim Creat Clear Calc Estimated GFR Random Glucose Lactic Acid Calcium Troponin I High Sens 140.0 H COVID-19 ([facility]) [facility] 07/30/20 07/30/20 07/30/20 21:10 21:38 22:35 MCV MCH MCHC RDW Plt Count MPV Immature Gran % (Auto) Neut % (Auto) Lymph % (Auto) Mckinley % (Auto) Eos % (Auto) Baso % (Auto) Lymph # (Auto) Mckinley # (Auto) Eos # (Auto) Baso # (Auto) Abs Immat Gran (auto) Absolute Neuts (auto) Absolute Nucleated RBC Nucleated RBC % (auto) Smear Tech's Comments Hold Blue Top Anion Gap 18 Estim Creat Clear Calc 8.3 Estimated GFR 7 Random Glucose 86 Lactic Acid 1.9 Calcium 7.7 L Troponin I High Sens COVID-19 ([facility]) Negative COVID-19 Clin Com See Note Imaging Radiologist's Impressions: Impressions Chest X-Ray 07/30/20 20:30 IMPRESSION: Increased airspace opacity at the left base is concerning for pneumonia. Follow-up to resolution. Assessment and Plan (1) Sepsis: Status: Acute (2) Pancytopenia: Status: Acute (3) ESRD on dialysis: Status: Acute (4) Pneumonia: Qualifiers: Laterality: left Lung location: lower lobe of lung Pneumonia type: due to unspecified organism Qualified Code(s): J18.9 - Pneumonia, unspecified organism Status: Acute # sepsis - secondary to pneumonia - given his most recent admission and treatment for pneumonia in the past 3 months. Brought in our antibiotics to cover healthcare pneumonia - has tachycardia, tachypnea, afebrile, no leukocytosis Plan: - broad-spectrum IV antibiotics with vanc and Zosyn - follow cultures # pneumonia - rapid COVID-19 PCR negative - has worsening infiltrate mostly on the left lower lobe - admitted within the past 3 months to the hospital for treatment of pneumonia other move forward treat for healthcare associated pneumonia - will start on IV antibiotics as above - follow cultures # ESRD on dialysis - will consult Nephrology for dialysis # elevated troponin - has no chest pain - no acute EKG changes suggestive of ACS - chronically elevated troponin Plan: - monitor for any chest pain DVT prophylaxis: Heparin subQ
[2020-07-31] VITALS (10 sets, daily range): BP systolic 94–131; BP diastolic 53–76; PULSE 75–93; RESP 18–24; TEMP 36–36.7; O2SAT 96–100
[2020-07-31] MEDS: Sodium Polystyrene Sulfon/Sorb 15 GM/60 ML ORAL.SUSP 30 GM PO (01:30)
[2020-07-31 06:13] LABS: MANUAL DIFF FLAG NO
[2020-07-31 06:27] LABS: Basophils Percent Auto 0.3 % (0-2); Eosinophils Absolute Auto 0.1 X10*3/uL (0.0-0.4); Eosinophils Percent Auto 0.9 % (0-4); Hematocrit 36.8 % (42-52); Hemoglobin 11.7 g/dl (14.0-18.0); Imm Gran Abs Auto 0.03 X10*3/uL (0.00-0.03); Imm Gran Pct Auto 0.3 % (0.0-0.4); Lymphocytes Absolute Auto 0.8 X10*3/uL (1.2-4.9); Lymphocytes Percent Auto 8.4 % (20-40); Mean Corpuscular HGB Conc 31.8 g/dl (31.0-36.0); Mean Corpuscular Hemoglobin 29.8 pg (27.0-33.0); Mean Corpuscular Volume 93.6 fL (80-98); Mean Platelet Volume 10.4 fL (9.4-12.4); Monocytes Absolute Auto 0.7 X10*3/uL (0.1-1.2); Monocytes Percent Auto 7.8 % (2-11); Neutrophils Absolute Auto 7.5 X10*3/uL (2.0-8.3); Neutrophils Percent Auto 82.3 % (45-73); Red Blood Count 3.93 X10*6/uL (4.60-5.80); Red Cell Distribution Width 14.9 % (11.0-16.0); White Blood Count 9.1 X10*3/uL (4.8-10.8)
[2020-07-31 06:45] LABS: Platelet Count 96 X10*3/uL (160-400)
[2020-07-31] MEDS: Heparin Sodium,Porcine 5,000 UNIT/ML VIAL 5000 UNIT SUBCUT ×2 (06:46→21:21)
[2020-07-31] MEDS: Azithromycin 500 MG TABLET PO (06:47)
[2020-07-31] MEDS: Ergocalciferol (Vitamin D2) 1,250 MCG CAPSULE 1250 MCG PO (06:47)
[2020-07-31 07:37] LABS: Anion Gap 17 (12-20); Blood Urea Nitrogen 54 mg/dL (9-16); Calcium 7.4 mg/dL (8.4-10.2); Carbon Dioxide 28 mmol/L (22-29); Chloride 99 mmol/L (96-108); Creatinine Clr Calc Pharmacy 7.9; Estimated Glomerular Filt Rate 7; Glucose Random 88 mg/dL (60-115); Potassium 5.5 mmol/L (3.3-5.1); Sodium 138 mmol/L (135-145)
[2020-07-31] MEDS: Metoclopramide HCl 5 MG TABLET PO ×3 (09:36→21:22)
[2020-07-31] MEDS: Midodrine HCl 5 MG TABLET PO ×2 (09:36→21:23)
[2020-07-31] MEDS: busPIRone HCl 5 MG TABLET 15 MG PO ×3 (09:36→21:22)
[2020-07-31] MEDS: carvediloL 6.25 MG TABLET PO ×2 (09:36→21:24)
[2020-07-31] MEDS: Atorvastatin Calcium 40 MG TABLET PO (09:36)
[2020-07-31] MEDS: 0.9 % Sodium Chloride Flush 3 ML SYRINGE IVFLUSH ×2 (09:36→16:56)
[2020-07-31] MEDS: Aspirin Enteric Coated 81 MG TABLET.DR PO (09:37)
[2020-07-31] MEDS: Folic Acid 1 MG TABLET PO (09:37)
[2020-07-31] MEDS: Multivitamin TABLET 1 TAB PO (09:37)
[2020-07-31] MEDS: cefTRIAXone sodium 1 GM in 0.9 % Sodium Chloride 50 ML IV (09:39)
--- NOTE | 2020-07-31 10:33 | P.CDIC_ITS ---
CDI Concurrent Query Service Date: 07/31/20 Documentation Clarification: Please clarify if you are treating a proba ble/suspected/likely or confirmed: Acute Respiratory Failure with Hypoxia Acute on Chronic Respiratory Failure with Hypoxia No Respiratory Failure Provider Response: Other Other Diagnosis: There is no acute respiratory failure PLEASE DO NOT DELETE/MODIFY EXISTING CONTENT Additional information is needed in order to code to the highest accuracy and appropriate Severity of Illness (SOI). Please clarify the information noted below in your progress notes and discharge summary. Risk Factors/Clinical Indicators/Treatments 64 year old male admitted with shortness of breath, fever, cough. Mild acute distress mild respiratory distress, tachypnea and retractions, mild. On home oxygen prn. Respiratory rate range 26 - 19 LA 1.9 Received oxygen 2 L nasal cannula Per H&P: Sepsis, Pancytopenia, ESRD, Pneumonia COVID negative CDS: Madelaine Cazares RN Contact Number: [phone] Please Review the information above and exercise your independent professional judgment in responding to the query. If you concur, pleas document in the PROGRESS NOTES and DISCHARGE SUMMARY. If you do not agree with the query, please document in the query above. THIS QUERY IS PART OF THE PERMANENT MEDICAL RECORD
--- NOTE | 2020-07-31 10:49 | P.PNIM_ITS ---
Subjective Subjective Date of Service: 07/31/20 Interval History: Seen in f/u for PNA. Has productive. No SOB Review of Systems Gen: no fever Resp: no sob, + cough CV: no chest, no BARRERA, no leg edema GI: No n/v, no abd pain Neuro: No confusion Physical Exam Vital Signs: Vital Signs: Last Vital Signs Temp 97.5 F 07/31/20 07:43 Pulse 93 07/31/20 09:36 Resp 19 07/31/20 07:43 BP 124/76 07/31/20 09:36 Pulse Ox 97 07/31/20 07:43 Body Mass Index 20.0 General: AO X 3, no acute distress Resp: CTA bilateral CVS: S1,S2,RRR GI: +BS, NT, no distention Skin: No rash Neuro: motor grossly intact Psych: appropriate affect Objective Data Current Medications Generic Name Dose Route Start Last Admin Trade Name Freq PRN Reason Stop Dose Admin Acetaminophen 650 mg 07/31/20 00:42 Acetaminophen 325 Mg Tablet PO Q6H PRN Pain, Mild (Pain Scale 1-3) Albuterol/Ipratropium 3 ml 07/31/20 00:42 Albuterol/Iprat 2.5/0.5mg 3 Ml Ampul.Neb INHALE RQ4H PRN Shortness of Breath/Wheezing Aspirin 81 mg 07/31/20 09:00 07/31/20 09:37 Aspirin Enteric Coated 81 Mg Tablet. PO 81 mg DAILY ARTHUR Administration Atorvastatin Calcium 40 mg 07/31/20 09:00 07/31/20 09:36 Atorvastatin Calcium 40 Mg Tablet PO 40 mg DAILY ARTHUR Administration Azithromycin 500 mg 07/31/20 07:00 07/31/20 06:47 Azithromycin 500 Mg Tablet PO 500 mg Q24H ARTHUR Administration Buspirone HCl 15 mg 07/31/20 09:00 07/31/20 09:36 Buspirone Hcl 5 Mg Tablet PO 15 mg TID ARTHUR Administration Carvedilol 6.25 mg 07/31/20 09:00 07/31/20 09:36 Carvedilol 6.25 Mg Tablet PO 6.25 mg BID ARTHUR Administration Protocol Docusate Sodium 100 mg 07/31/20 00:42 Docusate Sodium 100 Mg Capsule PO DAILY PRN Constipation Ergocalciferol 1,250 mcg 07/31/20 00:42 07/31/20 06:47 Ergocalciferol (Vitamin D2) 1,250 Mcg Capsule PO 1,250 mcg Q15D ARTHUR Administration Folic Acid 1 mg 07/31/20 09:00 07/31/20 09:37 Folic Acid 1 Mg Tablet PO 1 mg DAILY ARTHUR Administration Heparin Sodium (Porcine) 5,000 unit 07/31/20 07:00 07/31/20 06:46 Heparin Sodium,Porcine 5,000 Unit/Ml Vial SUBCUT 5,000 unit Q12H ARTHUR Administration Ceftriaxone Sodium 1 gm/ 50 mls @ 100 mls/hr 07/31/20 10:00 07/31/20 10:19 Sodium Chloride IV Infused Q24H [facility] Infusion Metoclopramide HCl 5 mg 07/31/20 09:00 07/31/20 09:36 Metoclopramide Hcl 5 Mg Tablet PO 5 mg TID ARTHUR Administration Midodrine 5 mg 07/31/20 09:00 07/31/20 09:36 Midodrine Hcl 5 Mg Tablet PO 5 mg BID ARTHUR Administration Mirtazapine 30 mg 07/31/20 21:00 Mirtazapine 30 Mg Tablet PO BEDTIME [facility] Multivitamins/Vitamin C 1 tab 07/31/20 09:00 07/31/20 09:37 Multivitamin Tablet PO 1 tab DAILY [facility] Administration Ondansetron HCl 4 mg 07/31/20 00:42 Ondansetron Hcl 4 Mg/2 Ml Vial IVPUSH Q8H PRN Nausea and Vomiting Pharmacy Consult 1 each 07/30/20 21:04 Consult Rx Perform Med Rec MISCELLANE ONCE PRN Consult order Sodium Chloride 3 ml 07/31/20 00:42 07/31/20 09:36 0.9 % Sodium Chloride Flush 3 Ml Syringe IVFLUSH 3 ml QSHIFT ARTHUR Administration Labs CBC & Chem 7: 07/31/20 05:50 07/31/20 05:50 Assessment and Plan (1) Sepsis: Status: Acute (2) Pancytopenia: Status: Acute (3) ESRD on dialysis: Status: Acute (4) Pneumonia: Status: Acute Assessment and Plan: # sepsis - secondary to pneumonia - given his most recent admission and treatment for pneumonia in the past 3 months. Broad antibiotics to cover healthcare pneumonia - has tachycardia, tachypnea, afebrile, no leukocytosis Plan: - broad-spectrum IV antibiotics with Ceftriaxonw and Aithro - follow cultures # pneumonia - rapid COVID-19 PCR negative - has worsening infiltrate mostly on the left lower lobe - admitted within the past 3 months to the hospital for treatment of pneumonia other move forward treat for healthcare associated pneumonia - - follow cultures # ESRD on dialysis - HD MWF # elevated troponin d/t ESRD - has no chest pain - no acute EKG changes suggestive of ACS - chronically elevated troponin Plan: - monitor for any chest pain DVT prophylaxis: Heparin subQ
--- NOTE | 2020-07-31 11:27 | PM.CNNEP ---
History of Present Illness Reason for Consult Consult date: 07/31/20 Reason for consult: ESRD Chief Complaint Chief complaint: CAP History of Present Illness Narrative: 64 y/o ESRD mwf adm with resp symptoms c/w pneumonia. Overall feeling better. No CP. Last HD was on Wednesday Review of Systems Review of Systems Gen: no fever Resp: no sob, + cough CV: no chest, no BARRERA, no leg edema GI: No n/v, no abd pain Neuro: No confusion Yes all other systems are reviewed and are negative [facility] Past Medical History Medical History Anxiety and depression Asthma Bicytopenia Cancer of kidney Cataract CHF (congestive heart failure) Cognitive impairment ESRD (end stage renal disease) GERD (gastroesophageal reflux disease) HTN (hypertension) Lung cancer Family History Family History Mother Heart disease Diabetes Alzheimers disease Father Alcoholism Son Asthma Surgical History Surgical History History of biopsy History of bronchoscopy History of esophagogastroduodenoscopy (EGD) History of lobectomy of lung Social History Social History Household Members: Significant Other and Family Housing: Apartment Alcohol intake: never Smoking Status: Never smoker Second Hand Smoke Exposure: No Use of substances other than those prescribed or required for medical reasons: No Have you been hit, kicked, punched, or otherwise hurt by someone within the past year? If so, by whom?: No Do you feel safe in your current relationship?: Yes Is there a partner from a previous relationship who is making you feel unsafe now?: No Are you made to feel afraid or neglected: No Advance Directives: No Advance Directives Information Provided: Yes Do you have thoughts of harming others: None Do you have a plan to hurt others: No Plan Recently lost weight without trying: Unsure service: No Current occupational status: disabled Meds Allergies Allergy/AdvReac Type Severity Reaction Status Date / Time No Known Allergies Allergy Verified 07/30/20 20:22 Active Medications: Current Medications Generic Name Dose Route Start Last Admin Trade Name Freq PRN Reason Stop Dose Admin Acetaminophen 650 mg 07/31/20 00:42 Acetaminophen 325 Mg Tablet PO Q6H PRN Pain, Mild (Pain Scale 1-3) Albuterol/Ipratropium 3 ml 07/31/20 00:42 Albuterol/Iprat 2.5/0.5mg 3 Ml Ampul.Neb INHALE RQ4H PRN Shortness of Breath/Wheezing Aspirin 81 mg 07/31/20 09:00 07/31/20 09:37 Aspirin Enteric Coated 81 Mg Tablet.Dr PO 81 mg DAILY ARTHUR Administration Atorvastatin Calcium 40 mg 07/31/20 09:00 07/31/20 09:36 Atorvastatin Calcium 40 Mg Tablet PO 40 mg DAILY ARTHUR Administration Azithromycin 500 mg 07/31/20 07:00 07/31/20 06:47 Azithromycin 500 Mg Tablet PO 500 mg Q24H ARTHUR Administration Buspirone HCl 15 mg 07/31/20 09:00 07/31/20 09:36 Buspirone Hcl 5 Mg Tablet PO 15 mg TID ARTHUR Administration Carvedilol 6.25 mg 07/31/20 09:00 07/31/20 09:36 Carvedilol 6.25 Mg Tablet PO 6.25 mg BID ARTHUR Administration Protocol Docusate Sodium 100 mg 07/31/20 00:42 Docusate Sodium 100 Mg Capsule PO DAILY PRN Constipation Ergocalciferol 1,250 mcg 07/31/20 00:42 07/31/20 06:47 Ergocalciferol (Vitamin D2) 1,250 Mcg Capsule PO 1,250 mcg Q15D ARTHUR Administration Folic Acid 1 mg 07/31/20 09:00 07/31/20 09:37 Folic Acid 1 Mg Tablet PO 1 mg DAILY ARTHUR Administration Heparin Sodium (Porcine) 5,000 unit 07/31/20 07:00 07/31/20 06:46 Heparin Sodium,Porcine 5,000 Unit/Ml Vial SUBCUT 5,000 unit Q12H ARTHUR Administration Ceftriaxone Sodium 1 gm/ 50 mls @ 100 mls/hr 07/31/20 10:00 07/31/20 10:19 Sodium Chloride IV Infused Q24H ARTHUR Infusion Metoclopramide HCl 5 mg 07/31/20 09:00 07/31/20 09:36 Metoclopramide Hcl 5 Mg Tablet PO 5 mg TID ARTHUR Administration Midodrine 5 mg 07/31/20 09:00 07/31/20 09:36 Midodrine Hcl 5 Mg Tablet PO 5 mg BID ARTHUR Administration Mirtazapine 30 mg 07/31/20 21:00 Mirtazapine 30 Mg Tablet PO BEDTIME [facility] Multivitamins/Vitamin C 1 tab 07/31/20 09:00 07/31/20 09:37 Multivitamin Tablet PO 1 tab DAILY ARTHUR Administration Ondansetron HCl 4 mg 07/31/20 00:42 Ondansetron Hcl 4 Mg/2 Ml Vial IVPUSH Q8H PRN Nausea and Vomiting Pharmacy Consult 1 each 07/30/20 21:04 Consult Rx Perform Med Rec MISCELLANE ONCE PRN Consult order Sodium Chloride 3 ml 07/31/20 00:42 07/31/20 09:36 0.9 % Sodium Chloride Flush 3 Ml Syringe IVFLUSH 3 ml QSHIFT [facility] Administration Home Medications Medication Instructions Recorded Confirmed Last Taken Type buspirone 15 mg PO TID 03/01/20 07/30/20 Unknown History docusate sodium [Colace] 100 mg PO BID PRN 03/01/20 07/30/20 Unknown History ergocalciferol (vitamin D2) 1,250 mcg PO Q15D 03/01/20 07/30/20 Unknown History [Vitamin D2] folic acid 1 mg PO DAILY 03/01/20 07/30/20 Unknown History metoclopramide HCl [Reglan] 5 mg PO TID 03/01/20 07/30/20 Unknown History multivitamin 1 tab PO DAILY 06/14/20 07/30/20 Unknown History fluticasone propion-salmeterol 1 inh PO BID 07/30/20 07/30/20 Unknown History [Wixela Inhub] lidocaine-prilocaine 1 appl TOPICAL DAILY PRN 07/30/20 07/30/20 Unknown History mirtazapine 30 mg PO BEDTIME 07/30/20 07/30/20 Unknown History sevelamer carbonate 1,600 mg PO TID 07/30/20 07/30/20 Unknown History Physical Exam Vital Signs: Last Vital Signs Temp 97.5 F 07/31/20 07:43 Pulse 93 07/31/20 09:36 Resp 19 07/31/20 07:43 BP 124/76 07/31/20 09:36 Pulse Ox 97 07/31/20 07:43 Body Mass Index 20.0 Const General: cooperative and no acute distress Orientation/consciousness: patient oriented x3 Eyes General: appearance normal, both eyes and all related structures Resp Effort & Inspection: normal respiratory effort Cardio Rate: regular rate Rhythm: regular rhythm GI Palpation (GI): Soft to palpation Auscultation: normal bowel sounds Skin General skin exam: no rashes or lesions noted Neuro General: patient oriented x3 Cognition (Neuro): normal cognition Extrem General: Yes normal to inspection and Yes no pedal edema Results Lab Results Result Diagrams: 07/31/20 05:50 07/31/20 05:50 Lab results: Chemistry 07/30/20 07/31/20 22:35 05:50 Sodium 140 138 Potassium 5.7 H 5.5 H Carbon Dioxide 28 28 BUN 51 H 54 H Creatinine 7.42 H* 7.83 H* Calcium 7.7 L 7.4 L Hematology 07/30/20 07/31/20 21:09 05:50 WBC 8.6 9.1 Hgb 12.6 L 11.7 L Plt Count 112 L 96 L Assessment and Plan (1) Sepsis: Status: Acute (2) Pancytopenia: Status: Acute (3) ESRD on dialysis: Status: Acute (4) Pneumonia: Qualifiers: Laterality: left Lung location: lower lobe of lung Pneumonia type: due to unspecified organism Qualified Code(s): J18.9 - Pneumonia, unspecified organism Status: Acute 1. ESRD: mwf; will do HD today and keep on schedule 2. SOB: c/w pneumoina, getting ABx 3. Anemia REC: cont HD mwf; cont routine meds; ABx as noted
[2020-07-31] MEDS: Mirtazapine 30 MG TABLET PO (21:24)
[2020-08-01] VITALS (8 sets, daily range): BP systolic 102–123; BP diastolic 53–74; PULSE 77–90; RESP 16–20; TEMP 35.9–36.6; O2SAT 95–100
[2020-08-01] MEDS: 0.9 % Sodium Chloride Flush 3 ML SYRINGE IVFLUSH ×3 (00:09→23:38)
[2020-08-01] MEDS: Heparin Sodium,Porcine 5,000 UNIT/ML VIAL 5000 UNIT SUBCUT ×2 (06:35→20:55)
[2020-08-01] MEDS: Azithromycin 500 MG TABLET PO (06:35)
[2020-08-01] MEDS: carvediloL 6.25 MG TABLET PO ×2 (09:10→20:56)
[2020-08-01] MEDS: Metoclopramide HCl 5 MG TABLET PO ×3 (09:10→20:56)
[2020-08-01] MEDS: busPIRone HCl 5 MG TABLET 15 MG PO ×3 (09:10→20:55)
[2020-08-01] MEDS: Midodrine HCl 5 MG TABLET PO ×2 (09:10→16:01)
[2020-08-01] MEDS: cefTRIAXone sodium 1 GM in 0.9 % Sodium Chloride 50 ML IV (09:11)
[2020-08-01] MEDS: Atorvastatin Calcium 40 MG TABLET PO (09:11)
[2020-08-01] MEDS: Multivitamin TABLET 1 TAB PO (09:11)
[2020-08-01] MEDS: Folic Acid 1 MG TABLET PO (09:11)
[2020-08-01] MEDS: Aspirin Enteric Coated 81 MG TABLET.DR PO (09:11)
--- NOTE | 2020-08-01 09:56 | MHC.CM.PN ---
this interview was conducted through an phy therapist. pt lives c his daughter in their home. 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 he uses a cane c ambulation. his HD is at [facility] . pt denies the need for vna at md. dc plan is home c air export operations agent/daughter and resuming HD at [facility]. cm to cont. to follow.
--- NOTE | 2020-08-01 11:20 | P.PNIM_ITS ---
Subjective Subjective Date of Service: 08/01/20 Interval History: Seen in f/u for PNA. Persistent productive cough and feels the same Review of Systems Gen: no fever Resp: no sob, + cough CV: no chest, no BARRERA, no leg edema GI: No n/v, no abd pain Neuro: No confusion Physical Exam Vital Signs: Vital Signs: Last Vital Signs Temp 97.5 F 08/01/20 08:00 Pulse 82 08/01/20 08:00 Resp 18 08/01/20 08:00 BP 123/68 08/01/20 08:00 Pulse Ox 99 08/01/20 08:00 Body Mass Index 20.0 Const: Other: General: AO X 3, no acute distress Resp: CTA bilateral CVS: S1,S2,RRR GI: +BS, NT, no distention Skin: No rash Neuro: motor grossly intact Psych: appropriate affect Objective Data Current Medications Generic Name Dose Route Start Last Admin Trade Name Freq PRN Reason Stop Dose Admin Acetaminophen 650 mg 07/31/20 00:42 Acetaminophen 325 Mg Tablet PO Q6H PRN Pain, Mild (Pain Scale 1-3) Albuterol/Ipratropium 3 ml 07/31/20 00:42 Albuterol/Iprat 2.5/0.5mg 3 Ml Ampul.Neb INHALE RQ4H PRN Shortness of Breath/Wheezing Aspirin 81 mg 07/31/20 09:00 08/01/20 09:11 Aspirin Enteric Coated 81 Mg Tablet. PO 81 mg DAILY ARTHUR Administration Atorvastatin Calcium 40 mg 07/31/20 09:00 08/01/20 09:11 Atorvastatin Calcium 40 Mg Tablet PO 40 mg DAILY ARTHUR Administration Azithromycin 500 mg 07/31/20 07:00 08/01/20 06:35 Azithromycin 500 Mg Tablet PO 500 mg Q24H AR[facility]UR Administration Buspirone HCl 15 mg 07/31/20 09:00 08/01/20 09:10 Buspirone Hcl 5 Mg Tablet PO 15 mg TID ARTHUR Administration Carvedilol 6.25 mg 07/31/20 09:00 08/01/20 09:10 Carvedilol 6.25 Mg Tablet PO 6.25 mg BID ARTHUR Administration Protocol Docusate Sodium 100 mg 07/31/20 00:42 Docusate Sodium 100 Mg Capsule PO DAILY PRN Constipation Ergocalciferol 1,250 mcg 07/31/20 00:42 07/31/20 06:47 Ergocalciferol (Vitamin D2) 1,250 Mcg Capsule PO 1,250 mcg Q15D [facility]UR Administration Folic Acid 1 mg 07/31/20 09:00 08/01/20 09:11 Folic Acid 1 Mg Tablet PO 1 mg DAILY [facility]UR Administration Heparin Sodium (Porcine) 5,000 unit 07/31/20 07:00 08/01/20 06:35 Heparin Sodium,Porcine 5,000 Unit/Ml Vial SUBCUT 5,000 unit Q12H [facility] Administration Ceftriaxone Sodium 1 gm/ 50 mls @ 100 mls/hr 07/31/20 10:00 08/01/20 10:01 Sodium Chloride IV Infused Q24H AR[facility]UR Infusion Metoclopramide HCl 5 mg 07/31/20 09:00 08/01/20 09:10 Metoclopramide Hcl 5 Mg Tablet PO 5 mg TID ARTHUR Administration Midodrine 5 mg 08/01/20 08:00 08/01/20 09:10 Midodrine Hcl 5 Mg Tablet PO 5 mg BIDWM AR[facility] Administration Mirtazapine 30 mg 07/31/20 21:00 07/31/20 21:24 Mirtazapine 30 Mg Tablet PO 30 mg BEDTIME [facility] Administration Multivitamins/Vitamin C 1 tab 07/31/20 09:00 08/01/20 09:11 Multivitamin Tablet PO 1 tab DAILY [facility] Administration Ondansetron HCl 4 mg 07/31/20 00:42 Ondansetron Hcl 4 Mg/2 Ml Vial IVPUSH Q8H PRN Nausea and Vomiting Pharmacy Consult 1 each 07/30/20 21:04 Consult Rx Perform Med Rec MISCELLANE ONCE PRN Consult order Sodium Chloride 3 ml 07/31/20 00:42 08/01/20 10:01 0.9 % Sodium Chloride Flush 3 Ml Syringe IVFLUSH Not Given QSHIFT [facility] Labs CBC & Chem 7: 07/31/20 05:50 07/31/20 05:50 Microbiology Microbiology Results: Microbiology 07/30/20 21:10 Blood - Venous Blood Culture - Preliminary No growth after 24 hours. 07/30/20 21:10 Blood - Venous Blood Culture - Preliminary No growth after 24 hours. Assessment and Plan (1) Sepsis: Status: Acute (2) Pancytopenia: Status: Acute (3) ESRD on dialysis: Status: Acute (4) Pneumonia: Status: Acute Assessment and Plan: # sepsis d/t-- pneumonia--sepsis resolved. Improving, Oxygen saturation is better. -Continue Ceftriaxone and Azithro -follow cultures -cough medication -covid was negative. # ESRD on dialysis - HD MWF # Elevated troponin d/t ESRD - has no chest pain - no acute EKG changes suggestive of ACS - chronically elevated troponin Plan: - monitor for any chest pain DVT prophylaxis: Heparin subQ
--- NOTE | 2020-08-01 15:20 | P.PNNP_ITS ---
Subjective Subjective Date of Service: 08/01/20 Interval history: sen and examined. events noted Physical Exam Vital Signs: Vital Signs: Last Vital Signs Temp 96.6 F L 08/01/20 11:58 Pulse 83 08/01/20 11:58 Resp 16 08/01/20 11:58 BP 102/57 L 08/01/20 11:58 Pulse Ox 96 08/01/20 11:58 Body Mass Index 20.0 Const: General: cooperative and no acute distress Rommel entation/consciousness: patient oriented x3 Eyes: General: appearance normal, both eyes and all related structures Resp: Effort & Inspection: normal respiratory effort Cardio: Rate: regular rate Rhythm: regular rhythm GI: Palpation (GI): Soft to palpation Auscultation: normal bowel sounds Skin: General skin exam: no rashes or lesions noted Neuro: General: patient oriented x3 Cognition (Neuro): normal cognition Extrem: General: Yes normal to inspection and Yes no pedal edema Objective Data Labs CBC & Chem 7: 07/31/20 05:50 07/31/20 05:50 Microbiology Microbiology Results: Microbiology 07/30/20 21:10 Blood - Venous Blood Culture - Preliminary No growth after 24 hours. 07/30/20 21:10 Blood - Venous Blood Culture - Preliminary No growth after 24 hours. Assessment & Plan Assessment and plan (1) Sepsis: Status: Acute (2) Pancytopenia: Status: Acute (3) ESRD on dialysis: Status: Acute (4) Pneumonia: Status: Acute Assessment and Plan: 1. ESRD: mwf; will do HD today and keep on schedule 2. SOB: c/w pneumoina, getting ABx 3. Anemia 4. hyperk; low k diet REC: cont HD mwf; cont routine meds; ABx as noted; kayexlate x 1 and low k diet Time Spent With Patient Time: Total time spent is greater than 50% in coordination of care (as documented) at patient's floor/unit and/or counseling patient:
[2020-08-01] MEDS: Sodium Polystyrene Sulfon/Sorb 15 GM/60 ML ORAL.SUSP PO (15:59)
[2020-08-01] MEDS: Mirtazapine 30 MG TABLET PO (20:56)
[2020-08-02] VITALS (7 sets, daily range): BP systolic 102–161; BP diastolic 58–81; PULSE 81–101; RESP 14–19; TEMP 36.1–36.6; O2SAT 94–97
[2020-08-02] MEDS: Azithromycin 500 MG TABLET PO (06:23)
[2020-08-02] MEDS: Heparin Sodium,Porcine 5,000 UNIT/ML VIAL 5000 UNIT SUBCUT ×2 (06:23→19:19)
--- NOTE | 2020-08-02 11:55 | P.PNIM_ITS ---
Subjective Subjective Date of Service: 08/03/20 Interval History: Seen in f/u for PNA. He feels the same. He coughed up some blood today Review of Systems Gen: no fever Resp: no sob, + cough with blood sputum CV: no chest, no BARRERA, no leg edema GI: No n/v, no abd pain Neuro: No confusion Physical Exam Vital Signs: Vital Signs: Last Vital Signs Temp 97.8 F 08/02/20 04:00 Pulse 81 08/02/20 04:00 Resp 18 08/02/20 04:00 BP 133/81 08/02/20 04:00 Pulse Ox 97 08/02/20 04:00 Body Mass Index 20.0 Const: Other: General: AO X 3, no acute distress Resp: CTA rhonchi, CVS: S1,S2,RRR GI: +BS, NT, no distention Skin: No rash Neuro: motor grossly intact Psych: appropriate affect Objective Data Current Medications Generic Name Dose Route Start Last Admin Trade Name Freq PRN Reason Stop Dose Admin Acetaminophen 650 mg 07/31/20 00:42 Acetaminophen 325 Mg Tablet PO Q6H PRN Pain, Mild (Pain Scale 1-3) Albuterol/Ipratropium 3 ml 07/31/20 00:42 Albuterol/Iprat 2.5/0.5mg 3 Ml Ampul.Neb INHALE RQ4H PRN Shortness of Breath/Wheezing Aspirin 81 mg 07/31/20 09:00 08/02/20 09:17 Aspirin Enteric Coated 81 Mg Tablet.Dr PO Not Given DAILY ARTHUR Atorvastatin Calcium 40 mg 07/31/20 09:00 08/02/20 09:14 Atorvastatin Calcium 40 Mg Tablet PO Not Given DAILY ARTHUR Azithromycin 500 mg 07/31/20 07:00 08/02/20 06:23 Azithromycin 500 Mg Tablet PO 500 mg Q24H ARTHUR Administration Buspirone HCl 15 mg 07/31/20 09:00 08/02/20 09:14 Buspirone Hcl 5 Mg Tablet PO Not Given TID ARTHUR Carvedilol 6.25 mg 07/31/20 09:00 08/02/20 09:14 Carvedilol 6.25 Mg Tablet PO Not Given BID [facility] Protocol Docusate Sodium 100 mg 07/31/20 00:42 Docusate Sodium 100 Mg Capsule PO DAILY PRN Constipation Ergocalciferol 1,250 mcg 07/31/20 00:42 07/31/20 06:47 Ergocalciferol (Vitamin D2) 1,250 Mcg Capsule PO 1,250 mcg Q15D [facility] Administration Folic Acid 1 mg 07/31/20 09:00 08/02/20 09:15 Folic Acid 1 Mg Tablet PO Not Given DAILY [facility] Heparin Sodium (Porcine) 5,000 unit 07/31/20 07:00 08/02/20 06:23 Heparin Sodium,Porcine 5,000 Unit/Ml Vial SUBCUT 5,000 unit Q12H [facility] Administration Ceftriaxone Sodium 1 gm/ 50 mls @ 100 mls/hr 07/31/20 10:00 08/02/20 09:16 Sodium Chloride IV Not Given Q24H [facility] Metoclopramide HCl 5 mg 07/31/20 09:00 08/02/20 09:16 Metoclopramide Hcl 5 Mg Tablet PO Not Given TID [facility] Midodrine 5 mg 08/01/20 08:00 08/02/20 07:57 Midodrine Hcl 5 Mg Tablet PO Not Given BIDWM [facility] Mirtazapine 30 mg 07/31/20 21:00 08/01/20 20:56 Mirtazapine 30 Mg Tablet PO 30 mg BEDTIME [facility] Administration Multivitamins/Vitamin C 1 tab 07/31/20 09:00 08/02/20 09:16 Multivitamin Tablet PO Not Given DAILY [facility] Ondansetron HCl 4 mg 07/31/20 00:42 Ondansetron Hcl 4 Mg/2 Ml Vial IVPUSH Q8H PRN Nausea and Vomiting Pharmacy Consult 1 each 07/30/20 21:04 Consult Rx Perform Med Rec MISCELLANE ONCE PRN Consult order Sodium Chloride 3 ml 07/31/20 00:42 08/02/20 07:56 0.9 % Sodium Chloride Flush 3 Ml Syringe IVFLUSH Not Given QSHIFT [facility] Labs CBC & Chem 7: 07/31/20 05:50 07/31/20 05:50 Microbiology Microbiology Results: Microbiology 07/30/20 21:10 Blood - Venous Blood Culture - Preliminary No growth after 48 hours. 07/30/20 21:10 Blood - Venous Blood Culture - Preliminary No growth after 48 hours. Assessment and Plan (1) Sepsis: Status: Acute (2) Pancytopenia: Status: Acute (3) ESRD on dialysis: Status: Acute (4) Pneumonia: Status: Acute Assessment and Plan: 64/m with ESRD here # sepsis d/t-- pneumonia--sepsis resolved. Improving, Oxygen saturation is bet ter. -Continue Ceftriaxone and Azithro -follow cultures -cough medication -covid was negative. #Hemoptysis--likely related to PNA, will work up further with CTA of # ESRD on dialysis - HD MWF # Elevated troponin d/t ESRD - has no chest pain - no acute EKG changes suggestive of ACS - chronically elevated troponin Plan: - monitor for any chest pain DVT prophylaxis: Heparin subQ
--- NOTE | 2020-08-02 12:10 | MHC.CM.PN ---
NURSE OLDER ADULT SOCIAL WORK SPECIALIST NOTE ELECTRONIC MEDICAL RECORD REVIEWED ALONG WITH CAsE DISCUSSED WITH STAFF NURSE AND ON MULTIPLE DISCIPLINARY ROUNDS MET WITH PATIENT SHE IS AWARE THAT SHE WILL BE DISCHARGED [facility] TODAY WITH NO VISITING NURSE SERVICES, SELF RESUMPTION OF HER SERVICES WITH HER JUMPBASTING CANVAS BASTER SHE REPORTED THAT HER JUMPBASTING CANVAS BASTER WILL PROVIDE SERVICES discharge plan home no vna services ordered by physician self resumption of her services with her campaign management specialist transportation campaign management specialist per patient pcp dr airam cespedes patient to [facility] for post hospitla discharge follw up
--- NOTE | 2020-08-02 12:18 | MHC.CM.PN ---
nurse neonatal critical care nurse note electronic medical record reviewed along with case discussed with staff nurse and on multiple disciplianry rounds met with patient after his dialysis completion, he will be discharged later today after lunch. he is aware of his discharge todY DISCHARGE PLAN HOME WITH HIS DTR/ADMISSIONS SPECIALIST REID PRETTY I TRIED TO REACH HER AT THE LISTED NUMBER WE HAVE [phone] AND WAS UNABLE TO SELF RESUMPTION OF HIS ADMISSIONS SPECIALIST SERVICES WITH HIS ADMISSIONS SPECIALIST WHOM IS HIS DAUGHTER RESUMPTION OF HIS SERVICES WITH [facility] ,I SPOKE WITH NYDIA PATIENT IS ON A SCHEDULE CLINICALS AND DISCHQREG SUMMARY AND INSTRUCTIONS SENT TO HER AT FAX # [phone] TERI MISHRA PATIENT TO CALL FOR POST HOSPITAL DISCHARGE FOLLW UP TRANSPORTATION DAUGHTER/ADMISSIONS SPECIALIST
[2020-08-02] MEDS: Midodrine HCl 5 MG TABLET PO (15:55)
[2020-08-02] MEDS: busPIRone HCl 5 MG TABLET 15 MG PO ×2 (15:55→21:25)
[2020-08-02] MEDS: Metoclopramide HCl 5 MG TABLET PO ×2 (15:55→21:25)
[2020-08-02] MEDS: 0.9 % Sodium Chloride Flush 3 ML SYRINGE IVFLUSH (15:57)
--- NOTE | 2020-08-02 18:38 | PM.PNNEP ---
Subjective Subjective Date of Service: 08/02/20 Interval history: Seen and examined. Events noted C/O bloody sputum Physical Exam Vital Signs: Vital Signs: Last Vital Signs Temp 97.1 F 08/02/20 15:22 Pulse 93 08/02/20 15:55 Resp 16 08/02/20 15:22 BP 117/69 08/02/20 15:55 Pulse Ox 97 08/02/20 15:22 Body Mass Index 20.0 Const: General: cooperative and no acute distress Orientation/consciousness: patient oriented x3 Eyes: General: appearance normal, both eyes and all related structures Resp: Effort & Inspection: normal respiratory effort Cardio: Rate: regular rate Rhythm: regular rhythm GI: Palpation (GI): Soft to palpation Auscultation: normal bowel sounds Skin: General skin exam: no rashes or lesions noted Neuro: General: patient oriented x3 Cognition (Neuro): normal cognition Extrem: General: Yes normal to inspection and Yes no pedal edema Objective Data Labs CBC & Chem 7: 07/31/20 05:50 07/31/20 05:50 Microbiology Microbiology Results: Microbiology 07/30/20 21:10 Blood - Venous Blood Culture - Preliminary No growth after 48 hours. 07/30/20 21:10 Blood - Venous Blood Culture - Preliminary No growth after 48 hours. Assessment & Plan Assessment and plan (1) Sepsis: Status: Acute (2) Pancytopenia: Status: Acute (3) ESRD on dialysis: Status: Acute (4) Pneumonia: Status: Acute Assessment and Plan: 1. ESRD: mwf; will do HD today and keep on schedule 2. SOB: c/w pneumoina, getting ABx; hemoptysis 3. Anemia 4. hyperk; low k diet REC: cont HD mwf; cont routine meds; ABx as noted; ques additional pulm eval Time Spent With Patient Time: Total time spent is greater than 50% in coordination of care (as documented) at patient's floor/unit and/or counseling patient:
[2020-08-02] MEDS: carvediloL 6.25 MG TABLET PO (21:25)
[2020-08-02] MEDS: Mirtazapine 30 MG TABLET PO (21:25)
[2020-08-03] VITALS (8 sets, daily range): BP systolic 91–140; BP diastolic 51–75; PULSE 75–89; RESP 16–18; TEMP 36.2–36.9; O2SAT 93–98
[2020-08-03] MEDS: 0.9 % Sodium Chloride Flush 3 ML SYRINGE IVFLUSH ×4 (00:18→20:00)
[2020-08-03] MEDS: Azithromycin 500 MG TABLET PO (06:34)
[2020-08-03] MEDS: Heparin Sodium,Porcine 5,000 UNIT/ML VIAL 5000 UNIT SUBCUT ×2 (06:34→18:20)
[2020-08-03 07:32] LABS: Glucose, Whole Blood 82 mg/dL (60-115)
[2020-08-03] MEDS: carvediloL 6.25 MG TABLET PO ×2 (08:27→20:00)
[2020-08-03] MEDS: Multivitamin TABLET 1 TAB PO (08:27)
[2020-08-03] MEDS: Atorvastatin Calcium 40 MG TABLET PO (08:27)
[2020-08-03] MEDS: Midodrine HCl 5 MG TABLET PO ×2 (08:27→16:06)
[2020-08-03] MEDS: Aspirin Enteric Coated 81 MG TABLET.DR PO (08:27)
[2020-08-03] MEDS: Metoclopramide HCl 5 MG TABLET PO ×3 (08:27→19:59)
[2020-08-03] MEDS: Folic Acid 1 MG TABLET PO (08:28)
[2020-08-03] MEDS: busPIRone HCl 5 MG TABLET 15 MG PO ×3 (08:28→19:58)
[2020-08-03] MEDS: cefTRIAXone sodium 1 GM in 0.9 % Sodium Chloride 50 ML IV (11:02)
--- NOTE | 2020-08-03 14:49 | HO.PM.IMPN ---
Subjective Subjective Date of Service: 08/03/20 Interval History: Seen in f/u for PNA. He c/o blood tinged sputum and feels dizzy and has nausea Review of Systems Gen: no fever Resp: no sob, + cough with blood sputum CV: no chest, no BARRERA, no leg edema GI: No n/v, no abd pain Neuro: No confusion Physical Exam Vital Signs: Vital Signs: Last Vital Signs Temp 97.6 F 08/03/20 08:00 Pulse 78 08/03/20 12:00 Resp 18 08/03/20 08:00 BP 119/61 08/03/20 12:00 Pulse Ox 94 08/03/20 11:12 Body Mass Index 20.0 Const: Other: General: AO X 3, no acute distress Resp: CTA rhonchi, CVS: S1,S2,RRR GI: +BS, NT, no distention Skin: No rash Neuro: motor grossly intact Psych: appropriate affect Objective Data Current Medications Generic Name Dose Route Start Last Admin Trade Name Freq PRN Reason Stop Dose Admin Acetaminophen 650 mg 07/31/20 00:42 Acetaminophen 325 Mg Tablet PO Q6H PRN Pain, Mild (Pain Scale 1-3) Albuterol/Ipratropium 3 ml 07/31/20 00:42 Albuterol/Iprat 2.5/0.5mg 3 Ml Ampul.Neb INHALE RQ4H PRN Shortness of Breath/Wheezing Aspirin 81 mg 07/31/20 09:00 08/03/20 08:27 Aspirin Enteric Coated 81 Mg Tablet. PO 81 mg DAILY ARTHUR Administration Atorvastatin Calcium 40 mg 07/31/20 09:00 08/03/20 08:27 Atorvastatin Calcium 40 Mg Tablet PO 40 mg DAILY ARTHUR Administration Azithromycin 500 mg 07/31/20 07:00 08/03/20 06:34 Azithromycin 500 Mg Tablet PO 500 mg Q24H ARTHUR Administration Buspirone HCl 15 mg 07/31/20 09:00 08/03/20 14:20 Buspirone Hcl 5 Mg Tablet PO 15 mg TID ARTHUR Administration Carvedilol 6.25 mg 07/31/20 09:00 08/03/20 08:27 Carvedilol 6.25 Mg Tablet PO 6.25 mg BID ARTHUR Administration Protocol Docusate Sodium 100 mg 07/31/20 00:42 Docusate Sodium 100 Mg Capsule PO DAILY PRN Constipation Ergocalciferol 1,250 mcg 07/31/20 00:42 07/31/20 06:47 Ergocalciferol (Vitamin D2) 1,250 Mcg Capsule PO 1,250 mcg Q15D ARTHUR Administration Folic Acid 1 mg 07/31/20 09:00 08/03/20 08:28 Folic Acid 1 Mg Tablet PO 1 mg DAILY ARTHUR Administration Heparin Sodium (Porcine) 5,000 unit 07/31/20 07:00 08/03/20 06:34 Heparin Sodium,Porcine 5,000 Unit/Ml Vial SUBCUT 5,000 unit Q12H [facility]UR Administration Ceftriaxone Sodium 1 gm/ 50 mls @ 100 mls/hr 07/31/20 10:00 08/03/20 11:32 Sodium Chloride IV Infused Q24H [facility]UR Infusion Metoclopramide HCl 5 mg 07/31/20 09:00 08/03/20 14:19 Metoclopramide Hcl 5 Mg Tablet PO 5 mg TID ARTHUR Administration Midodrine 5 mg 08/01/20 08:00 08/03/20 08:27 Midodrine Hcl 5 Mg Tablet PO 5 mg BIDWM AR[facility]UR Administration Mirtazapine 30 mg 07/31/20 21:00 08/02/20 21:25 Mirtazapine 30 Mg Tablet PO 30 mg BEDTIME [facility] Administration Multivitamins/Vitamin C 1 tab 07/31/20 09:00 08/03/20 08:27 Multivitamin Tablet PO 1 tab DAILY ARTHUR Administration Ondansetron HCl 4 mg 07/31/20 00:42 Ondansetron Hcl 4 Mg/2 Ml Vial IVPUSH Q8H PRN Nausea and Vomiting Pharmacy Consult 1 each 07/30/20 21:04 Consult Rx Perform Med Rec MISCELLANE ONCE PRN Consult order Sodium Chloride 3 ml 07/31/20 00:42 08/03/20 08:27 0.9 % Sodium Chloride Flush 3 Ml Syringe IVFLUSH 3 ml QSHIFT [facility] Administration Labs CBC & Chem 7: 07/31/20 05:50 07/31/20 05:50 Microbiology Microbiology Results: Microbiology 07/30/20 21:10 Blood - Venous Blood Culture - Preliminary No growth after 48 hours. 07/30/20 21:10 Blood - Venous Blood Culture - Preliminary No growth after 48 hours. Assessment and Plan (1) Sepsis: Status: Acute (2) Pancytopenia: Status: Acute (3) ESRD on dialysis: Status: Acute (4) Pneumonia: Status: Acute Assessment and Plan: 64/m with ESRD here # sepsis d/t-- pneumonia--sepsis resolved. Improving, Oxygen saturation is better. -Continue Ceftriaxone and Azithro -follow cultures -cough medication -covid was negative. #Hemoptysis--likely related to PNA, will work up further with CTA of #Dizziness--sounds vertiginous--Meclizine PRN, Zofran for vomitting # ESRD on dialysis - HD MWF # Elevated troponin d/t ESRD - has no chest pain - no acute EKG changes suggestive of ACS - chronically elevated troponin Plan: - monitor for any chest pain DVT prophylaxis: Heparin subQ
--- NOTE | 2020-08-03 16:10 | P.PNNP_ITS ---
Subjective Subjective Date of Service: 08/03/20 Interval history: Seen and examined. Events noted Physical Exam Vital Signs: Vital Signs: Last Vital Signs Temp 97.1 F 08/03/20 15:43 Pulse 79 08/03/20 15:43 Resp 18 08/03/20 15:43 BP 91/52 L 08/03/20 15:43 Pulse Ox 98 08/03/20 15:43 Body Mass Index 20.0 Const: General: cooperative and no acute distress Orie ntation/consciousness: patient oriented x3 Resp: Effort & Inspection: normal respiratory effort Neuro: General: patient oriented x3 Extrem: General: Yes normal to inspection and Yes no pedal edema Objective Data Labs CBC & Chem 7: 07/31/20 05:50 07/31/20 05:50 Labs: Laboratory Results - last 24 hr 08/03/20 07:16 POC Glucose 82 Microbiology Microbiology Results: Microbiology 07/30/20 21:10 Blood - Venous Blood Culture - Preliminary No growth after 48 hours. 07/30/20 21:10 Blood - Venous Blood Culture - Preliminary No growth after 48 hours. Assessment & Plan Assessment and plan (1) Sepsis: Status: Acute (2) Pancytopenia: Status: Acute (3) ESRD on dialysis: Status: Acute (4) Pneumonia: Status: Acute Assessment and Plan: 1. ESRD: mwf; will do HD today and keep on schedule 2. SOB: c/w pneumoina, getting ABx; hemoptysis 3. Anemia 4. hyperk; low k diet 5. Dizzy epsidoes REC: cont HD mwf; cont routine meds; ABx as noted; ques additional pulm eval; d/c planning Time Spent With Patient Time: Total time spent is greater than 50% in coordination of care (as docbrycen dennise) at patient's floor/unit and/or counseling patient:
[2020-08-03] MEDS: Mirtazapine 30 MG TABLET PO (19:59)
[2020-08-04 03:51] VITALS: BP 115/67; PULSE 81; RESP 16; TEMP 36.3; O2SAT 94
[2020-08-04] MEDS: Azithromycin 500 MG TABLET PO (06:05)
[2020-08-04] MEDS: Heparin Sodium,Porcine 5,000 UNIT/ML VIAL 5000 UNIT SUBCUT ×2 (06:05→18:03)
[2020-08-04 08:00] VITALS: BP 129/69; PULSE 82; TEMP 36.2; O2SAT 99
--- NOTE | 2020-08-04 08:20 | HO.PM.IMPN ---
Subjective Subjective Date of Service: 08/04/20 Interval History: Seen in f/u for PNA. He c/o blood tinged sputum and complaining of dizziness still. Oxygen level is much better Review of Systems Gen: no fever Resp: no sob, + cough with blood sputum CV: no chest, no BARRERA, no leg edema GI: No n/v, no abd pain Neuro: No confusion Physical Exam Vital Signs: Vital Signs: Last Vital Signs Temp 97.4 F 08/04/20 03:51 Pulse 81 08/04/20 03:51 Resp 16 08/04/20 03:51 BP 115/67 08/04/20 03:51 Pulse Ox 94 08/04/20 03:51 Body Mass Index 20.0 Const: Other: General: AO X 3, no acute distress Resp: CTA rhonchi, CVS: S1,S2,RRR GI: +BS, NT, no distention Skin: No rash Neuro: motor grossly intact Psych: appropriate affect Objective Data Current Medications Generic Name Dose Route Start Last Admin Trade Name Gabrielq PRN Reason Stop Dose Admin Acetaminophen 650 mg 07/31/20 00:42 Acetaminophen 325 Mg Tablet PO Q6H PRN Pain, Mild (Pain Scale 1-3) Albuterol/Ipratropium 3 ml 07/31/20 00:42 Albuterol/Iprat 2.5/0.5mg 3 Ml Ampul.Neb INHALE RQ4H PRN Shortness of Breath/Wheezing Aspirin 81 mg 07/31/20 09:00 08/03/20 08:27 Aspirin Enteric Coated 81 Mg Tablet. PO 81 mg DAILY ARTHUR Administration Atorvastatin Calcium 40 mg 07/31/20 09:00 08/03/20 08:27 Atorvastatin Calcium 40 Mg Tablet PO 40 mg DAILY ARTHUR Administration Azithromycin 500 mg 07/31/20 07:00 08/04/20 06:05 Azithromycin 500 Mg Tablet PO 500 mg Q24H AR[facility]UR Administration Buspirone HCl 15 mg 07/31/20 09:00 08/03/20 19:58 Buspirone Hcl 5 Mg Tablet PO 15 mg TID ARTHUR Administration Carvedilol 6.25 mg 07/31/20 09:00 08/03/20 20:00 Carvedilol 6.25 Mg Tablet PO 6.25 mg BID ARTHUR Administration Protocol Docusate Sodium 100 mg 07/31/20 00:42 Docusate Sodium 100 Mg Capsule PO DAILY PRN Constipation Ergocalciferol 1,250 mcg 07/31/20 00:42 07/31/20 06:47 Ergocalciferol (Vitamin D2) 1,250 Mcg Capsule PO 1,250 mcg Q15D [facility] Administration Folic Acid 1 mg 07/31/20 09:00 08/03/20 08:28 Folic Acid 1 Mg Tablet PO 1 mg DAILY [facility] Administration Heparin Sodium (Porcine) 5,000 unit 07/31/20 07:00 08/04/20 06:05 Heparin Sodium,Porcine 5,000 Unit/Ml Vial SUBCUT 5,000 unit Q12H [facility] Administration Ceftriaxone Sodium 1 gm/ 50 mls @ 100 mls/hr 07/31/20 10:00 08/03/20 11:32 Sodium Chloride IV Infused Q24H [facility] Infusion Metoclopramide HCl 5 mg 07/31/20 09:00 08/03/20 19:59 Metoclopramide Hcl 5 Mg Tablet PO 5 mg TID AR[facility]UR Administration Midodrine 5 mg 08/01/20 08:00 08/03/20 16:06 Midodrine Hcl 5 Mg Tablet PO 5 mg BIDWM [facility] Administration Mirtazapine 30 mg 07/31/20 21:00 08/03/20 19:59 Mirtazapine 30 Mg Tablet PO 30 mg BEDTIME [facility] Administration Multivitamins/Vitamin C 1 tab 07/31/20 09:00 08/03/20 08:27 Multivitamin Tablet PO 1 tab DAILY [facility] Administration Ondansetron HCl 4 mg 07/31/20 00:42 Ondansetron Hcl 4 Mg/2 Ml Vial IVPUSH Q8H PRN Nausea and Vomiting Pharmacy Consult 1 each 07/30/20 21:04 Consult Rx Perform Med Rec MISCELLANE ONCE PRN Consult order Sodium Chloride 3 ml 07/31/20 00:42 08/03/20 20:00 0.9 % Sodium Chloride Flush 3 Ml Syringe IVFLUSH 3 ml QSHIFT [facility] Administration Labs CBC & Chem 7: 08/04/20 10:04 08/04/20 10:04 Microbiology Microbiology Results: Microbiology 07/30/20 21:10 Blood - Venous Blood Culture - Preliminary No growth after 48 hours. 07/30/20 21:10 Blood - Venous Blood Culture - Preliminary No growth after 48 hours. Assessment and Plan (1) Sepsis: Status: Acute (2) Pancytopenia: Status: Acute (3) ESRD on dialysis: Status: Acute (4) Pneumonia: Status: Acute Assessment and Plan: 64/m with ESRD here # sepsis d/t-- pneumonia, covid negative --sepsis resolved. Clinically responding to therapy -Continue Ceftriaxone and Azithro-->Change to Augmentin or Ceftin tomorrow -cultures thus far negative -cough medication #Hemoptysis--likely related to PNA. CT chest 08/02-- Slight improvement in the patchy airspace disease in the left lower lobe.No change in the lingular consolidation with air bronchograms. Both abnormalities likely reflect infectious --If hemoptysis persist, will get Pulmonary consultation tomorrow #Dizziness--sounds vertiginous--Meclizine PRN, Zofran for vomitting # ESRD on dialysis - HD MWF #HypOkalemia--low K diet and usually corrects with dialysis # Elevated troponin d/t ESRD - has no chest pain - no acute EKG changes suggestive of ACS - chronically elevated troponin -No further work up at this time DVT prophylaxis: Heparin subQ
[2020-08-04] MEDS: 0.9 % Sodium Chloride Flush 3 ML SYRINGE IVFLUSH ×2 (09:08→14:59)
[2020-08-04] MEDS: Midodrine HCl 5 MG TABLET PO ×2 (09:08→18:02)
[2020-08-04] MEDS: Metoclopramide HCl 5 MG TABLET PO ×3 (09:09→20:51)
[2020-08-04] MEDS: Atorvastatin Calcium 40 MG TABLET PO (09:09)
[2020-08-04] MEDS: carvediloL 6.25 MG TABLET PO ×2 (09:09→20:51)
[2020-08-04] MEDS: cefTRIAXone sodium 1 GM in 0.9 % Sodium Chloride 50 ML IV (09:09)
[2020-08-04] MEDS: Multivitamin TABLET 1 TAB PO (09:09)
[2020-08-04] MEDS: Folic Acid 1 MG TABLET PO (09:09)
[2020-08-04] MEDS: Aspirin Enteric Coated 81 MG TABLET.DR PO (09:09)
[2020-08-04] MEDS: busPIRone HCl 5 MG TABLET 15 MG PO ×3 (09:09→20:50)
[2020-08-04 10:14] LABS: Hematocrit 39.6 % (42-52); Hemoglobin 12.8 g/dl (14.0-18.0); Mean Corpuscular HGB Conc 32.3 g/dl (31.0-36.0); Mean Corpuscular Hemoglobin 30.1 pg (27.0-33.0); Mean Corpuscular Volume 93.2 fL (80-98); Mean Platelet Volume 9.3 fL (9.4-12.4); Platelet Count 129 X10*3/uL (160-400); Red Blood Count 4.25 X10*6/uL (4.60-5.80); Red Cell Distribution Width 14.9 % (11.0-16.0)
[2020-08-04 10:59] LABS: Anion Gap 22 (12-20); Blood Urea Nitrogen 60 mg/dL (9-16); Calcium 8.3 mg/dL (8.4-10.2); Carbon Dioxide 22 mmol/L (22-29); Chloride 99 mmol/L (96-108); Creatinine Clr Calc Pharmacy 7.5; Estimated Glomerular Filt Rate 7; Glucose Random 136 mg/dL (60-115); Potassium 4.9 mmol/L (3.3-5.1); Sodium 138 mmol/L (135-145)
[2020-08-04 12:00] VITALS: BP 105/61; PULSE 96; RESP 17; TEMP 36.6
[2020-08-04 15:36] VITALS: BP 108/58; PULSE 75; RESP 14; TEMP 36.9; O2SAT 97
--- NOTE | 2020-08-04 18:57 | P.PNNP_ITS ---
Subjective Subjective Date of Service: 08/04/20 Interval history: Seen and examined. Events noted Physical Exam Vital Signs: Vital Signs: Last Vital Signs Temp 98.4 F 08/04/20 15:36 Pulse 75 08/04/20 15:36 Resp 14 08/04/20 15:36 BP 108/58 L 08/04/20 15:36 Pulse Ox 97 08/04/20 15:36 Body Mass Index 20.0 Const: General: cooperative and no acute distress Orie ntation/consciousness: patient oriented x3 Eyes: General: appearance normal, both eyes and all related structures Resp: Effort & Inspection: normal respiratory effort Cardio: Rate: regular rate Rhythm: regular rhythm GI: Palpation (GI): Soft to palpation Auscultation: normal bowel sounds Skin: General skin exam: no rashes or lesions noted Neuro: General: patient oriented x3 Cognition (Neuro): normal cognition Extrem: General: Yes normal to inspection and Yes no pedal edema Objective Data Labs CBC & Chem 7: 08/04/20 10:04 08/04/20 10:04 Labs: Laboratory Results - last 24 hr 08/04/20 08/04/20 10:04 10:04 WBC 4.0 L RBC 4.25 L Hgb 12.8 L Hct 39.6 L MCV 93.2 MCH 30.1 MCHC 32.3 RDW 14.9 Plt Count 129 L D MPV 9.3 L Absolute Nucleated RBC 0.000 Nucleated RBC % (auto) 0.0 Sodium 138 Potassium 4.9 Chloride 99 Carbon Dioxide 22 Anion Gap 22 H BUN 60 H Creatinine 8.26 H* Estim Creat Clear Calc 7.5 Estimated GFR 7 Random Glucose 136 H D Calcium 8.3 L D Microbiology Microbiology Results: Microbiology 07/30/20 21:10 Blood - Venous Blood Culture - Preliminary No growth after 48 hours. 07/30/20 21:10 Blood - Venous Blood Culture - Preliminary No growth after 48 hours. Assessment & Plan Assessment and plan (1) Sepsis: Status: Acute (2) Pancytopenia: Status: Acute (3) ESRD on dialysis: Status: Acute (4) Pneumonia: Status: Acute Assessment and Plan: 1. ESRD: mwf; and keep on schedule 2. SOB: c/w pneumoina, getting ABx; hemoptysis may b=need furhter eval 3. Anemia 4. hyperk; low k diet 5. Dizzy epsidoes REC: cont HD mwf; cont routine meds; ABx as noted; ques additional pulm eval; d/c planning Time Spent With Patient Time: Total time spent is greater than 50% in coordination of care (as documented) at patient's floor/unit and/or counseling patient:
[2020-08-04 19:41] VITALS: BP 128/63; PULSE 76; RESP 14; TEMP 36.4; O2SAT 96
[2020-08-04 20:51] VITALS: BP 128/63; PULSE 76
[2020-08-04] MEDS: Mirtazapine 30 MG TABLET PO (20:51)
[2020-08-05] VITALS (8 sets, daily range): BP systolic 112–157; BP diastolic 59–77; PULSE 74–85; RESP 18–20; TEMP 36.1–37.1; O2SAT 97–99
[2020-08-05] MEDS: 0.9 % Sodium Chloride Flush 3 ML SYRINGE IVFLUSH ×4 (00:48→21:08)
[2020-08-05] MEDS: Heparin Sodium,Porcine 5,000 UNIT/ML VIAL 5000 UNIT SUBCUT ×2 (06:25→21:07)
[2020-08-05] MEDS: Azithromycin 500 MG TABLET PO (06:25)
[2020-08-05] MEDS: Aspirin Enteric Coated 81 MG TABLET.DR PO (08:02)
[2020-08-05] MEDS: busPIRone HCl 5 MG TABLET 15 MG PO ×3 (08:02→21:07)
[2020-08-05] MEDS: Metoclopramide HCl 5 MG TABLET PO ×3 (08:02→21:08)
[2020-08-05] MEDS: Multivitamin TABLET 1 TAB PO (08:02)
[2020-08-05] MEDS: Midodrine HCl 5 MG TABLET PO ×2 (08:03→16:46)
[2020-08-05] MEDS: Atorvastatin Calcium 40 MG TABLET PO (08:03)
[2020-08-05] MEDS: Folic Acid 1 MG TABLET PO (08:03)
[2020-08-05] MEDS: cefTRIAXone sodium 1 GM in 0.9 % Sodium Chloride 50 ML IV (13:56)
[2020-08-05] MEDS: carvediloL 6.25 MG TABLET PO ×2 (13:58→21:08)
--- NOTE | 2020-08-05 14:43 | PM.PNNEP ---
Subjective Subjective Date of Service: 08/05/20 Interval history: Seen and examined. Events noted Currently on HD Physical Exam Vital Signs: Vital Signs: Last Vital Signs Temp 97.1 F 08/05/20 13:53 Pulse 85 08/05/20 13:53 Resp 18 08/05/20 13:53 BP 134/68 08/05/20 13:53 Pulse Ox 97 08/05/20 13:53 Body Mass Index 20.0 Const: General: cooperative and no acute distress Orientation/consciousness: patient oriented x3 Eyes: General: appearance normal, both eyes and all related structures Resp: Effort & Inspection: normal respiratory effort Cardio: Rate: regular rate Rhythm: regular rhythm GI: Palpation (GI): Soft to palpation Auscultation: normal bowel sounds Skin: General skin exam: no rashes or lesions noted Neuro: General: patient oriented x3 Cognition (Neuro): normal cognition Extrem: General: Yes normal to inspection and Yes no pedal edema Objective Data Labs CBC & Chem 7: 08/04/20 10:04 08/04/20 10:04 Microbiology Microbiology Results: Microbiology 07/30/20 21:10 Blood - Venous Blood Culture - Final No growth after 5 days. 07/30/20 21:10 Blood - Venous Blood Culture - Final No growth after 5 days. Assessment & Plan Assessment and plan (1) Sepsis: Status: Acute (2) Pancytopenia: Status: Acute (3) ESRD on dialysis: Status: Acute (4) Pneumonia: Status: Acute Assessment and Plan: 1. ESRD: mwf; and keep on schedule 2. SOB: c/w pneumoina, getting ABx; hemoptysis better but may need furhter eval 3. Anemia 4. hyperk; low k diet 5. Dizzy epsidoes REC: cont HD mwf; cont routine meds; ABx as noted; ques additional pulm eval; d/c planning Time Spent With Patient Time: Total time spent is greater than 50% in coordination of care (as documented) at patient's floor/unit and/or counseling patient:
--- NOTE | 2020-08-05 15:52 | P.PNIM_ITS ---
Subjective Subjective Date of Service: 08/05/20 Interval History: off O2 no further hemoptysis c/o ongoing cough + shortness of breath though improved Physical Exam Vital Signs: Vital Signs: Last Vital Signs Temp 97.1 F 08/05/20 13:53 Pulse 85 08/05/20 13:53 Resp 18 08/05/20 13:53 BP 134/68 08/05/20 13:53 Pulse Ox 97 08/05/20 13:53 Body Mass Index 20.0 Gen: in no acute distress HEENT: sclera anicteric, moist mucus membranes Neck: supple Lungs: clear to auscultation bilaterally Heart: regular rate and rhythm, no murmurs Abd: soft, non-tender, non-distended Ext: no edema Skin: warm/well-perfused Neuro: alert and oriented x3, no focal findings Psych: appropriate affect Objective Data Current Medications Generic Name Dose Route Start Last Admin Trade Name Freq PRN Reason Stop Dose Admin Acetaminophen 650 mg 07/31/20 00:42 Acetaminophen 325 Mg Tablet PO Q6H PRN Pain, Mild (Pain Scale 1-3) Albuterol/Ipratropium 3 ml 07/31/20 00:42 Albuterol/Iprat 2.5/0.5mg 3 Ml Ampul.Neb INHALE RQ4H PRN Shortness of Breath/Wheezing Aspirin 81 mg 07/31/20 09:00 08/05/20 08:02 Aspirin Enteric Coated 81 Mg Tablet.Dr PO 81 mg DAILY ARTHUR Administration Atorvastatin Calcium 40 mg 07/31/20 09:00 08/05/20 08:03 Atorvastatin Calcium 40 Mg Tablet PO 40 mg DAILY ARTHUR Administration Azithromycin 500 mg 07/31/20 07:00 08/05/20 06:25 Azithromycin 500 Mg Tablet PO 500 mg Q24H ARTHUR Administration Buspirone HCl 15 mg 07/31/20 09:00 08/05/20 14:00 Buspirone Hcl 5 Mg Tablet PO 15 mg TID ARTHUR Administration Carvedilol 6.25 mg 07/31/20 09:00 08/05/20 13:58 Carvedilol 6.25 Mg Tablet PO 6.25 mg BID ARTHUR Administration Protocol Docusate Sodium 100 mg 07/31/20 00:42 Docusate Sodium 100 Mg Capsule PO DAILY PRN Constipation Ergocalciferol 1,250 mcg 07/31/20 00:42 07/31/20 06:47 Ergocalciferol (Vitamin D2) 1,250 Mcg Capsule PO 1,250 mcg Q15D ARTHUR Administration Folic Acid 1 mg 07/31/20 09:00 08/05/20 08:03 Folic Acid 1 Mg Tablet PO 1 mg DAILY ARTHUR Administration Heparin Sodium (Porcine) 5,000 unit 07/31/20 07:00 08/05/20 06:25 Heparin Sodium,Porcine 5,000 Unit/Ml Vial SUBCUT 5,000 unit Q12H ARTHUR Administration Ceftriaxone Sodium 1 gm/ 50 mls @ 100 mls/hr 07/31/20 10:00 08/05/20 14:37 Sodium Chloride IV Infused Q24H ARTHUR Infusion Meclizine HCl 12.5 mg 08/04/20 08:20 Meclizine Hcl 12.5 Mg Tablet PO Q8H PRN dizziness Metoclopramide HCl 5 mg 07/31/20 09:00 08/05/20 14:00 Metoclopramide Hcl 5 Mg Tablet PO 5 mg TID ARTHUR Administration Midodrine 5 mg 08/01/20 08:00 08/05/20 08:03 Midodrine Hcl 5 Mg Tablet PO 5 mg BIDWM ARTHUR Administration Mirtazapine 30 mg 07/31/20 21:00 08/04/20 20:51 Mirtazapine 30 Mg Tablet PO 30 mg BEDTIME ARTHUR Administration Multivitamins/Vitamin C 1 tab 07/31/20 09:00 08/05/20 08:02 Multivitamin Tablet PO 1 tab DAILY ARTHUR Administration Ondansetron HCl 4 mg 07/31/20 00:42 Ondansetron Hcl 4 Mg/2 Ml Vial IVPUSH Q8H PRN Nausea and Vomiting Pharmacy Consult 1 each 07/30/20 21:04 Consult Rx Perform Med Rec MISCELLANE ONCE PRN Consult order Sodium Chloride 3 ml 07/31/20 00:42 08/05/20 08:05 0.9 % Sodium Chloride Flush 3 Ml Syringe IVFLUSH 3 ml QSHIFT [facility] Administration Labs CBC & Chem 7: 08/04/20 10:04 08/04/20 10:04 Microbiology Microbiology Results: Microbiology 07/30/20 21:10 Blood - Venous Blood Culture - Final No growth after 5 days. 07/30/20 21:10 Blood - Venous Blood Culture - Final No growth after 5 days. Assessment and Plan (1) Sepsis: Status: Acute (2) Pancytopenia: Status: Acute (3) ESRD on dialysis: Status: Acute (4) Pneumonia: Status: Acute Assessment and Plan: hospital d#7 64yo M with ESRD admitted with sepsis due to pneumonia # CAP - ceftriaxone + azithromycin d#11/30, likely d/c home tomorrow on cefuroxime for 3 more days # sepsis - resolved, source controlled # hemoptysis - likely due to CAP, appeaers to have resolved # peripheral vertigo - prn meclizine # hyperK - resolved p HD # troponin elevation - no chest pain or ischemic EKG changes, likely due to ESRD # ESRD on HD - HD MWF # HLD - continue statin # HTN - continue carvedilol # VTE ppx - UFH
[2020-08-05] MEDS: Mirtazapine 30 MG TABLET PO (21:08)
[2020-08-06] VITALS: BP 131/68; PULSE 75; RESP 18; TEMP 36.3; O2SAT 97
[2020-08-06 03:57] VITALS: BP 145/78; PULSE 77; RESP 18; TEMP 36.2; O2SAT 96
[2020-08-06] MEDS: Heparin Sodium,Porcine 5,000 UNIT/ML VIAL 5000 UNIT SUBCUT (07:35)
[2020-08-06] MEDS: 0.9 % Sodium Chloride Flush 3 ML SYRINGE IVFLUSH (07:36)
[2020-08-06] MEDS: Midodrine HCl 5 MG TABLET PO (07:36)
[2020-08-06] MEDS: Azithromycin 500 MG TABLET PO (07:36)
[2020-08-06 07:41] VITALS: BP 146/72; PULSE 80; RESP 15; TEMP 36.7; O2SAT 97
[2020-08-06] MEDS: busPIRone HCl 5 MG TABLET 15 MG PO (10:55)
[2020-08-06] MEDS: cefTRIAXone sodium 1 GM in 0.9 % Sodium Chloride 50 ML IV (10:56)
[2020-08-06] MEDS: carvediloL 6.25 MG TABLET PO (10:56)
[2020-08-06] MEDS: Atorvastatin Calcium 40 MG TABLET PO (10:57)
[2020-08-06] MEDS: Folic Acid 1 MG TABLET PO (10:58)
[2020-08-06] MEDS: Metoclopramide HCl 5 MG TABLET PO (10:59)
[2020-08-06] MEDS: Aspirin Enteric Coated 81 MG TABLET.DR PO (10:59)
[2020-08-06 11:06] VITALS: BP 105/60; PULSE 73; RESP 15; TEMP 36.1; O2SAT 98
--- NOTE | 2020-08-06 11:50 | P.PNNP_ITS ---
Subjective Subjective Date of Service: 08/06/20 Interval history: Seen and examined. Events noted Physical Exam Vital Signs: Vital Signs: Last Vital Signs Temp 97.0 F 08/06/20 11:06 Pulse 73 08/06/20 11:06 Resp 15 08/06/20 11:06 BP 105/60 08/06/20 11:06 Pulse Ox 98 08/06/20 11:06 Body Mass Index 20.0 Const: General: cooperative and no acute distress Orien tation/consciousness: patient oriented x3 Eyes: General: appearance normal, both eyes and all related structures Resp: Effort & Inspection: normal respiratory effort Cardio: Rate: regular rate Rhythm: regular rhythm GI: Palpation (GI): Soft to palpation Auscultation: normal bowel sounds Skin: General skin exam: no rashes or lesions noted Neuro: General: patient oriented x3 Cognition (Neuro): normal cognition Extrem: General: Yes normal to inspection and Yes no pedal edema Objective Data Labs CBC & Chem 7: 08/04/20 10:04 08/04/20 10:04 Microbiology Microbiology Results: Microbiology 07/30/20 21:10 Blood - Venous Blood Culture - Final No growth after 5 days. 07/30/20 21:10 Blood - Venous Blood Culture - Final No growth after 5 days. Assessment & Plan Assessment and plan (1) Sepsis: Status: Acute (2) Pancytopenia: Status: Acute (3) ESRD on dialysis: Status: Acute (4) Pneumonia: Status: Acute Assessment and Plan: 1. ESRD: mwf; and keep on schedule 2. SOB: c/w pneumoina, getting ABx; hemoptysis better b 3. Anemia 4. hyperk; low k diet 5. Dizzy epsidoes REC: cont HD mwf; cont routine meds; ABx as noted; d/c planning..i will arrange outp HDspot Time Spent With Patient Time: Total time spent is greater than 50% in coordination of care (as documented) at patient's floor/unit and/or counseling patient:
--- NOTE | 2020-08-06 12:06 | P.F2F_ITS ---
Service Date Service Date: 08/06/20 Encounter Date of encounter: 08/06/20 Reasons for Services Signs and symptoms assessed: respiratory Reason for retirement: medication treatment and teach disease management Reason for physical therapy: home safety and mobility, therapeutic exercises, gait/transfer training, assess need for DME, ADL training and energy conservation MD Overseeing Care: Cherrie Cooper Homebound: Leaving the home is medically contraindicated at this time without the asist of a device and/or another person due th the listed conditions above and below. Reason homebound: immunosuppression / infection risk and weakness related to ho spital stay Homebound supporting statement: Mr Gore was admitted to [facility] 07/30- 08/06/20 for sepsis from pneumonia. VNA services requested for medication riley gement, respiratory assessment, and PT. Certification: Based on the above findings, I certify that this patient is confined to the home and needs intermittent retirement care, physical therapy and/or speech therapy, or continues to need occupational therapy. The patient is under my care, and I have initiated the establishment of the plan of care. The patient will be followed by a physician who will periodically review the plan of care.
--- NOTE | 2020-08-06 12:08 | P.DS_ITS ---
DS: Providers Provider Date of Service: 08/06/20 Date of admission: 07/30/20 23:04 Primary care physician: Cherrie Young MD Consults: 07/31/20 00:42 Consult to Nephrology Routine Consulting Provider: [facility] Reason for consultation: dialysis pt Has provider been notified: No DS: Diagnosis Discharge Diagnosis (1) Sepsis: Status: Acute (2) ESRD on dialysis: Status: Acute (3) Pneumonia: Status: Acute (4) Hyperkalemia: Status: Acute DS: Medications Discharge Medications Home Medications: Home Medications Medication Instructions Recorded Confirmed buspirone 15 mg PO TID 03/01/20 07/30/20 docusate sodium [Colace] 100 mg PO BID PRN 03/01/20 07/30/20 ergocalciferol (vitamin D2) 1,250 mcg PO Q15D 03/01/20 07/30/20 [Vitamin D2] folic acid 1 mg PO DAILY 03/01/20 07/30/20 metoclopramide HCl [Reglan] 5 mg PO TID 03/01/20 07/30/20 multivitamin 1 tab PO DAILY 06/14/20 07/30/20 fluticasone propion-salmeterol 1 inh PO BID 07/30/20 07/30/20 [Wixela Inhub] lidocaine-prilocaine 1 appl TOPICAL DAILY PRN 07/30/20 07/30/20 mirtazapine 30 mg PO BEDTIME 07/30/20 07/30/20 sevelamer carbonate 1,600 mg PO TID 07/30/20 07/30/20 Previous Rx's Medication Instructions Recorded atorvastatin 40 mg tablet 40 mg PO DAILY #90 tab 05/10/20 aspirin 81 mg tablet,delayed 81 mg PO DAILY #90 tab 05/15/20 release midodrine 5 mg PO BID #60 tab 06/18/20 carvedilol 6.25 mg tablet 6.25 mg PO BID #180 tab 07/27/20 cefuroxime axetil 250 mg PO DAILY #3 tab 08/06/20 DS: Summary Hospital Course Hospital Course: From history and physical by admitting hospitalist Brody Foster, 07/30/20: This is a 64-year-old male with past medical history of ESRD on dialysis Wednesday once of , CHF, anxiety depression, GERD, who presents to the hospital with complaints of cough, sputum production, shortness of breath. Patient reports that his the same exact findings as his last presentation with pneumonia and feels that he has pneumonia again. He denies any fever or chills, no abdominal pain nausea or vomiting, diarrhea, he has chronic constipation cough, he is [anuric] and goes to dialysis last in dialysis on Wednesday. He has no lower extremity edema. On arrival to the ED vitals are significant for a temp of 98.6?, heart rate of 111, respiratory rate of 26, blood pressure of 157/81. Patient satting 96% on room air Labs are significant for WBC count of 8.6, hemoglobin of 12.6, hematocrit 38.9, potassium 5.7, BUN of 51, creatinine of 7.42, trop of 140 which is chronically e levated for him, Chest x-ray shows increased airspace opacity at the left base concerning for pneumonia. Of note patient was discharged in May after he was treated for community- acquired pneumonia. The patient was admitted to the medical-surgical floor. COVID-19 molecular test was negative. He was initially treated with vancomycin and piperacillin/tazobactam, but coverage was narrowed to ceftriaxone and azithromycin. His symptoms improved. Blood cultures were negative. He was not hypoxic. He had some minor hemoptysis that resolved without further intervention. He underwent hemodialysis as per usual schedule. Mild hyperkalemia resolved with dialysis. He was discharged home with 3 more days of oral cefuroxime, having completed 7 days of IV antibiotics in the hospital. He was instructed to repeat a chest X-ray in 2 weeks to ensure resolution of the pneumonia radiographically. VNA services were arranged. Time Spent with Patient Time attestation: Total time spent providing and/or coordinating discharge services: 40 Discharge coordination time: Greater than 30 minutes Physical Exam Vital Signs: Vital Signs: Last Vital Signs Temp 97.0 F 08/06/20 11:06 Pulse 73 08/06/20 11:06 Resp 15 08/06/20 11:06 BP 105/60 08/06/20 11:06 Pulse Ox 98 08/06/20 11:06 Body Mass Index 20.0 Gen: in no acute distress HEENT: sclera anicteric, moist mucus membranes Neck: supple Lungs: clear to auscultation bilaterally Heart: regular rate and rhythm, no murmurs Abd: soft, non-tender, non-distended Ext: no edema Skin: warm/well-perfused Neuro: alert and oriented x3, no focal findings Psych: appropriate affect DS: Data Data Completed and Pending Completed studies during hospitalization [Text1]: Laboratory Results WBC 4.0 X10*3/uL (4.8-10.8) L 08/04/20 10:04 RBC 4.25 X10*6/uL (4.60-5.80) L 08/04/20 10:04 Hgb 12.8 g/dl (14.0-18.0) L 08/04/20 10:04 Hct 39.6 % (42-52) L 08/04/20 10:04 MCV 93.2 fL (80-98) 08/04/20 10:04 MCH 30.1 pg (27.0-33.0) 08/04/20 10:04 MCHC 32.3 g/dl (31.0-36.0) 08/04/20 10:04 RDW 14.9 % (11.0-16.0) 08/04/20 10:04 Plt Count 129 X10*3/uL (160-400) L D 08/04/20 10:04 MPV 9.3 fL (9.4-12.4) L 08/04/20 10:04 Immature Gran % (Auto) 0.3 % (0.0-0.4) 07/31/20 05:50 Neut % (Auto) 82.3 % (45-73) H 07/31/20 05:50 Lymph % (Auto) 8.4 % (20-40) L 07/31/20 05:50 Hunt % (Auto) 7.8 % (2-11) 07/31/20 05:50 Eos % (Auto) 0.9 % (0-4) 07/31/20 05:50 Baso % (Auto) 0.3 % (0-2) 07/31/20 05:50 Lymph # (Auto) 0.8 X10*3/uL (1.2-4.9) L 07/31/20 05:50 Hunt # (Auto) 0.7 X10*3/uL (0.1-1.2) 07/31/20 05:50 Eos # (Auto) 0.1 X10*3/uL (0.0-0.4) 07/31/20 05:50 Baso # (Auto) 0.0 X10*3/uL (0.0-0.2) 07/31/20 05:50 Abs Immat Gran (auto) 0.03 X10*3/uL (0.00-0.03) 07/31/20 05:50 Absolute Neuts (auto) 7.5 X10*3/uL (2.0-8.3) 07/31/20 05:50 Absolute Nucleated RBC 0.000 X10*3/uL (0.0-0.012) 08/04/20 10:04 Nucleated RBC % (auto) 0.0 /100WBC (0.0-0.2) 08/04/20 10:04 Smear Tech's Comments VERIFIED 07/30/20 21:09 Hold Blue Top SEE NOTE 07/30/20 21:09 Sodium 138 mmol/L (135-145) 08/04/20 10:04 Potassium 4.9 mmol/L (3.3-5.1) 08/04/20 10:04 Chloride 99 mmol/L (96-108) 08/04/20 10:04 Carbon Dioxide 22 mmol/L (22-29) 08/04/20 10:04 Anion Gap 22 (12-20) H 08/04/20 10:04 BUN 60 mg/dL (9-16) H 08/04/20 10:04 Creatinine 8.26 mg/dL (0.5-1.4) H* 08/04/20 10:04 Estim Creat Clear Calc 7.5 08/04/20 10:04 Estimated GFR 7 08/04/20 10:04 POC Glucose 82 mg/dL (60-115) 08/03/20 07:16 Random Glucose 136 mg/dL (60-115) H D 08/04/20 10:04 Lactic Acid 1.9 mmol/L (0.5-2.0) 07/30/20 21:10 Calcium 8.3 mg/dL (8.4-10.2) L D 08/04/20 10:04 Troponin I High Sens 140.0 ng/L (<3.5-35.0) H 07/30/20 21:09 COVID-19 ([place]) Negative (Negative) 07/30/20 21:38 COVID-19 Clin Com See Note 07/30/20 21:38 Impressions Chest X-Ray 07/30/20 20:30 IMPRESSION: Increased airspace opacity at the left base is concerning for pneumonia. Follow-up to resolution. Chest CT 08/02/20 15:25 IMPRESSION: Slight improvement in the patchy airspace disease in the left lower lobe. No change in the lingular consolidation with air bronchograms. 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 PCP DR MARTÍNEZ NAME PT/DTR TO [facility] FOR POST HOSPITLA DISCHARGE FOLLOW UP TRANSPORTATION FAMILY ) Cherrie Bunn MD [Physician] - Discharge Medications: New cefuroxime axetil 250 mg tablet 250 mg PO DAILY Qty: 3 RF: 0 Continued atorvastatin 40 mg tablet 40 mg PO DAILY Qty: 90 RF: 3 aspirin 81 mg tablet,delayed release (DR/EC) 81 mg PO DAILY Qty: 90 RF: 3 carvedilol 6.25 mg tablet 6.25 mg PO BID Qty: 180 RF: 1 lidocaine-prilocaine 2.5-2.5 % cream 1 appl topical DAILY PRN (Reason: dialysis) RF: 0 mirtazapine 30 mg tablet 30 mg PO BEDTIME RF: 0 sevelamer carbonate 800 mg tablet 1,600 mg PO TID RF: 0 fluticasone propion-salmeterol [Wixela Inhub] 250-50 mcg/dose blister with device 1 inh PO BID RF: 0 docusate sodium [Colace] 100 mg Capsule 100 mg PO BID PRN (Reason: Constipation) RF: 0 folic acid 1 mg Tablet 1 mg PO DAILY RF: 0 buspirone 15 mg Tablet 15 mg PO TID RF: 0 metoclopramide HCl [Reglan] 5 mg Tablet 5 mg PO TID RF: 0 ergocalciferol (vitamin D2) [Vitamin D2] 1,250 mcg (50,000 unit) Capsule 1,250 mcg PO Q15D RF: 0 multivitamin Tablet 1 tab PO DAILY RF: 0 midodrine 5 mg tablet 5 mg PO BID Qty: 60 RF: 0 Discharge Orders: Discharge Order (Routine); Ordered 08/06/20 Ordered By: Dimple Saucedo Diet: advance to usual diet Activity on Discharge: As tolerated Stand Alone Forms: Patient Portal Discharge page Other Ambulatory Orders: XR chest 2V (Routine) Timeframe: 2 Weeks Facility: [facility] - Location: Radiology Ordered By: Dimple Saucedo Care Plan Goals: resolution of pneumonia Health Concerns: pneumonia, sepsis Plan of Treatment: take cefuroxime 250 mg daily for 3 more days (antibiotic) follow up with your primary care doctor in 1 week repeat chest X-ray in 2 weeks continue dialysis MWF
--- NOTE | 2020-08-06 13:24 | MHC.CM.PN ---
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 REFERRAL MADE TO ADDIE AT [facility] FOR HOME PHGYSICAL THEAPRY SERTVICES RESUMPTION OF HIS HEMODIALYSIS AT [facility] , SCHEDULE AT 11.20 AM SPOKE WITH SUMAYA AND HEMODIALYSIS SHEEST AND DISCHARGE SUMMARY FAXED TO HER AT [phone] SHE WILL CALL PHYSICIAN FOR RESUNMPTION F HEMO DIAYSIS ORDERS PCP INSTRUXCTED PATIENT TO CALL DR LISA BURLESON FOR POST HOSPITAL DISCHARGE FOLLOW UP TRANSPORTATION FAMILY I TRIED TO REACH PATIENTS DAUGHTER BY PHONE BUT WAS UNABLE TO ,
== END 2020-08-06 15:30 | disposition home health service (06) | DRG 871 ==
LOC: HO.ED 21:27 → HO.S3 23:35
PROVIDERS: Internal Medicine; Admitting Provider Internal Medicine; Emergency Provider Emergency Medicine; PCP Internal Medicine; Visit Provider Family Medicine
DX: A41.9 Sepsis, unspecified organism (principal); N18.6 End stage renal disease; J18.9 Pneumonia, unspecified organism; I13.2 Hypertensive heart and chronic kidney disease with heart failure and with stage 5 chronic kidney disease, or end stage renal disease; D61.818 Other pancytopenia; R04.2 Hemoptysis; E87.5 Hyperkalemia; F32.9 Major depressive disorder, single episode, unspecified; I50.9 Heart failure, unspecified; K21.9 Gastro-esophageal reflux disease without esophagitis; D63.1 Anemia in chronic kidney disease; Z99.81 Dependence on supplemental oxygen; Z99.2 Dependence on renal dialysis; Z20.822 Contact with and (suspected) exposure to COVID-19; Z79.52 Long term (current) use of systemic steroids; Z79.82 Long term (current) use of aspirin; Z79.899 Other long term (current) drug therapy
CPT/HCPCS: 36415; 71045; 71250; 80048; 82947; 83605; 84484; 85025; 85027; 87040; 87635; 90999; 93005; 94640; 96365; 99285; J0692; J0696; J3370

== ENCOUNTER 2020-08-15 10:20 | Outpatient (REF) | payer OTHER, SELFPAY ==
--- NOTE | ~2020-08-15 | XR_ITS ---
EXAMINATION: XR CHEST CLINICAL INFORMATION: Follow-up pneumonia COMPARISON: CT chest of August 02, 2020 and x-ray of July 30, 2020 TECHNIQUE: 2 views of the chest were obtained. FINDINGS: There continues to be improvement in the previously noted left lower lobe disease however there remains some prominence about the left hilum which may relate to scarring or related to mass. Patient is status post previous right upper lobectomy with postsurgical change. Right internal jugular port catheter seen in place. No pneumothorax or significant pleural effusion. Heart is mildly enlarged. No evidence of pulmonary edema. XR/XR chest 2V IMPRESSION: Improving left lower lobe disease with residual abnormality of the left hilum. Cardiomegaly without pulmonary edema.
== END 2020-08-15 10:21 | disposition home or self-care (01) ==
LOC: HO.XRAY 10:20
PROVIDERS: PCP Internal Medicine; Visit Provider Family Medicine
DX: J18.9 Pneumonia, unspecified organism (principal)
CPT/HCPCS: 71046

== ENCOUNTER → 2020-12-24 14:34 | Outpatient (REF) | payer OTHER, SELFPAY ==
--- NOTE | 2020-12-24 15:00 | CA_ITS ---
Transthoracic Echocardiogram Patient (Last, First, Middle): Joni Ramos, Gender: Male Date of : 1955 Age: 65 Procedure Date: 12/24/2020 Procedure Type: Transthoracic Echocardiogram Location: OP Height: 170.18 cm Weight: 58.97 kg BSA: 1.68 m2 Heart Rate: bpm BP: 152 / 70 mmHg Custom Shoemaker: Referring MD: Rocky Mcconnell MD Symptoms: R06.02 SOB I27.20 PULMONARY HTN, I36.1 NON RHEU TRICSUPID VA Study Quality: Good ECG Rhythm: Sinus Conclusions: - The left ventricular systolic function is mildly decreased. The calculated ejection fraction is 50% by biplane method. - The basal inferior and basal inferolateral segments are hypokinetic. - Severely increased right ventricular cavity size. - There is mild calcification of the aortic valve. - There is mild mitral valve regurgitation. - There is mild tricuspid valve regurgitation. - Moderate pulmonary hypertension is present. Findings Left Ventricle Moderately increased left ventricular cavity size. There is moderately increased left ventricular wall thickness. The left ventricular systolic function is mildly decreased. The calculated ejection fraction is 50% by biplane method. There is mild global hypokinesis. Evidence suggests grade I (mild) diastolic dysfunction. LV peak GLS -11.6%. Wall Motion Rest Echo Findings The basal inferior and basal inferolateral segments are hypokinetic. Right Ventricle Severely increased right ventricular cavity size. There is normal right ventricular systolic function. Atria The left atrium is mildly dilated. The right atrium is severely dilated. Aortic Valve There is a normal trileaflet aortic valve. There is mild calcification of the aortic valve. There is no aortic valve stenosis. There is no aortic valve regurgitation. Mitral Valve There is mild anterior mitral leaflet thickening. There is mild mitral valve regurgitation. There is no mitral valve stenosis. Pulmonic Valve The pulmonic valve was not well visualized. There is mild pulmonic valve regurgitation. Tricuspid Valve Normal tricuspid valve structure. There is mild tricuspid valve regurgitation. The right ventricular systolic pressure is 65 mmHg. Moderate pulmonary hypertension is present. Great Vessels The aortic annulus, sinuses of valsalva, and asc aorta are normal in size. Venous The inferior vena cava is normal in size and collapses greater than 50% with inspiration. Pericardium/Pleural There is no evidence of pericardial effusion. Prior Study Comparison Changes noted compared to prior study dated: 12/21/2019. LV/RV chamber enlargement; see comments on wall motion. Measurements 2D Linear Measurements RVIDd: 3.71 RVIDd Index: 2.21 IVSd: 1.24 0.6-0.9/0.6-1.0 cm LVIDd: 6.21 3.9-5.3/4.2-5.9 cm LVIDd Index: 3.70 2.4-3.2/2.2-3.1 cm/m2 LVIDs: 4.98 2.0-3.6 cm LVPWd: 1.43 0.7-1.1 cm Ao Root: 2.70 2.1-3.5 cm LA Diam: 4.40 2.7-3.8/3.0-4.0 cm LAIDs Index: 2.62 1.5-2.3 cm/m2 LV Mass: 479.17 67-162/88-224 g LV Mass Index: 285.22 43-95/49-115 g/m2 LVOT Diam: 2.20 3.0+(-)1.3 cm 2D Systolic Function EF 4C: 52.20 >55% EF 2C: 48.10 >55% EF BiP: 49.90 >55% Mitral Valve MV Pk E: 0.73 MV PK A: 0.60 MV Decel Time: 146.00 E/A: 1.20 E'Lateral: 9.36 E'Medial: 3.81 E/E' Med: 19.10 E/E' Lat: 7.80 MR Alias Kye: 0.32 MR RAD: 0.70 Aortic Valve AoV Pk Kye: 1.80 AoV Mn Kye: 1.27 AoV VTI: 0.31 AoV Pk Grad: 13.00 Aov Mn Grad: 8.00 PRASANNA Cont.VTI: 2.44 LVOT LVOT Pk Kye: 1.05 LVOT Mn Kye: 0.71 LVOT VTI: 0.20 LVOT Pk Grad: 4.00 LVOT Mn Grad: 2.00 LVOT Diam: 2.20 LVOT Area: 3.80 Diastolic Function MV Pk E: 0.73 MV Pk A: 0.60 E/A: 1.20 E'Medial: 3.81 E/E' Med: 19.10 E' Laterial: 9.36 E/E' Lat: 7.80 Tricuspid Valve TR Pk Kye: 3.78 TR Pk Grad: 57.00 RA Press: 5.50 RVSP: 65.00 Great Vessels Aorta Ao Root-2D: 2.70 2.0-3.7 cm Ao Asc: 3.10 2.1-3.4 cm Ao Arch: 2.60 Updated in Other Vendor System with Status of Final Rocky Mcconnell MD electronically signed on 12/24/2020 4:33:10 PM with status of Final
== END ==
LOC: HO.CARD 14:34
PROVIDERS: Visit Provider Internal Medicine
DX: R06.02 Shortness of breath (principal); I36.1 Nonrheumatic tricuspid (valve) insufficiency; I27.20 Pulmonary hypertension, unspecified
CPT/HCPCS: 93306; 93356

== ENCOUNTER → 2021-02-04 09:07 | Outpatient (BNVA) | payer OTHER, SELFPAY | PROVIDERS: PCP Internal Medicine; Referring Provider Internal Medicine; Visit Provider Internal Medicine | DX: I12.0 Hypertensive chronic kidney disease with stage 5 chronic kidney disease or end stage renal disease (principal); N18.6 End stage renal disease; I50.9 Heart failure, unspecified; I42.9 Cardiomyopathy, unspecified; I27.20 Pulmonary hypertension, unspecified; C34.90 Malignant neoplasm of unspecified part of unspecified bronchus or lung; R06.00 Dyspnea, unspecified; R53.83 Other fatigue; F41.8 Other specified anxiety disorders; Z87.891 Personal history of nicotine dependence; Z99.2 Dependence on renal dialysis; Z98.890 Other specified postprocedural states | CPT/HCPCS: 99212 ==

== ENCOUNTER 2021-02-13 14:47 | Outpatient (REF) | payer OTHER, SELFPAY ==
--- NOTE | ~2021-02-13 | XR_ITS ---
EXAMINATION: XR CHEST CLINICAL INFORMATION: Malignant neoplasm. COMPARISON: Chest 08/15/2020 TECHNIQUE: 2 views of the chest were obtained. FINDINGS: There is mild cardiomegaly with normal pulmonary vascularity. Prominent bilateral parahilar regions especially left side is stable. Right central venous port tip is in mid SVC. There are surgical patrice in the right suprahilar region. No gross bony abnormality. XR/XR chest 2V IMPRESSION: Stable bilateral parahilar opacity especially left lower lobe. Interval no acute pneumonic process. No change in the right central venous port
== END 2021-02-13 14:48 | disposition home or self-care (01) ==
LOC: HO.XRAY 14:47
PROVIDERS: PCP Internal Medicine; Visit Provider Internal Medicine
DX: J44.9 Chronic obstructive pulmonary disease, unspecified (principal); C34.90 Malignant neoplasm of unspecified part of unspecified bronchus or lung; C22.9 Malignant neoplasm of liver, not specified as primary or secondary
CPT/HCPCS: 71046; 99212

== ENCOUNTER → 2021-03-18 15:53 | Outpatient (BNVA) | payer OTHER, SELFPAY | PROVIDERS: PCP Internal Medicine; Visit Provider Internal Medicine | DX: J44.9 Chronic obstructive pulmonary disease, unspecified (principal); C34.90 Malignant neoplasm of unspecified part of unspecified bronchus or lung; C22.9 Malignant neoplasm of liver, not specified as primary or secondary | CPT/HCPCS: 99212 ==

== ENCOUNTER → 2021-07-03 15:56 | Outpatient (BNVA) | payer OTHER, SELFPAY | PROVIDERS: PCP Internal Medicine; Visit Provider Internal Medicine | DX: C34.90 Malignant neoplasm of unspecified part of unspecified bronchus or lung (principal); C22.9 Malignant neoplasm of liver, not specified as primary or secondary; J44.9 Chronic obstructive pulmonary disease, unspecified | CPT/HCPCS: 94618; 99212 ==

== ENCOUNTER 2021-10-11 15:48 | Inpatient (IN) | payer OTHER, SELFPAY ==
--- NOTE | ~2021-10-11 | XR_ITS ---
EXAMINATION: XR CHEST CLINICAL INFORMATION: Cough. COMPARISON: Chest done on 02/13/2021. TECHNIQUE: Frontal view of the chest was obtained. FINDINGS: Low lung volume is present bilaterally. Postsurgical changes are noted around the right hilum, unchanged. Few nodular opacities are noted at right upper lung field laterally, new since prior study. Previously documented right-sided Port-A-Cath is no longer visualized. Persistent dense left perihilar and left lower lobar airspace disease is noted. Small left-sided pleural effusion is noted, new since prior study. The heart size is within normal limits. XR/XR chest 1V IMPRESSION: Abnormal chest radiograph showing evidence of low lung volume and nonspecific bibasilar and left perihilar airspace disease, and small left-sided pleural effusion and indeterminate right upper lobar lung nodules.
--- NOTE | ~2021-10-11 | CT_ITS ---
EXAMINATION: CT HEAD WITHOUT CONTRAST CLINICAL INFORMATION: Lethargy. History of lung cancer. COMPARISON: Previous head CT February 2019 TECHNIQUE: Contiguous axial imaging was performed from the skull base to vertex without intravenous administration of contrast. This CT examination was performed using dose optimization techniques as appropriate, variously including the following: *Automated exposure control *Adjustment of mA and/or kV according to patient size (this includes techniques or standardized protocols for targeted exams where dose is matched to indication/reason for exam; i.e. extremities or head) *Use of iterative reconstruction technique DLP: 772 mGy-cm FINDINGS: There is no evidence of an extra-axial collection. There is no evidence of intra-axial or extra-axial hemorrhage. There is new calcification and surrounding low-attenuation in the parafalcine left parietal lobe just superior to the corpus callosum, axial image 20 series 2. There is new calcification in the parasagittal left occipital lobe axial image 15 series 2. The ventricles and extra-axial CSF spaces are prominent suggestive of generalized atrophy. There is nonspecific periventricular white matter disease. There is new low-attenuation seen in the right basal ganglia axial image 13 and 14 series 2. Bony structures are normal. Visualized paranasal sinuses, mastoid air cells and middle ears are clear. CT/CT head/brain wo con IMPRESSION: New calcification and surrounding low-attenuation or edema in the left parietal lobe. New calcification in the left parasagittal occipital lobe. Appearance is questionable for metastatic disease. New low-attenuation lesions seen in the right basal ganglia. Appearance is questionable for metastatic disease versus infarcts. Follow-up brain MRI with and without contrast recommended.
--- NOTE | ~2021-10-11 | CT_ITS ---
EXAMINATION: CT CHEST WITHOUT CONTRAST CLINICAL INFORMATION: Hypoxia. History of lung cancer. COMPARISON: Previous chest CT most recent July 2020 TECHNIQUE: Multidetector volumetric CT imaging of the chest was done. Axial MIP volume rendering provided. Sagittal and coronal reformatted images were obtained. Exam is limited due to artifact from respiratory motion. This CT examination was performed using dose optimization techniques as appropriate, variously including the following: *Automated exposure control *Adjustment of mA and/or kV according to patient size (this includes techniques or standardized protocols for targeted exams where dose is matched to indication/reason for exam; i.e. extremities or head) *Use of iterative reconstruction technique DLP: 186 mGy-cm FINDINGS: LUNGS: There are postsurgical changes following right upper lobe lobectomy. There are multiple new bilateral pulmonary nodules. Largest pulmonary nodule measures 1 cm in the right lower lobe. There is consolidation in the central left upper lobe with air bronchograms. This may be slightly increased in size from previous exam. Direct comparison is difficult due to artifact from respiratory motion on this exam. This area measures approximately 5 cm for example axial image 24 series 2 compared to approximately 3 x 4.5 cm July 2020 exam. There are patchy areas of more peripheral left upper lobe groundglass attenuation. There is compressive atelectasis or consolidation in the left lower lobe adjacent to the left pleural effusion. MEDIASTINUM: The heart is enlarged. There is coronary artery calcification. There is a trace pericardial effusion. The thoracic aorta is normal in caliber. Evaluation for mediastinal adenopathy is limited without IV contrast. PLEURA: There are new bilateral pleural effusions [id number] on the right and moderate to large on the left. AXILLA: No lymphadenopathy. UPPER ABDOMEN: There is a large amount of ascites. There is a low-attenuation lesion in the anterior segment of the right lobe of the liver possibly involving some of the medial segment of the left lobe of the liver. This measures 2.7 x 5.7 cm. Both kidneys appear small. There may be bilateral renal stones and cysts. There is evidence of atherosclerotic disease. OSSEOUS STRUCTURES: There is scoliosis and degenerative changes spine. There is diffuse increased sclerosis of the bones. There is question of a small 5 mm lytic lesion in the left T12 vertebral body. CT/CT chest wo con IMPRESSION: Limited exam due to artifact from respiratory motion. Postsurgical changes from right upper lobe lobectomy New bilateral pulmonary nodules. New bilateral pleural effusions, left greater than right. Increasing central masslike consolidation in the left upper lobe and air bronchograms. There is more peripheral groundglass attenuation in the left upper lobe. There is a compressive atelectasis or consolidation of the left lower lobe adjacent to the left pleural effusion. New ascites. New liver lesion. Fleischner guidelines were followed.
[2021-10-11 16:16] VITALS: BP 105/61; PULSE 90; RESP 19; TEMP 36.6; O2SAT 96; BMI 20.9
--- NOTE | 2021-10-11 16:21 | ECG_ITS ---
Test Reason : CHEST PAIN Blood Pressure : / mmHG Vent. Rate : 097 BPM Atrial Rate : 097 BPM P-R Int : 160 ms QRS Dur : 116 ms QT Int : 388 ms P-R-T Axes : 033 140 071 degrees QTc Int : 492 ms Normal sinus rhythm Left atrial enlargement Right axis deviation Septal infarct , age undetermined Abnormal ECG When compared with ECG of 31-JUL-2020 00:49, Septal infarct is now Present ST no longer depressed in Anterior leads Referred By: Heather Lopez Electronically Signed By:JANELLE HOFFMAN
--- NOTE | 2021-10-11 16:34 | ED_ITS ---
HPI - Chest Pain General Chief Complaint: Dyspnea Stated Complaint: ANXIETY Time Seen by Provider: 10/11/21 15:58 Source: patient and EMS Mode of arrival: EMS Limitations: language barrier History of Present Illness HPI narrative: 65-year-old male presents via EMS for shortness of breath and chest pain. Has a history of COPD on 2 L of O2, lung and liver Ca, CHF, GERD, end-stage renal disease on dialysis Wednesday and Wednesday. Patient states that he is tired, has chest pain on inspiration, has a cough, and feels fatigued. MD complaint: chest pain and chest heaviness Pertinent past history: other (COPD, lung CA, liver CA) Onset (ago): day(s) (3) Timing of current episode: constant Prior episodes: Yes Pain location: substernal Pain radiation: none Severity: moderate Quality: tightness and heaviness Relieving factors: nothing Exacerbating factors: exertion, inspiration, palpation and movement Associated symptoms: cough Treatment prior to arrival: none Risk Factors Coronary artery disease risk factors: diabetes, hyperlipidemia and hypertension Pulmonary embolism risk factors: malignancy Related Data Home Medications Medication Instructions Recorded Confirmed lidocaine-prilocaine 2.5 %-2.5 % 1 appl TOPICAL DAILY PRN 07/30/20 10/11/21 topical cream sevelamer carbonate 800 mg tablet 2,400 mg PO TIDWM 07/30/20 10/11/21 alprazolam 0.5 mg tablet 1 tab PO TID PRN 10/11/21 10/11/21 simethicone 125 mg capsule (Gas 125 mg PO QID PRN 10/11/21 10/11/21 Relief (simethicone)) Previous Rx's Medication Instructions Recorded ergocalciferol (vitamin D2) 1,250 1,250 mcg PO Q15D 90 Days #6 cap 05/01/21 mcg (50,000 unit) capsule (Vitamin D2) metoclopramide HCl 5 mg tablet 5 mg PO TID 30 Days #90 tab 05/09/21 (Reglan) aspirin 81 mg tablet,delayed 81 mg PO DAILY #90 tab 05/29/21 release fluticasone 250 mcg-salmeterol 50 1 inh INHALATION BID 30 Days #60 ea 05/31/21 mcg/dose blistr powdr for inhalation (Wixela Inhub) docusate sodium 100 mg capsule 100 mg PO BID PRN 30 Days #60 cap 07/07/21 atorvastatin 40 mg tablet 40 mg PO DAILY #90 tab 07/15/21 midodrine 5 mg tablet 5 mg PO TID 30 Days #90 tab 07/23/21 mirtazapine 30 mg tablet 30 mg PO BEDTIME 90 Days #90 tab 08/27/21 multivitamin 1 tab PO DAILY 90 Days #90 tab 09/05/21 buspirone 15 mg tablet 15 mg PO TID 30 Days #90 tab 09/13/21 folic acid 1 mg tablet 1 mg PO DAILY 90 Days #90 tab 09/19/21 pantoprazole 40 mg tablet,delayed 40 mg PO DAILY 90 Days #90 tab 09/21/21 release Allergies Allergy/AdvReac Type Severity Reaction Status Date / Time No Known Allergies Allergy Verified 10/11/21 16:34 Review of Systems Review of Systems: Constitutional: Positive fatigue, No Fever, No Chills ENT/Mouth: No Ear Pain, No Hoarseness, No sore throat Eyes: No Eye Pain, No Swelling, No Redness, No Foreign Body Cardiovascular: Positive Chest Pain, positive SOB Respiratory: Positive Cough, No Dyspnea Gastrointestinal: No Nausea, No Vomiting, No Diarrhea, No abdominal Pain Genitourinary: No Dysuria, No Hematuria Musculoskeletal: positive rib pain, No Myalgias, No Joint Swelling Skin: No Skin lacerations, No rash Neuro: Positive Weakness, No Numbness, No Paresthesias, No Loss of Consciousness, No Dizziness, No Headache Psych: No Anxiety/Panic, No Depression Heme/Lymph: no easy bruising, no Lymphadenopathy Endocrine: No Polyuria, No Polydipsia Yes all other systems are reviewed and are negative FOR[facility]LY [facility] Past Medical History Attestation statement: The following information was validated with the patient. Source: old records reviewed Medical History Anxiety and depression Asthma Bicytopenia Cancer of kidney Cataract CHF (congestive heart failure) Cognitive impairment COPD (chronic obstructive pulmonary disease) ESRD (end stage renal disease) ESRD on dialysis GERD (gastroesophageal reflux disease) HTN (hypertension) Liver cancer Lung cancer Lung cancer Mild recurrent major depression Pancytopenia Surgical History History of biopsy History of bronchoscopy History of esophagogastroduodenoscopy (EGD) History of lobectomy of lung Family History Family History Mother Heart disease Diabetes Alzheimers disease Father Alcoholism Substance use disorder Son Asthma Social History Social History Household Members: Significant Other and Family Housing: Apartment Do you presently have visiting nurse or other home services: Yes Alcohol intake: former Patient Tobacco Use Status: Former Tobacco user (6 years ago) Quit Date: 6 yearas ago e-Cigarette/Vaping Use: Never Used Second Hand Smoke Exposure: No Advance Directives: No Advance Directives Information Provided: No service: No Current occupational status: disabled Physical Exam Vital Signs: Vital Signs: Last Vital Signs Temp 98.2 F 10/12/21 02:16 Pulse 96 10/12/21 02:16 Resp 19 10/12/21 02:16 BP 103/64 10/12/21 02:16 Pulse Ox 93 10/12/21 02:16 Oxygen Flow Rate 3 10/11/21 16:16 BMI result Body Mass Index 20.9 Appearance: Alert. Oriented X3. Moderate distress. Cachectic. Eyes: Pupils equal, round and reactive to light. Arcus senalis bilaterally. ENT: Pharynx normal. Dry mucous membranes. Neck: Normal inspection. Neck supple. CVS: Normal heart rate and rhythm. Apical pulse equal pulses to extremities. Respiratory: No respiratory distress. Coarse lung sounds. Abdomen: Soft and nontender. Skin: Skin warm and dry. Normal skin color. Normal skin turgor. Extremities: No lower extremity edema. Moves all extremities against resistance. Neuro: No motor deficit. No sensory deficit. Cranial nerves 2-12 intact. Course Course Course Narrative: 65-year-old male presents via EMS with shortness of breath and chest pain with fatigue and cough. Is currently on O2 2 L nasal cannula satting at 90- 93 %. Patient is alert oriented, appears ill, heart rate 90. Blood pressure is 105/61. Patient did attend dialysis Wednesday. Patient has very vague complaints. Will order labs, chest x-ray, urinalysis, troponins EKG. 18:10 labs consistent with his prior values. Chest x-ray shows pleural effus ion. 20:03 patient noted to be hypoxic at 86% on 2 L nasal cannula, patient reposition and bumped up to 4 L and is now 90% on 4 L. at this time infection is suspected. Will treat with ceftriaxone. We will not be resuscitating fluid at sepsis protocol secondary to end-stage renal disease and CHF. Patient is a dialysis patient. Will give 500 mL of normal saline at 50 mL/hr. This was discussed with attending and hospitalist. Patient will be admitted for CHF exacerbation versus pneumonia. Consultations Consultation #1: Que HOWARD - Chest Pain Differential Diagnosis Differential diagnosis: Likely unstable angina pectoris, atypical chest pain, st elevation myocardial infarction and costochondritis Differential diagnosis: Pneumonia, CHF, COPD exacerbation Medical Records Data Attestation: I reviewed the patient's medical records. Lab Data Attestation: I reviewed the patient's lab results. Result diagrams: 10/11/21 16:47 10/11/21 16:47 Labs: Lab Results 10/11/21 10/11/21 10/11/21 Range/Units 16:47 16:47 16:47 WBC 5.4 (4.8-10.8) X10*3/uL RBC 4.79 (4.60-5.80) X10*6/uL Hgb 15.0 (14.0-18.0) g/dl Hct 47.0 (42.0-52.0) % MCV 98.1 H (80.0-98.0) fL MCH 31.3 (27.0-33.0) pg MCHC 31.9 (31.0-36.0) g/dl RDW 18.0 H (11.0-16.0) % Plt Count 107 L (160-400) X10*3/uL MPV 11.3 (9.4-12.4) fL Immature Gran % (Auto) 0.4 (0.0-0.4) % Neut % (Auto) 77.9 H (45-73) % Lymph % (Auto) 9.9 L (20-40) % Terrell % (Auto) 10.4 (2-11) % Eos % (Auto) 0.7 (0-4) % Baso % (Auto) 0.7 (0-2) % Lymph # (Auto) 0.5 L (1.2-4.9) X10*3/uL Terrell # (Auto) 0.6 (0.1-1.2) X10*3/uL Eos # (Auto) 0.0 (0.0-0.4) X10*3/uL Baso # (Auto) 0.0 (0.0-0.2) X10*3/uL Abs Immat Gran (auto) 0.02 (0.00-0.03) X10*3/uL Absolute Neuts (auto) 4.2 (2.0-8.3) x10*3/uL Absolute Nucleated RBC 0.000 (0.0-0.012) X10*3/uL Nucleated RBC % (auto) 0.0 (0.0-0.2) /100WBC PT (9.9-13.0) SEC INR (0.9-1.1) APTT (24.1-38.0) SEC Sodium 136 (135-145) mmol/L Potassium 4.8 (3.3-5.1) mmol/L Chloride 97 (96-108) mmol/L Carbon Dioxide 22 (22-29) mmol/L Anion Gap 22 H (12-20) BUN 39 H (9-16) mg/dL Creatinine 6.87 H* (0.5-1.4) mg/dL Estim Creat Clear Calc 9.0 Estimated GFR 8 Random Glucose 80 D (60-115) mg/dL Lactic Acid (0.5-2.0) mmol/L Calcium 10.0 D (8.4-10.2) mg/dL Magnesium 2.4 (1.6-2.6) mg/dL Total Bilirubin 0.7 (0.0-1.0) mg/dL Direct Bilirubin 0.4 (0.0-0.5) mg/dL AST 46 H D (5-37) U/L ALT 23 (0-40) U/L Alkaline Phosphatase 374 H D (39-117) U/L Troponin I High Sens 221.0 H* (<3.5-35.0) ng/L B-Natriuretic Peptide 7291 H (<100) pg/mL Total Protein 7.7 D (6.5-8.0) g/dL Albumin 3.3 L (3.5-5.0) g/dL Lipase 37 (8-78) U/L Influenza Type A (PCR) (Negative) Influenza Type B (PCR) (Negative) RSV RNA Qual (PCR) (Negative) SARS-CoV-2 RNA (RT-PCR) (Negative) 10/11/21 10/11/21 10/11/21 Range/Units 16:48 16:48 20:27 WBC (4.8-10.8) X10*3/uL RBC (4.60-5.80) X10*6/uL Hgb (14.0-18.0) g/dl Hct (42.0-52.0) % MCV (80.0-98.0) fL MCH (27.0-33.0) pg MCHC (31.0-36.0) g/dl RDW (11.0-16.0) % Plt Count (160-400) X10*3/uL MPV (9.4-12.4) fL Immature Gran % (Auto) (0.0-0.4) % Neut % (Auto) (45-73) % Lymph % (Auto) (20-40) % Terrell % (Auto) (2-11) % Eos % (Auto) (0-4) % Baso % (Auto) (0-2) % Lymph # (Auto) (1.2-4.9) X10*3/uL Terrell # (Auto) (0.1-1.2) X10*3/uL Eos # (Auto) (0.0-0.4) X10*3/uL Baso # (Auto) (0.0-0.2) X10*3/uL Abs Immat Gran (auto) (0.00-0.03) X10*3/uL Absolute Neuts (auto) (2.0-8.3) x10*3/uL Absolute Nucleated RBC (0.0-0.012) X10*3/uL Nucleated RBC % (auto) (0.0-0.2) /100WBC PT 13.2 H (9.9-13.0) SEC INR 1.2 H (0.9-1.1) APTT 27.3 (24.1-38.0) SEC Sodium (135-145) mmol/L Potassium (3.3-5.1) mmol/L Chloride (96-108) mmol/L Carbon Dioxide (22-29) mmol/L Anion Gap (12-20) BUN (9-16) mg/dL Creatinine (0.5-1.4) mg/dL Estim Creat Clear Calc Estimated GFR Random Glucose (60-115) mg/dL Lactic Acid (0.5-2.0) mmol/L Calcium (8.4-10.2) mg/dL Magnesium (1.6-2.6) mg/dL Total Bilirubin (0.0-1.0) mg/dL Direct Bilirubin (0.0-0.5) mg/dL AST (5-37) U/L ALT (0-40) U/L Alkaline Phosphatase (39-117) U/L Troponin I High Sens 266.6 H* (<3.5-35.0) ng/L B-Natriuretic Peptide (<100) pg/mL Total Protein (6.5-8.0) g/dL Albumin (3.5-5.0) g/dL Lipase (8-78) U/L Influenza Type A (PCR) NEGATIVE (Negative) Influenza Type B (PCR) NEGATIVE (Negative) RSV RNA Qual (PCR) NEGATIVE (Negative) SARS-CoV-2 RNA (RT-PCR) NEGATIVE (Negative) 10/11/21 Range/Units 20:28 WBC (4.8-10.8) X10*3/uL RBC (4.60-5.80) X10*6/uL Hgb (14.0-18.0) g/dl Hct (42.0-52.0) % MCV (80.0-98.0) fL MCH (27.0-33.0) pg MCHC (31.0-36.0) g/dl RDW (11.0-16.0) % Plt Count (160-400) X10*3/uL MPV (9.4-12.4) fL Immature Gran % (Auto) (0.0-0.4) % Neut % (Auto) (45-73) % Lymph % (Auto) (20-40) % Terrell % (Auto) (2-11) % Eos % (Auto) (0-4) % Baso % (Auto) (0-2) % Lymph # (Auto) (1.2-4.9) X10*3/uL Terrell # (Auto) (0.1-1.2) X10*3/uL Eos # (Auto) (0.0-0.4) X10*3/uL Baso # (Auto) (0.0-0.2) X10*3/uL Abs Immat Gran (auto) (0.00-0.03) X10*3/uL Absolute Neuts (auto) (2.0-8.3) x10*3/uL Absolute Nucleated RBC (0.0-0.012) X10*3/uL Nucleated RBC % (auto) (0.0-0.2) /100WBC PT (9.9-13.0) SEC INR (0.9-1.1) APTT (24.1-38.0) SEC Sodium (135-145) mmol/L Potassium (3.3-5.1) mmol/L Chloride (96-108) mmol/L Carbon Dioxide (22-29) mmol/L Anion Gap (12-20) BUN (9-16) mg/dL Creatinine (0.5-1.4) mg/dL Estim Creat Clear Calc Estimated GFR Random Glucose (60-115) mg/dL Lactic Acid 5.1 H* (0.5-2.0) mmol/L Calcium (8.4-10.2) mg/dL Magnesium (1.6-2.6) mg/dL Total Bilirubin (0.0-1.0) mg/dL Direct Bilirubin (0.0-0.5) mg/dL AST (5-37) U/L ALT (0-40) U/L Alkaline Phosphatase (39-117) U/L Troponin I High Sens (<3.5-35.0) ng/L B-Natriuretic Peptide (<100) pg/mL Total Protein (6.5-8.0) g/dL Albumin (3.5-5.0) g/dL Lipase (8-78) U/L Influenza Type A (PCR) (Negative) Influenza Type B (PCR) (Negative) RSV RNA Qual (PCR) (Negative) SARS-CoV-2 RNA (RT-PCR) (Negative) Imaging Data Chest x-ray: Attestation: I personally reviewed and interpreted this imaging study as follows: Radiologist's impression: EXAMINATION: XR CHEST CLINICAL INFORMATION: Cough. COMPARISON: Chest done on 02/13/2021. TECHNIQUE: Frontal view of the chest was obtained. FINDINGS: Low lung volume is present bilaterally. Postsurgical changes are noted around the right hilum, unchanged. Few nodular opacities are noted at right upper lung field laterally, new since prior study. Previously documented right-sided Port-A-Cath is no longer visualized. Persistent dense left perihilar and left lower lobar airspace disease is noted. Small left-sided pleural effusion is noted, new since prior study. The heart size is within normal limits. XR/XR chest 1V IMPRESSION: Abnormal chest radiograph showing evidence of low lung volume and nonspecific bibasilar and left perihilar airspace disease, and small left-sided pleural effusion and indeterminate right upper lobar lung nodules. ECG Data ECG #1: Attestation: I personally reviewed and interpreted this ECG as follows: ECG interpretation date: 10/11/21 ECG interpretation time: 16:26 Prior ECG tracings: available for review Interpretation: Vent. rate 97 BPM MD interval 160 ms QRS duration 116 ms QT/QTc 388/492 ms P-R-T axes 33 140 71 Normal sinus rhythm Left atrial enlargement Right axis deviation Septal infarct , age undetermined Abnormal ECG When compared with ECG of 31-JUL-2020 00:49, Septal infarct is now Present ST no longer depressed in Anterior leads Critical Care Time Critical Care Time Critical Care Time: Yes Total Critical Care Time: 45 Attestation: I have personally provided critical care time exclusive of time spent on separately billable procedures. Time includes review of laboratory data, radi ology results, discussion with consultants, and monitoring for potential decompensation. Interventions were performed as documented. Discharge Plan Discharge Clinical Impression: COPD (chronic obstructive pulmonary disease), Hypoxia Patient Disposition: Admitted As Inpatient
[2021-10-11 16:52] LABS: MANUAL DIFF FLAG NO
[2021-10-11 16:59] LABS: Basophils Percent Auto 0.7 % (0-2); Eosinophils Percent Auto 0.7 % (0-4); Imm Gran Abs Auto 0.02 X10*3/uL (0.00-0.03); Imm Gran Pct Auto 0.4 % (0.0-0.4); Lymphocytes Absolute Auto 0.5 X10*3/uL (1.2-4.9); Lymphocytes Percent Auto 9.9 % (20-40); Mean Corpuscular HGB Conc 31.9 g/dl (31.0-36.0); Mean Corpuscular Hemoglobin 31.3 pg (27.0-33.0); Mean Corpuscular Volume 98.1 fL (80.0-98.0); Mean Platelet Volume 11.3 fL (9.4-12.4); Monocytes Absolute Auto 0.6 X10*3/uL (0.1-1.2); Monocytes Percent Auto 10.4 % (2-11); Neutrophils Absolute Auto 4.2 x10*3/uL (2.0-8.3); Neutrophils Percent Auto 77.9 % (45-73); Platelet Count 107 X10*3/uL (160-400); Red Blood Count 4.79 X10*6/uL (4.60-5.80); White Blood Count 5.4 X10*3/uL (4.8-10.8)
[2021-10-11 17:03] LABS: Partial Thromboplastin Time 27.3 SEC (24.1-38.0)
[2021-10-11 17:15] LABS: Alanine Aminotransferase 23 U/L (0-40); Albumin Level 3.3 g/dL (3.5-5.0); Alkaline Phosphatase 374 U/L (39-117); Anion Gap 22 (12-20); Aspartate Amino Transferase 46 U/L (5-37); Bilirubin Direct 0.4 mg/dL (0.0-0.5); Bilirubin Total 0.7 mg/dL (0.0-1.0); Blood Urea Nitrogen 39 mg/dL (9-16); Carbon Dioxide 22 mmol/L (22-29); Chloride 97 mmol/L (96-108); Estimated Glomerular Filt Rate 8; Glucose Random 80 mg/dL (60-115); Lipase 37 U/L (8-78); Magnesium 2.4 mg/dL (1.6-2.6); Potassium 4.8 mmol/L (3.3-5.1); Sodium 136 mmol/L (135-145); Total Protein 7.7 g/dL (6.5-8.0)
[2021-10-11 17:35] LABS: B Type Natriuretic Peptide 7291 pg/mL (<100)
[2021-10-11 18:06] LABS: Influenza A PCR NEGATIVE (Negative); Influenza B PCR NEGATIVE (Negative); Resp Syncy Virus RNA Qual PCR NEGATIVE (Negative); SARS COV2 PCR INHOUSE NEGATIVE (Negative)
[2021-10-11] MEDS: cefTRIAXone sodium 1 GM in 0.9 % Sodium Chloride 50 ML IV (20:30)
[2021-10-11 21:22] LABS: Lactic Acid 5.1 mmol/L (0.5-2.0)
[2021-10-11 21:22] LABS: Troponin-I High Sensitivity 266.6 ng/L (<3.5-35.0)
--- NOTE | 2021-10-11 21:34 | PHA.MEDREC ---
Addendum entered by Charu Hughes [facility] 10/12/21 11:44: Spoke to patients daughter today who had medications bottles with her. She does not know when the patient takes his vitamin d and he also does not have any left. Per daughter patient is no longer on carvediolol Original Note: Pharmacy Consult ? Medication Reconciliation Pharmacy has completed the medication reconciliation. SPOKE WITH PT USING [employer] WHO SAID TO CALL HIS DAUGHTER BECAUSE SHE HANDLES HIS MEDICATIONS. I CALLED REID HIS DAUGHTER WHO WASN'T VERY CLEAR ON HER ANSWERS WHETHER HE WAS STILL TAKING SOME MEDICATIONS THAT HAVEN'T BEEN FILLED RECENTLY, SHE REQUESTED I CALL BACK TOMORROW AND HUNG UP.
--- NOTE | 2021-10-11 22:14 | PM.IMHP ---
History of Present Illness Date of Service: 10/11/21 Chief Complaint: Cough and shortness of breath 65-year-old male with a past history of hypertension, hyperlipidemia, COPD on 2 L of home oxygen, history of liver cancer, anxiety, depression, ESRD on hemodialysis presented to the hospital today with a chief complaint of shortness of breath. Patient reports that over the past 1 week he has been having cough and shortness of breath with occasional brownish sputum production. also complains of subjective fevers. Reports that his shortness of breath has been gradually worsening and he could not take it anymore hence decided to come to the ER for further evaluation. Patient does report posttussive chest discomfort. Denies any lightheadedness or dizziness. Reports he is on a hemodialysis. Denies any numbness tingling or focal weakness. Denies any GI symptoms. Review of all other systems is negative except mentioned above ER course: Per ER team patient noted of coarse breath sounds; occasional expiratory wheezes; patient was noted to be saturating 88% on his baseline 2 L of home oxygen; oxygen supplementation was increased to 4 L panic: Oxygenation improved to 93%; chest x-ray showed findings concerning for possible pneumonia and small pleural effusion. Given antibiotics. Admitted to the hospital for further management. FORMERLY [facility] Medical History Anxiety and depression Asthma Bicytopenia Cancer of kidney Cataract CHF (congestive heart failure) Cognitive impairment COPD (chronic obstructive pulmonary disease) ESRD (end stage renal disease) ESRD on dialysis GERD (gastroesophageal reflux disease) HTN (hypertension) Liver cancer Lung cancer Lung cancer Mild recurrent major depression Pancytopenia Family History Mother Heart disease Diabetes Alzheimers disease Father Alcoholism Substance use disorder Son Asthma Surgical History History of biopsy History of bronchoscopy History of esophagogastroduodenoscopy (EGD) History of lobectomy of lung Social History Household Members: Family Housing: Apartment Do you presently have visiting nurse or other home services: Yes Alcohol intake: former Patient Tobacco Use Status: Former Tobacco user Quit Date: 6 yearas ago e-Cigarette/Vaping Use: Never Used Second Hand Smoke Exposure: No service: No Current occupational status: disabled Meds Allergies Allergy/AdvReac Type Severity Reaction Status Date / Time No Known Allergies Allergy Verified 10/11/21 16:34 Active Medications: Current Medications Acetaminophen (Acetaminophen 325 Mg Tablet) 650 mg PO Q6H PRN PRN Reason: Pain, Mild (Pain Scale 1-3) Albuterol/Ipratropium (Albuterol/Iprat 2.5/0.5mg 3 Ml Ampul.Neb) 3 ml INHALE Q4H PRN PRN Reason: Shortness of Breath/Wheezing Alprazolam (Alprazolam 0.5 Mg Tablet) 0.5 mg PO TID PRN PRN Reason: anxiety Aspirin (Aspirin Enteric Coated 81 Mg Tablet.Dr) 81 mg PO DAILY PENDING SALE TO [facility] Atorvastatin Calcium (Atorvastatin Calcium 40 Mg Tablet) 40 mg PO DAILY PENDING SALE TO [facility] Buspirone HCl (Buspirone Hcl 5 Mg Tablet) 15 mg PO TID PENDING SALE TO [facility] Docusate Sodium (Docusate Sodium 100 Mg Capsule) 100 mg PO BID PRN PRN Reason: constipation Doxycycline Hyclate (Doxycycline Hyclate 100 Mg Tablet) 100 mg PO Q12H PENDING SALE TO [facility] Ergocalciferol (Ergocalciferol (Vitamin D2) 1,250 Mcg Capsule) 1,250 mcg PO Q15D PENDING SALE TO [facility] Folic Acid (Folic Acid 1 Mg Tablet) 1 mg PO DAILY PENDING SALE TO [facility] Heparin Sodium (Porcine) (Heparin Sodium,Porcine 5,000 Unit/Ml Vial) 5,000 unit SUBCUT Q8H PENDING SALE TO [facility] Ceftriaxone Sodium 1 gm/ (Sodium Chloride) 50 mls @ 100 mls/hr IV Q24H PENDING SALE TO [facility] Sodium Chloride (Ns) 1,000 mls @ 50 mls/hr IVCONT .Q20H PENDING SALE TO [facility] Melatonin (Melatonin 3 Mg Tablet) 6 mg PO BEDTIME PRN PRN Reason: Insomnia Metoclopramide HCl (Metoclopramide Hcl 5 Mg Tablet) 5 mg PO TID ARTHRU Midodrine (Midodrine Hcl 5 Mg Tablet) 5 mg PO TID ARTHUR Mirtazapine (Mirtazapine 30 Mg Tablet) 30 mg PO BEDTIME PENDING SALE TO [facility] Multivitamins/Vitamin C (Multivitamin Tablet) 1 tab PO DAILY PENDING SALE TO [facility] Non-Formulary Medication (Pantoprazole) 40 mg PO DAILY PENDING SALE TO [facility] Senna (Sennosides 8.6 Mg Tablet) 17.2 mg PO BEDTIME PRN PRN Reason: Constipation Sevelamer Carbonate (Sevelamer Carbonate Tablet 800 Mg Tablet) 2,400 mg PO TIDWM ARTHUR Sodium Chloride (0.9 % Sodium Chloride Flush 3 Ml Syringe) 3 ml IVFLUSH QSHIFT ARTHUR Physical Exam Vital Signs and Narrative: Vital Signs: Last Vital Signs Temp 98 F 10/11/21 16:16 Pulse 90 10/11/21 16:16 Resp 19 10/11/21 16:16 BP 105/61 10/11/21 16:16 Pulse Ox 96 10/11/21 16:16 Oxygen Flow Rate 3 10/11/21 16:16 BMI result Body Mass Index 20.9 Gen: Appears be in no acute distress HEENT: NCAT, Moist mucosa. Pulmonary: Coarse breath sounds, occasional expiratory wheezing noted. Patient on supplemental oxygen. Speaks in full sentences. CVS: Normal S1-S2 Abdomen: BS+, Soft, Nontender Extremities: Warm well perfused Neuro: Alert and awake. Results Labs CBC and Chem 7: 10/18/21 06:36 10/18/21 06:36 Labs: Laboratory Results - last 24 hr 10/11/21 10/11/21 10/11/21 16:47 16:47 16:47 MCV 98.1 H MCH 31.3 MCHC 31.9 RDW 18.0 H Plt Count 107 L MPV 11.3 Immature Gran % (Auto) 0.4 Neut % (Auto) 77.9 H Lymph % (Auto) 9.9 L [place] % (Auto) 10.4 Eos % (Auto) 0.7 Baso % (Auto) 0.7 Lymph # (Auto) 0.5 L [place] # (Auto) 0.6 Eos # (Auto) 0.0 Baso # (Auto) 0.0 Abs Immat Gran (auto) 0.02 Absolute Neuts (auto) 4.2 Absolute Nucleated RBC 0.000 Nucleated RBC % (auto) 0.0 APTT Anion Gap 22 H Estim Creat Clear Calc 9.0 Estimated GFR 8 Random Glucose 80 D Lactic Acid Calcium 10.0 D Magnesium 2.4 Total Bilirubin 0.7 Direct Bilirubin 0.4 AST 46 H D ALT 23 Alkaline Phosphatase 374 H D Troponin I High Sens 221.0 H* B-Natriuretic Peptide 7291 H Total Protein 7.7 D Albumin 3.3 L Lipase 37 Influenza Type A (PCR) Influenza Type B (PCR) RSV RNA Qual (PCR) SARS-CoV-2 RNA (RT-PCR) 10/11/21 10/11/21 10/11/21 16:48 16:48 20:27 MCV MCH MCHC RDW Plt Count MPV Immature Gran % (Auto) Neut % (Auto) Lymph % (Auto) [place] % (Auto) Eos % (Auto) Baso % (Auto) Lymph # (Auto) [place] # (Auto) Eos # (Auto) Baso # (Auto) Abs Immat Gran (auto) Absolute Neuts (auto) Absolute Nucleated RBC Nucleated RBC % (auto) APTT 27.3 Anion Gap Estim Creat Clear Calc Estimated GFR Random Glucose Lactic Acid Calcium Magnesium Total Bilirubin Direct Bilirubin AST ALT Alkaline Phosphatase Troponin I High Sens 266.6 H* B-Natriuretic Peptide Total Protein Albumin Lipase Influenza Type A (PCR) NEGATIVE Influenza Type B (PCR) NEGATIVE RSV RNA Qual (PCR) NEGATIVE SARS-CoV-2 RNA (RT-PCR) NEGATIVE 10/11/21 20:28 MCV MCH MCHC RDW Plt Count MPV Immature Gran % (Auto) Neut % (Auto) Lymph % (Auto) [place] % (Auto) Eos % (Auto) Baso % (Auto) Lymph # (Auto) [place] # (Auto) Eos # (Auto) Baso # (Auto) Abs Immat Gran (auto) Absolute Neuts (auto) Absolute Nucleated RBC Nucleated RBC % (auto) APTT Anion Gap Estim Creat Clear Calc Estimated GFR Random Glucose Lactic Acid 5.1 H* Calcium Magnesium Total Bilirubin Direct Bilirubin AST ALT Alkaline Phosphatase Troponin I High Sens B-Natriuretic Peptide Total Protein Albumin Lipase Influenza Type A (PCR) Influenza Type B (PCR) RSV RNA Qual (PCR) SARS-CoV-2 RNA (RT-PCR) Imaging Radiologist's Impressions: Impressions Chest X-Ray 10/11/21 16:30 IMPRESSION: Abnormal chest radiograph showing evidence of low lung volume and nonspecific bibasilar and left perihilar airspace disease, and small left-sided pleural effusion and indeterminate right upper lobar lung nodules. Assessment and Plan (1) PNA (pneumonia): Status: Acute Plan 65-year-old male with a past history of hypertension, hyperlipidemia, COPD on 2 L of home oxygen, history of liver cancer, anxiety, depression, ESRD on hemodialysis presented to the hospital today with a chief complaint of shortness of breath. Noted to have following conditions Hypoxia: Likely in the setting of pneumonia/ COPD. Pneumonia: Continue IV ceftriaxone and doxycycline. Follow-up cultures. COPD: Patient has occasional expiratory wheezes. DuoNebs p.r.n.. Continue supplemental oxygen. lactic acidosis: Patient being given gentle IV fluids. Monitor for signs of fluid overload. History of ESRD: Patient on hemodialysis. Nephrology consult. Continue home sevelamer, Midodrine history of anxiety/ depression: Continue home aspirin, alprazolam, mirtazapine DVT prophylaxis: Subcu heparin Code status: Full code Quality Stroke Does the patient have a stroke diagnosis?: No VTE Prior VTE?: No VTE Risk Level:: Medical - moderate - high VTE Device Contraindication: Treatment Not Indicated VTE Drug Contraindication: N/A - Med Ordered
[2021-10-11 22:32] LABS: Reflex Lactate? Lactic Acid Added
[2021-10-11] MEDS: 0.9 % Sodium Chloride 1,000 ML 50 ML IVCONT (22:34)
[2021-10-11] MEDS: Heparin Sodium,Porcine 5,000 UNIT/ML VIAL 5000 UNIT SUBCUT (22:38)
--- NOTE | 2021-10-11 23:47 | PC.NURSE ---
This RN contacting MD regarding orders for BCX as ABX were already given by Stella CARMONA. Per Hospitalist, to obtain BCX as ordered.
[2021-10-11 23:58] LABS: ~Lactic Acid-LAB USE ONLY 5.6 mmol/L (0.5-2.0)
--- NOTE | 2021-10-12 00:06 | PC.NURSE ---
pt a dialysis patient, states he does not produce urine
[2021-10-12 00:10] VITALS: BP 89/57; PULSE 91; RESP 17; TEMP 36.3; O2SAT 95
--- NOTE | 2021-10-12 00:13 | PC.NURSE ---
RN aware of pt blood pressure of 89/57. undertaker helper made aware of no patient vitals since 1600
[2021-10-12 00:43] LABS: INTERNATIONAL NORM RATIO 1.2 (0.9-1.1); Prothrombin Time 13.2 SEC (9.9-13.0)
[2021-10-12] MEDS: 0.9 % Sodium Chloride 500 ML 50 ML IV (01:26)
[2021-10-12 01:28] VITALS: BP 94/60; PULSE 95; RESP 13; O2SAT 95
[2021-10-12 01:35] LABS: Reflex Lactate? 2 Y
[2021-10-12 02:16] VITALS: BP 103/64; PULSE 96; RESP 19; TEMP 36.8; O2SAT 93
[2021-10-12 02:45] LABS: ~Lactic Acid-LAB USE ONLY 3.5 mmol/L (0.5-2.0)
[2021-10-12] MEDS: Heparin Sodium,Porcine 5,000 UNIT/ML VIAL 5000 UNIT SUBCUT ×3 (05:56→23:03)
[2021-10-12 07:23] VITALS: BP 103/64; PULSE 90; RESP 18; TEMP 36.4; O2SAT 91
[2021-10-12 07:36] LABS: Anion Gap 23 (12-20); Blood Urea Nitrogen 44 mg/dL (9-16); Calcium 10.1 mg/dL (8.4-10.2); Carbon Dioxide 23 mmol/L (22-29); Chloride 97 mmol/L (96-108); Creatinine Clr Calc Pharmacy 8.3; Estimated Glomerular Filt Rate 7; Glucose Random 72 mg/dL (60-115); Potassium 4.7 mmol/L (3.3-5.1); Sodium 138 mmol/L (135-145)
[2021-10-12 07:54] LABS: Basophils Percent Auto 0.5 % (0-2); Eosinophils Percent Auto 0.3 % (0-4); Lymphocytes Percent Auto 6.6 % (20-40); Mean Corpuscular HGB Conc 31.8 g/dl (31.0-36.0); Mean Corpuscular Hemoglobin 30.7 pg (27.0-33.0); NRBC Pct Auto 0.3 /100WBC (0.0-0.2); PLT CLUMP 1; SCAN SMEAR FLAG 1
[2021-10-12 07:56] LABS: Hemoglobin 14.3 g/dl (14.0-18.0); Imm Gran Abs Auto 0.02 X10*3/uL (0.00-0.03); Imm Gran Pct Auto 0.3 % (0.0-0.4); Lymphocytes Absolute Auto 0.4 X10*3/uL (1.2-4.9); Mean Corpuscular Volume 96.6 fL (80.0-98.0); Mean Platelet Volume 10.9 fL (9.4-12.4); Monocytes Absolute Auto 0.9 X10*3/uL (0.1-1.2); Monocytes Percent Auto 14.9 % (2-11); Neutrophils Absolute Auto 4.6 x10*3/uL (2.0-8.3); Neutrophils Percent Auto 77.4 % (45-73); Red Blood Count 4.66 X10*6/uL (4.60-5.80); Red Cell Distribution Width 17.7 % (11.0-16.0)
[2021-10-12 08:03] LABS: Platelet Count 100 X10*3/uL (160-400); White Blood Count 5.9 X10*3/uL (4.8-10.8)
[2021-10-12 08:04] LABS: MANUAL DIFF FLAG NO
[2021-10-12] MEDS: Atorvastatin Calcium 40 MG TABLET PO (08:08)
[2021-10-12] MEDS: Aspirin Enteric Coated 81 MG TABLET.DR PO (08:08)
[2021-10-12] MEDS: busPIRone HCl 5 MG TABLET 15 MG PO ×3 (08:08→23:03)
[2021-10-12] MEDS: Sevelamer Carbonate Tablet 800 MG TABLET 2400 MG PO ×3 (08:08→16:57)
[2021-10-12] MEDS: Midodrine HCl 5 MG TABLET PO ×2 (08:09→11:19)
[2021-10-12] MEDS: Metoclopramide HCl 5 MG TABLET PO ×3 (08:09→23:03)
[2021-10-12] MEDS: 0.9 % Sodium Chloride Flush 3 ML SYRINGE IVFLUSH ×3 (08:09→21:11)
[2021-10-12] MEDS: Multivitamin TABLET 1 TAB PO (08:09)
[2021-10-12] MEDS: Omeprazole 20 MG CAPSULE.DR PO (08:09)
--- NOTE | 2021-10-12 08:11 | PC.NURSE ---
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
[2021-10-12] MEDS: Folic Acid 1 MG TABLET PO (08:18)
--- NOTE | 2021-10-12 10:32 | MHC.CM.PN ---
Patient has a diagnosis of Alzheimers Dementia; CM spoke with Daughter/HCP/[place] @ [phone] and addressed IMM with her (original will be mailed certified letter to her and a copy placed on the chart). Patient lives in an apartment with his Daughter and 3 Grandchildren at [address] [place] [address] in [place], [address]. Patient receives [facility] RN and [employer] (34 hours/week), HD @ [facility] M/W/F and home O2 from [facility]; home resume said services is the goal and CM has initiated and will follow for dc planning. Patient has been at [facility] in the past, but would not want to return. PCP is DR. Cherrie Cooper and Patient received Covid vax X3.
[2021-10-12 11:44] VITALS: BP 99/59; PULSE 88; RESP 17; TEMP 36.9; O2SAT 91
--- NOTE | 2021-10-12 12:23 | PM.EVENT ---
Event Note Date of Service: 10/12/21 Event Note: Pt see and examined D/w the medical team Full consult dictated ESRD on HD- Will arrange HD in AM Thx Dr. Amanda
--- NOTE | 2021-10-12 12:24 | PC.NURSE ---
patient a&ox3, vss- bp a little soft, pt has no c/o pain or discomfort, nsr on panel monitor, oob to bedside commode, will continue to monitor.
--- NOTE | 2021-10-12 13:11 | P.PNIM_ITS ---
Subjective Subjective Date of Service: 10/12/21 Interval History: seen and evaluated, feels tired and has no energy Reported feeling short of breath no reported overnight events Review of Systems No fever, chills but reporting increased generalized weakness No chest pain, palpitation having shortness of breath and coughing No abdominal pain, nausea or vomiting No urinary symptoms No any rash or wounds Physical Exam Vital Signs: Vital Signs: Last Vital Signs Temp 98.5 F 10/12/21 11:44 Pulse 88 10/12/21 11:44 Resp 17 10/12/21 11:44 BP 99/59 L 10/12/21 11:44 Pulse Ox 91 L 10/12/21 11:44 Oxygen Flow Rate 3 10/11/21 16:16 BMI result Body Mass Index 20.9 Const: Other: Constitutional : Alert, interactive blood looks weak, not in distress Neck : Normal inspection, Supple Cardiovascular : RRR, no JVP, no lower extremity edema Respiratory : decreased bilateral air entry, basal fine left-sided crackles, expiratory scattered wheezes Gastrointestinal: soft, lax, Normal bowel sounds, Non tender Skin : Warm, Dry Neurological : Alert & oriented to self and place, No focal deficit Objective Data Active Medications Acetaminophen (Acetaminophen 325 Mg Tablet) 650 mg PO Q6H PRN PRN Reason: Pain, Mild (Pain Scale 1-3) Albuterol/Ipratropium (Albuterol/Iprat 2.5/0.5mg 3 Ml Ampul.Neb) 3 ml INHALE Q4H PRN PRN Reason: Shortness of Breath/Wheezing Alprazolam (Alprazolam 0.5 Mg Tablet) 0.5 mg PO TID PRN PRN Reason: anxiety Aspirin (Aspirin Enteric Coated 81 Mg Tablet.) 81 mg PO DAILY [facility] Last Admin: 10/12/21 08:08 Dose: 81 mg Documented by: CINDY Atorvastatin Calcium (Atorvastatin Calcium 40 Mg Tablet) 40 mg PO DAILY [facility] Last Admin: 10/12/21 08:08 Dose: 40 mg Documented by: CINDY Buspirone HCl (Buspirone Hcl 5 Mg Tablet) 15 mg PO TID [facility] Last Admin: 10/12/21 08:08 Dose: 15 mg Documented by: CINDY Docusate Sodium (Docusate Sodium 100 Mg Capsule) 100 mg PO BID PRN PRN Reason: constipation Doxycycline Hyclate (Doxycycline Hyclate 100 Mg Tablet) 100 mg PO Q12H [facility] Last Admin: 10/12/21 11:19 Dose: 100 mg Documented by: CINDY Ergocalciferol (Ergocalciferol (Vitamin D2) 1,250 Mcg Capsule) 1,250 mcg PO Q15D [facility] Folic Acid (Folic Acid 1 Mg Tablet) 1 mg PO DAILY [facility] Last Admin: 10/12/21 08:18 Dose: 1 mg Documented by: CINDY Heparin Sodium (Porcine) (Heparin Sodium,Porcine 5,000 Unit/Ml Vial) 5,000 unit SUBCUT Q8H [facility] Last Admin: 10/12/21 05:56 Dose: 5,000 unit Documented by: CASTILHeather Ceftriaxone Sodium 1 gm/ (Sodium Chloride) 50 mls @ 100 mls/hr IV Q24H [facility] Melatonin (Melatonin 3 Mg Tablet) 6 mg PO BEDTIME PRN PRN Reason: Insomnia Metoclopramide HCl (Metoclopramide Hcl 5 Mg Tablet) 5 mg PO TID [facility] Last Admin: 10/12/21 08:09 Dose: 5 mg Documented by: CINDY Midodrine (Midodrine Hcl 5 Mg Tablet) 5 mg PO TIDWM [facility] Last Admin: 10/12/21 11:19 Dose: 5 mg Documented by: CINDY Mirtazapine (Mirtazapine 30 Mg Tablet) 30 mg PO BEDTIME [facility] Multivitamins/Vitamin C (Multivitamin Tablet) 1 tab PO DAILY [facility] Last Admin: 10/12/21 08:09 Dose: 1 tab Documented by: CINDY Omeprazole (Omeprazole 20 Mg Capsule.Dr) 20 mg PO DAILY [facility] Last Admin: 10/12/21 08:09 Dose: 20 mg Documented by: CINDY Senna (Sennosides 8.6 Mg Tablet) 17.2 mg PO BEDTIME PRN PRN Reason: Constipation Sevelamer Carbonate (Sevelamer Carbonate Tablet 800 Mg Tablet) 2,400 mg PO TIDWM [facility] Last Admin: 10/12/21 11:19 Dose: 2,400 mg Documented by: CINDY Sodium Chloride (0.9 % Sodium Chloride Flush 3 Ml Syringe) 3 ml IVFLUSH QSHIFT [facility] Last Admin: 10/12/21 08:09 Dose: 3 ml Documented by: CINDY Labs CBC & Chem 7: 10/12/21 07:14 10/12/21 06:20 Labs: Laboratory Results - last 24 hr 10/11/21 10/11/21 10/11/21 16:47 16:47 16:47 MCV 98.1 H MCH 31.3 MCHC 31.9 RDW 18.0 H Plt Count 107 L MPV 11.3 Immature Gran % (Auto) 0.4 Neut % (Auto) 77.9 H Lymph % (Auto) 9.9 L [place] % (Auto) 10.4 Eos % (Auto) 0.7 Baso % (Auto) 0.7 Lymph # (Auto) 0.5 L [place] # (Auto) 0.6 Eos # (Auto) 0.0 Baso # (Auto) 0.0 Abs Immat Gran (auto) 0.02 Absolute Neuts (auto) 4.2 Absolute Nucleated RBC 0.000 Nucleated RBC % (auto) 0.0 PT INR APTT Anion Gap 22 H Estim Creat Clear Calc 9.0 Estimated GFR 8 Random Glucose 80 D Lactic Acid Lactic Acid F/U @ 2Hr Lactic Acid F/U @ 4Hr Calcium 10.0 D Magnesium 2.4 Total Bilirubin 0.7 Direct Bilirubin 0.4 AST 46 H D ALT 23 Alkaline Phosphatase 374 H D Troponin I High Sens 221.0 H* B-Natriuretic Peptide 7291 H Total Protein 7.7 D Albumin 3.3 L Lipase 37 Influenza Type A (PCR) Influenza Type B (PCR) RSV RNA Qual (PCR) SARS-CoV-2 RNA (RT-PCR) 10/11/21 10/11/21 10/11/21 16:48 16:48 20:27 MCV MCH MCHC RDW Plt Count MPV Immature Gran % (Auto) Neut % (Auto) Lymph % (Auto) [place] % (Auto) Eos % (Auto) Baso % (Auto) Lymph # (Auto) [place] # (Auto) Eos # (Auto) Baso # (Auto) Abs Immat Gran (auto) Absolute Neuts (auto) Absolute Nucleated RBC Nucleated RBC % (auto) PT 13.2 H INR 1.2 H APTT 27.3 Anion Gap Estim Creat Clear Calc Estimated GFR Random Glucose Lactic Acid Lactic Acid F/U @ 2Hr Lactic Acid F/U @ 4Hr Calcium Magnesium Total Bilirubin Direct Bilirubin AST ALT Alkaline Phosphatase Troponin I High Sens 266.6 H* B-Natriuretic Peptide Total Protein Albumin Lipase Influenza Type A (PCR) NEGATIVE Influenza Type B (PCR) NEGATIVE RSV RNA Qual (PCR) NEGATIVE SARS-CoV-2 RNA (RT-PCR) NEGATIVE 10/11/21 10/11/21 10/12/21 20:28 23:32 02:15 MCV MCH MCHC RDW Plt Count MPV Immature Gran % (Auto) Neut % (Auto) Lymph % (Auto) [place] % (Auto) Eos % (Auto) Baso % (Auto) Lymph # (Auto) [place] # (Auto) Eos # (Auto) Baso # (Auto) Abs Immat Gran (auto) Absolute Neuts (auto) Absolute Nucleated RBC Nucleated RBC % (auto) PT INR APTT Anion Gap Estim Creat Clear Calc Estimated GFR Random Glucose Lactic Acid 5.1 H* Lactic Acid F/U @ 2Hr 5.6 H* Lactic Acid F/U @ 4Hr 3.5 H* Calcium Magnesium Total Bilirubin Direct Bilirubin AST ALT Alkaline Phosphatase Troponin I High Sens B-Natriuretic Peptide Total Protein Albumin Lipase Influenza Type A (PCR) Influenza Type B (PCR) RSV RNA Qual (PCR) SARS-CoV-2 RNA (RT-PCR) 10/12/21 10/12/21 06:20 07:14 MCV 96.6 MCH 30.7 MCHC 31.8 RDW 17.7 H Plt Count 100 L MPV 10.9 Immature Gran % (Auto) 0.3 Neut % (Auto) 77.4 H Lymph % (Auto) 6.6 L [place] % (Auto) 14.9 H Eos % (Auto) 0.3 Baso % (Auto) 0.5 Lymph # (Auto) 0.4 L [place] # (Auto) 0.9 Eos # (Auto) 0.0 Baso # (Auto) 0.0 Abs Immat Gran (auto) 0.02 Absolute Neuts (auto) 4.6 Absolute Nucleated RBC 0.020 H Nucleated RBC % (auto) 0.3 H PT INR APTT Anion Gap 23 H Estim Creat Clear Calc 8.3 Estimated GFR 7 Random Glucose 72 Lactic Acid Lactic Acid F/U @ 2Hr Lactic Acid F/U @ 4Hr Calcium 10.1 Magnesium Total Bilirubin Direct Bilirubin AST ALT Alkaline Phosphatase Troponin I High Sens B-Natriuretic Peptide Total Protein Albumin Lipase Influenza Type A (PCR) Influenza Type B (PCR) RSV RNA Qual (PCR) SARS-CoV-2 RNA (RT-PCR) Assessment and Plan (1) Acute and chronic respiratory failure with hypoxia: Status: Acute (2) Pneumonia: Status: Acute (3) Lung cancer: Status: Acute (4) ESRD (end stage renal disease): Status: Acute Plan ?65-year-old male with a past history of hypertension, hyperlipidemia, COPD on 2 L of home oxygen, history of liver cancer, anxiety, depression, ESRD on hemodialysis presented to the hospital today with a chief complaint of shortness of breath.? ? Noted to have following conditions acute on chronic hypoxic respiratory failure Secondary to left lower lobe pneumonia. pending cultures Continue IV ceftriaxone and doxycycline Wean oxygen down as tolerated to baseline of 2 L COPD Not exacerbation DuoNebs p.r.n ?lactic acidosis secondary to liver disease likely, Not a result of of sepsis DC IV fluids metastatic lung cancer Liver Mets Patient on palliative care per most recent notes from primary physician To get nutrition evaluation Physical deconditioning get physical therapy evaluation History of ESRD Nephrology consult Continue home sevelamer,? ? Midodrine ?history of anxiety/ depression Continue home escitalopram, alprazolam, mirtazapine ?DVT prophylaxis:? Subcu heparin Code status:? Full code Quality Stroke Does the patient have a stroke diagnosis?: No VTE Prior VTE?: No VTE Risk Level:: Medical - moderate - high VTE Device Contraindication: Treatment Not Indicated VTE Drug Contraindication: N/A - Med Ordered
[2021-10-12 15:21] VITALS: BP 110/69; PULSE 90; RESP 20; TEMP 36.1; O2SAT 94
[2021-10-12] MEDS: Midodrine HCl 10 MG TABLET PO (16:57)
[2021-10-12] MEDS: cefTRIAXone sodium 1 GM in 0.9 % Sodium Chloride 50 ML IV (21:09)
[2021-10-12] MEDS: Escitalopram Oxalate 5 MG TABLET PO (23:03)
[2021-10-12] MEDS: Mirtazapine 15 MG TABLET 30 MG PO (23:03)
[2021-10-12] MEDS: ALPRAZolam 0.5 MG TABLET PO (23:03)
[2021-10-13] VITALS (10 sets, daily range): BP systolic 100–119; BP diastolic 64–74; PULSE 83–96; RESP 13–24; TEMP 36.2–36.9; O2SAT 94–100; BMI 20.9
--- NOTE | 2021-10-13 | ECG_ITS ---
Test Reason : REPEAT Blood Pressure : / mmHG Vent. Rate : 091 BPM Atrial Rate : 091 BPM P-R Int : 170 ms QRS Dur : 122 ms QT Int : 418 ms P-R-T Axes : 047 135 077 degrees QTc Int : 514 ms Normal sinus rhythm Left atrial enlargement Right axis deviation Non-specific intra-ventricular conduction delay Cannot rule out anteroseptal infarct Abnormal ECG When compared with ECG of 11-OCT-2021 16:26, No significant change was found Referred By: Norman Grey Electronically Signed By:Chace Mock
[2021-10-13 02:47] LABS: VBG Base Excess -6.4 mmol/L; VBG HCO3 18 mmol/L (22-26); VBG pCO2 32 mmHg; VBG pH 7.34 (7.32-7.43); VBG pO2 51 mmHg
[2021-10-13 02:47] LABS: Venous Blood Gas Refer to POC result
[2021-10-13 02:59] LABS: Anion Gap 29 (12-20); Blood Urea Nitrogen 57 mg/dL (9-16); Calcium 10.2 mg/dL (8.4-10.2); Carbon Dioxide 18 mmol/L (22-29); Chloride 96 mmol/L (96-108); Creatinine Clr Calc Pharmacy 7.3; Estimated Glomerular Filt Rate 6; Glucose Random 62 mg/dL (60-115); Potassium 5.2 mmol/L (3.3-5.1); Sodium 138 mmol/L (135-145)
[2021-10-13 07:40] LABS: Hematocrit 44.7 % (42.0-52.0); Hemoglobin 14.9 g/dl (14.0-18.0); Mean Corpuscular HGB Conc 33.3 g/dl (31.0-36.0); Mean Corpuscular Hemoglobin 31.4 pg (27.0-33.0); Mean Corpuscular Volume 94.1 fL (80.0-98.0); Mean Platelet Volume 11.2 fL (9.4-12.4); NRBC Pct Auto 0.6 /100WBC (0.0-0.2); Platelet Count 126 X10*3/uL (160-400); Red Blood Count 4.75 X10*6/uL (4.60-5.80); Red Cell Distribution Width 17.6 % (11.0-16.0); White Blood Count 7.1 X10*3/uL (4.8-10.8)
[2021-10-13] MEDS: Midodrine HCl 10 MG TABLET PO ×2 (07:49→17:41)
[2021-10-13] MEDS: 0.9 % Sodium Chloride Flush 3 ML SYRINGE IVFLUSH ×3 (07:52→20:10)
[2021-10-13] MEDS: ALPRAZolam 0.5 MG TABLET PO ×2 (11:26→20:09)
--- NOTE | 2021-10-13 11:26 | P.CDIC_ITS ---
CDI Concurrent Query Documentation Clarification: PHYSICIAN'S DOCUMENTATION REQUEST Date of Query: 10/13/21 1126 Patient Name: Joni Dhillon Admit Date: 10/11/21 Dear Doctor, A review of the medical record indicates additional documentation may be needed. Please review below and update the documentation accordingly. Clinical Indicators: Risk Factors/Clinical Indicators/Treatments H&P: Patient admitted for CHF exacerbation vs. Pneumonia. BNP 7291 H Shortness of breath, O2 dependent, ESRD on dialysis. PMH: Congestive heart failure Please provide further specificity regarding the most likely type and acuity of CHF you are evaluating, treating, or monitoring. Examples include: Type: * Systolic * Diastolic * Combined Systolic/Diastolic * Other ? please specify * Unable to determine Acuity: * Acute * Chronic * Acute on chronic * Unable to determine Use of terms such as suspected, likely, concern for, or probable (associated with a specific diagnosis that is being evaluated, monitored, or treated as if i t exists) are acceptable and can be coded in the inpatient setting, when documented at the time of discharge. Thank you, Samira Lechuga [facility], CDIS Extension: [phone] Please use your independent medical judgment in providing your response. THIS QUERY IS PART OF THE PERMANENT MEDICAL RECORD Provider Response: Other Other Diagnosis: chronic diastolic CHF
--- NOTE | 2021-10-13 12:25 | HO.PM.IMPN ---
Subjective Subjective Date of Service: 10/13/21 Interval History: seen and evaluated, feels tired and has no energy requiring more oxygen supplement to maintain his saturation 90s Reported feeling short of breathAnd weak no reported overnight events Review of Systems No fever, chills but reporting increased generalized weakness No chest pain, palpitation having shortness of breath and coughing No abdominal pain, nausea or vomiting No urinary symptoms No any rash or wounds Physical Exam Vital Signs: Vital Signs: Last Vital Signs Temp 97.0 F 10/12/21 15:21 Pulse 93 10/13/21 08:05 Resp 24 H 10/13/21 07:52 BP 104/64 10/13/21 08:05 Pulse Ox 94 10/13/21 08:05 Oxygen Flow Rate 3 10/11/21 16:16 BMI result Body Mass Index 20.9 Const: Other: Constitutional : Alert, interactive blood looks weak, not in distress Neck : Normal inspection, Supple Cardiovascular : RRR, no JVP, no lower extremity edema Respiratory : decreased bilateral air entry, basal fine left-sided crackles, expiratory scattered wheezes , on oxygen supplement Gastrointestinal: soft, lax, Normal bowel sounds, Non tender Skin : Warm, Dry Neurological : Alert & oriented to self and place, No focal deficit Objective Data Active Medications Acetaminophen (Acetaminophen 325 Mg Tablet) 650 mg PO Q6H PRN PRN Reason: Pain, Mild (Pain Scale 1-3) Albuterol/Ipratropium (Albuterol/Iprat 2.5/0.5mg 3 Ml Ampul.Neb) 3 ml INHALE Q4H PRN PRN Reason: Shortness of Breath/Wheezing Alprazolam (Alprazolam 0.5 Mg Tablet) 0.5 mg PO TID PRN PRN Reason: anxiety Last Admin: 10/13/21 11:26 Dose: 0.5 mg Documented by: JAROCHO Aspirin (Aspirin Enteric Coated 81 Mg Tablet.) 81 mg PO DAILY [facility] Last Admin: 10/13/21 07:53 Dose: Not Given Documented by: JAROCHO Non-Admin Reason: scheduled for dialysis this morning Atorvastatin Calcium (Atorvastatin Calcium 40 Mg Tablet) 40 mg PO DAILY [facility] Last Admin: 10/13/21 07:53 Dose: Not Given Documented by: JAROCHO Non-Admin Reason: scheduled for dialysis this morning Buspirone HCl (Buspirone Hcl 5 Mg Tablet) 15 mg PO TID [facility] Last Admin: 10/13/21 07:53 Dose: Not Given Documented by: JAROCHO Non-Admin Reason: scheduled for dialysis this morning Docusate Sodium (Docusate Sodium 100 Mg Capsule) 100 mg PO BID PRN PRN Reason: constipation Doxycycline Hyclate (Doxycycline Hyclate 100 Mg Tablet) 100 mg PO Q12H [facility] Last Admin: 10/13/21 12:22 Dose: Not Given Documented by: JAROCHO Non-Admin Reason: Off unit: Dialysis Ergocalciferol (Ergocalciferol (Vitamin D2) 1,250 Mcg Capsule) 1,250 mcg PO Q15D [facility] Escitalopram Oxalate (Escitalopram Oxalate 5 Mg Tablet) 5 mg PO BEDTIME [facility] Last Admin: 10/12/21 23:03 Dose: 5 mg Documented by: NIRAJ Folic Acid (Folic Acid 1 Mg Tablet) 1 mg PO DAILY [facility] Last Admin: 10/13/21 07:53 Dose: Not Given Documented by: JAROCHO Non-Admin Reason: scheduled for dialysis this morning Heparin Sodium (Porcine) (Heparin Sodium,Porcine 5,000 Unit/Ml Vial) 5,000 unit SUBCUT Q8H [facility] Last Admin: 10/13/21 07:52 Dose: Not Given Documented by: JAROCHO Non-Admin Reason: scheduled for dialysis this morning Ceftriaxone Sodium 1 gm/ (Sodium Chloride) 50 mls @ 100 mls/hr IV Q24H [facility] Last Infusion: 10/12/21 22:45 Dose: 0 mls/hr Documented by: YESI Melatonin (Melatonin 3 Mg Tablet) 6 mg PO BEDTIME PRN PRN Reason: Insomnia Metoclopramide HCl (Metoclopramide Hcl 5 Mg Tablet) 5 mg PO TID [facility] Last Admin: 10/13/21 07:54 Dose: Not Given Documented by: JAROCHO Non-Admin Reason: scheduled for dialysis this morning Midodrine (Midodrine Hcl 10 Mg Tablet) 10 mg PO TIDWM [facility] Last Admin: 10/13/21 12:23 Dose: Not Given Documented by: JAROCHO Non-Admin Reason: Off unit: Dialysis Mirtazapine (Mirtazapine 15 Mg Tablet) 30 mg PO BEDTIME [facility] Last Admin: 10/12/21 23:03 Dose: 30 mg Documented by: NIRAJ Multivitamins/Vitamin C (Multivitamin Tablet) 1 tab PO DAILY [facility] Last Admin: 10/13/21 07:54 Dose: Not Given Documented by: JAROCHO Non-Admin Reason: scheduled for dialysis this morning Omeprazole (Omeprazole 20 Mg Capsule.) 20 mg PO DAILY [facility] Last Admin: 10/13/21 07:54 Dose: Not Given Documented by: JAROCHO Non-Admin Reason: scheduled for dialysis this morning Senna (Sennosides 8.6 Mg Tablet) 17.2 mg PO BEDTIME PRN PRN Reason: Constipation Sevelamer Carbonate (Sevelamer Carbonate Tablet 800 Mg Tablet) 2,400 mg PO TIDWM [facility] Last Admin: 10/13/21 12:23 Dose: Not Given Documented by: JAROCHO Non-Ivelisse Reason: Off unit: Dialysis Sodium Chloride (0.9 % Sodium Chloride Flush 3 Ml Syringe) 3 ml IVFLUSH QSHIFT [facility] Last Admin: 10/13/21 07:52 Dose: 3 ml Documented by: JAROCHO Labs CBC & Chem 7: 10/13/21 06:55 10/13/21 02:37 Labs: Laboratory Results - last 24 hr 10/13/21 10/13/21 10/13/21 02:37 02:38 06:55 MCV 94.1 MCH 31.4 MCHC 33.3 RDW 17.6 H Plt Count 126 L D MPV 11.2 Absolute Nucleated RBC 0.040 H Nucleated RBC % (auto) 0.6 H VBG pH 7.34 VBG pCO2 32 VBG pO2 51 VBG HCO3 18 L VBG O2 Saturation 71.0 VBG Base Excess -6.4 Anion Gap 29 H Estim Creat Clear Calc 7.3 Estimated GFR 6 Random Glucose 62 Calcium 10.2 Microbiology Microbiology Results: Microbiology 10/12/21 00:02 Blood Culture - Preliminary Blood - Venous No growth after 24 hours. 10/12/21 00:02 Blood Culture - Preliminary Blood - Venous No growth after 24 hours. Assessment and Plan (1) Acute and chronic respiratory failure with hypoxia: Status: Acute (2) Hypoxia: Status: Acute (3) Lung cancer: Status: Acute (4) Pneumonia: Status: Acute Plan ?65-year-old male with a past history of hypertension, hyperlipidemia, COPD on 2 L of home oxygen, history of liver cancer, anxiety, depression, ESRD on hemodialysis presented to the hospital today with a chief complaint of shortness of breath.? acute on chronic hypoxic respiratory failure Secondary to left lower lobe pneumonia. pending cultures Continue IV ceftriaxone and doxycycline Wean oxygen down as tolerated to baseline of 2 L To check a CT scan of the chest COPD exacerbation having more wheezes suggestive of exacerbation Anais ATC and p.r.n start steroids IV ?lactic acidosis secondary to liver disease likely, Not a result of of sepsis DC IV fluids metastatic lung cancer Liver Mets Patient on palliative care per most recent notes from primary physician To get nutrition evaluation Physical deconditioning PT suggested home with VNA History of ESRD Nephrology consult Continue home sevelamer,? ? Midodrine ?history of anxiety/ depression Continue home escitalopram, alprazolam, mirtazapine ?DVT prophylaxis:? Subcu heparin Code status:? Full code Quality Stroke Does the patient have a stroke diagnosis?: No VTE Prior VTE?: No VTE Risk Level:: Medical - moderate - high VTE Device Contraindication: Treatment Not Indicated VTE Drug Contraindication: N/A - Med Ordered
--- NOTE | 2021-10-13 12:52 | MHC.CLN ---
RE: CONSULT HT 66 WT 58.97KG IBW 142#+/-10% PT IS 92% IBW RANGE INDICATES ADEQUATE WT FOR HT PREVIOUS WT HX REVEALS UBW RANGE 60KG (02/2020) PT WITH 5% NON-SIGNIFCIANT WT LOSS X 6 MONTHS DIET RX: 2GM NA LOW K+-RECOMMEND ADDING LOW PHOS TO CURRENT DIET R/T ESRD ON HD PT ATE ONLY 15% OF 1 MEAL RECOMMEND ADDING ENSURE CLEAR TID TO INCREASE KCALS SUPP PROVIDES 720KCALS, 24G PROTEIN (ALOS RENAL FRIENDLY WITH NO K+) MONITOR PO INTAKE FULL NUTRITION ASSESSMENT TO FOLLOW WHEN/IF PT ADMITTED TO IN-PT BED
[2021-10-13] MEDS: methylPREDNISolone Sod Succ 40 MG/ML VIAL IVPUSH (13:35)
[2021-10-13] MEDS: Albuterol/Iprat 2.5/0.5MG 3 ML AMPUL.NEB INHALE ×3 (14:09→19:18)
--- NOTE | 2021-10-13 14:58 | PM.PNNEP ---
Subjective Subjective Date of Service: 10/13/21 Interval history: Seen on HD. CHart Reviewed. Events noted. Physical Exam Vital Signs: Vital Signs: Last Vital Signs Temp 97.0 F 10/12/21 15:21 Pulse 83 10/13/21 14:11 Resp 14 10/13/21 14:11 BP 104/64 10/13/21 08:05 Pulse Ox 94 10/13/21 08:05 Oxygen Flow Rate 3 10/11/21 16:16 BMI result Body Mass Index 20.9 Const: General: cooperative and no acute distress Orientation/consciousness: patient oriented x3 HEENT: Head: Yes normocephalic and Yes atraumatic Neck: Neck: Yes no JVD Resp: Auscultation: clear to auscultation bilaterally Cardio: Jugular venous distension: no JVD GI: Auscultation: normal bowel sounds Skin: General skin exam: no rashes or lesions noted Neuro: General: patient oriented x3 and no focal motor deficits Extrem: General: Yes AV fistula Objective Data Labs CBC & Chem 7: 10/13/21 06:55 10/13/21 02:37 Labs: Laboratory Results - last 24 hr 10/13/21 10/13/21 10/13/21 02:37 02:38 06:55 WBC 7.1 RBC 4.75 Hgb 14.9 Hct 44.7 MCV 94.1 MCH 31.4 MCHC 33.3 RDW 17.6 H Plt Count 126 L D MPV 11.2 Absolute Nucleated RBC 0.040 H Nucleated RBC % (auto) 0.6 H VBG pH 7.34 VBG pCO2 32 VBG pO2 51 VBG HCO3 18 L VBG O2 Saturation 71.0 VBG Base Excess -6.4 Sodium 138 Potassium 5.2 H Chloride 96 Carbon Dioxide 18 L Anion Gap 29 H BUN 57 H Creatinine 8.42 H* Estim Creat Clear Calc 7.3 Estimated GFR 6 Random Glucose 62 Calcium 10.2 Microbiology Microbiology Results: Microbiology 10/12/21 00:02 Blood - Venous Blood Culture - Preliminary No growth after 24 hours. 10/12/21 00:02 Blood - Venous Blood Culture - Preliminary No growth after 24 hours. Procedures Date of Service Date of Service: 10/13/21 Assessment & Plan Assessment and plan (1) Hyperkalemia: Status: Acute (2) ESRD (end stage renal disease): Status: Acute Plan ESRD on HD- HD per outpatient schedule of MWF. Crooks prn K> 5.0 HD with low K bath. ESRD ? Anemia: No indication for ELISEO. ESRD ? MBD: check PTH, Phos for am. C/W rest of current management Labs AM. Shall closely F/U Time Spent With Patient Time: Total time spent is greater than 50% in coordination of care (as documented) at patient's floor/unit and/or counseling patient: Progress Note: Quality Stroke Does the patient have a stroke diagnosis?: No
[2021-10-13] MEDS: Heparin Sodium,Porcine 5,000 UNIT/ML VIAL 5000 UNIT SUBCUT ×2 (15:08→23:08)
[2021-10-13] MEDS: busPIRone HCl 5 MG TABLET 15 MG PO ×2 (15:08→20:08)
[2021-10-13] MEDS: Metoclopramide HCl 5 MG TABLET PO ×2 (15:08→20:08)
--- NOTE | 2021-10-13 15:14 | CONS_ITS ---
DATE OF SERVICE: 10/12/2021 REASON FOR CONSULTATION: Consult requested by the medical team to evaluate and help in management of patient with end-stage renal disease, presented with cough and shortness of breath. HISTORY OF PRESENT ILLNESS: The patient is a 65-year-old male with past medical of hypertension, hyperlipidemia, COPD, history of liver CA, anxiety, depression, who presented to the hospital, complains of shortness of breath. He has had this complaint for 1 week with occasional brownish sputum. He also had subjective fever. He did have cough associated with chest discomfort. There is no lightheadedness, dizziness. He denies any numbness or tingling. No focal weakness. No diarrhea, vomiting. In the ER, patient had coarse breath sounds and was hypoxemic with oxygen saturation of 88% on 2 L. Chest x-ray showed findings suggestive of possible pneumonia and small pleural effusion. He was admitted to the hospital for further evaluation and management. Renal consult has been requested to help with management of his ESRD. He usually gets dialyzed on Wednesday, Wednesday, Wednesday. PAST MEDICAL HISTORY: History of anxiety/depression, asthma, history of CA of the kidney, cataracts, CHF, cognitive impairment, COPD, ESRD on hemodialysis on Wednesday, Wednesday, Wednesday, GERD, hypertension, liver CA, lung CA, major depression, pancytopenia. FAMILY HISTORY: Mother had heart disease, diabetes, Alzheimer disease. Father had alcoholism. Substance abuse. Son has asthma. PAST SURGICAL HISTORY: History of biopsy with bronchoscopy and low grade lobectomy of lung. SOCIAL HISTORY: He is a formal alcohol user, former tobacco user. Quit about 6 years ago. Denies recreational drugs. ALLERGIES: PATIENT HAS NO KNOWN DRUG ALLERGIES. MEDICATIONS: As an outpatient and inpatient were reviewed in detail. PHYSICAL EXAMINATION: GENERAL: Patient is resting in the bed. Awake, alert, mild respiratory distress. VITAL SIGNS: Blood pressure was 99/59, pulse 88, afebrile. HEENT: Shows pupils equal bilaterally to light. No jugular venous distention is noted. NECK: Supple. No thyromegaly is noted. CARDIOVASCULAR SYSTEM: S1, S2 without rub. RESPIRATORY: Air entry decreased in the bases. ABDOMEN: Soft, nontender. Bowel sounds normal. EXTREMITIES: Showed no edema. Left upper extremity AV fistula. Good bruit and thrill were noted. LABORATORY DATA: Done today. WBC 5.4, hemoglobin 15, hematocrit 47, platelets 107. Sodium 136, potassium 4.8, chloride 97, CO2 22, BUN 39, creatinine 6.87, albumin 3.3. IMPRESSION: 1. 65-year-old male with end-stage renal disease, on hemodialysis, admitted with pneumonia/chronic obstructive pulmonary disease exacerbation. 2. Hypoxemia due to pneumonia/chronic obstructive pulmonary disease. 3. History of multiple cancers. 4. Secondary hyperparathyroidism. RECOMMENDATION: The patient usually gets dialyzed on Wednesday, Wednesday, Wednesday. I have arranged hemodialysis for the patient in the inpatient dialysis unit in a.m. We will try to remove fluid as tolerated. His hemoglobin level is acceptable and there is no immediate need for erythropoietin. Continue with midodrine for hypotension. Antibiotic management as per the medical team for his pneumonia. He should continue with bronchodilators. The patient has history of hyperphosphatemia and he is on Renagel with meals. Thank you for allowing me to participate in medical management of patient. MD JANNETTE Geiger/AI / [id number]
[2021-10-13] MEDS: Sevelamer Carbonate Tablet 800 MG TABLET 2400 MG PO (17:41)
[2021-10-13] MEDS: Mirtazapine 15 MG TABLET 30 MG PO (20:08)
[2021-10-13] MEDS: cefTRIAXone sodium 1 GM in 0.9 % Sodium Chloride 50 ML IV (20:09)
[2021-10-13] MEDS: Escitalopram Oxalate 5 MG TABLET PO (20:09)
[2021-10-14] VITALS (10 sets, daily range): BP systolic 95–133; BP diastolic 56–77; PULSE 80–102; RESP 16–22; TEMP 36.1–36.8; O2SAT 90–97
[2021-10-14 07:34] LABS: Hematocrit 44.4 % (42.0-52.0); Hemoglobin 14.3 g/dl (14.0-18.0); Mean Corpuscular HGB Conc 32.2 g/dl (31.0-36.0); Mean Corpuscular Hemoglobin 31.2 pg (27.0-33.0); Mean Corpuscular Volume 96.7 fL (80.0-98.0); Mean Platelet Volume 11.4 fL (9.4-12.4); PLT CLUMP 1; Red Blood Count 4.59 X10*6/uL (4.60-5.80); Red Cell Distribution Width 18.3 % (11.0-16.0)
[2021-10-14 07:37] LABS: NRBC Pct Auto 2.4 /100WBC (0.0-0.2)
[2021-10-14 07:54] LABS: Platelet Count 138 X10*3/uL (160-400); White Blood Count 5.3 X10*3/uL (4.8-10.8)
[2021-10-14] MEDS: Albuterol/Iprat 2.5/0.5MG 3 ML AMPUL.NEB INHALE ×4 (08:19→19:23)
[2021-10-14] MEDS: busPIRone HCl 5 MG TABLET 15 MG PO ×3 (10:18→21:01)
[2021-10-14] MEDS: Metoclopramide HCl 5 MG TABLET PO ×3 (10:18→21:01)
[2021-10-14] MEDS: Omeprazole 20 MG CAPSULE.DR PO (10:18)
[2021-10-14] MEDS: Folic Acid 1 MG TABLET PO (10:18)
[2021-10-14] MEDS: Atorvastatin Calcium 40 MG TABLET PO (10:18)
[2021-10-14] MEDS: Multivitamin TABLET 1 TAB PO (10:18)
[2021-10-14] MEDS: Aspirin Enteric Coated 81 MG TABLET.DR PO (10:18)
[2021-10-14] MEDS: Heparin Sodium,Porcine 5,000 UNIT/ML VIAL 5000 UNIT SUBCUT ×3 (10:19→22:14)
[2021-10-14] MEDS: 0.9 % Sodium Chloride Flush 3 ML SYRINGE IVFLUSH ×3 (10:19→21:07)
[2021-10-14] MEDS: Sevelamer Carbonate Tablet 800 MG TABLET 2400 MG PO ×3 (10:27→17:32)
[2021-10-14] MEDS: Midodrine HCl 10 MG TABLET PO ×3 (10:28→17:32)
[2021-10-14 11:03] LABS: Anion Gap 22 (12-20); Blood Urea Nitrogen 45 mg/dL (9-16); Calcium 9.9 mg/dL (8.4-10.2); Carbon Dioxide 20 mmol/L (22-29); Chloride 97 mmol/L (96-108); Creatinine Clr Calc Pharmacy 8.7; Estimated Glomerular Filt Rate 8; Glucose Random 124 mg/dL (60-115); Potassium 4.9 mmol/L (3.3-5.1); Sodium 134 mmol/L (135-145)
[2021-10-14] MEDS: methylPREDNISolone Sod Succ 40 MG/ML VIAL IVPUSH (14:16)
--- NOTE | 2021-10-14 14:33 | HO.PM.IMPN ---
Subjective Subjective Date of Service: 10/14/21 Interval History: seen and evaluated, feels tired and has no energy Reported feeling short of breathAnd weak mild improvement in his breathing overall no reported overnight events Review of Systems No fever, chills but reporting increased generalized weakness No chest pain, palpitation having shortness of breath and coughing No abdominal pain, nausea or vomiting No urinary symptoms No any rash or wounds Physical Exam Vital Signs: Vital Signs: Last Vital Signs Temp 97.5 F 10/14/21 11:50 Pulse 91 10/14/21 11:50 Resp 20 10/14/21 11:50 BP 95/56 L 10/14/21 11:50 Pulse Ox 97 10/14/21 11:50 Oxygen Flow Rate 3 10/11/21 16:16 BMI result Body Mass Index 20.9 Const: Other: Constitutional : Alert, interactive blood looks weak, not in distress Neck : Normal inspection, Supple Cardiovascular : RRR, no JVP, no lower extremity edema Respiratory : decreased bilateral air entry, basal fine left-sided crackles, expiratory scattered wheezes , on oxygen supplement Gastrointestinal: soft, lax, Normal bowel sounds, Non tender Skin : Warm, Dry Neurological : Alert & oriented to self and place, No focal deficit Objective Data Active Medications Acetaminophen (Acetaminophen 325 Mg Tablet) 650 mg PO Q6H PRN PRN Reason: Pain, Mild (Pain Scale 1-3) Albuterol/Ipratropium (Albuterol/Iprat 2.5/0.5mg 3 Ml Ampul.Neb) 3 ml INHALE Q4H PRN PRN Reason: Shortness of Breath/Wheezing Albuterol/Ipratropium (Albuterol/Iprat 2.5/0.5mg 3 Ml Ampul.Neb) 3 ml INHALE RQ4H WHILE AWAKE [facility] Last Admin: 10/14/21 11:43 Dose: 3 ml Documented by: SHEILA Alprazolam (Alprazolam 0.5 Mg Tablet) 0.5 mg PO TID PRN PRN Reason: anxiety Last Admin: 10/13/21 20:09 Dose: 0.5 mg Documented by: AMELIA Aspirin (Aspirin Enteric Coated 81 Mg Tablet.) 81 mg PO DAILY [facility] Last Admin: 10/14/21 10:18 Dose: 81 mg Documented by: YUMIKO Atorvastatin Calcium (Atorvastatin Calcium 40 Mg Tablet) 40 mg PO DAILY [facility] Last Admin: 10/14/21 10:18 Dose: 40 mg Documented by: YUMIKO Buspirone HCl (Buspirone Hcl 5 Mg Tablet) 15 mg PO TID [facility] Last Admin: 10/14/21 14:16 Dose: 15 mg Documented by: YUMIKO Docusate Sodium (Docusate Sodium 100 Mg Capsule) 100 mg PO BID PRN PRN Reason: constipation Doxycycline Hyclate (Doxycycline Hyclate 100 Mg Tablet) 100 mg PO Q12H [facility] Last Admin: 10/14/21 14:18 Dose: 100 mg Documented by: YUMIKO Ergocalciferol (Ergocalciferol (Vitamin D2) 1,250 Mcg Capsule) 1,250 mcg PO Q15D [facility] Escitalopram Oxalate (Escitalopram Oxalate 5 Mg Tablet) 5 mg PO BEDTIME [facility] Last Admin: 10/13/21 20:09 Dose: 5 mg Documented by: AMELIA Folic Acid (Folic Acid 1 Mg Tablet) 1 mg PO DAILY [facility] Last Admin: 10/14/21 10:18 Dose: 1 mg Documented by: YUMIKO Heparin Sodium (Porcine) (Heparin Sodium,Porcine 5,000 Unit/Ml Vial) 5,000 unit SUBCUT Q8H [facility] Last Admin: 10/14/21 14:16 Dose: 5,000 unit Documented by: YUMIKO Ceftriaxone Sodium 1 gm/ (Sodium Chloride) 50 mls @ 100 mls/hr IV Q24H [facility] Last Infusion: 10/13/21 20:51 Dose: 0 mls/hr Documented by: AMELIA Melatonin (Melatonin 3 Mg Tablet) 6 mg PO BEDTIME PRN PRN Reason: Insomnia Methylprednisolone Sodium Succinate (Methylprednisolone Sod Succ 40 Mg/Ml Vial) 40 mg IVPUSH Q24H [facility] Last Admin: 10/14/21 14:16 Dose: 40 mg Documented by: YUMIKO Metoclopramide HCl (Metoclopramide Hcl 5 Mg Tablet) 5 mg PO TID [facility] Last Admin: 10/14/21 14:16 Dose: 5 mg Documented by: YUMIKO Midodrine (Midodrine Hcl 10 Mg Tablet) 10 mg PO TIDWM [facility] Last Admin: 10/14/21 14:16 Dose: 10 mg Documented by: YUMIKO Mirtazapine (Mirtazapine 15 Mg Tablet) 30 mg PO BEDTIME [facility] Last Admin: 10/13/21 20:08 Dose: 30 mg Documented by: AMELIA Multivitamins/Vitamin C (Multivitamin Tablet) 1 tab PO DAILY [facility] Last Admin: 10/14/21 10:18 Dose: 1 tab Documented by: YUMIKO Omeprazole (Omeprazole 20 Mg Capsule.Dr) 20 mg PO DAILY [facility] Last Admin: 10/14/21 10:18 Dose: 20 mg Documented by: YUMIKO Senna (Sennosides 8.6 Mg Tablet) 17.2 mg PO BEDTIME PRN PRN Reason: Constipation Sevelamer Carbonate (Sevelamer Carbonate Tablet 800 Mg Tablet) 2,400 mg PO TIDWM [facility] Last Admin: 10/14/21 14:18 Dose: 2,400 mg Documented by: YUMIKO Sodium Chloride (0.9 % Sodium Chloride Flush 3 Ml Syringe) 3 ml IVFLUSH QSHIFT [facility] Last Admin: 10/14/21 10:19 Dose: 3 ml Documented by: YUMIKO Labs CBC & Chem 7: 10/14/21 06:37 10/14/21 10:24 Labs: Laboratory Results - last 24 hr 10/14/21 10/14/21 06:37 10:24 MCV 96.7 MCH 31.2 MCHC 32.2 RDW 18.3 H Plt Count 138 L MPV 11.4 Absolute Nucleated RBC 0.130 H Nucleated RBC % (auto) 2.4 H Smear Path Review SEE NOTE Anion Gap 22 H Estim Creat Clear Calc 8.7 Estimated GFR 8 Random Glucose 124 H D Calcium 9.9 Microbiology Microbiology Results: Microbiology 10/12/21 00:02 Blood Culture - Preliminary Blood - Venous No growth after 48 hours. 10/12/21 00:02 Blood Culture - Preliminary Blood - Venous No growth after 48 hours. Assessment and Plan (1) Acute and chronic respiratory failure with hypoxia: Status: Acute (2) Lung cancer: Status: Acute (3) COPD (chronic obstructive pulmonary disease): Status: Acute (4) Pneumonia: Status: Acute Plan ?65-year-old male with a past history of hypertension, hyperlipidemia, COPD on 2 L of home oxygen, history of liver cancer, anxiety, depression, ESRD on hemodialysis presented to the hospital today with a chief complaint of shortness of breath.? acute on chronic hypoxic respiratory failure Secondary to left lower lobe pneumonia. pending cultures Continue IV ceftriaxone and doxycycline Wean oxygen down as tolerated to baseline of [address] scan of the chest Showing progression of his lung cancer with a new lesion of the liver COPD exacerbation having more wheezes suggestive of exacerbation Anais ATC and p.r.n start steroids IV ?lactic acidosis secondary to liver disease likely, Not a result of of sepsis DC IV fluids metastatic lung cancer Liver Mets Patient on palliative care per most recent notes from primary physician nutrition evaluation to get Oncology team evaluation Physical deconditioning PT suggested home with VNA History of ESRD Nephrology consult Continue home sevelamer,? ? Midodrine ?history of anxiety/ depression Continue home escitalopram, alprazolam, mirtazapine ?DVT prophylaxis:? Subcu heparin Code status:? Full code the patient will continue to need overnight hospital stay to finish treatment of pneumonia pending final blood cultures, pending evaluation for progressive lung cancer by Oncology team to prevent further decompensation into respiratory failure or sepsis. Quality Stroke Does the patient have a stroke diagnosis?: No VTE Prior VTE?: No VTE Risk Level:: Medical - moderate - high VTE Device Contraindication: Treatment Not Indicated VTE Drug Contraindication: N/A - Med Ordered
--- NOTE | 2021-10-14 15:40 | P.CNHO_ITS ---
Subjective - Subjective Chief complaint: Feels tired Patient: new to practice Consult date: 10/14/21 Requesting Physician: Dr. Aburto Primary Care Provider: Cherrie Cooper MD Medical Summary: Diagnosis: Lung cancer HPI - Consult Narrative Reason for consult: History of lung cancer Narrative: Joni Dhillon is a 65 year old male with history of recurrent lung cancer since 2019 who is no admitted with acute hypoxic respiratory failure. Patient has longstanding end-stage kidney disease and is on hemodialysis. He is being treated for pneumonia with IV antibiotics and is on oxygen. He had CT chest without contrast performed during this hospitalization which shows probable metastatic disease. Patient is unable to provide any history at this time. Oncology Screenings - ECOG Performance Status ECOG Performance Status: 4 [facility] Medical History: Medical History (Last Reviewed 10/13/21 @ 08:06 by Marian Norwood, PT) Anxiety and depression Asthma Bicytopenia Cancer of kidney Cataract CHF (congestive heart failure) Cognitive impairment COPD (chronic obstructive pulmonary disease) ESRD (end stage renal disease) ESRD on dialysis GERD (gastroesophageal reflux disease) HTN (hypertension) Liver cancer Lung cancer Lung cancer Mild recurrent major depression Pancytopenia Family History: Family History (Last Reviewed 10/11/21 @ 16:34 by Heather Lopez NP) Mother Heart disease Diabetes Alzheimers disease Father Alcoholism Substance use disorder Son Asthma Surgical History: Surgical History (Last Reviewed 10/13/21 @ 08:06 by Marian Norwood, PT) History of biopsy History of bronchoscopy History of esophagogastroduodenoscopy (EGD) History of lobectomy of lung Social History: Social History (Last Reviewed 10/11/21 @ 16:34 by Heather Lopez NP) Living Situation History: Household Members: Family Housing: Apartment Do you presently have visiting nurse or other home services: Yes Tobacco History: Patient Tobacco Use Status: Former Tobacco user Smoke Quit Date: 6 yearas ago e-Cigarette/Vaping Use: Never Used Second Hand Smoke Exposure: No Occupation Assessmet: service: No Current occupational status: disabled Home Medications and Allergies Current Medications: Current Medications Acetaminophen (Acetaminophen 325 Mg Tablet) 650 mg PO Q6H PRN PRN Reason: Pain, Mild (Pain Scale 1-3) Albuterol/Ipratropium (Albuterol/Iprat 2.5/0.5mg 3 Ml Ampul.Neb) 3 ml INHALE Q4H PRN PRN Reason: Shortness of Breath/Wheezing Albuterol/Ipratropium (Albuterol/Iprat 2.5/0.5mg 3 Ml Ampul.Neb) 3 ml INHALE RQ4H WHILE AWAKE [facility] Last Admin: 10/14/21 15:17 Dose: 3 ml Documented by: Alprazolam (Alprazolam 0.5 Mg Tablet) 0.5 mg PO TID PRN PRN Reason: anxiety Last Admin: 10/13/21 20:09 Dose: 0.5 mg Documented by: Aspirin (Aspirin Enteric Coated 81 Mg Tablet.) 81 mg PO DAILY [facility] Last Admin: 10/14/21 10:18 Dose: 81 mg Documented by: Atorvastatin Calcium (Atorvastatin Calcium 40 Mg Tablet) 40 mg PO DAILY [facility] Last Admin: 10/14/21 10:18 Dose: 40 mg Documented by: Buspirone HCl (Buspirone Hcl 5 Mg Tablet) 15 mg PO TID [facility] Last Admin: 10/14/21 14:16 Dose: 15 mg Documented by: Docusate Sodium (Docusate Sodium 100 Mg Capsule) 100 mg PO BID PRN PRN Reason: constipation Doxycycline Hyclate (Doxycycline Hyclate 100 Mg Tablet) 100 mg PO Q12H [facility] Last Admin: 10/14/21 14:18 Dose: 100 mg Documented by: Ergocalciferol (Ergocalciferol (Vitamin D2) 1,250 Mcg Capsule) 1,250 mcg PO Q15D [facility] Escitalopram Oxalate (Escitalopram Oxalate 5 Mg Tablet) 5 mg PO BEDTIME [facility] Last Admin: 10/13/21 20:09 Dose: 5 mg Documented by: Folic Acid (Folic Acid 1 Mg Tablet) 1 mg PO DAILY [facility] Last Admin: 10/14/21 10:18 Dose: 1 mg Documented by: Heparin Sodium (Porcine) (Heparin Sodium,Porcine 5,000 Unit/Ml Vial) 5,000 unit SUBCUT Q8H [facility] Last Admin: 10/14/21 14:16 Dose: 5,000 unit Documented by: Ceftriaxone Sodium 1 gm/ (Sodium Chloride) 50 mls @ 100 mls/hr IV Q24H [facility] Last Infusion: 10/13/21 20:51 Dose: Infused Documented by: Melatonin (Melatonin 3 Mg Tablet) 6 mg PO BEDTIME PRN PRN Reason: Insomnia Methylprednisolone Sodium Succinate (Methylprednisolone Sod Succ 40 Mg/Ml Vial) 40 mg IVPUSH Q24H [facility] Last Admin: 10/14/21 14:16 Dose: 40 mg Documented by: Metoclopramide HCl (Metoclopramide Hcl 5 Mg Tablet) 5 mg PO TID [facility] Last Admin: 10/14/21 14:16 Dose: 5 mg Documented by: Midodrine (Midodrine Hcl 10 Mg Tablet) 10 mg PO TIDWM [facility] Last Admin: 10/14/21 14:16 Dose: 10 mg Documented by: Mirtazapine (Mirtazapine 15 Mg Tablet) 30 mg PO BEDTIME [facility] Last Admin: 10/13/21 20:08 Dose: 30 mg Documented by: Multivitamins/Vitamin C (Multivitamin Tablet) 1 tab PO DAILY [facility] Last Admin: 10/14/21 10:18 Dose: 1 tab Documented by: Omeprazole (Omeprazole 20 Mg Capsule.) 20 mg PO DAILY [facility] Last Admin: 10/14/21 10:18 Dose: 20 mg Documented by: Senna (Sennosides 8.6 Mg Tablet) 17.2 mg PO BEDTIME PRN PRN Reason: Constipation Sevelamer Carbonate (Sevelamer Carbonate Tablet 800 Mg Tablet) 2,400 mg PO TIDWM [facility] Last Admin: 10/14/21 14:18 Dose: 2,400 mg Documented by: Sodium Chloride (0.9 % Sodium Chloride Flush 3 Ml Syringe) 3 ml IVFLUSH QSHIFT [facility] Last Admin: 10/14/21 10:19 Dose: 3 ml Documented by: Home Medications Medication Instructions Recorded Confirmed Type lidocaine-prilocaine 2.5 %-2.5 % 1 appl TOPICAL DAILY PRN 07/30/20 10/11/21 History topical cream sevelamer carbonate 800 mg tablet 2,400 mg PO TIDWM 07/30/20 10/11/21 History alprazolam 0.5 mg tablet 1 tab PO TID PRN 10/11/21 10/11/21 History simethicone 125 mg capsule (Gas 125 mg PO QID PRN 10/11/21 10/11/21 History Relief (simethicone)) escitalopram oxalate 5 mg tablet 1 tab PO BEDTIME 10/12/21 10/12/21 History Allergies Allergy/AdvReac Type Severity Reaction Status Date / Time No Known Allergies Allergy Verified 10/11/21 16:34 Physical Exam Vital signs: Vital Signs Temp 97.6 F 10/14/21 14:58 Pulse 80 10/14/21 15:17 Resp 16 10/14/21 15:17 BP 103/61 10/14/21 14:58 Pulse Ox 97 10/14/21 14:58 Intake & Output 10/13/21 10/14/21 10/14/21 18:59 06:59 18:59 Intake Total 170 / 170 Output Total 0 / 0 Balance 170 / 170 0 / 0 Urine Output (Average ml/kg/hr) 0.00 Intake: Intake, Oral Amount 120 / 120 Intake, IV Amount 50 / 50 cefTRIAXone sodium 1 gm In 0.9 50 / 50 % Sodium Chloride 50 ml @ 100 mls/hr IV Q24H [facility] Rx#: [id number] Output: Output, Urine Amount 0 / 0 Other: Dinner % Eaten 75% Number of Unmeasured Voids 1 Number of Bowel Movements 1 1 Urine Bedside Commode Urine Color Yellow Last Bowel Movement 10/13/21 10/14/21 Stool Bedside Commode Bedside Commode Stool Amount Small Small Stool Color Brown Brown Stool Consistency Formed Semi Formed Weight 58.967 kg Weight in Grams 13238 Weight 58.967 kg - Constitutional Present: moderate distress, chronically ill appearing, somnolent - Routine HEENT Exam Eye: Present: conjunctival injection - Routine Respiratory Exam Present: accessory muscle use, decreased breath sounds - Routine Cardiovascular Exam Cardiovascular: Present: S1, S2 Hem/Onc Consult Result - Labs CBC & Chem 7: 10/14/21 06:37 10/14/21 10:24 Labs: Short CBC 10/14/21 Range/Units 06:37 WBC 5.3 (4.8-10.8) X10*3/uL Hgb 14.3 (14.0-18.0) g/dl Hct 44.4 (42.0-52.0) % Plt Count 138 L (160-400) X10*3/uL BMP 10/14/21 10:24 Sodium 134 L Potassium 4.9 Chloride 97 Carbon Dioxide 20 L BUN 45 H Creatinine 7.08 H* Calcium 9.9 Assessment and Plan Patient Active problem list reviewed?: Yes (1) Lung cancer Problem details: Patient has past history of 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 No recurrence in chest Status: Chronic Assessment and plan: 1. This is a 65-year-old male with end-stage kidney disease, pneumonia and acute on chronic respiratory failure who has a diagnosis of recurrent lung cancer. He is being followed by Dr. Lee at [facility] for his lung cancer. CT chest performed in the hospital shows bilateral pulmonary nodules, bilateral pleural effusion, new ascites and liver lesion, probable metastatic disease. I tried to interview patient with a lunchroom attendant as his daughter was not available. Patient is not able to provide any history in terms of his treatment for lung cancer. He is barely able to sit up in bed, is quite somnolent and unable to have a conversation. At this time, his performance status is extremely poor. As all his care has been with oncologist at [facility], the most reasonable plan of care would be to take care of his acute pneumonia/respiratory failure at this time and defer any Oncology recommendations to his primary oncologist. Given his multiple comorbidities and performance status, he is not a candidate for any systemic therapy at this time. Thank you. - Time Spent With Patient Time Spent with Patient (in minutes): 10
--- NOTE | 2021-10-14 16:04 | PM.PNNEP ---
Subjective Subjective Date of Service: 10/14/21 Interval history: Chart Reviewed. Events noted. Physical Exam Vital Signs: Vital Signs: Last Vital Signs Temp 97.6 F 10/14/21 14:58 Pulse 80 10/14/21 15:17 Resp 16 10/14/21 15:17 BP 103/61 10/14/21 14:58 Pulse Ox 97 10/14/21 14:58 Oxygen Flow Rate 3 10/11/21 16:16 BMI result Body Mass Index 20.9 Const: Orientation/consciousness: patient oriented x3 HEENT: Head: Yes normocephalic Neck: Neck: Yes no JVD Resp: Auscultation: clear to auscultation bilaterally Cardio: Jugular venous distension: no JVD Rate: regular rate Rhythm: regular rhythm Heart sounds: S1 normal heart sound present and S2 normal heart sound present GI: Auscultation: normal bowel sounds Neuro: General: patient oriented x3 and no focal motor deficits Extrem: General: Yes no clubbing, cyanosis or edema Objective Data Labs CBC & Chem 7: 10/14/21 06:37 10/14/21 10:24 Labs: Laboratory Results - last 24 hr 10/14/21 10/14/21 06:37 10:24 WBC 5.3 RBC 4.59 L Hgb 14.3 Hct 44.4 MCV 96.7 MCH 31.2 MCHC 32.2 RDW 18.3 H Plt Count 138 L MPV 11.4 Absolute Nucleated RBC 0.130 H Nucleated RBC % (auto) 2.4 H Smear Path Review SEE NOTE Sodium 134 L Potassium 4.9 Chloride 97 Carbon Dioxide 20 L Anion Gap 22 H BUN 45 H Creatinine 7.08 H* Estim Creat Clear Calc 8.7 Estimated GFR 8 Random Glucose 124 H D Calcium 9.9 Microbiology Microbiology Results: Microbiology 10/12/21 00:02 Blood - Venous Blood Culture - Preliminary No growth after 48 hours. 10/12/21 00:02 Blood - Venous Blood Culture - Preliminary No growth after 48 hours. Procedures Date of Service Date of Service: 10/14/21 Assessment & Plan Assessment and plan (1) ESRD (end stage renal disease): Status: Acute Plan ESRD on HD- HD per outpatient schedule of MWF. Daksha hay K> 5.0 HD with low K bath. ESRD ? Anemia: No indication for ELISEO. ESRD ? MBD: Low phos diet. no change in binder therapy. C/W rest of current management Labs AM. Shall closely F/U Time Spent With Patient Time: Total time spent is greater than 50% in coordination of care (as documented) at patient's floor/unit and/or counseling patient: Progress Note: Quality Stroke Does the patient have a stroke diagnosis?: No
[2021-10-14] MEDS: Mirtazapine 15 MG TABLET 30 MG PO (21:01)
[2021-10-14] MEDS: Escitalopram Oxalate 5 MG TABLET PO (21:01)
[2021-10-14] MEDS: cefTRIAXone sodium 1 GM in 0.9 % Sodium Chloride 50 ML IV (21:01)
[2021-10-15] VITALS (10 sets, daily range): BP systolic 104–159; BP diastolic 66–89; PULSE 89–103; RESP 17–20; TEMP 36.1–37.1; O2SAT 90–100; BMI 20.9
[2021-10-15] MEDS: Acetaminophen 325 MG TABLET 650 MG PO (03:52)
[2021-10-15] MEDS: Albuterol/Iprat 2.5/0.5MG 3 ML AMPUL.NEB INHALE ×3 (07:36→20:37)
[2021-10-15] MEDS: 0.9 % Sodium Chloride Flush 3 ML SYRINGE IVFLUSH ×3 (08:49→21:08)
[2021-10-15] MEDS: ALPRAZolam 0.5 MG TABLET PO (10:03)
--- NOTE | 2021-10-15 11:30 | MHC.CLN ---
F/U PT WITH INCREASED NUTRITION RISK R/T ESRD ON HD AND LUNG CA WITH LIVER METS PO 75-100% DIET RX: 2GM NA LOW K+, LOW PHOS-APPROPRIATE PT RECEIVING 8OZ ENSURE CLEAR TID TO INCREASE KCALS PROVIDES 720KCALS, 24G PROTEIN MONITOR PO INTAKE CLOSELY SEE ALSO FULL CLINICAL NUTRITION ASSESSMENT
[2021-10-15] MEDS: Midodrine HCl 10 MG TABLET PO ×2 (12:22→16:08)
[2021-10-15] MEDS: Sevelamer Carbonate Tablet 800 MG TABLET 2400 MG PO ×2 (12:23→16:07)
[2021-10-15] MEDS: methylPREDNISolone Sod Succ 40 MG/ML VIAL IVPUSH (12:23)
--- NOTE | 2021-10-15 13:09 | HO.PM.IMPN ---
Subjective Subjective Date of Service: 10/15/21 Interval History: seen and evaluated, feels tired and has no energy mild improvement in his breathing overall Reported feeling Weak, short of breath with decreased appetite no reported overnight events Review of Systems No fever, chills but reporting increased generalized weakness No chest pain, palpitation having shortness of breath and coughing No abdominal pain, nausea or vomiting No urinary symptoms No any rash or wounds Physical Exam Vital Signs: Vital Signs: Last Vital Signs Temp 97.1 F 10/15/21 12:00 Pulse 89 10/15/21 12:00 Resp 18 10/15/21 12:00 BP 119/78 10/15/21 12:00 Pulse Ox 94 10/15/21 12:00 Oxygen Flow Rate 3 10/11/21 16:16 BMI result Body Mass Index 20.9 Const: Other: Constitutional : Alert, interactive blood looks weak, not in distress Neck : Normal inspection, Supple Cardiovascular : RRR, no JVP, no lower extremity edema Respiratory : decreased bilateral air entry, basal fine left-sided crackles, expiratory scattered wheezes , on oxygen supplement Gastrointestinal: soft, lax, Normal bowel sounds, Non tender Skin : Warm, Dry Neurological : Alert & oriented to self and place, No focal deficit Objective Data Active Medications Acetaminophen (Acetaminophen 325 Mg Tablet) 650 mg PO Q6H PRN PRN Reason: Pain, Mild (Pain Scale 1-3) Last Admin: 10/15/21 03:52 Dose: 650 mg Documented by: AMELIA Albuterol/Ipratropium (Albuterol/Iprat 2.5/0.5mg 3 Ml Ampul.Neb) 3 ml INHALE Q4H PRN PRN Reason: Shortness of Breath/Wheezing Albuterol/Ipratropium (Albuterol/Iprat 2.5/0.5mg 3 Ml Ampul.Neb) 3 ml INHALE RQ4H WHILE AWAKE ARTHUR Last Admin: 10/15/21 10:50 Dose: Not Given Documented by: SALU Non-Admin Reason: pt off unit Alprazolam (Alprazolam 0.5 Mg Tablet) 0.5 mg PO TID PRN PRN Reason: anxiety Last Admin: 10/15/21 10:03 Dose: 0.5 mg Documented by: TIMMY Aspirin (Aspirin Enteric Coated 81 Mg Tablet.) 81 mg PO DAILY [facility] Last Admin: 10/15/21 08:50 Dose: Not Given Documented by: TIMMY Non-Admin Reason: Off unit: Dialysis Atorvastatin Calcium (Atorvastatin Calcium 40 Mg Tablet) 40 mg PO DAILY [facility] Last Admin: 10/15/21 08:50 Dose: Not Given Documented by: TIMMY Non-Admin Reason: Off unit: Dialysis Buspirone HCl (Buspirone Hcl 5 Mg Tablet) 15 mg PO TID [facility] Last Admin: 10/15/21 08:51 Dose: Not Given Documented by: TIMMY Non-Admin Reason: Off unit: Dialysis Docusate Sodium (Docusate Sodium 100 Mg Capsule) 100 mg PO BID PRN PRN Reason: constipation Doxycycline Hyclate (Doxycycline Hyclate 100 Mg Tablet) 100 mg PO Q12H [facility] Last Admin: 10/15/21 12:23 Dose: 100 mg Documented by: TIMMY Ergocalciferol (Ergocalciferol (Vitamin D2) 1,250 Mcg Capsule) 1,250 mcg PO Q15D [facility] Escitalopram Oxalate (Escitalopram Oxalate 5 Mg Tablet) 5 mg PO BEDTIME [facility] Last Admin: 10/14/21 21:01 Dose: 5 mg Documented by: AMELIA Folic Acid (Folic Acid 1 Mg Tablet) 1 mg PO DAILY [facility] Last Admin: 10/15/21 08:51 Dose: Not Given Documented by: TIMMY Non-Admin Reason: Off unit: Dialysis Heparin Sodium (Porcine) (Heparin Sodium,Porcine 5,000 Unit/Ml Vial) 5,000 unit SUBCUT Q8H [facility] Last Admin: 10/15/21 08:49 Dose: Not Given Documented by: TIMMY Non-Admin Reason: Off unit: Dialysis Ceftriaxone Sodium 1 gm/ (Sodium Chloride) 50 mls @ 100 mls/hr IV Q24H [facility] Last Infusion: 10/14/21 21:33 Dose: 0 mls/hr Documented by: AMELIA Melatonin (Melatonin 3 Mg Tablet) 6 mg PO BEDTIME PRN PRN Reason: Insomnia Methylprednisolone Sodium Succinate (Methylprednisolone Sod Succ 40 Mg/Ml Vial) 40 mg IVPUSH Q24H [facility] Last Admin: 10/15/21 12:23 Dose: 40 mg Documented by: TIMMY Metoclopramide HCl (Metoclopramide Hcl 5 Mg Tablet) 5 mg PO TID [facility] Last Admin: 10/15/21 08:51 Dose: Not Given Documented by: TIMMY Non-Admin Reason: Off unit: Dialysis Midodrine (Midodrine Hcl 10 Mg Tablet) 10 mg PO TIDWM [facility] Last Admin: 10/15/21 12:22 Dose: 10 mg Documented by: TIMMY Mirtazapine (Mirtazapine 15 Mg Tablet) 30 mg PO BEDTIME [facility] Last Admin: 10/14/21 21:01 Dose: 30 mg Documented by: AMELIA Multivitamins/Vitamin C (Multivitamin Tablet) 1 tab PO DAILY [facility] Last Admin: 10/15/21 08:51 Dose: Not Given Documented by: TIMMY Non-Admin Reason: Off unit: Dialysis Omeprazole (Omeprazole 20 Mg Capsule.Dr) 20 mg PO DAILY [facility] Last Admin: 10/15/21 08:51 Dose: Not Given Documented by: TIMMY Non-Admin Reason: Off unit: Dialysis Senna (Sennosides 8.6 Mg Tablet) 17.2 mg PO BEDTIME PRN PRN Reason: Constipation Sevelamer Carbonate (Sevelamer Carbonate Tablet 800 Mg Tablet) 2,400 mg PO TIDWM [facility] Last Admin: 10/15/21 12:23 Dose: 2,400 mg Documented by: TIMMY Sodium Chloride (0.9 % Sodium Chloride Flush 3 Ml Syringe) 3 ml IVFLUSH QSHIFT [facility] Last Admin: 10/15/21 08:49 Dose: 3 ml Documented by: TIMMY Labs CBC & Chem 7: 10/14/21 06:37 10/14/21 10:24 Assessment and Plan (1) Acute and chronic respiratory failure with hypoxia: Status: Acute (2) Hypoxia: Status: Acute (3) Lung cancer: Status: Chronic (4) ESRD (end stage renal disease): Status: Acute Plan ?65-year-old male with a past history of hypertension, hyperlipidemia, COPD on 2 L of home oxygen, history of liver cancer, anxiety, depression, ESRD on hemodialysis presented to the hospital today with a chief complaint of shortness of breath.? Acute on chronic hypoxic respiratory failure Secondary to left lower lobe pneumonia and progressing lung cancer negative cultures Continue IV ceftriaxone and doxycycline Wean oxygen down as tolerated to baseline of [address] scan of the chest Showing progression of his lung cancer with a new lesion of the liver metastatic lung cancer Liver Mets from before with a new spot noticed on this admission Patient on palliative care per most recent notes from primary physician nutrition evaluation Oncology team input appreciated, no suggested treatment for now, to follow-up with his oncologist at [facility] COPD exacerbation having more wheezes suggestive of exacerbation Anais ATC and p.r.n continue steroids IV ?lactic acidosis secondary to liver disease likely, Not a result of of sepsis DC IV fluids Physical deconditioning PT suggested home with VNA History of ESRD Nephrology consult Continue home sevelamer,? ? Midodrine ?history of anxiety/ depression Continue home escitalopram, alprazolam, mirtazapine ?DVT prophylaxis:? Subcu heparin Code status:? Full code the patient will continue to need overnight hospital stay to finish treatment of pneumonia pending improvement in his breathing and dyspnea to prevent further decompensation into respiratory failure or sepsis. Quality Stroke Does the patient have a stroke diagnosis?: No VTE Prior VTE?: No VTE Risk Level:: Medical - moderate - high VTE Device Contraindication: Treatment Not Indicated VTE Drug Contraindication: N/A - Med Ordered
--- NOTE | 2021-10-15 14:42 | MHC.CM.PN ---
per rounds pt is doing poorls no dc date at this time referral to [facility] ok per [facility]
[2021-10-15] MEDS: Heparin Sodium,Porcine 5,000 UNIT/ML VIAL 5000 UNIT SUBCUT ×2 (16:07→23:48)
[2021-10-15] MEDS: busPIRone HCl 5 MG TABLET 15 MG PO ×2 (16:07→21:07)
[2021-10-15] MEDS: Metoclopramide HCl 5 MG TABLET PO ×2 (16:08→21:08)
--- NOTE | 2021-10-15 17:39 | P.PNNP_ITS ---
Subjective Subjective Date of Service: 10/15/21 Interval history: Chart Reviewed. Events noted. Physical Exam Vital Signs: Vital Signs: Last Vital Signs Temp 97.4 F 10/15/21 15:13 Pulse 98 10/15/21 15:13 Resp 17 10/15/21 15:13 BP 107/70 10/15/21 15:13 Pulse Ox 100 10/15/21 15:13 Oxygen Flow Rate 3 10/11/21 16:16 BMI result Body Mass Index 20.9 Const: General: no acute distress HEENT: Head: Yes normocephalic and Yes atraumatic Neck: Neck: Yes no JVD Resp: Auscultation: clear to auscultation bilaterally Cardio: Jugular venous distension: no JVD Rate: regular rate Rhythm: regular rhythm Heart sounds: S1 normal heart sound present and S2 normal heart sound present GI: Auscultation: normal bowel sounds Extrem: General: Yes no clubbing, cyanosis or edema Objective Data Labs CBC & Chem 7: 10/14/21 06:37 10/14/21 10:24 Microbiology Microbiology Results: Microbiology 10/12/21 00:02 Blood - Venous Blood Culture - Preliminary No growth after 48 hours. 10/12/21 00:02 Blood - Venous Blood Culture - Preliminary No growth after 48 hours. Procedures Date of Service Date of Service: 10/15/21 Assessment & Plan Assessment and plan (1) ESRD (end stage renal disease): Status: Acute Assessment and Plan: ESRD on HD-? HD per outpatient schedule of [facility] K> 5.0 HD with low K bath. ESRD ? Anemia: No indication for ELISEO. ESRD ? MBD: Low phos diet. no change in binder therapy. C/W rest of current management Labs AM. Shall closely F/U Time Spent With Patient Time: Total time spent is greater than 50% in coordination of care (as documented) at patient's floor/unit and/or counseling patient: Progress Note: Quality Stroke Does the patient have a stroke diagnosis?: No
[2021-10-15] MEDS: Escitalopram Oxalate 5 MG TABLET PO (21:07)
[2021-10-15] MEDS: Mirtazapine 15 MG TABLET 30 MG PO (21:07)
[2021-10-15] MEDS: cefTRIAXone sodium 1 GM in 0.9 % Sodium Chloride 50 ML IV (21:08)
[2021-10-16] VITALS (10 sets, daily range): BP systolic 93–122; BP diastolic 62–78; PULSE 75–98; RESP 16–22; TEMP 36.1–36.9; O2SAT 92–95
[2021-10-16] MEDS: ALPRAZolam 0.5 MG TABLET PO ×3 (00:43→21:07)
[2021-10-16] MEDS: Albuterol/Iprat 2.5/0.5MG 3 ML AMPUL.NEB INHALE ×5 (01:05→21:16)
[2021-10-16] MEDS: Heparin Sodium,Porcine 5,000 UNIT/ML VIAL 5000 UNIT SUBCUT ×2 (05:39→14:45)
[2021-10-16 06:35] LABS: Anion Gap 24 (12-20); Blood Urea Nitrogen 54 mg/dL (9-16); Calcium 10.1 mg/dL (8.4-10.2); Carbon Dioxide 20 mmol/L (22-29); Chloride 95 mmol/L (96-108); Creatinine Clr Calc Pharmacy 8.4; Estimated Glomerular Filt Rate 8; Glucose Random 87 mg/dL (60-115); Potassium 4.6 mmol/L (3.3-5.1); Sodium 134 mmol/L (135-145)
[2021-10-16] MEDS: Aspirin Enteric Coated 81 MG TABLET.DR PO (08:03)
[2021-10-16] MEDS: Omeprazole 20 MG CAPSULE.DR PO (08:03)
[2021-10-16] MEDS: Folic Acid 1 MG TABLET PO (08:03)
[2021-10-16] MEDS: busPIRone HCl 5 MG TABLET 15 MG PO ×3 (08:03→20:59)
[2021-10-16] MEDS: Midodrine HCl 10 MG TABLET PO ×3 (08:04→17:07)
[2021-10-16] MEDS: Metoclopramide HCl 5 MG TABLET PO ×3 (08:04→20:59)
[2021-10-16] MEDS: Atorvastatin Calcium 40 MG TABLET PO (08:04)
[2021-10-16] MEDS: Sevelamer Carbonate Tablet 800 MG TABLET 2400 MG PO ×3 (08:05→17:07)
[2021-10-16] MEDS: Multivitamin TABLET 1 TAB PO (08:05)
[2021-10-16] MEDS: 0.9 % Sodium Chloride Flush 3 ML SYRINGE IVFLUSH ×3 (08:05→21:00)
--- NOTE | 2021-10-16 13:05 | P.PNIM_ITS ---
Subjective Subjective Date of Service: 10/16/21 Interval History: seen and examined this morning, history obtained with the assistance of a historical interpreter follow up for pneumonia, COPD exacerbation, lung cancer Patient reports difficulty sleeping overnight due to shortness of breath, reports cough productive of clear phlegm Review of Systems Review of Systems: Yes all other systems are reviewed and are negative Constitutional Constitutional: Denies chills and Denies fever(s) Cardiovascular Cardiovascular: Denies chest pain, Denies palpitations and Reports dyspnea Respiratory Respiratory: Reports cough and Reports dyspnea Gastrointestinal Gastrointestinal: Denies abdominal pain, Denies nausea and Denies vomiting Endocrine Endocrine: Denies palpitations Physical Exam Vital Signs: Vital Signs: Last Vital Signs Temp 97.8 F 10/16/21 11:27 Pulse 82 10/16/21 11:27 Resp 19 10/16/21 11:27 BP 122/78 10/16/21 11:27 Pulse Ox 93 10/16/21 11:27 Oxygen Flow Rate 3 10/11/21 16:16 BMI result Body Mass Index 20.9 Const: General: cooperative, comfortable, alert and awake Nutritional Appearance: thin Resp: Effort & Inspection: normal respiratory effort and Actively coughing Auscultation: diminished lung sounds Cardio: Rate: regular rate Heart sounds: S1 normal heart sound present and S2 normal heart sound present GI: Palpation (GI): Soft to palpation and nontender Extrem: Other: able to move all 4 extremities spontaneously General: Yes no pedal edema Objective Data Active Medications Acetaminophen (Acetaminophen 325 Mg Tablet) 650 mg PO Q6H PRN PRN Reason: Pain, Mild (Pain Scale 1-3) Last Admin: 10/15/21 03:52 Dose: 650 mg Documented by: AMELIA Albuterol/Ipratropium (Albuterol/Iprat 2.5/0.5mg 3 Ml Ampul.Neb) 3 ml INHALE Q4H PRN PRN Reason: Shortness of Breath/Wheezing Last Admin: 10/16/21 01:05 Dose: 3 ml Documented by: KYLAH Albuterol/Ipratropium (Albuterol/Iprat 2.5/0.5mg 3 Ml Ampul.Neb) 3 ml INHALE RQ4H WHILE AWAKE ARTHUR Last Admin: 10/16/21 11:25 Dose: 3 ml Documented by: LAURIE Alprazolam (Alprazolam 0.5 Mg Tablet) 0.5 mg PO TID PRN PRN Reason: anxiety Last Admin: 10/16/21 08:04 Dose: 0.5 mg Documented by: KAYLEY Aspirin (Aspirin Enteric Coated 81 Mg Tablet.) 81 mg PO DAILY [facility] Last Admin: 10/16/21 08:03 Dose: 81 mg Documented by: KAYLEY Atorvastatin Calcium (Atorvastatin Calcium 40 Mg Tablet) 40 mg PO DAILY [facility] Last Admin: 10/16/21 08:04 Dose: 40 mg Documented by: KAYLEY Buspirone HCl (Buspirone Hcl 5 Mg Tablet) 15 mg PO TID [facility] Last Admin: 10/16/21 08:03 Dose: 15 mg Documented by: KAYLEY Docusate Sodium (Docusate Sodium 100 Mg Capsule) 100 mg PO BID PRN PRN Reason: constipation Doxycycline Hyclate (Doxycycline Hyclate 100 Mg Tablet) 100 mg PO Q12H [facility] Last Admin: 10/16/21 11:51 Dose: 100 mg Documented by: KAYLEY Ergocalciferol (Ergocalciferol (Vitamin D2) 1,250 Mcg Capsule) 1,250 mcg PO Q15D [facility] Escitalopram Oxalate (Escitalopram Oxalate 5 Mg Tablet) 5 mg PO BEDTIME [facility] Last Admin: 10/15/21 21:07 Dose: 5 mg Documented by: YESI Folic Acid (Folic Acid 1 Mg Tablet) 1 mg PO DAILY [facility] Last Admin: 10/16/21 08:03 Dose: 1 mg Documented by: KAYLEY Heparin Sodium (Porcine) (Heparin Sodium,Porcine 5,000 Unit/Ml Vial) 5,000 unit SUBCUT Q8H [facility] Last Admin: 10/16/21 05:39 Dose: 5,000 unit Documented by: YESI Ceftriaxone Sodium 1 gm/ (Sodium Chloride) 50 mls @ 100 mls/hr IV Q24H [facility] Last Infusion: 10/15/21 22:21 Dose: 0 mls/hr Documented by: YESI Melatonin (Melatonin 3 Mg Tablet) 6 mg PO BEDTIME PRN PRN Reason: Insomnia Methylprednisolone Sodium Succinate (Methylprednisolone Sod Succ 40 Mg/Ml Vial) 40 mg IVPUSH Q24H [facility] Last Admin: 10/15/21 12:23 Dose: 40 mg Documented by: TIMMY Metoclopramide HCl (Metoclopramide Hcl 5 Mg Tablet) 5 mg PO TID [facility] Last Admin: 10/16/21 08:04 Dose: 5 mg Documented by: KAYLEY Midodrine (Midodrine Hcl 10 Mg Tablet) 10 mg PO TIDWM [facility] Last Admin: 10/16/21 11:51 Dose: 10 mg Documented by: KAYLEY Mirtazapine (Mirtazapine 15 Mg Tablet) 30 mg PO BEDTIME [facility] Last Admin: 10/15/21 21:07 Dose: 30 mg Documented by: YESI Multivitamins/Vitamin C (Multivitamin Tablet) 1 tab PO DAILY [facility] Last Admin: 10/16/21 08:05 Dose: 1 tab Documented by: KAYLEY Omeprazole (Omeprazole 20 Mg Capsule.Dr) 20 mg PO DAILY [facility] Last Admin: 10/16/21 08:03 Dose: 20 mg Documented by: KAYLEY Senna (Sennosides 8.6 Mg Tablet) 17.2 mg PO BEDTIME PRN PRN Reason: Constipation Sevelamer Carbonate (Sevelamer Carbonate Tablet 800 Mg Tablet) 2,400 mg PO TIDWM [facility] Last Admin: 10/16/21 11:51 Dose: 2,400 mg Documented by: KAYLEY Sodium Chloride (0.9 % Sodium Chloride Flush 3 Ml Syringe) 3 ml IVFLUSH QSHIFT [facility] Last Admin: 10/16/21 08:05 Dose: 3 ml Documented by: KAYLEY Labs CBC & Chem 7: 10/14/21 06:37 10/16/21 05:38 Labs: Laboratory Results - last 24 hr 10/16/21 05:38 Anion Gap 24 H Estim Creat Clear Calc 8.4 Estimated GFR 8 Random Glucose 87 Calcium 10.1 Assessment and Plan (1) Acute and chronic respiratory failure with hypoxia: Status: Acute (2) Liver cancer: Status: Acute (3) COPD (chronic obstructive pulmonary disease): Status: Acute Plan ?65-year-old male with a past history of hypertension, hyperlipidemia, COPD on 2 L of home oxygen, history of liver cancer, anxiety, depression, ESRD on hemodialysis presented to the hospital today with a chief complaint of shortness of breath.? Acute on chronic hypoxic respiratory failure Secondary to left lower lobe pneumonia and progressing lung cancer CT scan of the chest showing progression of his lung cancer with a new lesion of the liver Continue IV ceftriaxone and doxycycline Blood cultures negative Wean oxygen down as tolerated to baseline of 2-3 L metastatic lung cancer Liver Mets from before with a new spot noticed on this admission Patient on palliative care per most recent notes from primary physician nutrition evaluation Oncology team input appreciated, no suggested treatment for now, to follow-up with his oncologist at [facility] COPD exacerbation having more wheezes suggestive of exacerbation DuoNebs ATC and p.r.n continue steroids IV lactic acidosis secondary to liver disease likely, Not a result of of sepsis DC IV fluids Physical deconditioning PT suggested home with VNA ESRD HD MWF Nephrology consult Continue home sevelamer,? ?Midodrine history of anxiety/ depression Continue home escitalopram, alprazolam, mirtazapine DVT prophylaxis:? Subcu heparin Code status:? Full code Attending: dr. akbar needs ongoing hospital stay to finish treatment of pneumonia, IV steroids and dyspnea to prevent further decompensation into respiratory failure or sepsis. Quality Stroke Does the patient have a stroke diagnosis?: No VTE Prior VTE?: No VTE Risk Level:: Medical - moderate - high VTE Device Contraindication: Treatment Not Indicated VTE Drug Contraindication: N/A - Med Ordered
[2021-10-16] MEDS: methylPREDNISolone Sod Succ 40 MG/ML VIAL IVPUSH (14:45)
--- NOTE | 2021-10-16 16:55 | PM.PNNEP ---
Subjective Subjective Date of Service: 10/16/21 Interval history: Chart Reviewed. Events noted. Physical Exam Vital Signs: Vital Signs: Last Vital Signs Temp 98.5 F 10/16/21 15:13 Pulse 92 10/16/21 15:34 Resp 22 H 10/16/21 15:34 BP 103/62 10/16/21 15:13 Pulse Ox 92 10/16/21 15:13 Oxygen Flow Rate 3 10/11/21 16:16 BMI result Body Mass Index 20.9 Const: General: no acute distress Orientation/consciousness: patient oriented x3 HEENT: Head: Yes normocephalic Neck: Neck: Yes no JVD Resp: Auscultation: crackles Cardio: Jugular venous distension: no JVD Rate: regular rate Rhythm: regular rhythm Heart sounds: S1 normal heart sound present and S2 normal heart sound present GI: Auscultation: normal bowel sounds Neuro: General: patient oriented x3 and no focal motor deficits Extrem: General: Yes no joint enlargement and Yes no clubbing, cyanosis or edema Objective Data Labs CBC & Chem 7: 10/14/21 06:37 10/16/21 05:38 Labs: Laboratory Results - last 24 hr 10/16/21 05:38 Sodium 134 L Potassium 4.6 Chloride 95 L Carbon Dioxide 20 L Anion Gap 24 H BUN 54 H Creatinine 7.35 H* Estim Creat Clear Calc 8.4 Estimated GFR 8 Random Glucose 87 Calcium 10.1 Microbiology Microbiology Results: Microbiology 10/12/21 00:02 Blood - Venous Blood Culture - Preliminary No growth after 48 hours. 10/12/21 00:02 Blood - Venous Blood Culture - Preliminary No growth after 48 hours. Procedures Date of Service Date of Service: 10/16/21 Assessment & Plan Assessment and plan (1) Acute and chronic respiratory failure with hypoxia: Status: Acute (2) Liver cancer: Status: Acute (3) ESRD (end stage renal disease): Status: Acute Assessment and Plan: ESRD on HD-? HD per outpatient schedule of MWF. [place] [facility] K> 5.0 HD with low K bath. ESRD ? Anemia: No indication for ELISEO. ESRD ? MBD: Low phos diet. no change in binder therapy. C/W rest of current management Labs AM. Shall closely F/U Time Spent With Patient Time: Total time spent is greater than 50% in coordination of care (as documented) at patient's floor/unit and/or counseling patient: Progress Note: Quality Stroke Does the patient have a stroke diagnosis?: No
[2021-10-16] MEDS: cefTRIAXone sodium 1 GM in 0.9 % Sodium Chloride 50 ML IV (20:59)
[2021-10-16] MEDS: Mirtazapine 15 MG TABLET 30 MG PO (20:59)
[2021-10-16] MEDS: Escitalopram Oxalate 5 MG TABLET PO (20:59)
[2021-10-17] VITALS (9 sets, daily range): BP systolic 105–133; BP diastolic 63–80; PULSE 89–99; RESP 16–20; TEMP 36.1–37.2; O2SAT 89–98
[2021-10-17] MEDS: Heparin Sodium,Porcine 5,000 UNIT/ML VIAL 5000 UNIT SUBCUT ×4 (00:31→22:45)
[2021-10-17] MEDS: ALPRAZolam 0.5 MG TABLET PO (05:35)
[2021-10-17] MEDS: Multivitamin TABLET 1 TAB PO (08:45)
[2021-10-17] MEDS: Omeprazole 20 MG CAPSULE.DR PO (08:46)
[2021-10-17] MEDS: Aspirin Enteric Coated 81 MG TABLET.DR PO (08:46)
[2021-10-17] MEDS: Atorvastatin Calcium 40 MG TABLET PO (08:46)
[2021-10-17] MEDS: Sevelamer Carbonate Tablet 800 MG TABLET 2400 MG PO ×2 (08:46→13:13)
[2021-10-17] MEDS: busPIRone HCl 5 MG TABLET 15 MG PO ×3 (08:46→19:53)
[2021-10-17] MEDS: Folic Acid 1 MG TABLET PO (08:47)
[2021-10-17] MEDS: Midodrine HCl 10 MG TABLET PO ×3 (08:47→18:22)
[2021-10-17] MEDS: Metoclopramide HCl 5 MG TABLET PO ×3 (08:47→19:53)
[2021-10-17] MEDS: 0.9 % Sodium Chloride Flush 3 ML SYRINGE IVFLUSH ×2 (08:47→16:44)
[2021-10-17 10:06] LABS: Hematocrit 42.1 % (42.0-52.0); Mean Corpuscular HGB Conc 33.3 g/dl (31.0-36.0); Mean Corpuscular Hemoglobin 30.8 pg (27.0-33.0); Mean Corpuscular Volume 92.5 fL (80.0-98.0); Mean Platelet Volume 9.5 fL (9.4-12.4); Platelet Count 114 X10*3/uL (160-400); Red Blood Count 4.55 X10*6/uL (4.60-5.80); Red Cell Distribution Width 18.8 % (11.0-16.0); White Blood Count 3.8 X10*3/uL (4.8-10.8)
[2021-10-17 10:26] LABS: Anion Gap 17 (12-20); Blood Urea Nitrogen 39 mg/dL (9-16); Carbon Dioxide 22 mmol/L (22-29); Chloride 96 mmol/L (96-108); Creatinine Clr Calc Pharmacy 12.1; Estimated Glomerular Filt Rate 11; Glucose Random 106 mg/dL (60-115); Potassium 3.4 mmol/L (3.3-5.1); Sodium 132 mmol/L (135-145)
[2021-10-17 10:38] LABS: ABG Base Excess -0.2 mmol/L; ABG HCO3 23 mmol/L (22-26); ABG pCO2 33 mmHg (32-45); ABG pH 7.44 (7.35-7.45); ABG pO2 74 mmHg (83-108)
[2021-10-17 11:14] LABS: Ammonia 30 umol/L (13-55)
[2021-10-17 11:26] LABS: Alanine Aminotransferase 35 U/L (0-40); Albumin Level 3.4 g/dL (3.5-5.0); Alkaline Phosphatase 359 U/L (39-117); Aspartate Amino Transferase 48 U/L (5-37); Bilirubin Direct 0.5 mg/dL (0.0-0.5); Bilirubin Total 0.8 mg/dL (0.0-1.0); Total Protein 7.6 g/dL (6.5-8.0)
--- NOTE | 2021-10-17 12:06 | MHC.CLN ---
F/U PT WITH INCREASED NUTRITION RISK R/T ESRD ON HD AND LUNG CA WITH LIVER METS PO 50-100% DIET RX: 2GM NA LOW K+, LOW PHOS-APPROPRIATE PT RECEIVING 8OZ ENSURE CLEAR TID TO INCREASE KCALS PROVIDES 720KCALS, 24G PROTEIN CONTINUE TO MONITOR PO INTAKE CLOSELY
--- NOTE | 2021-10-17 12:42 | P.PNIM_ITS ---
Subjective Subjective Date of Service: 10/17/21 Interval History: seen and examined this morning with help of production analyst patient sleepy but answering some questions not feeling well, difficult to get full ROS due to lethargy Review of Systems Review of Systems: Yes Unobtainable due to mental status Physical Exam Vital Signs: Vital Signs: Last Vital Signs Temp 97.0 F 10/17/21 07:20 Pulse 91 10/17/21 07:20 Resp 18 10/17/21 07:20 BP 105/66 10/17/21 07:20 Pulse Ox 90 L 10/17/21 07:20 Oxygen Flow Rate 3 10/11/21 16:16 BMI result Body Mass Index 20.9 Const: General: ill appearing and lethargic Nutritional Appearance: thin Orientation/consciousness: lethargic Resp: Effort & Inspection: labored Auscultation: diminished lung sounds Cardio: Jugular venous distension: JVD Rate: regular rate Heart sounds: S1 normal heart sound present and S2 normal heart sound present GI: Inspection: No distended Palpation (GI): Soft to palpation and nontender Neuro: Other: confused, moving all extremities Extrem: Other: no leg edema Objective Data Active Medications Acetaminophen (Acetaminophen 325 Mg Tablet) 650 mg PO Q6H PRN PRN Reason: Pain, Mild (Pain Scale 1-3) Last Admin: 10/15/21 03:52 Dose: 650 mg Documented by: AMELIA Albuterol/Ipratropium (Albuterol/Iprat 2.5/0.5mg 3 Ml Ampul.Neb) 3 ml INHALE Q4H PRN PRN Reason: Shortness of Breath/Wheezing Last Admin: 10/16/21 01:05 Dose: 3 ml Documented by: KYLAH Albuterol/Ipratropium (Albuterol/Iprat 2.5/0.5mg 3 Ml Ampul.Neb) 3 ml INHALE RQ4H WHILE AWAKE [facility] Last Admin: 10/17/21 11:45 Dose: Not Given Documented by: RAJAN Non-Admin Reason: Not In Room Aspirin (Aspirin Enteric Coated 81 Mg Tablet.) 81 mg PO DAILY [facility] Last Admin: 10/17/21 08:46 Dose: 81 mg Documented by: KHOI Atorvastatin Calcium (Atorvastatin Calcium 40 Mg Tablet) 40 mg PO DAILY [facility] Last Admin: 10/17/21 08:46 Dose: 40 mg Documented by: KHOI Buspirone HCl (Buspirone Hcl 5 Mg Tablet) 15 mg PO TID [facility] Last Admin: 10/17/21 08:46 Dose: 15 mg Documented by: KHOI Docusate Sodium (Docusate Sodium 100 Mg Capsule) 100 mg PO BID PRN PRN Reason: constipation Doxycycline Hyclate (Doxycycline Hyclate 100 Mg Tablet) 100 mg PO Q12H [facility] Last Admin: 10/17/21 00:31 Dose: 100 mg Documented by: YESI Ergocalciferol (Ergocalciferol (Vitamin D2) 1,250 Mcg Capsule) 1,250 mcg PO Q15D [facility] Escitalopram Oxalate (Escitalopram Oxalate 5 Mg Tablet) 5 mg PO BEDTIME [facility] Last Admin: 10/16/21 20:59 Dose: 5 mg Documented by: YESI Folic Acid (Folic Acid 1 Mg Tablet) 1 mg PO DAILY [facility] Last Admin: 10/17/21 08:47 Dose: 1 mg Documented by: KHOI Heparin Sodium (Porcine) (Heparin Sodium,Porcine 5,000 Unit/Ml Vial) 5,000 unit SUBCUT Q8H [facility] Last Admin: 10/17/21 05:49 Dose: 5,000 unit Documented by: YESI Ceftriaxone Sodium 1 gm/ (Sodium Chloride) 50 mls @ 100 mls/hr IV Q24H [facility] Last Infusion: 10/16/21 23:30 Dose: 0 mls/hr Documented by: YESI Melatonin (Melatonin 3 Mg Tablet) 6 mg PO BEDTIME PRN PRN Reason: Insomnia Methylprednisolone Sodium Succinate (Methylprednisolone Sod Succ 40 Mg/Ml Vial) 40 mg IVPUSH Q24H [facility] Last Admin: 10/16/21 14:45 Dose: 40 mg Documented by: KAYLEY Metoclopramide HCl (Metoclopramide Hcl 5 Mg Tablet) 5 mg PO TID [facility] Last Admin: 10/17/21 08:47 Dose: 5 mg Documented by: KHOI Midodrine (Midodrine Hcl 10 Mg Tablet) 10 mg PO TIDWM [facility] Last Admin: 10/17/21 08:47 Dose: 10 mg Documented by: KHOI Mirtazapine (Mirtazapine 15 Mg Tablet) 30 mg PO BEDTIME [facility] Last Admin: 10/16/21 20:59 Dose: 30 mg Documented by: YESI Multivitamins/Vitamin C (Multivitamin Tablet) 1 tab PO DAILY [facility] Last Admin: 10/17/21 08:45 Dose: 1 tab Documented by: KHOI Omeprazole (Omeprazole 20 Mg Capsule.Dr) 20 mg PO DAILY [facility] Last Admin: 10/17/21 08:46 Dose: 20 mg Documented by: KHOI Senna (Sennosides 8.6 Mg Tablet) 17.2 mg PO BEDTIME PRN PRN Reason: Constipation Sevelamer Carbonate (Sevelamer Carbonate Tablet 800 Mg Tablet) 2,400 mg PO TIDWM [facility] Last Admin: 10/17/21 08:46 Dose: 2,400 mg Documented by: KHOI Sodium Chloride (0.9 % Sodium Chloride Flush 3 Ml Syringe) 3 ml IVFLUSH QSHIFT [facility] Last Admin: 10/17/21 08:47 Dose: 3 ml Documented by: KHOI Labs CBC & Chem 7: 10/17/21 09:57 10/17/21 09:57 Labs: Laboratory Results - last 24 hr 10/17/21 10/17/21 10/17/21 09:57 09:57 10:30 MCV 92.5 MCH 30.8 MCHC 33.3 RDW 18.8 H Plt Count 114 L MPV 9.5 Absolute Nucleated RBC 0.420 H Nucleated RBC % (auto) 11.0 H O2 Saturation 90.0 ABG pH at Pt Temp 7.44 ABG pCO2 at Pt Temp 33 ABG pO2 at Pt Temp 74 L ABG HCO3 23 ABG Base Excess (Actual) -0.2 Anion Gap 17 Estim Creat Clear Calc 12.1 Estimated GFR 11 Random Glucose 106 Calcium 9.0 D Total Bilirubin 0.8 Direct Bilirubin 0.5 AST 48 H ALT 35 Alkaline Phosphatase 359 H Ammonia Total Protein 7.6 Albumin 3.4 L 10/17/21 11:01 MCV MCH MCHC RDW Plt Count MPV Absolute Nucleated RBC Nucleated RBC % (auto) O2 Saturation ABG pH at Pt Temp ABG pCO2 at Pt Temp ABG pO2 at Pt Temp ABG HCO3 ABG Base Excess (Actual) Anion Gap Estim Creat Clear Calc Estimated GFR Random Glucose Calcium Total Bilirubin Direct Bilirubin AST ALT Alkaline Phosphatase Ammonia 30 Total Protein Albumin Microbiology Microbiology Results: Microbiology 10/12/21 00:02 Blood Culture - Final Blood - Venous No growth after 5 days. 10/12/21 00:02 Blood Culture - Final Blood - Venous No growth after 5 days. Assessment and Plan (1) Acute and chronic respiratory failure with hypoxia: Status: Acute (2) Lung cancer: Status: Chronic (3) COPD (chronic obstructive pulmonary disease): Status: Acute Plan ?65-year-old male with a past history of hypertension, hyperlipidemia, COPD on 2 L of home oxygen, history of liver cancer, anxiety, depression, ESRD on hemodialysis presented to the hospital today with a chief complaint of shortness of breath.? Acute encephalopathy, workup in progress ABG with no CO2 retention, ammonia level [address] home dose of xanax d/c until mental status improves Acute on chronic hypoxic respiratory failure. More hypoxic today Secondary to left lower lobe pneumonia and progressing lung cancer CT scan of the chest showing progression of his lung cancer with a new lesion of the liver Continue IV ceftriaxone and doxycycline Blood cultures negative Wean oxygen down as tolerated to baseline of 2-3 L metastatic lung cancer Liver Mets from before with a new spot noticed on this admission Patient on palliative care per most recent notes from primary physician nutrition evaluation Oncology team input appreciated, no suggested treatment for now, to follow-up with his oncologist at [facility] discussed advancement of cancer with family COPD exacerbation having more wheezes suggestive of exacerbation DuoNebs ATC and p.r.n continue steroids IV Thrombocytopenia chronic. platelets at baseline lactic acidosis secondary to liver disease likely, Not a result of of sepsis DC IV fluids Physical deconditioning PT suggested home with VNA ESRD HD MWF Nephrology consult Continue home sevelamer,? ?Midodrine history of anxiety/ depression Continue home escitalopram, alprazolam, mirtazapine DVT prophylaxis:? Subcu heparin Code status:? Given worsening mental status and hypoxia, discussed with daughter patricia listed as HCP and son at bedside about code status. they have opted to change his code status to DNR/DNI. They understand he is very ill and has an overall poor prognosis. If he does not improve they will consider comfort care. Attending: dr. akbar needs ongoing hospital stay to finish treatment of pneumonia, IV steroids and dyspnea to prevent further decompensation into respiratory failure or sepsis. Quality Stroke Does the patient have a stroke diagnosis?: No VTE Prior VTE?: No VTE Risk Level:: Medical - moderate - high VTE Device Contraindication: Treatment Not Indicated VTE Drug Contraindication: N/A - Med Ordered
--- NOTE | 2021-10-17 12:52 | MHC.CM.PN ---
Per ROUNDS discussion, Patient is not yet medically cleared for dc (PNA/IV Ceftriaxone and IV Solu Medrol);PT is recommending STR and CM will continue to follow.
[2021-10-17 13:07] LABS: Glucose, Whole Blood 66 mg/dL (60-115)
[2021-10-17] MEDS: methylPREDNISolone Sod Succ 40 MG/ML VIAL IVPUSH (13:11)
--- NOTE | 2021-10-17 15:44 | PC.NURSE ---
1030 became more lethargic, very slow to respond, skin cool. Dana MADRIGAL notified. Dr Gomez at bedside to evaluate. [address] Family in and aware of condition.
--- NOTE | 2021-10-17 15:59 | MHC.CM.PN ---
Per PA's request, a referral has been made to [facility] for a Hospice Informational.
[2021-10-17] MEDS: Albuterol/Iprat 2.5/0.5MG 3 ML AMPUL.NEB INHALE ×2 (16:15→19:34)
[2021-10-17 16:51] LABS: Glucose, Whole Blood 115 mg/dL (60-115)
--- NOTE | 2021-10-17 16:53 | PM.PNNEP ---
Subjective Subjective Date of Service: 10/17/21 Interval history: seen and examined on HD, events noted very lethargic Physical Exam Vital Signs: Vital Signs: Last Vital Signs Temp 98.4 F 10/17/21 15:54 Pulse 95 10/17/21 16:16 Resp 20 10/17/21 16:16 BP 117/67 10/17/21 15:54 Pulse Ox 98 10/17/21 15:54 Oxygen Flow Rate 3 10/11/21 16:16 BMI result Body Mass Index 20.9 Const: General: cooperative and no acute distress Orientation/consciousness: patient oriented x3 HEENT: Head: Yes normocephalic and Yes atraumatic Neck: Neck: Yes no JVD Resp: Auscultation: clear to auscultation bilaterally and crackles Cardio: Jugular venous distension: no JVD Rate: regular rate Rhythm: regular rhythm Heart sounds: S1 normal heart sound present and S2 normal heart sound present GI: Auscultation: normal bowel sounds Skin: General skin exam: no rashes or lesions noted Neuro: General: patient oriented x3 and no focal motor deficits Extrem: General: Yes no joint enlargement, Yes no clubbing, cyanosis or edema and Yes AV fistula Objective Data Labs CBC & Chem 7: 10/17/21 09:57 10/17/21 09:57 Labs: Laboratory Results - last 24 hr 10/17/21 10/17/21 10/17/21 09:57 09:57 10:30 WBC 3.8 L RBC 4.55 L Hgb 14.0 Hct 42.1 MCV 92.5 MCH 30.8 MCHC 33.3 RDW 18.8 H Plt Count 114 L MPV 9.5 Absolute Nucleated RBC 0.420 H Nucleated RBC % (auto) 11.0 H O2 Saturation 90.0 ABG pH at Pt Temp 7.44 ABG pCO2 at Pt Temp 33 ABG pO2 at Pt Temp 74 L ABG HCO3 23 ABG Base Excess (Actual) -0.2 Sodium 132 L Potassium 3.4 D Chloride 96 Carbon Dioxide 22 Anion Gap 17 BUN 39 H Creatinine 5.12 H* Estim Creat Clear Calc 12.1 Estimated GFR 11 POC Glucose Random Glucose 106 Calcium 9.0 D Total Bilirubin 0.8 Direct Bilirubin 0.5 AST 48 H ALT 35 Alkaline Phosphatase 359 H Ammonia Total Protein 7.6 Albumin 3.4 L 10/17/21 10/17/21 10/17/21 11:01 13:00 16:47 WBC RBC Hgb Hct MCV MCH MCHC RDW Plt Count MPV Absolute Nucleated RBC Nucleated RBC % (auto) O2 Saturation ABG pH at Pt Temp ABG pCO2 at Pt Temp ABG pO2 at Pt Temp ABG HCO3 ABG Base Excess (Actual) Sodium Potassium Chloride Carbon Dioxide Anion Gap BUN Creatinine Estim Creat Clear Calc Estimated GFR POC Glucose 66 115 Random Glucose Calcium Total Bilirubin Direct Bilirubin AST ALT Alkaline Phosphatase Ammonia 30 Total Protein Albumin Microbiology Microbiology Results: Microbiology 10/12/21 00:02 Blood - Venous Blood Culture - Final No growth after 5 days. 10/12/21 00:02 Blood - Venous Blood Culture - Final No growth after 5 days. Procedures Date of Service Date of Service: 10/17/21 Assessment & Plan Assessment and plan (1) Acute and chronic respiratory failure with hypoxia: Status: Acute (2) Liver cancer: Status: Acute (3) ESRD (end stage renal disease): Status: Acute Assessment and Plan: ESRD on HD-? HD per outpatient schedule of MWF. Daksha hay K> 5.0 HD with low K bath. ESRD ? Anemia: No indication for ELISEO. ESRD ? MBD: Low phos diet. no change in binder therapy. AMS: neuro eval in progress--if goes for MRI w Pam --make sure its pam 2 and ideally like to do HD after Pam 2 exposure so will consider HD again tomorrow if gets MRI w Pam 2 tonight Time Spent With Patient Time: Total time spent is greater than 50% in coordination of care (as documented) at patient's floor/unit and/or counseling patient: Progress Note: Quality Stroke Does the patient have a stroke diagnosis?: No
[2021-10-17 18:53] LABS: ABG Refer to POC result
[2021-10-17] MEDS: cefTRIAXone sodium 1 GM in 0.9 % Sodium Chloride 50 ML IV (19:52)
[2021-10-17] MEDS: Mirtazapine 15 MG TABLET 30 MG PO (19:53)
[2021-10-17] MEDS: Escitalopram Oxalate 5 MG TABLET PO (19:53)
[2021-10-17 20:58] LABS: Glucose, Whole Blood 145 mg/dL (60-115)
[2021-10-18] VITALS (9 sets, daily range): BP systolic 103–128; BP diastolic 61–71; PULSE 88–107; RESP 16–21; TEMP 35.4–36.9; O2SAT 89–98; BMI 20.5
[2021-10-18] MEDS: 0.9 % Sodium Chloride Flush 3 ML SYRINGE IVFLUSH ×4 (01:37→20:17)
[2021-10-18] MEDS: ALPRAZolam 0.5 MG TABLET PO ×2 (04:35→20:17)
[2021-10-18] MEDS: Heparin Sodium,Porcine 5,000 UNIT/ML VIAL 5000 UNIT SUBCUT ×3 (05:48→22:16)
[2021-10-18 06:55] LABS: Hematocrit 44.6 % (42.0-52.0); Hemoglobin 14.2 g/dl (14.0-18.0); Mean Corpuscular HGB Conc 31.8 g/dl (31.0-36.0); Mean Corpuscular Hemoglobin 30.5 pg (27.0-33.0); Mean Corpuscular Volume 95.7 fL (80.0-98.0); Mean Platelet Volume 10.6 fL (9.4-12.4); Platelet Count 95 X10*3/uL (160-400); Red Blood Count 4.66 X10*6/uL (4.60-5.80); Red Cell Distribution Width 19.4 % (11.0-16.0); White Blood Count 5.9 X10*3/uL (4.8-10.8)
[2021-10-18 06:56] LABS: NRBC Pct Auto 5.4 /100WBC (0.0-0.2)
[2021-10-18 07:12] LABS: Anion Gap 22 (12-20); Blood Urea Nitrogen 49 mg/dL (9-16); Carbon Dioxide 18 mmol/L (22-29); Chloride 98 mmol/L (96-108); Estimated Glomerular Filt Rate 8; Glucose Random 103 mg/dL (60-115); Potassium 4.9 mmol/L (3.3-5.1); Sodium 133 mmol/L (135-145)
[2021-10-18 07:22] LABS: Glucose, Whole Blood 113 mg/dL (60-115)
[2021-10-18] MEDS: Albuterol/Iprat 2.5/0.5MG 3 ML AMPUL.NEB INHALE ×4 (07:31→18:50)
[2021-10-18] MEDS: Aspirin Enteric Coated 81 MG TABLET.DR PO (09:24)
[2021-10-18] MEDS: Midodrine HCl 10 MG TABLET PO ×3 (09:26→18:36)
[2021-10-18] MEDS: Metoclopramide HCl 5 MG TABLET PO ×3 (09:27→20:17)
[2021-10-18] MEDS: busPIRone HCl 5 MG TABLET 15 MG PO ×3 (09:30→20:17)
[2021-10-18] MEDS: Atorvastatin Calcium 40 MG TABLET PO (09:32)
[2021-10-18] MEDS: Omeprazole 20 MG CAPSULE.DR PO (09:32)
[2021-10-18] MEDS: Multivitamin TABLET 1 TAB PO (09:33)
[2021-10-18] MEDS: Sevelamer Carbonate Tablet 800 MG TABLET 2400 MG PO ×3 (09:33→18:36)
[2021-10-18] MEDS: Folic Acid 1 MG TABLET PO (09:38)
[2021-10-18 11:54] LABS: Glucose, Whole Blood 103 mg/dL (60-115)
[2021-10-18] MEDS: methylPREDNISolone Sod Succ 40 MG/ML VIAL IVPUSH (13:20)
--- NOTE | 2021-10-18 13:26 | PM.PNNEP ---
Subjective Subjective Date of Service: 10/18/21 Interval history: seen and examined, events noted very lethargic Physical Exam Vital Signs: Vital Signs: Last Vital Signs Temp 97.5 F 10/18/21 12:05 Pulse 93 10/18/21 12:05 Resp 18 10/18/21 12:05 BP 112/68 10/18/21 12:05 Pulse Ox 94 10/18/21 12:05 Oxygen Flow Rate 3 10/11/21 16:16 BMI result Body Mass Index 20.5 Const: General: cooperative and no acute distress Orientation/consciousness: patient oriented x3 HEENT: Head: Yes normocephalic and Yes atraumatic Neck: Neck: Yes no JVD Resp: Auscultation: clear to auscultation bilaterally and crackles Cardio: Jugular venous distension: no JVD Rate: regular rate Rhythm: regular rhythm Heart sounds: S1 normal heart sound present and S2 normal heart sound present GI: Auscultation: normal bowel sounds Skin: General skin exam: no rashes or lesions noted Neuro: General: patient oriented x3 and no focal motor deficits Extrem: General: Yes no joint enlargement, Yes no clubbing, cyanosis or edema and Yes AV fistula Objective Data Labs CBC & Chem 7: 10/18/21 06:36 10/18/21 06:36 Labs: Laboratory Results - last 24 hr 10/17/21 10/17/21 10/18/21 16:47 20:30 06:36 WBC 5.9 RBC 4.66 Hgb 14.2 Hct 44.6 MCV 95.7 MCH 30.5 MCHC 31.8 RDW 19.4 H Plt Count 95 L MPV 10.6 Absolute Nucleated RBC 0.320 H Nucleated RBC % (auto) 5.4 H Sodium Potassium Chloride Carbon Dioxide Anion Gap BUN Creatinine Estim Creat Clear Calc Estimated GFR POC Glucose 115 145 H Random Glucose Calcium 10/18/21 10/18/21 10/18/21 06:36 07:11 11:51 WBC RBC Hgb Hct MCV MCH MCHC RDW Plt Count MPV Absolute Nucleated RBC Nucleated RBC % (auto) Sodium 133 L Potassium 4.9 D Chloride 98 Carbon Dioxide 18 L Anion Gap 22 H BUN 49 H Creatinine 6.73 H* Estim Creat Clear Calc 9.0 Estimated GFR 8 POC Glucose 113 103 Random Glucose 103 Calcium 10.0 D Microbiology Microbiology Results: Microbiology 10/12/21 00:02 Blood - Venous Blood Culture - Final No growth after 5 days. 10/12/21 00:02 Blood - Venous Blood Culture - Final No growth after 5 days. Procedures Date of Service Date of Service: 10/18/21 Assessment & Plan Assessment and plan (1) Acute and chronic respiratory failure with hypoxia: Status: Acute (2) Liver cancer: Status: Acute (3) ESRD (end stage renal disease): Status: Acute Assessment and Plan: ESRD on HD-? HD per outpatient schedule of MWF. Daksha hay K> 5.0 HD with low K bath. ESRD ? Anemia: No indication for ELISEO. ESRD ? MBD: Low phos diet. no change in binder therapy. AMS: neuro eval in progress- REC: cont HD 3x/wk; await neuro eval Time Spent With Patient Time: Total time spent is greater than 50% in coordination of care (as documented) at patient's floor/unit and/or counseling patient: Progress Note: Quality Stroke Does the patient have a stroke diagnosis?: No
--- NOTE | 2021-10-18 14:25 | P.PNIM_ITS ---
Subjective Subjective Date of Service: 10/18/21 Review of Systems Follow up patient sleepy but answering some questions not feeling well, difficult to get full ROS due to lethargy Physical Exam Vital Signs: Vital Signs: Last Vital Signs Temp 97.5 F 10/18/21 12:05 Pulse 93 10/18/21 12:05 Resp 18 10/18/21 12:05 BP 112/68 10/18/21 12:05 Pulse Ox 94 10/18/21 12:05 Oxygen Flow Rate 3 10/11/21 16:16 BMI result Body Mass Index 20.5 Objective Data Active Medications Acetaminophen (Acetaminophen 325 Mg Tablet) 650 mg PO Q6H PRN PRN Reason: Pain, Mild (Pain Scale 1-3) Last Admin: 10/15/21 03:52 Dose: 650 mg Documented by: AMELIA Albuterol/Ipratropium (Albuterol/Iprat 2.5/0.5mg 3 Ml Ampul.Neb) 3 ml INHALE Q4H PRN PRN Reason: Shortness of Breath/Wheezing Last Admin: 10/16/21 01:05 Dose: 3 ml Documented by: KYLAH Albuterol/Ipratropium (Albuterol/Iprat 2.5/0.5mg 3 Ml Ampul.Neb) 3 ml INHALE RQ4H WHILE AWAKE [facility] Last Admin: 10/18/21 12:02 Dose: 3 ml Documented by: LEDY Aspirin (Aspirin Enteric Coated 81 Mg Tablet.Dr) 81 mg PO DAILY [facility] Last Admin: 10/18/21 09:24 Dose: 81 mg Documented by: RENETTA Atorvastatin Calcium (Atorvastatin Calcium 40 Mg Tablet) 40 mg PO DAILY [facility] Last Admin: 10/18/21 09:32 Dose: 40 mg Documented by: RENETTA Buspirone HCl (Buspirone Hcl 5 Mg Tablet) 15 mg PO TID [facility] Last Admin: 10/18/21 09:30 Dose: 15 mg Documented by: RENETTA Docusate Sodium (Docusate Sodium 100 Mg Capsule) 100 mg PO BID PRN PRN Reason: constipation Doxycycline Hyclate (Doxycycline Hyclate 100 Mg Tablet) 100 mg PO Q12H [facility] Last Admin: 10/18/21 13:19 Dose: 100 mg Documented by: RENETTA Ergocalciferol (Ergocalciferol (Vitamin D2) 1,250 Mcg Capsule) 1,250 mcg PO Q15D [facility] Escitalopram Oxalate (Escitalopram Oxalate 5 Mg Tablet) 5 mg PO BEDTIME [facility] Last Admin: 10/17/21 19:53 Dose: 5 mg Documented by: KIKI Folic Acid (Folic Acid 1 Mg Tablet) 1 mg PO DAILY [facility] Last Admin: 10/18/21 09:38 Dose: 1 mg Documented by: RENETTA Heparin Sodium (Porcine) (Heparin Sodium,Porcine 5,000 Unit/Ml Vial) 5,000 unit SUBCUT Q8H [facility] Last Admin: 10/18/21 05:48 Dose: 5,000 unit Documented by: KITTY Ceftriaxone Sodium 1 gm/ (Sodium Chloride) 50 mls @ 100 mls/hr IV Q24H [facility] Last Infusion: 10/17/21 20:33 Dose: 0 mls/hr Documented by: KIKI Melatonin (Melatonin 3 Mg Tablet) 6 mg PO BEDTIME PRN PRN Reason: Insomnia Methylprednisolone Sodium Succinate (Methylprednisolone Sod Succ 40 Mg/Ml Vial) 40 mg IVPUSH Q24H [facility] Last Admin: 10/18/21 13:20 Dose: 40 mg Documented by: RENETTA Metoclopramide HCl (Metoclopramide Hcl 5 Mg Tablet) 5 mg PO TID [facility] Last Admin: 10/18/21 09:27 Dose: 5 mg Documented by: RENETTA Midodrine (Midodrine Hcl 10 Mg Tablet) 10 mg PO TIDWM [facility] Last Admin: 10/18/21 13:20 Dose: 10 mg Documented by: RENETTA Mirtazapine (Mirtazapine 15 Mg Tablet) 30 mg PO BEDTIME [facility] Last Admin: 10/17/21 19:53 Dose: 30 mg Documented by: KIKI Multivitamins/Vitamin C (Multivitamin Tablet) 1 tab PO DAILY [facility] Last Admin: 10/18/21 09:33 Dose: 1 tab Documented by: RENETTA Omeprazole (Omeprazole 20 Mg Capsule.) 20 mg PO DAILY [facility] Last Admin: 10/18/21 09:32 Dose: 20 mg Documented by: RENETTA Senna (Sennosides 8.6 Mg Tablet) 17.2 mg PO BEDTIME PRN PRN Reason: Constipation Sevelamer Carbonate (Sevelamer Carbonate Tablet 800 Mg Tablet) 2,400 mg PO TIDWM [facility] Last Admin: 10/18/21 13:20 Dose: 2,400 mg Documented by: RENETTA Sodium Chloride (0.9 % Sodium Chloride Flush 3 Ml Syringe) 3 ml IVFLUSH QSHIFT [facility] Last Admin: 10/18/21 09:36 Dose: 3 ml Documented by: RENETTA Labs CBC & Chem 7: 10/18/21 06:36 10/18/21 06:36 Labs: Laboratory Results - last 24 hr 10/17/21 10/17/21 10/18/21 16:47 20:30 06:36 MCV 95.7 MCH 30.5 MCHC 31.8 RDW 19.4 H Plt Count 95 L MPV 10.6 Absolute Nucleated RBC 0.320 H Nucleated RBC % (auto) 5.4 H Anion Gap Estim Creat Clear Calc Estimated GFR POC Glucose 115 145 H Random Glucose Calcium 10/18/21 10/18/21 10/18/21 06:36 07:11 11:51 MCV MCH MCHC RDW Plt Count MPV Absolute Nucleated RBC Nucleated RBC % (auto) Anion Gap 22 H Estim Creat Clear Calc 9.0 Estimated GFR 8 POC Glucose 113 103 Random Glucose 103 Calcium 10.0 D Assessment and Plan (1) Acute and chronic respiratory failure with hypoxia: Status: Acute (2) Lung cancer: Status: Chronic (3) COPD (chronic obstructive pulmonary disease): Status: Acute Plan ?65-year-old male with a past history of hypertension, hyperlipidemia, COPD on 2 L of home oxygen, history of liver cancer, anxiety, depression, ESRD on hemodialysis presented to the hospital today with a chief complaint of shortness of breath.? Acute encephalopathy related to brain mets ABG with no CO2 retention, ammonia level 30 new calcification to left parietal lobe questionable for mets home dose of xanax d/c until mental status improves Acute on chronic hypoxic respiratory failure. Secondary to left lower lobe pneumonia and progressing lung cancer CT scan of the chest showing progression of his lung cancer with a new lesion of the liver Continue IV ceftriaxone and doxycycline Blood cultures negative Wean oxygen down as tolerated to baseline of 2-3 L metastatic lung cancer Liver Mets from before with a new spot noticed on this admission Patient on palliative care per most recent notes from primary physician nutrition evaluation Oncology team input appreciated, no suggested treatment for now, to follow-up with his oncologist at [facility] discussed advancement of cancer with family COPD exacerbation having more wheezes suggestive of exacerbation Anais ATC and p.r.n continue steroids IV Thrombocytopenia chronic. platelets at baseline lactic acidosis secondary to liver disease likely, Not a result of of sepsis DC IV fluids Physical deconditioning PT suggested home with VNA ESRD HD MWF Nephrology consult Continue home sevelamer,? ?Midodrine history of anxiety/ depression Continue home escitalopram, alprazolam, mirtazapine DVT prophylaxis:? Subcu heparin Code status:? Given worsening mental status and hypoxia, discussed with daughter patricia listed as HCP and son at bedside about code status. they have opted to change his code status to DNR/DNI. They understand he is very ill and has an overall poor prognosis. If he does not improve they will consider comfort care. Attending: dr. akbar needs ongoing hospital stay to finish treatment of pneumonia, IV steroids and dyspnea to prevent further decompensation into respiratory failure or sepsis. Quality Stroke Does the patient have a stroke diagnosis?: No VTE Prior VTE?: No VTE Risk Level:: Medical - moderate - high VTE Device Contraindication: Treatment Not Indicated VTE Drug Contraindication: N/A - Med Ordered
[2021-10-18] MEDS: Acetaminophen 325 MG TABLET 650 MG PO (15:17)
[2021-10-18 15:32] LABS: Glucose, Whole Blood 114 mg/dL (60-115)
[2021-10-18 19:33] LABS: Glucose, Whole Blood 105 mg/dL (60-115)
[2021-10-18] MEDS: cefTRIAXone sodium 1 GM in 0.9 % Sodium Chloride 50 ML IV (20:16)
[2021-10-18] MEDS: Escitalopram Oxalate 5 MG TABLET PO (20:17)
[2021-10-18] MEDS: Mirtazapine 15 MG TABLET 30 MG PO (20:17)
[2021-10-19] VITALS (7 sets, daily range): BP systolic 87–103; BP diastolic 57–64; PULSE 74–92; RESP 15–23; TEMP 36.2–36.9; O2SAT 91–94
[2021-10-19] MEDS: Melatonin 3 MG TABLET 6 MG PO (01:47)
[2021-10-19] MEDS: Heparin Sodium,Porcine 5,000 UNIT/ML VIAL 5000 UNIT SUBCUT (06:27)
[2021-10-19] MEDS: Albuterol/Iprat 2.5/0.5MG 3 ML AMPUL.NEB INHALE ×2 (07:30→17:10)
[2021-10-19 08:11] LABS: Glucose, Whole Blood 86 mg/dL (60-115)
[2021-10-19] MEDS: 0.9 % Sodium Chloride Flush 3 ML SYRINGE IVFLUSH ×2 (09:21→17:18)
[2021-10-19] MEDS: Folic Acid 1 MG TABLET PO (09:21)
[2021-10-19] MEDS: busPIRone HCl 5 MG TABLET 15 MG PO (09:21)
[2021-10-19] MEDS: Sevelamer Carbonate Tablet 800 MG TABLET 2400 MG PO (09:21)
[2021-10-19] MEDS: Midodrine HCl 10 MG TABLET PO (09:22)
[2021-10-19] MEDS: Atorvastatin Calcium 40 MG TABLET PO (09:22)
[2021-10-19] MEDS: Omeprazole 20 MG CAPSULE.DR PO (09:23)
[2021-10-19] MEDS: Metoclopramide HCl 5 MG TABLET PO (09:23)
[2021-10-19] MEDS: Aspirin Enteric Coated 81 MG TABLET.DR PO (09:23)
[2021-10-19] MEDS: Multivitamin TABLET 1 TAB PO (09:23)
--- NOTE | 2021-10-19 11:02 | P.PNIM_ITS ---
Subjective Subjective Date of Service: 10/19/21 Review of Systems Follow up encephalopathy lethargic today not feeling well, difficult to get full ROS due to lethargy Physical Exam Vital Signs: Vital Signs: Last Vital Signs Temp 97.2 F 10/19/21 07:52 Pulse 86 10/19/21 07:52 Resp 15 10/19/21 07:52 BP 97/64 10/19/21 07:52 Pulse Ox 92 10/19/21 07:52 Oxygen Flow Rate 3 10/11/21 16:16 BMI result Body Mass Index 20.5 Appearing in no acute distress jaundiced lung sounds diminished heart regular rate rhythm, clear S1, S2 positive bowel sounds, abdomen is soft, nontender neuro patient is lethargic Objective Data Active Medications Acetaminophen (Acetaminophen 325 Mg Tablet) 650 mg PO Q6H PRN PRN Reason: Pain, Mild (Pain Scale 1-3) Last Admin: 10/18/21 15:17 Dose: 650 mg Documented by: RENETTA Albuterol/Ipratropium (Albuterol/Iprat 2.5/0.5mg 3 Ml Ampul.Neb) 3 ml INHALE RQ4H WHILE AWAKE [facility] Last Admin: 10/19/21 07:30 Dose: 3 ml Documented by: LEDY Aspirin (Aspirin Enteric Coated 81 Mg Tablet.) 81 mg PO DAILY [facility] Last Admin: 10/19/21 09:23 Dose: 81 mg Documented by: ETHEL Atorvastatin Calcium (Atorvastatin Calcium 40 Mg Tablet) 40 mg PO DAILY [facility] Last Admin: 10/19/21 09:22 Dose: 40 mg Documented by: ETHEL Buspirone HCl (Buspirone Hcl 5 Mg Tablet) 15 mg PO TID [facility] Last Admin: 10/19/21 09:21 Dose: 15 mg Documented by: ETHEL Docusate Sodium (Docusate Sodium 100 Mg Capsule) 100 mg PO BID PRN PRN Reason: constipation Ergocalciferol (Ergocalciferol (Vitamin D2) 1,250 Mcg Capsule) 1,250 mcg PO Q15D [facility] Escitalopram Oxalate (Escitalopram Oxalate 5 Mg Tablet) 5 mg PO BEDTIME [facility] Last Admin: 10/18/21 20:17 Dose: 5 mg Documented by: KITTY Folic Acid (Folic Acid 1 Mg Tablet) 1 mg PO DAILY [facility] Last Admin: 10/19/21 09:21 Dose: 1 mg Documented by: ETHEL Heparin Sodium (Porcine) (Heparin Sodium,Porcine 5,000 Unit/Ml Vial) 5,000 unit SUBCUT Q8H [facility] Last Admin: 10/19/21 06:27 Dose: 5,000 unit Documented by: TYRONE Ceftriaxone Sodium 1 gm/ (Sodium Chloride) 50 mls @ 100 mls/hr IV Q24H [facility] Last Infusion: 10/18/21 20:58 Dose: 0 mls/hr Documented by: KITTY Melatonin (Melatonin 3 Mg Tablet) 6 mg PO BEDTIME PRN PRN Reason: Insomnia Last Admin: 10/19/21 01:47 Dose: 6 mg Documented by: TYRONE Methylprednisolone Sodium Succinate (Methylprednisolone Sod Succ 40 Mg/Ml Vial) 40 mg IVPUSH Q24H [facility] Last Admin: 10/18/21 13:20 Dose: 40 mg Documented by: RENETTA Metoclopramide HCl (Metoclopramide Hcl 5 Mg Tablet) 5 mg PO TID [facility] Last Admin: 10/19/21 09:23 Dose: 5 mg Documented by: ETHEL Midodrine (Midodrine Hcl 10 Mg Tablet) 10 mg PO TIDWM [facility] Last Admin: 10/19/21 09:22 Dose: 10 mg Documented by: ETHEL Mirtazapine (Mirtazapine 15 Mg Tablet) 30 mg PO BEDTIME [facility] Last Admin: 10/18/21 20:17 Dose: 30 mg Documented by: KITTY Multivitamins/Vitamin C (Multivitamin Tablet) 1 tab PO DAILY [facility] Last Admin: 10/19/21 09:23 Dose: 1 tab Documented by: ETHEL Omeprazole (Omeprazole 20 Mg Capsule.Dr) 20 mg PO DAILY [facility] Last Admin: 10/19/21 09:23 Dose: 20 mg Documented by: ETHEL Senna (Sennosides 8.6 Mg Tablet) 17.2 mg PO BEDTIME PRN PRN Reason: Constipation Sevelamer Carbonate (Sevelamer Carbonate Tablet 800 Mg Tablet) 2,400 mg PO TIDWM [facility] Last Admin: 10/19/21 09:21 Dose: 2,400 mg Documented by: ETHEL Sodium Chloride (0.9 % Sodium Chloride Flush 3 Ml Syringe) 3 ml IVFLUSH QSHIFT [facility] Last Admin: 10/19/21 09:21 Dose: 3 ml Documented by: ETHEL Labs CBC & Chem 7: 10/18/21 06:36 10/18/21 06:36 Labs: Laboratory Results - last 24 hr 10/18/21 10/18/21 10/18/21 11:51 15:28 19:29 POC Glucose 103 114 105 10/19/21 07:59 POC Glucose 86 Assessment and Plan (1) Acute and chronic respiratory failure with hypoxia: Status: Acute (2) Lung cancer: Status: Chronic (3) COPD (chronic obstructive pulmonary disease): Status: Acute Plan 65-year-old male with a past history of hypertension, hyperlipidemia, COPD on 2 L of home oxygen, history of liver cancer, anxiety, depression, ESRD on hemodialysis presented to the hospital today with a chief complaint of shortness of breath.? 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 Secondary to left lower lobe pneumonia and progressing lung cancer #metastatic lung cancer Liver Mets from before with a new spot noticed on this admission #COPD exacerbation #Thrombocytopenia chronic. platelets at baseline #lactic acidosis #ESRD. stopped #history of anxiety/ depression DVT prophylaxis:? Subcu heparin Attending Dr. Carrizales Code status:? Given worsening mental status and hypoxia, discussed with daughter patricia listed as HCP and son at bedside about code status. 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 Plan is for tx to facility for hospice Quality Stroke Does the patient have a stroke diagnosis?: No VTE Prior VTE?: No VTE Risk Level:: Medical - moderate - high VTE Device Contraindication: Treatment Not Indicated VTE Drug Contraindication: N/A - Med Ordered
--- NOTE | 2021-10-19 11:26 | W.MHC.ACPN ---
Advanced Care Planning Note Advanced Care Planning Note Discussed with: family member(s) (Daughter Socorro ) Time spent (in minutes): 30 Narrative: discussed patient's poor prognosis and worsening condition. patient's daughter is aware and would like for patient to be enrolled in hospice and be transferred to a facility as she is unable to care for him in the home. After long discussion she has decided to make the patient comfort measures only understanding that dialysis treatments. As well as all medications and unnecessary diagnostic and laboratory testing. Problems Discussed (1) Acute and chronic respiratory failure with hypoxia: (2) Lung cancer: (3) COPD (chronic obstructive pulmonary disease):
--- NOTE | 2021-10-19 11:27 | MHC.CM.PN ---
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 SHE REPORTS SHE LIVES IN [place] AND HOPES HE WILL BE CLOSE BY. AFTER SOME DISCUSSION, SHE REQUESTS REFERRALS TO [facility] AND [facility]. REFERRALS PLACED. PLAN IS TO DC PT TO SNF WITH A PLAN FOR HIM TO TRANSITION TO HOSPICE ONCE THERE.
[2021-10-19] MEDS: Scopolamine 1.5 MG PATCH.TD.3 EAR-BEHIND (14:22)
--- NOTE | 2021-10-19 17:50 | PM.PNNEP ---
Subjective Subjective Date of Service: 10/19/21 Interval history: seen and examined, events noted Physical Exam Vital Signs: Vital Signs: Last Vital Signs Temp 98.4 F 10/19/21 15:24 Pulse 84 10/19/21 17:14 Resp 20 10/19/21 17:14 BP 87/58 L 10/19/21 15:24 Pulse Ox 93 10/19/21 15:24 Oxygen Flow Rate 3 10/11/21 16:16 BMI result Body Mass Index 20.5 Const: General: cooperative and no acute distress Orientation/consciousness: patient oriented x3 HEENT: Head: Yes normocephalic and Yes atraumatic Neck: Neck: Yes no JVD Resp: Auscultation: clear to auscultation bilaterally and crackles Cardio: Jugular venous distension: no JVD Rate: regular rate Rhythm: regular rhythm Heart sounds: S1 normal heart sound present and S2 normal heart sound present GI: Auscultation: normal bowel sounds Skin: General skin exam: no rashes or lesions noted Neuro: General: patient oriented x3 and no focal motor deficits Extrem: General: Yes no joint enlargement, Yes no clubbing, cyanosis or edema and Yes AV fistula Objective Data Labs CBC & Chem 7: 10/18/21 06:36 10/18/21 06:36 Labs: Laboratory Results - last 24 hr 10/18/21 10/19/21 19:29 07:59 POC Glucose 105 86 Microbiology Microbiology Results: Microbiology 10/12/21 00:02 Blood - Venous Blood Culture - Final No growth after 5 days. 10/12/21 00:02 Blood - Venous Blood Culture - Final No growth after 5 days. Procedures Date of Service Date of Service: 10/19/21 Assessment & Plan Assessment and plan (1) Acute and chronic respiratory failure with hypoxia: Status: Acute (2) Liver cancer: Status: Acute (3) ESRD (end stage renal disease): Status: Acute Assessment and Plan: ESRD on HD-? HD per outpatient schedule of MWF. Daksha hay K> 5.0 HD with low K bath. ESRD ? Anemia: No indication for ELISEO. ESRD ? MBD: Low phos diet. no change in binder therapy. AMS: neuro eval in progress- REC: cont HD 3x/wk; await neuro eval completionn Time Spent With Patient Time: Total time spent is greater than 50% in coordination of care (as documented) at patient's floor/unit and/or counseling patient: Progress Note: Quality Stroke Does the patient have a stroke diagnosis?: No
[2021-10-19 20:51] LABS: Glucose, Whole Blood 99 mg/dL (60-115)
[2021-10-19] MEDS: LORazepam 2 MG/ML VIAL 1 MG IVPUSH (22:40)
[2021-10-20] VITALS (7 sets, daily range): BP systolic 103–105; BP diastolic 63–74; PULSE 82–83; RESP 13–25; TEMP 36.1–37.1; O2SAT 92–93
[2021-10-20] MEDS: LORazepam 2 MG/ML VIAL 1 MG IVPUSH ×2 (05:24→11:27)
[2021-10-20] MEDS: Albuterol/Iprat 2.5/0.5MG 3 ML AMPUL.NEB INHALE ×2 (07:27→11:24)
[2021-10-20] MEDS: 0.9 % Sodium Chloride Flush 3 ML SYRINGE IVFLUSH ×2 (10:06→15:36)
--- NOTE | 2021-10-20 12:26 | HO.PM.IMPN ---
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 today Physical Exam Vital Signs: Vital Signs: Last Vital Signs Temp 97 F 10/20/21 00:00 Pulse 83 10/20/21 11:26 Resp 13 10/20/21 11:55 BP 105/63 10/20/21 00:00 Pulse Ox 92 10/20/21 00:00 Oxygen Flow Rate 3 10/11/21 16:16 BMI result Body Mass Index 20.5 Appearing in no acute distress breathing comfortably Objective Data Active Medications Albuterol/Ipratropium (Albuterol/Iprat 2.5/0.5mg 3 Ml Ampul.Neb) 3 ml INHALE RQ4H WHILE AWAKE [facility] Last Admin: 10/20/21 11:24 Dose: 3 ml Documented by: RAJAN Lorazepam (Lorazepam 2 Mg/Ml Vial) 1 mg IVPUSH Q4H PRN PRN Reason: anxiety Last Admin: 10/20/21 11:27 Dose: 1 mg Documented by: TAJ Morphine Sulfate (Morphine Sulfate 2 Mg/Ml Cartridge) 2 mg IVPUSH Q4H PRN PRN Reason: Discomfort/Shortness of breath Scopolamine (Scopolamine 1.5 Mg Patch.Td.3) 1.5 mg EAR-BEHIND Q72H [facility] Last Admin: 10/19/21 14:22 Dose: 1.5 mg Documented by: ETHEL Sodium Chloride (0.9 % Sodium Chloride Flush 3 Ml Syringe) 3 ml IVFLUSH QSHIFT [facility] Last Admin: 10/20/21 10:06 Dose: 3 ml Documented by: TAJ Labs CBC & Chem 7: 10/18/21 06:36 10/18/21 06:36 Labs: Laboratory Results - last 24 hr 10/19/21 20:45 POC Glucose 99 Assessment and Plan (1) Acute and chronic respiratory failure with hypoxia: Status: Acute (2) Lung cancer: Status: Chronic (3) COPD (chronic obstructive pulmonary disease): Status: Acute Plan 65-year-old male with a past history of hypertension, hyperlipidemia, COPD on 2 L of home oxygen, history of liver cancer, anxiety, depression, ESRD on hemodialysis presented to the hospital today with a chief complaint of shortness of breath.? 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 Secondary to left lower lobe pneumonia and progressing lung cancer #metastatic lung cancer Liver Mets from before with a new spot noticed on this admission #COPD exacerbation #Thrombocytopenia chronic. platelets at baseline #lactic acidosis #ESRD. stopped #history of anxiety/ depression DVT prophylaxis:? Subcu heparin Attending Dr. Del Cid Code status:? Given worsening mental status and hypoxia, discussed with daughter patricia listed as HCP and son at bedside about code status. 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 Plan is for tx to facility for hospice Quality Stroke Does the patient have a stroke diagnosis?: No VTE Prior VTE?: No VTE Risk Level:: Medical - moderate - high VTE Device Contraindication: Treatment Not Indicated VTE Drug Contraindication: N/A - Med Ordered
[2021-10-21 05:47] VITALS: RESP 18
[2021-10-21] MEDS: Morphine Sulfate 2 MG/ML CARTRIDGE IVPUSH ×2 (05:47→23:53)
[2021-10-21 07:21] VITALS: RESP 14
--- NOTE | 2021-10-21 10:51 | MHC.CLN ---
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 PLAN TO TRANSFER TO SNF AND TRANSITION TO HOSPICE CARE. POOR INTAKE X 4 DAYS. DIET LIBERALIZED TO REGULAR TO PROMOTE INTAKE/PROVIDE PREFERENCES. CONTINUE ENSURE CLEAR TID TO INCREASE INTAKE (PROVIDES 720 KCAL, 24 G PROTEIN).
--- NOTE | 2021-10-21 11:02 | P.PNIM_ITS ---
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 Appearing in no acute distress ?breathing comfortably Objective Data Active Medications Lorazepam (Lorazepam 2 Mg/Ml Vial) 1 mg IVPUSH Q4H PRN PRN Reason: anxiety Last Admin: 10/20/21 11:27 Dose: 1 mg Documented by: TAJ Morphine Sulfate (Morphine Sulfate 2 Mg/Ml Cartridge) 2 mg IVPUSH Q4H PRN PRN Reason: Discomfort/Shortness of breath Last Admin: 10/21/21 05:47 Dose: 2 mg Documented by: YSEI Scopolamine (Scopolamine 1.5 Mg Patch.Td.3) 1.5 mg EAR-BEHIND Q72H [facility] Last Admin: 10/19/21 14:22 Dose: 1.5 mg Documented by: ETHEL Sodium Chloride (0.9 % Sodium Chloride Flush 3 Ml Syringe) 3 ml IVFLUSH QSHIFT [facility] Last Admin: 10/20/21 23:51 Dose: Not Given Documented by: YESI Non-Admin Reason: Patient Asleep Labs CBC & Chem 7: 10/18/21 06:36 10/18/21 06:36 Assessment and Plan (1) Acute and chronic respiratory failure with hypoxia: Status: Acute (2) Lung cancer: Status: Chronic (3) COPD (chronic obstructive pulmonary disease): Status: Acute Plan 65-year-old male with a past history of hypertension, hyperlipidemia, COPD on 2 L of home oxygen, history of liver cancer, anxiety, depression, ESRD on hemodialysis presented to the hospital today with a chief complaint of shortness of breath.? 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 Secondary to left lower lobe pneumonia and progressing lung cancer #metastatic lung cancer Liver Mets from before with a new spot noticed on this admission #COPD exacerbation #Thrombocytopenia chronic. platelets at baseline #lactic acidosis #ESRD. stopped #history of anxiety/ depression DVT prophylaxis:? Subcu heparin Attending Dr. Gomez Code status:? Given worsening mental status and hypoxia, discussed with daughter patricia listed as HCP and son at bedside about code status. 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 Plan is for tx to facility for hospice Quality Stroke Does the patient have a stroke diagnosis?: No VTE Prior VTE?: No VTE Risk Level:: Medical - moderate - high VTE Device Contraindication: Treatment Not Indicated VTE Drug Contraindication: N/A - Med Ordered
[2021-10-21 11:46] VITALS: RESP 12
[2021-10-21 16:00] VITALS: RESP 13
--- NOTE | 2021-10-21 16:00 | P.DS_ITS ---
DS: Providers Provider Date of admission: 10/11/21 22:07 Primary care physician: Cherrie Cooper MD Consults: 10/11/21 22:11 Consult to Nephrology Routine Consulting Provider: Santosh Ballesteros Reason for consultation: esrd 10/13/21 15:30 Consult to Hematology / Oncology Routine Consulting Provider: Keeley Mendosa Reason for consultation: dyspnea, increase pulm nodules and lung mass for yo ur eval Has provider been notified: No 10/17/21 15:46 Consult to Neurology Routine Consulting Provider: [facility] Reason for consultation: brain lesion, mets vs stroke Has provider been notified: No DS: Diagnosis Discharge Diagnosis (1) Acute and chronic respiratory failure with hypoxia: Status: Acute (2) Lung cancer: Status: Chronic (3) COPD (chronic obstructive pulmonary disease): Status: Acute DS: Summary Hospital Course Hospital Course: HP as per admitting provider 65-year-old male with a past history of h ypertension, hyperlipidemia, COPD on 2 L of home oxygen, history of liver cancer, anxiety, depression, ESRD on hemodialysis presented to the hospital today with a chief complaint of shortness of breath.? Patient reports that over the past 1 week he has been having cough and shortness of breath with occasional brownish sputum production. ? also complains of subjective fevers.? Reports that his shortness of breath has been gradually worsening and he could not take it anymore hence decided to come to the ER for further evaluation.?Patient does report posttussive chest discomfort.?Denies any lightheadedness or dizziness.? Reports he is on a hemodialysis.?Denies? any numbness tingling or focal weakness.?Denies any GI symptoms.?Review of all other systems is negative except mentioned above ER course: Per ER team patient noted of coarse breath sounds; occasional expiratory wheezes; patient was noted to be saturating 88% on his baseline 2 L of home oxygen; oxygen? supplementation was increased to 4 L panic: Oxygenation improved to 93%; chest x-ray showed findings concerning for possible pneumonia and small pleural effusion.? Given antibiotics.? Admitted to the hospital for further management . 65-year-old male with a past history of hypertension, hyperlipidemia, COPD on 2 L of home oxygen, history of liver cancer, anxiety, depression, ESRD on hemodialysis presented to the hospital today with a chief complaint of shortness of breath.? discussed patient's poor prognosis and worsening condition. ? patient's daughter is aware and would like for patient to be enrolled in hospice and be transferred to a facility as she is unable to care for him in the home.? After long discussion she has decided to make the patient comfort measures only understanding that dialysis treatments.? As well as all medications and unnecessary diagnostic and laboratory testing. 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 Secondary to left lower lobe pneumonia and progressing lung cancer #metastatic lung cancer Liver Mets from before with a new spot noticed on this admission #COPD exacerbation #Thrombocytopenia chronic. platelets at baseline #lactic acidosis #ESRD. stopped #history of anxiety/ depression Time Spent with Patient Time attestation: Total time spent providing and/or coordinating discharge services: Physical Exam Vital Signs: Vital Signs: Last Vital Signs Temp 98.7 F 10/20/21 15:38 Pulse 83 10/20/21 11:26 Resp 12 10/21/21 11:46 BP 103/74 10/20/21 15:38 Pulse Ox 92 10/20/21 00:00 Oxygen Flow Rate 3 10/11/21 16:16 BMI result Body Mass Index 20.5 DS: Data Data Completed and Pending Completed studies during hospitalization [Text1]: Procedures Performance of Urinary Filtration, Intermittent, Less than 6 Hours Per Day (07/30/20) Discharge Plan Discharge Referrals: Cherrie Bunn MD [Primary Care Provider] - 1 Week Discharge Medications: No Action ergocalciferol (vitamin D2) [Vitamin D2] 1,250 mcg (50,000 unit) capsule 1,250 mcg PO Q15D 90 Days Qty: 6 1RF metoclopramide HCl [Reglan] 5 mg tablet 5 mg PO TID 30 Days Qty: 90 3RF aspirin 81 mg tablet,delayed release (DR/EC) 81 mg PO DAILY Qty: 90 3RF fluticasone propion-salmeterol [Wixela Inhub] 250-50 mcg/dose blister with device 1 inh inhalation BID 30 Days Qty: 60 6RF docusate sodium 100 mg capsule 100 mg PO BID PRN (Reason: constipation) 30 Days Qty: 60 6RF midodrine 5 mg tablet 5 mg PO TID 30 Days Qty: 90 0RF Rx Instructions: do not give last dose of day after 6PM or within 4 hrs of bedtime Take 1 tab the day of hemodialysis and 0.5 tab all the other days mirtazapine 30 mg tablet 30 mg PO BEDTIME 90 Days Qty: 90 3RF multivitamin Tablet 1 tab PO DAILY 90 Days Qty: 90 3RF buspirone 15 mg tablet 15 mg PO TID 30 Days Qty: 90 3RF folic acid 1 mg tablet 1 mg PO DAILY 90 Days Qty: 90 1RF pantoprazole 40 mg tablet,delayed release (DR/EC) 40 mg PO DAILY 90 Days Qty: 90 3RF lidocaine-prilocaine 2.5-2.5 % cream 1 appl topical DAILY PRN (Reason: dialysis) 0RF sevelamer carbonate 800 mg tablet 2,400 mg PO TIDWM 0RF alprazolam 0.5 mg tablet 1 tab PO TID PRN (Reason: anxiety) 0RF simethicone [Gas Relief (simethicone)] 125 mg capsule 125 mg PO QID PRN (Reason: abdominal distention) 0RF escitalopram oxalate 5 mg tablet 1 tab PO BEDTIME 0RF atorvastatin 40 mg tablet 40 mg PO DAILY Qty: 90 3RF
[2021-10-21 20:00] VITALS: RESP 15
[2021-10-21 23:44] VITALS: RESP 16
[2021-10-22 01:09] VITALS: RESP 12
[2021-10-22] MEDS: 0.9 % Sodium Chloride Flush 3 ML SYRINGE IVFLUSH ×2 (01:09→14:23)
[2021-10-22 04:00] VITALS: RESP 14
[2021-10-22 08:00] VITALS: RESP 12
[2021-10-22 12:00] VITALS: RESP 13
--- NOTE | 2021-10-22 12:34 | P.DS_ITS ---
DS: Providers Provider Date of Service: 10/22/21 Date of admission: 10/11/21 22:07 Primary care physician: Cherrie Cooper MD Consults: 10/11/21 22:11 Consult to Nephrology Routine Consulting Provider: Santosh Ballesteros Reason for consultation: esrd 10/13/21 15:30 Consult to Hematology / Oncology Routine Consulting Provider: Keeley Mendosa Reason for consultation: dyspnea, increase pulm nodules and lung mass for your eval Has provider been notified: No 10/17/21 15:46 Consult to Neurology Routine Consulting Provider: [facility] Reason for consultation: brain lesion, mets vs stroke Has provider been notified: No DS: Diagnosis Discharge Diagnosis (1) Acute and chronic respiratory failure with hypoxia: Status: Acute (2) Lung cancer: Status: Chronic (3) COPD (chronic obstructive pulmonary disease): Status: Acute (4) Hypoxia: Status: Acute (5) Liver cancer: Status: Acute (6) ESRD (end stage renal disease): Status: Acute DS: Summary Hospital Course Hospital Course: HP as per admitting provider 65-year-old male with a past history of hypertension, hyperlipidemia, COPD on 2 L of home oxygen, history of liver cancer, anxiety, depression, ESRD on h emodialysis presented to the hospital today with a chief complaint of shortness of breath.? Patient reports that over the past 1 week he has been having cough and shortness of breath with occasional brownish sputum production. ? also complains of subjective fevers.? Reports that his shortness of breath has been gradually worsening and he could not take it anymore hence decided to come to the ER for further evaluation.?Patient does report posttussive chest discomfort.?Denies any lightheadedness or dizziness.? Reports he is on a hemodialysis.?Denies? any numbness tingling or focal weakness.?Denies any GI symptoms.?Review of all other systems is negative except mentioned above ER course: Per ER team patient noted of coarse breath sounds; occasional expiratory wheezes; patient was noted to be saturating 88% on his baseline 2 L of home oxygen; oxygen? supplementation was increased to 4 L panic: Oxygenation improved to 93%; chest x-ray showed findings concerning for possible pneumonia and small pleural effusion.? Given antibiotics.? Admitted to the hospital for further management . Hospital course the patient was admitted for evaluation of acute on chronic hypoxic respiratory failure secondary to left lower lobe pneumonia. CT scan was done during admission showed progression of left lung cancer with new level read lesion. The patient overall did not feel well in spite of treating him with IV antibiotics as he continued to feel weaker with reporting difficulty breathing with minimal exertion. noticed to have worsening mental status requiring CT scan of the head that showed new calcification to left parietal lobe concerning for possible metastasis. discussed patient's poor prognosis and worsening condition. ? patient's daughter Healthcare proxy is aware and would like for patient to be enrolled in hospice and be transferred to a facility as she is unable to care for him in the home.? After long discussion she has decided to make the patient comfort measures only understanding that dialysis treatments.? As well as all medications and unnecessary diagnostic and laboratory testing. Patient is now [employer] Morphine, ativan, scopalamine as needed to be discharged hospice facility. Time Spent with Patient Time attestation: Total time spent providing and/or coordinating discharge services: Discharge coordination time: Greater than 30 minutes Quality: Safe Use of Opioids Does Pt have an Active Cancer Diagnosis on the Problem List?: Yes Opioid Measure Date for [facility] Report: 09/22/21 Opioid Measure Time for [facility] Report: 14:07 Quality: Stroke Does the patient have a stroke diagnosis?: No Physical Exam Vital Signs: Vital Signs: Last Vital Signs Temp 98.7 F 10/20/21 15:38 Pulse 83 10/20/21 11:26 Resp 13 10/22/21 12:00 BP 103/74 10/20/21 15:38 Pulse Ox 92 10/20/21 00:00 Oxygen Flow Rate 3 10/11/21 16:16 BMI result Body Mass Index 20.5 Const: Other: Constitutional : Alert With stimulation, lethargic Neck : Normal inspection Cardiovascular : no lower extremity edema Respiratory : decreased bilateral air entry, on oxygen supplement Gastrointestinal: soft, lax, Non tender Skin : Warm, Dry Neurological : Alert with stimulation, oriented to self, No focal deficit but overall weakness DS: Data Data Completed and Pending Completed studies during hospitalization [Text1]: Procedures Performance of Urinary Filtration, Intermittent, Less than 6 Hours Per Day (07/30/20) Discharge Plan Discharge Patient Disposition: [facility] Discharge Diagnosis: acute metabolic encephalopathy Acute hypoxic respiratory failure Metastatic lung cancer Referrals: kacey burleson [Other] - 1 Week Cherrie Bunn MD [Primary Care Provider] - 1 Week Discharge Medications: Discontinued metoclopramide HCl [Reglan] 5 mg tablet 5 mg PO TID 30 Days Qty: 90 3RF aspirin 81 mg tablet,delayed release (DR/EC) 81 mg PO DAILY Qty: 90 3RF fluticasone propion-salmeterol [Wixela Inhub] 250-50 mcg/dose blister with device 1 inh inhalation BID 30 Days Qty: 60 6RF docusate sodium 100 mg capsule 100 mg PO BID PRN (Reason: constipation) 30 Days Qty: 60 6RF midodrine 5 mg tablet 5 mg PO TID 30 Days Qty: 90 0RF Rx Instructions: do not give last dose of day after 6PM or within 4 hrs of bedtime Take 1 tab the day of hemodialysis and 0.5 tab all the other days mirtazapine 30 mg tablet 30 mg PO BEDTIME 90 Days Qty: 90 3RF multivitamin Tablet 1 tab PO DAILY 90 Days Qty: 90 3RF buspirone 15 mg tablet 15 mg PO TID 30 Days Qty: 90 3RF folic acid 1 mg tablet 1 mg PO DAILY 90 Days Qty: 90 1RF pantoprazole 40 mg tablet,delayed release (DR/EC) 40 mg PO DAILY 90 Days Qty: 90 3RF ergocalciferol (vitamin D2) [Vitamin D2] 1,250 mcg (50,000 unit) capsule 1,250 mcg PO Q15D 90 Days Qty: 6 1RF lidocaine-prilocaine 2.5-2.5 % cream 1 appl topical DAILY PRN (Reason: dialysis) 0RF sevelamer carbonate 800 mg tablet 2,400 mg PO TIDWM 0RF alprazolam 0.5 mg tablet 1 tab PO TID PRN (Reason: anxiety) 0RF simethicone [Gas Relief (simethicone)] 125 mg capsule 125 mg PO QID PRN (Reason: abdominal distention) 0RF escitalopram oxalate 5 mg tablet 1 tab PO BEDTIME 0RF atorvastatin 40 mg tablet 40 mg PO DAILY Qty: 90 3RF Discharge Orders: Discharge Order (Routine); Ordered 10/22/21 Ordered By: Inna Aburto Activity on Discharge: As tolerated Stand Alone Forms: Patient Portal Discharge page Care Plan Goals: Read below Health Concerns: Read below Plan of Treatment: Read below Assessment: admitted for difficulty breathing and hypoxia. Found to have progression lung cancer with new liver lesion. Decided to focus on comfort measures only as dialysis discontinue with a plan to go to the hospice care facility.
[2021-10-22 13:46] LABS: COVID-19 Test Negative (Negative)
--- NOTE | 2021-10-22 14:07 | MHC.CM.PN ---
pts dgter notified of dc today to [facility]
[2021-10-22] MEDS: Scopolamine 1.5 MG PATCH.TD.3 EAR-BEHIND (14:24)
== END 2021-10-22 14:00 | disposition hospice, inpatient (51) | DRG 193 ==
LOC: HO.ED 22:37 → HO.EDOVER 22:53 → HO.IMC 10-13 13:22
PROVIDERS: Nurse Practitioner Acute Care; Nurse Practitioner Family; Physician Assistant Medical; Admitting Provider Hospitalist; Emergency Provider Emergency Medicine Emergency Medical Services; PCP Internal Medicine; Visit Provider Student in an Organized Health Care Education/Training Program
DX: J18.9 Pneumonia, unspecified organism (principal); J96.21 Acute and chronic respiratory failure with hypoxia; N18.6 End stage renal disease; J44.0 Chronic obstructive pulmonary disease with (acute) lower respiratory infection; I50.32 Chronic diastolic (congestive) heart failure; C34.92 Malignant neoplasm of unspecified part of left bronchus or lung; C34.91 Malignant neoplasm of unspecified part of right bronchus or lung; C78.7 Secondary malignant neoplasm of liver and intrahepatic bile duct; G93.49 Other encephalopathy; I12.0 Hypertensive chronic kidney disease with stage 5 chronic kidney disease or end stage renal disease; E87.2 Acidosis; F33.0 Major depressive disorder, recurrent, mild; J44.1 Chronic obstructive pulmonary disease with (acute) exacerbation; N25.81 Secondary hyperparathyroidism of renal origin; C79.31 Secondary malignant neoplasm of brain; J91.8 Pleural effusion in other conditions classified elsewhere; Z66 Do not resuscitate; Z51.5 Encounter for palliative care; N25.0 Renal osteodystrophy; D69.6 Thrombocytopenia, unspecified; D63.1 Anemia in chronic kidney disease; D63.0 Anemia in neoplastic disease; F41.9 Anxiety disorder, unspecified; Z20.822 Contact with and (suspected) exposure to COVID-19; Z99.81 Dependence on supplemental oxygen; E78.5 Hyperlipidemia, unspecified; Z87.891 Personal history of nicotine dependence; Z79.899 Other long term (current) drug therapy
CPT/HCPCS: 0241U; 36415; 36600; 70450; 71045; 71250; 80048; 80076; 82140; 82803; 82947; 83605; 83690; 83735; 83880; 84484; 85025; 85027; 85610; 85730; 87040; 87635; 90999; 93005; 96361; 96365; 97116; 97162; 97530; 99285; 99291; J0696; J2060; J2270; J2920